=== PATIENT | male | born 1975 | race African-American/Black ===

== ENCOUNTER 2016-12-03 15:58 | Emergency (ER) | payer SELFPAY ==
[2016-12-03 16:04] VITALS: BP 127/76
--- NOTE | 2016-12-03 17:13 | ER Document Report ---
ED General - General Chief Complaint: Breathing Difficulty Stated Complaint: DIFFICULTY BREATHING Mode of Arrival: Ambulatory Information source: Patient Notes: 41 yr old male presents with complaints of anxiety and sob. pt notes he has anxiety very often. pt notes he has a hx of asthma, when he felt sob from the pollen he got anxious and felt even more sob. pt notes he is able ot breath through it and his symptoms all resolved. Patient denies any complaints at this time TRAVEL OUTSIDE OF THE [place] IN LAST 30 DAYS: No - HPI Onset: Just prior to arrival Onset/Duration: Sudden Quality of pain: No pain Severity: Mild Pain Level: Denies Associated symptoms: Shortness of breath, Other - Anxious Exacerbated by: Denies Relieved by: Denies Similar symptoms previously: Yes Recently seen / treated by doctor: Yes - Related Data Allergies/Adverse Reactions: shellfish derived Allergy (Verified 12/03/16 16:01) Past Medical History - Social History Smoking Status: Former Smoker Cigarette use (# per day): No Chew tobacco use (# tins/day): No Smoking Education Provided: No Family History: None Patient has suicidal ideation: No Patient has homicidal ideation: No Pulmonary Medical History: Reports: Hx Asthma - no inhalers Renal/ Medical History: Denies: Hx Peritoneal Dialysis - Immunizations Hx Diphtheria, Pertussis, Tetanus Vaccination: No Review of Systems - Review of Systems Notes: REVIEW OF SYSTEMS: CONSTITUTIONAL : Denies fever, chills, or sweats. Denies recent illness. EENT: Denies eye, ear, throat, or mouth pain or symptoms. Denies nasal or sinus congestion or discharge. Denies throat, tongue, or mouth swelling or difficulty swallowing. CARDIOVASCULAR: Denies chest pain. Denies palpitations or racing or irregular heart beat. Denies ankle edema. RESPIRATORY: Admits shortness breath GASTROINTESTINAL: Denies abdominal pain or distention. Denies nausea, vomiting , or diarrhea. Denies blood in vomitus, stools, or per rectum. Denies black, tarry stools. Denies constipation. GENITOURINARY: Denies difficulty urinating, painful urination, burning, frequency, blood in urine, or discharge. MUSCULOSKELETAL: Denies back or neck pain or stiffness. Denies joint pain or swelling. SKIN: Denies rash, lesions or sores. HEMATOLOGIC : Denies easy bruising or bleeding. LYMPHATIC: Denies swollen, enlarged glands. NEUROLOGICAL: Denies confusion or altered mental status. Denies passing out or loss of consciousness. Denies dizziness or lightheadedness. Denies headache. Denies weakness or paralysis or loss of use of either side. Denies problems with gait or speech. Denies sensory loss, numbness, or tingling. Denies seizures. PSYCHIATRIC: Admits to anxiety ALL OTHER SYSTEMS REVIEWED AND NEGATIVE. Dictation was performed using [employer] voice recognition software PHYSICAL EXAMINATION: GENERAL: Well-appearing, well-nourished and in no acute distress. HEAD: Atraumatic, normocephalic. EYES: Pupils equal round and reactive to light, extraocular movements intact, sclera anicteric, conjunctiva are normal. ENT: Nares patent, oropharynx clear without exudates. Moist mucous membranes. NECK: Normal range of motion, supple without lymphadenopathy LUNGS: Breath sounds clear to auscultation bilaterally and equal. No wheezes rales or rhonchi. HEART: Regular rate and rhythm without murmurs ABDOMEN: Soft, nontender, nondistended abdomen. No guarding, no rebound. No masses appreciated. Musculoskeletal: Normal range of motion, no pitting or edema. No cyanosis. NEUROLOGICAL: Cranial nerves grossly intact. Normal speech, normal gait. Normal sensory, motor exams PSYCH: Normal mood, normal affect. SKIN: Warm, Dry, normal turgor, no rashes or lesions noted. Physical Exam - Vital signs Vitals: Temp Pulse Resp BP Pulse Ox 98.0 F 97 20 127/76 H 97 12/03/16 16:02 12/03/16 16:02 12/03/16 16:02 12/03/16 16:02 12/03/16 16:02 Course - Re-evaluation Re-evalutation: 12/03/16 17:11 Patient at this time has no complaints notes his symptoms have all resolved. I agree with the patient that this was anxiety related and now that he is a symptomatically she wishes to be discharged home. Patient was given ED mental health team follow up. Patient's otherwise stable for discharge After performing a Medical Screening Examination, I estimate there is LOW risk for any life threatening rash. At this time the patient looks extremely well and there are no signs of systemic infection, however this may change at any time and the rash may change. The patient and I have discussed the diagnosis and risks, and we agree with discharging home with close follow-up with the understanding that symptoms and presentations can change. We also discussed returning to the Emergency Department immediately if new or worsening symptoms occur. We have discussed the symptoms which are most concerning (e.g., changing or worsening pain, fever, numbness, weakness, cool or painful digits) that necessitate immediate return. - Vital Signs Vital signs: Temp Pulse Resp BP Pulse Ox 98.0 F 97 20 127/76 H 97 12/03/16 16:02 12/03/16 16:02 12/03/16 16:02 12/03/16 16:02 12/03/16 16:02 Discharge - Discharge Clinical Impression: Anxiety, Shortness of breath Condition: Stable Disposition: HOME, SELF-CARE Additional Instructions: Anxiety The physician feels that some of your health problems are being caused by anxiety. Anxiety affects your health in many ways. Anxiety alone can cause palpitations, sweats, chest pains, abdominal pains, shortness of breath, and headaches. It contributes to ulcer disease, high blood pressure, irritable bowel syndrome, and has been shown to cause flare-ups of many other diseases. Anxiety is not a simple disorder to treat. If the anxiety is due to recent life stresses, you may simply need time to "work through" the changes. If the anxiety is due to an underlying unhappiness with yourself or due to psychiatric disturbance, professional help will be needed. Your physician can refer you for further help if needed. Anti-anxiety medication is occasionally given if the stress is acute or if you are having trouble sleeping. Chronic or frequent use of these medications is not a good idea because the body becomes reliant on it, preventing you from dealing with life's normal stresses. Follow up with your physician tomorrow for further care or return to the ED IMMEDIATELY if symptoms worsen or new concerns occur
== END 2016-12-03 17:18 | disposition home or self-care (01) ==
LOC: ER 15:58
DX: F41.9 Anxiety disorder, unspecified (principal); J45.909 Unspecified asthma, uncomplicated; R06.02 Shortness of breath; Z91.013 Allergy to seafood
CPT/HCPCS: 99283

== ENCOUNTER 2017-01-16 16:46 | Emergency (ER) | payer SELFPAY ==
[2017-01-16 17:17] VITALS: BP 113/64
[2017-01-16] MEDS ORDERED: ALBUTEROL SULFATE HFA (90 MCG/PUFF) 8 GM MDI (1 MDI/ER DISP) IH ONE (18:01)
[2017-01-16] MEDS ORDERED: PREDNISONE 20 MG TABLET PO ONE (18:02)
--- NOTE | 2017-01-16 18:02 | ER Document Report ---
ED Respiratory Problem - General Mode of Arrival: Ambulatory Information source: Patient TRAVEL OUTSIDE OF THE [place] IN LAST 30 DAYS: No - HPI Patient complains to provider of: Short of breath Similar symptoms previously: Yes Recently seen / treated by doctor: Yes - General Chief Complaint: Asthma Exacerbation Stated Complaint: DIFFICULTY BREATHING Time Seen by Provider: 01/16/17 17:46 Notes: Patient is a 41-year-old male that presents to the emergency department today with complaints of "almost having an asthma attack". Patient states he had his rescue inhaler on him. Patient reports using these medications and the shortness of breath subsided. Patient states he was recently diagnosed with asthma after moving here from [place] one year ago. Patient states he has newly found allergies since moving here as well. Patient states he takes Zyrtec daily. Patient has a prescription for Advair as well but he states he has not been taking it daily as he did not know that he was supposed to. (MARCOS VALDEZ) - Related Data Allergies/Adverse Reactions: shellfish derived Allergy (Verified 12/03/16 16:01) Past Medical History - General Information source: Patient - Social History Smoking Status: Former Smoker Cigarette use (# per day): No Chew tobacco use (# tins/day): No Frequency of alcohol use: None Drug Abuse: None Lives with: Family Family History: None, Reviewed & Not Pertinent Pulmonary Medical History: Reports: Hx Asthma - Immunizations Hx Diphtheria, Pertussis, Tetanus Vaccination: No Review of Systems - Review of Systems Constitutional: denies: Fever EENT: No symptoms reported Cardiovascular: No symptoms reported Respiratory: See HPI, Short of breath - "near asthma attack, better now". denies: Cough Gastrointestinal: No symptoms reported Genitourinary: No symptoms reported Male Genitourinary: No symptoms reported Musculoskeletal: No symptoms reported Skin: No symptoms reported Hematologic/Lymphatic: No symptoms reported Neurological/Psychological: No symptoms reported -: Yes All other systems reviewed and negative Physical Exam - Vital signs Vitals: Temp Pulse Resp BP Pulse Ox 97.5 F 79 20 113/64 99 01/16/17 17:11 01/16/17 17:11 01/16/17 17:11 01/16/17 17:11 01/16/17 17:11 - Notes Notes: Physical Exam: General: Alert, appears well. HEENT: Normocephalic. Atraumatic. PERRL. Extraocular movements intact. Oropharynx clear. Neck: Supple. Non-tender. Respiratory: No respiratory distress. Clear and equal breath sounds bilaterally. Cardiovascular: Regular rate and rhythm. Abdominal: Normal Inspection. Non-tender. No distension. Normal Bowel Sounds. Back: Non-tender. No deformity or step off. Extremities: Moves all four extremities. Upper extremities: Normal inspection. Normal ROM. Lower extremities: Normal inspection. No edema. Normal ROM. Neurological: Normal cognition. AAOx4. Normal speech. Psychological: Normal affect. Normal Mood. Skin: Warm. Dry. Normal color. (MARCOS VALDEZ) Course - Re-evaluation Re-evalutation: 01/16/17 Patient is a 41-year-old male who comes in complaining of difficulty breathing. Patient states that he used his inhaler and felt better. Patient also complained of irregular heartbeat. Patient has sinus rhythm on EKG. Patient is instructed to follow-up with his doctor this week as scheduled. Patient has been under a lot of stress and recently quit smoking. He is also having some difficulty with anxiety. Lungs are clear. Patient with sensitivity to pollen and has noticed his cetirizine. Will be given prednisone burst. He is to continue using his rescue inhaler as needed and take Advair daily. Patient understands and agrees with plan. Stable for discharge. Return if any worsening or concerning symptoms. (MORRIS AVILA) - Vital Signs Vital signs: Temp Pulse Resp BP Pulse Ox 97.5 F 79 20 113/64 99 01/16/17 17:11 01/16/17 17:11 01/16/17 17:11 01/16/17 17:11 01/16/17 17:11 Discharge - Discharge Clinical Impression: Asthma attack Condition: Stable Disposition: HOME, SELF-CARE Instructions: Asthma ([facility]), Hay Fever ([facility]) Additional Instructions: Please follow-up with her doctor as scheduled. Please return if you have any concerning or worsening symptoms. Prescriptions: Albuterol Sulfate [Proair HFA Inhalation Aerosol 8.5 gm MDI] 2 puff IH Q4H PRN # 1 mdi PRN Reason: Prednisone 40 mg PO DAILY #6 tablet Forms: Return to Work Referrals: TARIQ BILL FNP [Primary Care Provider] - Follow up as needed Scribe Attestation: 01/16/17 19:01 I personally performed the services described in the documentation, reviewed and edited the documentation which was dictated to the scribe in my presence, and it accurately records my words and actions. (MORRIS AVILA) Scribe Documentation - Scribe Written by Victoriano:: Victoriano Menjivar, 01/16/2017 1826 acting as scribe for :: Art
--- NOTE | 2017-01-16 20:31 | EKG REPORT ---
SEVERITY:- ABNORMAL ECG - SINUS RHYTHM MULTIPLE ATRIAL PREMATURE COMPLEXES : Confirmed by: Lars Call 16-Jan-2017 20:31:05
== END 2017-01-16 18:09 | disposition home or self-care (01) ==
LOC: ER 16:46
DX: J45.901 Unspecified asthma with (acute) exacerbation (principal); Z91.013 Allergy to seafood
CPT/HCPCS: 93005; 93010; 99284

== ENCOUNTER 2017-03-12 14:12 | Emergency (ER) | payer SELFPAY ==
[2017-03-12] MEDS ORDERED: PREDNISONE 20 MG TABLET PO ONE (14:28)
[2017-03-12] MEDS ORDERED: IPRATROPIUM/ALBUTEROL 0.5-2.5 MG/3 ML AMPUL NEB ONE ×2 (14:28)
--- NOTE | 2017-03-12 14:50 | ER Document Report ---
ED General - General Chief Complaint: Asthma Exacerbation Stated Complaint: DIFFICULTY BREATHING Time Seen by Provider: 03/12/17 14:28 Mode of Arrival: Ambulatory Information source: Patient Notes: 31-year-old male history of asthma who is on steroid inhalers at night and albuterol throughout the day presents with complaints of shortness of breath wheezing neck tightness. Patient notes symptoms have been intermittent since he moved here 1 year ago. Patient has been seen in the ED multiple times for similar complaints. Notes once he is placed on steroid symptoms improved. Patient denies any fevers or chills nausea vomiting or diarrhea TRAVEL OUTSIDE OF THE [place] IN LAST 30 DAYS: No - HPI Onset: Other Onset/Duration: Sudden, Intermittent Quality of pain: No pain Severity: Mild Pain Level: Denies Associated symptoms: Nonproductive cough, Shortness of breath Exacerbated by: Denies Relieved by: Denies Similar symptoms previously: Yes Recently seen / treated by doctor: Yes - Related Data Allergies/Adverse Reactions: shellfish derived Allergy (Verified 03/12/17 14:14) Past Medical History - Social History Smoking Status: Never Smoker Cigarette use (# per day): No Chew tobacco use (# tins/day): No Smoking Education Provided: No Family History: None, Reviewed & Not Pertinent Patient has suicidal ideation: No Patient has homicidal ideation: No Pulmonary Medical History: Reports: Hx Asthma Renal/ Medical History: Denies: Hx Peritoneal Dialysis - Immunizations Hx Diphtheria, Pertussis, Tetanus Vaccination: No Review of Systems - Review of Systems Notes: REVIEW OF SYSTEMS: CONSTITUTIONAL : Denies fever, chills, or sweats. Denies recent illness. EENT: Admits to throat tightness CARDIOVASCULAR: Denies chest pain. Denies palpitations or racing or irregular heart beat. Denies ankle edema. RESPIRATORY: Admits to cough wheezing GASTROINTESTINAL: Denies abdominal pain or distention. Denies nausea, vomiting , or diarrhea. Denies blood in vomitus, stools, or per rectum. Denies black, tarry stools. Denies constipation. GENITOURINARY: Denies difficulty urinating, painful urination, burning, frequency, blood in urine, or discharge. MUSCULOSKELETAL: Denies back or neck pain or stiffness. Denies joint pain or swelling. SKIN: Denies rash, lesions or sores. HEMATOLOGIC : Denies easy bruising or bleeding. LYMPHATIC: Denies swollen, enlarged glands. NEUROLOGICAL: Denies confusion or altered mental status. Denies passing out or loss of consciousness. Denies dizziness or lightheadedness. Denies headache. Denies weakness or paralysis or loss of use of either side. Denies problems with gait or speech. Denies sensory loss, numbness, or tingling. Denies seizures. PSYCHIATRIC: Denies anxiety or stress. Denies depression, suicidal ideation, or homicidal ideation. ALL OTHER SYSTEMS REVIEWED AND NEGATIVE. Dictation was performed using [employer] voice recognition software PHYSICAL EXAMINATION: GENERAL: Well-appearing, well-nourished and in no acute distress. HEAD: Atraumatic, normocephalic. EYES: Pupils equal round and reactive to light, extraocular movements intact, sclera anicteric, conjunctiva are normal. ENT: Nares patent, oropharynx clear without exudates. Moist mucous membranes. NECK: Normal range of motion, supple without lymphadenopathy LUNGS: End expiratory wheezing noted all throughout HEART: Regular rate and rhythm without murmurs ABDOMEN: Soft, nontender, nondistended abdomen. No guarding, no rebound. No masses appreciated. Musculoskeletal: Normal range of motion, no pitting or edema. No cyanosis. NEUROLOGICAL: Cranial nerves grossly intact. Normal speech, normal gait. Normal sensory, motor exams PSYCH: Normal mood, normal affect. SKIN: Warm, Dry, normal turgor, no rashes or lesions noted. Physical Exam - Vital signs Vitals: Temp Pulse Resp BP Pulse Ox 97.6 F 84 24 H 114/71 100 03/12/17 14:14 03/12/17 14:14 03/12/17 14:14 03/12/17 14:14 03/12/17 14:14 Course - Re-evaluation Re-evalutation: 03/12/17 14:53 And will be given duo nebs otherwise looks well is in no distress and will be started on steroids. After performing a Medical Screening Examination, I estimate there is LOW risk for ACUTE CORONARY SYNDROME, RESPIRATORY FAILURE, SEPSIS OR MENINGITIS, thus I consider the discharge disposition reasonable. I have reevaluated this patient multiple times and no significant life threatening changes are noted. The patient and I have discussed the diagnosis and risks, and we agree with discharging home with close follow-up. We also discussed returning to the Emergency Department immediately if new or worsening symptoms occur. We have discussed the symptoms which are most concerning (e.g., changing or worsening pain, trouble swallowing or breathing, neck stiffness, fever) that necessitate immediate return. - Vital Signs Vital signs: Temp Pulse Resp BP Pulse Ox 97.6 F 84 24 H 114/71 100 03/12/17 14:14 03/12/17 14:14 03/12/17 14:14 03/12/17 14:14 03/12/17 14:14 Discharge - Discharge Clinical Impression: Asthma exacerbation, SOB (shortness of breath) Condition: Stable Disposition: HOME, SELF-CARE Instructions: Asthma ([facility]) Additional Instructions: Follow up with your physician tomorrow for further care or return to the ED IMMEDIATELY if symptoms worsen or new concerns occur. If you cannot afford to follow up with your primary care physician a list of low cost clinics have been provided at the end of your discharge papers as well. Prescriptions: Prednisone [Deltasone 20 mg Tablet] 3 tab PO DAILY 5 Days
[2017-03-12] MEDS ORDERED: ALBUTEROL SULFATE HFA (90 MCG/PUFF) 8 GM MDI (1 MDI/ER DISP) IH PRN (16:00)
[2017-03-12 16:14] VITALS: BP 116/64
--- NOTE | 2017-03-12 17:59 | EKG REPORT ---
SEVERITY:- NORMAL ECG - SINUS RHYTHM : Confirmed by: Joseph Jacobson MD 12-Mar-2017 17:58:22
== END 2017-03-12 16:11 | disposition home or self-care (01) ==
LOC: ER 14:12
DX: J45.901 Unspecified asthma with (acute) exacerbation (principal); R06.02 Shortness of breath; R05 Cough; Z79.51 Long term (current) use of inhaled steroids; Z79.899 Other long term (current) drug therapy; Z91.013 Allergy to seafood
CPT/HCPCS: 93005; 94640 ×2; 99285; 93010; J7512; J3490; J7620

== ENCOUNTER 2017-03-25 18:36 | Inpatient (IN) | payer OTHER ==
--- NOTE | 2017-03-25 20:04 | ER Document Report ---
ED GI/ - General Chief Complaint: Abdominal Pain Stated Complaint: FEVER, ABDOMINAL PAIN Time Seen by Provider: 03/25/17 19:11 Mode of Arrival: Ambulatory Information source: Patient Notes: 41-year-old presents to ED for complaint of fever abdominal pain started yesterday. He is alert and oriented. States symptoms began around noon. The lower abdominal pain began first and then it felt more more pressure. States temp was up to 100.1. Denies any nausea vomiting or diarrhea. Denies any urinary symptoms. States he ate yesterday morning of both serial but really did not feel hungry. States she took ibuprofen just before coming to the hospital. TRAVEL OUTSIDE OF THE [place] IN LAST 30 DAYS: No - HPI Patient complains to provider of: Abdominal pain. No: Vomiting Onset: Other - 03/25/2017 around noon Timing/Duration: Gradual, Persistent Quality of pain: Pressure Severity at maximum: Moderate Severity in ED: Moderate Pain Level: 4 Location: Other - Lower abdominal pain first now total abdominal pain Associated symptoms: denies: Diarrhea, Nausea, Vomiting Exacerbated by: Movement, Walking Relieved by: Denies Similar symptoms previously: No Recently seen / treated by doctor: No - Related Data Allergies/Adverse Reactions: shellfish derived Allergy (Verified 03/12/17 14:14) Past Medical History - General Information source: Patient - Social History Smoking Status: Former Smoker Cigarette use (# per day): No Chew tobacco use (# tins/day): No Smoking Education Provided: No Frequency of alcohol use: Occasional Drug Abuse: None Lives with: Family Family History: Reviewed & Not Pertinent - Past Medical History Cardiac Medical History: Reports: None Pulmonary Medical History: Reports: Hx Asthma EENT Medical History: Reports: None Neurological Medical History: Reports: None Endocrine Medical History: Reports: None Renal/ Medical History: Reports: None Malignancy Medical History: Reports None GI Medical History: Reports: None Musculoskeltal Medical History: Reports None Skin Medical History: Reports None Psychiatric Medical History: Reports: None Traumatic Medical History: Reports: None Infectious Medical History: Reports: None Surgical Hx: Negative Past Surgical History: Reports: None - Immunizations Hx Diphtheria, Pertussis, Tetanus Vaccination: No Review of Systems - Review of Systems Constitutional: No symptoms reported EENT: No symptoms reported Cardiovascular: No symptoms reported Respiratory: No symptoms reported Gastrointestinal: Abdomen distended, Abdominal pain. denies: Diarrhea, Nausea, Vomiting Genitourinary: No symptoms reported Male Genitourinary: No symptoms reported Musculoskeletal: No symptoms reported Skin: No symptoms reported Hematologic/Lymphatic: No symptoms reported Neurological/Psychological: No symptoms reported -: Yes All other systems reviewed and negative Physical Exam - Vital signs Vitals: Temp Pulse Resp BP Pulse Ox 98.4 F 95 20 114/69 100 03/25/17 18:54 03/25/17 18:54 03/25/17 18:54 03/25/17 18:54 03/25/17 18:54 Interpretation: Normal - General General appearance: Appears well, Alert - HEENT Head: Normocephalic, Atraumatic Eyes: Normal Pupils: PERRL - Respiratory Respiratory status: No respiratory distress Chest status: Nontender Breath sounds: Normal Chest palpation: Normal - Cardiovascular Rhythm: Regular Heart sounds: Normal auscultation Murmur: No - Abdominal Inspection: Normal Distension: Distended Bowel sounds: Hyperactive Tenderness: Tender - Generalized Organomegaly: No organomegaly - Back Back: Normal, Nontender - Extremities General upper extremity: Normal inspection, Nontender, Normal color, Normal ROM , Normal temperature General lower extremity: Normal inspection, Nontender, Normal color, Normal ROM , Normal temperature, Normal weight bearing. No: Dinh's sign - Neurological Neuro grossly intact: Yes Cognition: Normal Orientation: AAOx4 Gilbert Coma Scale Eye Opening: Spontaneous Gilbert Coma Scale Verbal: Oriented [place] Coma Scale Motor: Obeys Commands [place] Coma Scale Total: 15 Speech: Normal Motor strength normal: LUE, RUE, LLE, RLE Sensory: Normal - Psychological Associated symptoms: Normal affect, Normal mood - Skin Skin Temperature: Warm Skin Moisture: Dry Skin Color: Normal Course - Re-evaluation Re-evalutation: 03/26/17 03:41 Kathi was in surgery when the CT scan of the abdomen and pelvis came back. He is now on the unit examining the patient. Will admit patient to surgery for diverticulitis with perforation. - Vital Signs Vital signs: Temp Pulse Resp BP Pulse Ox 100.0 F 92 20 98/68 L 97 03/26/17 06:36 03/26/17 06:36 03/26/17 06:36 03/26/17 06:36 03/26/17 06:36 - Laboratory Result Diagrams: 03/25/17 20:14 03/25/17 20:14 Laboratory results interpreted by me: 03/25/17 03/25/17 03/25/17 20:14 20:14 20:14 WBC 21.7 H RDW 14.3 H Seg Neuts % (Manual) 87 H Lymphocytes % (Manual) 3 L Abs Neuts (Manual) 19.5 H Total Protein 8.6 H Urine Glucose (UA) 50 H - Diagnostic Test Radiology reviewed: Image reviewed, Reports reviewed Discharge - Discharge Clinical Impression: Diverticulitis of colon with perforation Qualifiers: Diverticulitis bleeding: without bleeding Qualified Code(s): K57.20 - Diverticulitis of large intestine with perforation and abscess without bleeding Disposition: ADMITTED INPATIENT Admitting Provider: Surgicalist - [facility] Unit Admitted: Surgical Floor
[2017-03-25 20:39] LABS: HEMATOCRIT 45.5 % (37.9-51.0); HEMOGLOBIN 15.2 g/dL (13.5-17.0); HGB HCT DIFFERENCE 0.1; MEAN CORPUSCULAR HEMOGLOBIN 30.4 pg (27.0-33.4); MEAN CORPUSCULAR HGB CONC 33.4 g/dL (32.0-36.0); MEAN CORPUSCULAR VOLUME 91 fl (80-97); RED BLOOD COUNT 4.99 10^6/uL (4.35-5.55); RED CELL DISTRIBUTION WIDTH 14.3 % (11.5-14.0); WHITE BLOOD COUNT 21.7 10^3/uL (4.0-10.5)
[2017-03-25 20:48] LABS: ALANINE AMINOTRANSFERASE 50 U/L (21-72); ALBUMIN 4.4 g/dL (3.5-5.0); ALKALINE PHOSPHATASE 94 U/L (38-126); ANION GAP 16 (5-19); ASPARTATE AMINO TRANSFERASE 25 U/L (17-59); BILIRUBIN,DIRECT 0.3 mg/dL (0.0-0.4); BILIRUBIN,TOTAL 0.6 mg/dL (0.2-1.3); BLOOD UREA NITROGEN 14 mg/dL (7-20); CALCIUM 9.9 mg/dL (8.4-10.2); CARBON DIOXIDE 25 mmol/L (22-30); CHLORIDE 102 mmol/L (98-107); GLUCOSE 82 mg/dL (75-110); LIPASE 44.7 U/L (23-300); POTASSIUM 4.1 mmol/L (3.6-5.0); SODIUM 142.7 mmol/L (137-145); TOTAL PROTEIN 8.6 g/dL (6.3-8.2)
[2017-03-25 20:50] LABS: APPEARANCE,URINE SLIGHTLY-CLOUDY; BILIRUBIN,URINE NEGATIVE (NEGATIVE); GLUCOSE, URINE 50 mg/dL (NEGATIVE); KETONES,URINE NEGATIVE (NEGATIVE); LEUKOCYTE ESTERASE,URINE NEGATIVE (NEGATIVE); NITRITE,URINE NEGATIVE (NEGATIVE); PROTEIN,URINE NEGATIVE (NEGATIVE); URINE SPECIFIC GRAVITY 1.034; UROBILINOGEN,URINE NEGATIVE mg/dL (<2.0)
[2017-03-25 20:55] LABS: ANISOCYTOSIS SLIGHT; BAND NEUTROPHILS % (MANUAL) 3 % (3-5); BASOPHILS % (MANUAL) 0 % (0-2); EOSINOPHILS % (MANUAL) 1 % (0-6); LYMPHOCYTES % (MANUAL) 3 % (13-45); TOTAL CELLS COUNTED 100; TOXIC GRANULATION SLIGHT
--- NOTE | 2017-03-25 20:59 | RADIOLOGY REPORT (SQ) ---
EXAM DESCRIPTION: ACUTE ABDOMEN SERIES COMPLETED DATE/TIME: 03/25/2017 8:38 pm REASON FOR STUDY: distended abdomen, abd pain, cramping COMPARISON: None. NUMBER OF VIEWS: Three views. TECHNIQUE: Frontal chest, supine abdomen and upright/decubitus abdomen radiographic images acquired. LIMITATIONS: None. FINDINGS: CHEST: Lungs clear of infiltrates. FREE AIR: None. No abnormal gas collections. BOWEL GAS PATTERN: Nonobstructive pattern. No dilated loops or air fluid levels. CALCIFICATIONS: No suspicious calcifications. HARDWARE: None in the abdomen. SOFT TISSUES: No gross mass or suggestion of organomegaly. BONES: No acute fracture. No worrisome bone lesions. OTHER: No other significant finding. IMPRESSION: NO RADIOGRAPHIC EVIDENCE FOR ACUTE ABDOMINAL DISEASE. TECHNICAL DOCUMENTATION: JOB ID: [id number] [employer]- All Rights Reserved
[2017-03-25] MEDS ORDERED: MORPHINE SULFATE 10 MG/ML INJ IV PRN (21:39)
[2017-03-25] MEDS ORDERED: NORMAL SALINE 1000 ML 1,000 ML IV ONE (21:42)
[2017-03-25] MEDS ORDERED: ONDANSETRON HCL INJ/PF 4 MG/2 ML SDV IV ONE (21:42)
[2017-03-25] MEDS ORDERED: NORMAL SALINE 1000 ML 1,000 ML IV PRN (21:42)
--- NOTE | 2017-03-26 01:00 | RADIOLOGY REPORT (SQ) ---
EXAM DESCRIPTION: CT ABD/PELVIS WITH IV ORAL COMPLETED DATE/TIME: 03/26/2017 12:42 am REASON FOR STUDY: abdominal pain wbc 21 COMPARISON: None. TECHNIQUE: CT scan of the abdomen and pelvis performed using helical scanning technique with dynamic intravenous contrast injection. No oral contrast. Images reviewed with lung, soft tissue, and bone windows. Reconstructed coronal and sagittal MPR images reviewed. Delayed images for evaluation of the urinary system also acquired. All images stored on PACS. All CT scanners at this facility use dose modulation, iterative reconstruction, and/or weight based d osing when appropriate to reduce radiation dose to as low as reasonably achievable (ALARA). [facility]: Dose Right [facility]: CareDose [facility]: Dose Right [facility]: Teradose 4D [facility]: [employer] CONTRAST TYPE AND DOSE: contrast/concentration: Isovue 370.00 mg/ml; Total Contrast Delivered: 100.0 ml; Total Saline Delivered: 71.0 ml RENAL FUNCTION: GFR > 60. RADIATION DOSE: Up-to-date CT equipment and radiation dose reduction techniques were employed. CTDIv ol: 19.3 - 20.6 mGy. DLP: 2128 mGy-cm.. LIMITATIONS: None. FINDINGS: LOWER CHEST: No significant findings. No nodules or infiltrates. LIVER: Normal size. No masses. No dilated ducts. SPLEEN: Normal size. No focal lesions. PANCREAS: No masses. No significant calcifications. No adjacent inflammation or peripancreatic fluid collections. Pancreatic duct not dilated. GALLBLADDER: No identified stones by CT criteria. No inflammatory changes to suggest cholecystitis. ADRENAL GLANDS: No significant masses or asymmetry. RIGHT KIDNEY AND URETER: No solid masses. No significant calcifications. No hydronephrosis or hyd roureter. LEFT KIDNEY AND URETER: No solid masses. No significant calcifications. No hydronephrosis or hydr oureter. AORTA AND VESSELS: No aneurysm. No dissection. Renal arteries, SMA, celiac without stenosis. RETROPERITONEUM: No retroperitoneal adenopathy, hemorrhage or masses. BOWEL AND PERITONEAL CAVITY: Pericolonic inflammatory changes along the sigmoid colon with free air e xtending into the mesenteric. Most likely perforated diverticulum. APPENDIX: Not visualized. PELVIS: No mass. No free fluid. Normal bladder. ABDOMINAL WALL: No masses. No hernias. BONES: No significant or acute findings. OTHER: No other significant finding. IMPRESSION: Intraabdominal free air arising from the sigmoid colon most likely from a perforated div erticulum. Pericolonic fat stranding. COMMENT: Pertinent findings on the imaging study reported as a CRITICAL RESULT to JEAN ORTIZ NP at00:52 on 03/26/2017. Category of Critical Result: Free intraperitoneal air TECHNICAL DOCUMENTATION: JOB ID: [id number] Quality ID # [id number]: Final reports with documentation of one or more dose reduction techniques (e.g., Au tomated exposure control, adjustment of the mA and/or kV according to patient size, use of iterative reconstruction technique) 2010 [employer]- All Rights Reserved
[2017-03-26] MEDS ORDERED: LEVOFLOXACIN 750 MG/D5W RTU 150 ML IV ONE (01:33)
[2017-03-26] MEDS ORDERED: METRONIDAZOLE 500 MG/NS RTU 100 ML IV ONE (01:33)
[2017-03-26] MEDS ORDERED: RINGERS SOLUTION,LACTATED 1,000 ML IV PRN (04:14)
[2017-03-26] MEDS ORDERED: ONDANSETRON HCL INJ/PF 4 MG/2 ML SDV IV PRN (04:15)
[2017-03-26] MEDS ORDERED: MORPHINE SULFATE 10 MG/ML INJ IV PRN (04:15)
[2017-03-26] MEDS ORDERED: ALBUTEROL SULFATE 0.083% NEB 2.5 MG/3 ML AMPUL NEB PRN (04:15)
[2017-03-26] MEDS: METRONIDAZOLE 500 MG/NS RTU 100 ML IV SCH ×3 (06:49→20:33)
[2017-03-26] MEDS: CLINDAMYCIN 600 MG/D5W RTU 600 MG/50 ML RTUPB IV SCH ×3 (06:50→21:43)
[2017-03-26] MEDS: ACETAMINOPHEN 325 MG TABLET PO PRN ×4 (07:52→20:28)
--- NOTE | 2017-03-26 09:28 | HISTORY AND PHYSICAL E ---
History and Physical NAME: JANIYA JACKSON : 1975 AGE: 41Y ADMITTED: 03/26/2017 ROOM: 532 REFERRING PHYSICIAN: Emergency department CHIEF COMPLAINT: Acute abdominal pain. HISTORY OF PRESENTING ILLNESS: The patient is a 41-year-old male, with approximately 2 day history of abdominal pain, bloating, difficulty moving his bowels. He was actually constipated 2 days ago and took lieg-zi-parsoevf without relief. He denies nausea or vomiting. He felt feverish and his temperature had been over 100. The p.o. intake has been down. He denies history of trauma or previous episodes. He did take ibuprofen prior to arriving at the hospital. When the patient came to the emergency department, he was found to have diffuse abdominal tenderness and a leukocytosis. A CT scan of the abdomen and pelvis was performed with IV and oral contrast. The findings were consistent with acute sigmoid diverticulitis with retroperitoneal air pockets. Surgery was consulted and the patient was advised admission. PAST MEDICAL HISTORY: Significant for asthma; as per HPI. PAST SURGICAL HISTORY: None. MEDICATIONS: 1. Albuterol inhaler. 2. Prednisone recently. SOCIAL HISTORY: The patient drinks alcohol occasionally and formerly smoked. 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 PRIMARY CARE PHYSICIAN: Dr. Sarah Middleton. ALLERGIES: SHELLFISH. IMMUNIZATIONS: Up to date. REVIEW OF SYSTEMS: CONSTITUTIONAL: Patient denies. CARDIOVASCULAR: Patient denies. MUSCULOSKELETAL: Patient denies. GASTROINTESTINAL: As per HPI. PHYSICAL EXAMINATION: GENERAL: The patient examined in the emergency department. He is in no acute distress. He did receive narcotics earlier. PSYCHIATRIC: Alert and oriented x4. NEUROLOGIC: Grossly intact in upper and lower extremities. HEENT: Head normocephalic, atraumatic. NECK: No adenopathy. LUNGS: Diminished in the bases bilateral. HEART: Without murmur or gallop. ABDOMEN: Distended. There is an umbilical hernia nonincarcerated. The abdomen is diffusely tender particularly in the pelvic regions with limited guarding. The remainder of examination is grossly unremarkable. LABORATORY PROFILE: Shows normal electrolytes. White blood cell count 21,700, hemoglobin 15.2. Independent interpretation of the CT scan of his abdomen and pelvis with oral and IV contrast shows pericolonic sigmoid inflammatory changes. There are multiple small micro pockets of air in the retroperitoneum. There is no dilshad phlegmon or fluid in the pelvis. IMPRESSION: 1. Acute Sigmoid diverticulitis with retroperitoneal air consistent with contained, limited perforation. 2. History of asthma. RECOMMENDATIONS: The patient will be admitted to the surgicalist service, kept n.p.o. on IV fluids and intravenous antibiotics, and pain medication will be provided. The patient understands that the management of this scenario is typically nonoperative unless the patient clinically deteriorates, then exploratory laparotomy, colectomy and colostomy may be required. The patient expresses understands and agrees to proceed with the stated plan. DICTATING PHYSICIAN: LEONARDO MANCILLA M.D. [id number] PHY#: [id number] ID: [id number] JOB#: [id number] ACCT: [id number] cc:LEONARDO MANCILLA M.D. > MTDD
--- NOTE | 2017-03-26 16:35 | PDOC PROGRESS REPORT ---
Subjective Progress Note for:: 03/26/17 Subjective:: He feels better, voiding multiple times a day, and had a loose bowel movement. Physical Exam Vital Signs: Temp Pulse Resp BP Pulse Ox 98.4 F 85 16 108/63 97 03/26/17 11:37 03/26/17 14:00 03/26/17 14:00 03/26/17 11:37 03/26/17 14:00 Intake & Output 03/25/17 03/26/17 03/27/17 06:59 06:59 06:59 Weight 104.9 kg General appearance: PRESENT: no acute distress GI/Abdominal exam: PRESENT: other - Abdomen much softer no peritoneal signs no rigidity. Minimal guarding. Results Impressions: Acute Abdomen Series 03/25/17 20:03 IMPRESSION: NO RADIOGRAPHIC EVIDENCE FOR ACUTE ABDOMINAL DISEASE. Abdomen/Pelvis CT 03/26/17 00:00 IMPRESSION: Intraabdominal free air arising from the sigmoid colon most likely from a perforated diverticulum. Pericolonic fat stranding. Assessment & Plan - Diagnosis (1) Diverticulitis of colon with perforation Qualifiers: Diverticulitis bleeding: without bleeding Qualified Code(s): K57.20 - Diverticulitis of large intestine with perforation and abscess without bleeding Is this a current diagnosis for this admission?: YesPlan: This is hospital day 2 for the patient with contained retroperitoneal sigmoid colon perforation likely secondary to acute diverticulitis. Patient is clinically improved. Plan: 1. Start clear liquid diet slowly. 2. Anticipate listening to oral antibiotics in the next 24 hours, then home on oral regimen for 1 week 3. Explained to patient he will require colonoscopy on outpatient basis once the acute inflammation resolved
[2017-03-26] MEDS: ZOLPIDEM TARTRATE 5 MG TABLET PO PRN (22:41)
[2017-03-27] MEDS: ACETAMINOPHEN 325 MG TABLET PO PRN ×3 (00:47→19:46)
[2017-03-27] MEDS: METRONIDAZOLE 500 MG/NS RTU 100 ML IV SCH ×3 (05:03→21:41)
[2017-03-27] MEDS: CLINDAMYCIN 600 MG/D5W RTU 600 MG/50 ML RTUPB IV SCH ×3 (07:02→23:07)
--- NOTE | 2017-03-27 08:48 | Physician Advisory Note ---
Physician Advisor ProgressNote .: Pursuant to the plan for [facility], I have reviewed the medical record for this patient. Physician Advisor Statement: NICE documentation of "limited perforation & abscess" from acute sigmoid diverticulitis. Reasonable to consider change to Inpatient status today given 2 days of hemodynamic instability, if attending agrees the level of vital sign instability was enough to concern him/need continued close monitoring and hospital care. Discussion: Pt arrived 03/25 w/tachycardia & prominent leukocytosis of 21.7, w/recurrent tachypnea. Begun on IVF & IV abx, w/close monitoring, PRN pain control. Pt w/persistent tachycardia throughout the 1st 2 days in hospital, requiring ongoing IV abx & IVF. Only beginning po clears as of PM after adm. Developed highest recorded temp so far, 100.2, late on 03/26 PM just before MN. Thanks! CK
--- NOTE | 2017-03-27 09:30 | PDOC PROGRESS REPORT ---
Subjective Progress Note for:: 03/27/17 Subjective:: We will grade 2, patient had small bowel movement; walking in the halls. No nausea vomiting. Minimal pain. Physical Exam Vital Signs: Temp Pulse Resp BP Pulse Ox 98.6 F 86 16 109/64 96 03/27/17 03:24 03/27/17 03:24 03/27/17 03:24 03/27/17 03:24 03/27/17 03:24 Intake & Output 03/26/17 03/27/17 03/28/17 06:59 06:59 06:59 Intake Total 760 Balance 760 Weight 104.9 kg 103.2 kg General appearance: PRESENT: no acute distress GI/Abdominal exam: PRESENT: other - Patient a little bloated but not tender. Results Impressions: Acute Abdomen Series 03/25/17 20:03 IMPRESSION: NO RADIOGRAPHIC EVIDENCE FOR ACUTE ABDOMINAL DISEASE. Abdomen/Pelvis CT 03/26/17 00:00 IMPRESSION: Intraabdominal free air arising from the sigmoid colon most likely from a perforated diverticulum. Pericolonic fat stranding. Assessment & Plan - Diagnosis (1) Diverticulitis of colon with perforation Qualifiers: Diverticulitis bleeding: without bleeding Qualified Code(s): K57.20 - Diverticulitis of large intestine with perforation and abscess without bleeding Is this a current diagnosis for this admission?: YesPlan: Hospital day 3 for patient for acute diverticulitis with contained retroperitoneal perforation, doing well on intravenous antibiotics, tolerating clear liquids Plan: We will keep patient on clear liquids today Anticipate advancing diet in the next 24 hours.
[2017-03-27] MEDS ORDERED: ONDANSETRON HCL INJ/PF 4 MG/2 ML SDV IV PRN (14:26)
[2017-03-27] MEDS: ZOLPIDEM TARTRATE 5 MG TABLET PO PRN (23:06)
[2017-03-28] MEDS: METRONIDAZOLE 500 MG/NS RTU 100 ML IV SCH ×2 (05:26→13:02)
[2017-03-28] MEDS: CLINDAMYCIN 600 MG/D5W RTU 600 MG/50 ML RTUPB IV SCH ×2 (06:55→15:18)
[2017-03-28] MEDS: ACETAMINOPHEN 325 MG TABLET PO PRN (13:07)
[2017-03-28 15:17] LABS: ABSOLUTE BASOPHILS # (AUTO) 0.1 10^3/uL (0.0-0.2); ABSOLUTE EOSINOPHILS # (AUTO) 0.1 10^3/uL (0.0-0.6); ABSOLUTE LYMPHOCYTES (AUTO) 1.4 10^3/uL (0.5-4.7); ABSOLUTE MONOCYTES (AUTO) 1.2 10^3/uL (0.1-1.4); ABSOLUTE NEUT (AUTO) 11.5 10^3/uL (1.7-8.2); BASOPHILS % (AUTO) 0.5 % (0-2); EOSINOPHILS % (AUTO) 0.5 % (0-6); HGB HCT DIFFERENCE 0.6; LYMPHOCYTES % (AUTO) 9.8 % (13-45); MEAN CORPUSCULAR HEMOGLOBIN 30.5 pg (27.0-33.4); MEAN CORPUSCULAR HGB CONC 33.8 g/dL (32.0-36.0); MEAN CORPUSCULAR VOLUME 90 fl (80-97); MONOCYTES % (AUTO) 8.5 % (3-13); RED BLOOD COUNT 3.99 10^6/uL (4.35-5.55); RED CELL DISTRIBUTION WIDTH 13.9 % (11.5-14.0); SEGMENTED NEUTROPHILS % (AUTO) 80.7 % (42-78); WHITE BLOOD COUNT 14.3 10^3/uL (4.0-10.5)
[2017-03-28 15:20] LABS: HEMOGLOBIN 12.2 g/dL (13.5-17.0)
[2017-03-28] MEDS ORDERED: ALBUTEROL SULFATE HFA (90 MCG/PUFF) 200 PUFF/8.5 GM MDI IH PRN (18:02)
--- NOTE | 2017-03-28 18:06 | PDOC PROGRESS REPORT ---
Subjective Progress Note for:: 03/28/17 Subjective:: comfortable, tolerating po well Physical Exam Vital Signs: Temp Pulse Resp BP Pulse Ox 97.9 F 75 19 112/69 99 03/28/17 15:58 03/28/17 15:58 03/28/17 15:58 03/28/17 15:58 03/28/17 15:58 Intake & Output 03/27/17 03/28/17 03/29/17 06:59 06:59 06:59 Intake Total 667 1000 Balance 667 1000 Weight 103.7 kg GI/Abdominal exam: PRESENT: soft Results Laboratory Results: 03/28/17 14:58 03/28/17 03/28/17 13:48 14:58 WBC Cancelled 14.3 H RBC Cancelled 3.99 L Hgb Cancelled 12.2 L D Hct Cancelled 36.0 L MCV Cancelled 90 MCH Cancelled 30.5 MCHC Cancelled 33.8 RDW Cancelled 13.9 Plt Count Cancelled 200 Seg Neutrophils % Cancelled 80.7 H Lymphocytes % Cancelled 9.8 L Monocytes % Cancelled 8.5 Eosinophils % Cancelled 0.5 Basophils % Cancelled 0.5 Absolute Neutrophils Cancelled 11.5 H Absolute Lymphocytes Cancelled 1.4 Absolute Monocytes Cancelled 1.2 Absolute Eosinophils Cancelled 0.1 Absolute Basophils Cancelled 0.1 Impressions: Acute Abdomen Series 03/25/17 20:03 IMPRESSION: NO RADIOGRAPHIC EVIDENCE FOR ACUTE ABDOMINAL DISEASE. Abdomen/Pelvis CT 03/26/17 00:00 IMPRESSION: Intraabdominal free air arising from the sigmoid colon most likely from a perforated diverticulum. Pericolonic fat stranding. Assessment & Plan - Diagnosis (1) Diverticulitis of colon with perforation Qualifiers: Diverticulitis bleeding: without bleeding Qualified Code(s): K57.20 - Diverticulitis of large intestine with perforation and abscess without bleeding Is this a current diagnosis for this admission?: Yes - Plan Summary Plan Summary: a/ sigmoid diverticulitis patient doing well tolerating po well p/ Discharge tonight 03/28/17 f/u with clinic within 1 week Levaquin/Flagyl po x 1 week Low residue diet x 4 weeks seed free diet lifetime colonoscopy in 3 months
[2017-03-28 18:24] VITALS: BP 111/69
[2017-03-28] MEDS ORDERED: METRONIDAZOLE 500 MG TABLET PO SCH (22:00)
--- NOTE | 2017-03-29 10:36 | DISCHARGE SUMMARY E ---
Discharge Summary NAME: JANIYA JACKSON : 1975 AGE: 41Y ADMITTED: 03/27/2017 DISCHARGED: 03/28/2017 FINAL DIAGNOSIS: Perforated sigmoid diverticulitis. PROCEDURE: None. HOSPITAL COURSE: This is a 41-year-old -[place] male with a history of left-sided abdominal pain, admitted through the emergency room on 03/25/2017 with sigmoid diverticulitis and microperforation. The patient was treated conservatively with IV and then oral antibiotics with improvement of his symptoms. On the day of discharge the patient's vital signs were stable. He was able to tolerate a regular diet. His physical exam showed a soft abdomen and he had no other complaints. He had normal stools. DISCHARGE INSTRUCTIONS: He was eventually discharged to home on 03/28, to follow up with Dr. Armenta within a week. He was given Levaquin 500 mg p.o. daily for 7 days, Flagyl 500 mg p.o. three times a day for 7 days. He was given Tylenol p.r.n. for pain. He was given instructions to follow a low residue diet for 3 weeks and a seed free diet for lifetime. The patient was instructed to follow activities as tolerated. DICTATING PHYSICIAN: KAROL CRYSTAL M.D. [id number] [id number] ID: [id number] JOB#: [id number] ACCT: [id number] cc:Bessie MARSHALL PA > [facility]
== END 2017-03-28 18:49 | disposition home or self-care (01) | DRG 392 ==
LOC: ER 18:36 → EH 03-26 03:52 → UNDOADMOB 03-26 03:52 → INTOOBSV 03-26 03:52 → EH 03-26 04:13 → 5 03-26 06:31 → OBSVTOIN 03-27 17:01
PROVIDERS: ADMIT Surgery; ATTEND Surgery
DX: K57.20 Diverticulitis of large intestine with perforation and abscess without bleeding (principal); J45.909 Unspecified asthma, uncomplicated; Z87.891 Personal history of nicotine dependence
CPT/HCPCS: 36415; 74022; 74177; 80053; 81001; 83690; 85025; 87040; 96361; 96374; 99285; G0378; J2270; J2405; J3490; J7030; J7120

== ENCOUNTER 2017-03-29 00:48 | Emergency (ER) | payer OTHER ==
[2017-03-29] MEDS ORDERED: LORAZEPAM 1 MG TABLET PO ONE (01:23)
--- NOTE | 2017-03-29 01:27 | ER Document Report ---
ED General - General Chief Complaint: Breathing Difficulty Stated Complaint: SHORTNESS OF BREATH Time Seen by Provider: 03/29/17 01:23 Mode of Arrival: Ambulatory Information source: Patient Notes: 41-year-old male history of asthma and anxiety presents with complaints of shortness breath difficulty breathing. Patient on arrival satting 100% notes that he use his inhaler with improvement of his symptoms. Patient notes that he is quite anxious. TRAVEL OUTSIDE OF THE [place] IN LAST 30 DAYS: No - HPI Onset: Just prior to arrival Onset/Duration: Sudden Quality of pain: No pain Severity: Mild Pain Level: Denies Associated symptoms: Shortness of breath Exacerbated by: Denies Relieved by: Denies Similar symptoms previously: Yes Recently seen / treated by doctor: Yes - Related Data Allergies/Adverse Reactions: shellfish derived Allergy (Verified 03/12/17 14:14) Past Medical History - Social History Smoking Status: Never Smoker Cigarette use (# per day): No Chew tobacco use (# tins/day): No Smoking Education Provided: No Family History: Reviewed & Not Pertinent Pulmonary Medical History: Reports: Hx Asthma Renal/ Medical History: Denies: Hx Peritoneal Dialysis - Immunizations Hx Diphtheria, Pertussis, Tetanus Vaccination: No Review of Systems - Review of Systems Notes: REVIEW OF SYSTEMS: CONSTITUTIONAL : Denies fever, chills, or sweats. Denies recent illness. EENT: Denies eye, ear, throat, or mouth pain or symptoms. Denies nasal or sinus congestion or discharge. Denies throat, tongue, or mouth swelling or difficulty swallowing. CARDIOVASCULAR: Denies chest pain. Denies palpitations or racing or irregular heart beat. Denies ankle edema. RESPIRATORY: Admits to shortness of breath GASTROINTESTINAL: Denies abdominal pain or distention. Denies nausea, vomiting , or diarrhea. Denies blood in vomitus, stools, or per rectum. Denies black, tarry stools. Denies constipation. GENITOURINARY: Denies difficulty urinating, painful urination, burning, frequency, blood in urine, or discharge. MUSCULOSKELETAL: Denies back or neck pain or stiffness. Denies joint pain or swelling. SKIN: Denies rash, lesions or sores. HEMATOLOGIC : Denies easy bruising or bleeding. LYMPHATIC: Denies swollen, enlarged glands. NEUROLOGICAL: Denies confusion or altered mental status. Denies passing out or loss of consciousness. Denies dizziness or lightheadedness. Denies headache. Denies weakness or paralysis or loss of use of either side. Denies problems with gait or speech. Denies sensory loss, numbness, or tingling. Denies seizures. PSYCHIATRIC: Admits to anxiety ALL OTHER SYSTEMS REVIEWED AND NEGATIVE. Dictation was performed using [employer] voice recognition software PHYSICAL EXAMINATION: GENERAL: Well-appearing, well-nourished and in no acute distress. HEAD: Atraumatic, normocephalic. EYES: Pupils equal round and reactive to light, extraocular movements intact, sclera anicteric, conjunctiva are normal. ENT: Nares patent, oropharynx clear without exudates. Moist mucous membranes. NECK: Normal range of motion, supple without lymphadenopathy LUNGS: Breath sounds clear to auscultation bilaterally and equal. No wheezes rales or rhonchi. HEART: Regular rate and rhythm without murmurs ABDOMEN: Soft, nontender, nondistended abdomen. No guarding, no rebound. No masses appreciated. Musculoskeletal: Normal range of motion, no pitting or edema. No cyanosis. NEUROLOGICAL: Cranial nerves grossly intact. Normal speech, normal gait. Normal sensory, motor exams PSYCH: Very anxious male SKIN: Warm, Dry, normal turgor, no rashes or lesions noted. Physical Exam - Vital signs Vitals: Temp Pulse Resp BP Pulse Ox 97.5 F 74 18 107/67 100 03/29/17 00:59 03/29/17 00:59 03/29/17 00:59 03/29/17 00:59 03/29/17 00:59 Course - Re-evaluation Re-evalutation: 03/29/17 01:27 Patient breath sounds are completely clear he is having no respiratory distress he is satting 100% on room air very low suspicion for a DVT or PE 03/29/17 02:25 Patient notes symptoms have completely resolved after receiving Ativan, he will be discharged home with follow-up with mental health he requested a nebulizer machine and I will write for this as well After performing a Medical Screening Examination, I estimate there is LOW risk for ACUTE CORONARY SYNDROME, RESPIRATORY FAILURE, SEPSIS OR MENINGITIS, thus I consider the discharge disposition reasonable. I have reevaluated this patient multiple times and no significant life threatening changes are noted. The patient and I have discussed the diagnosis and risks, and we agree with discharging home with close follow-up. We also discussed returning to the Emergency Department immediately if new or worsening symptoms occur. We have discussed the symptoms which are most concerning (e.g., changing or worsening pain, trouble swallowing or breathing, neck stiffness, fever) that necessitate immediate return. - Vital Signs Vital signs: Temp Pulse Resp BP Pulse Ox 97.5 F 74 18 107/67 100 03/29/17 00:59 03/29/17 00:59 03/29/17 00:59 03/29/17 00:59 03/29/17 00:59 Discharge - Discharge Clinical Impression: Anxiety, Shortness of breath Condition: Stable Disposition: HOME, SELF-CARE Instructions: Anxiety (OM) Prescriptions: Albuterol Sulfate [Albuterol Sulfate 5mg/1 mL] 5 mg PO Q4 PRN 30 Days PRN Reason: Lorazepam [Ativan 0.5 mg Tablet] 0.5 mg PO Q4 PRN #14 tab PRN Reason: Nebulizer [Nebulizer Machine] 1 each MC ASDIR PRN #1 kit PRN Reason: Referrals: ALEA ARMANDO, CHANGE MANAGER-C [Primary Care Provider] - Follow up tomorrow
[2017-03-29 04:09] VITALS: BP 115/57
== END 2017-03-29 02:45 | disposition home or self-care (01) ==
LOC: ER 00:48
DX: F41.9 Anxiety disorder, unspecified (principal); J45.909 Unspecified asthma, uncomplicated; R06.02 Shortness of breath; Z91.013 Allergy to seafood
CPT/HCPCS: 99284

== ENCOUNTER 2017-04-15 19:25 | Emergency (ER) | payer OTHER ==
[2017-04-15 19:56] VITALS: BP 120/84
--- NOTE | 2017-04-15 20:24 | ER Document Report ---
ED Medical Screen (RME) - General Chief Complaint: Abdominal Pain Stated Complaint: ABDOMINAL PAIN Time Seen by Provider: 04/15/17 20:22 Mode of Arrival: Ambulatory Information source: Patient TRAVEL OUTSIDE OF THE [place] IN LAST 30 DAYS: No - HPI Patient complains to provider of: abdominal pain; constipation Onset: Yesterday - pt was diagnosed with diverticulitis recently but has had issues with constipation in the past several days. - Related Data Allergies/Adverse Reactions: shellfish derived Allergy (Verified 04/15/17 20:22) Past Medical History Pulmonary Medical History: Reports: Hx Asthma Renal/ Medical History: Denies: Hx Peritoneal Dialysis - Immunizations Hx Diphtheria, Pertussis, Tetanus Vaccination: No Physical Exam - Vital signs Vitals: Temp Pulse Resp BP Pulse Ox 98 F 94 18 120/84 98 04/15/17 19:54 04/15/17 19:54 04/15/17 19:54 04/15/17 19:54 04/15/17 19:54 Course - Vital Signs Vital signs: Temp Pulse Resp BP Pulse Ox 98 F 94 18 120/84 98 04/15/17 19:54 04/15/17 19:54 04/15/17 19:54 04/15/17 19:54 04/15/17 19:54
== END 2017-04-15 20:59 | disposition home or self-care (01) ==
LOC: ER 19:25
DX: R10.9 Unspecified abdominal pain (principal); K59.00 Constipation, unspecified; Z91.013 Allergy to seafood
CPT/HCPCS: 99281

== ENCOUNTER 2017-04-20 01:30 | Emergency (ER) | payer OTHER ==
[2017-04-20 01:38] VITALS: BP 107/68
[2017-04-20] MEDS ORDERED: IPRATROPIUM/ALBUTEROL 0.5-2.5 MG/3 ML AMPUL NEB ONE (02:06)
[2017-04-20] MEDS ORDERED: PREDNISONE 20 MG TABLET PO ONE (02:06)
[2017-04-20] MEDS ORDERED: ALBUTEROL SULFATE 0.083% NEB 2.5 MG/3 ML AMPUL NEB SCH (02:21)
--- NOTE | 2017-04-20 03:37 | ER Document Report ---
ED Respiratory Problem - General Chief Complaint: Shortness Of Breath Stated Complaint: TROUBLE BREATHING Time Seen by Provider: 04/20/17 03:36 TRAVEL OUTSIDE OF THE [place] IN LAST 30 DAYS: No - HPI Patient complains to provider of: Asthma Onset: Just prior to arrival Duration: Better - after treatment in triage Quality of pain: No pain Severity: Mild Short of Breath: Mild Sputum amount: None At home treatment: Bronchodilators Associated symptoms: None Similar symptoms previously: Yes Recently seen / treated by doctor: No - Related Data Allergies/Adverse Reactions: shellfish derived Allergy (Verified 04/15/17 20:22) Past Medical History - Social History Smoking Status: Former Smoker Frequency of alcohol use: None Drug Abuse: None Family History: Reviewed & Not Pertinent Patient has suicidal ideation: No Patient has homicidal ideation: No Pulmonary Medical History: Reports: Hx Asthma Renal/ Medical History: Denies: Hx Peritoneal Dialysis - Immunizations Hx Diphtheria, Pertussis, Tetanus Vaccination: No Review of Systems - Review of Systems Constitutional: No symptoms reported Cardiovascular: No symptoms reported Respiratory: See HPI -: Yes All other systems reviewed and negative Physical Exam - Vital signs Vitals: Temp Pulse Resp BP Pulse Ox 97.9 F 86 16 107/68 94 04/20/17 01:34 04/20/17 01:34 04/20/17 01:34 04/20/17 01:34 04/20/17 01:34 - Notes Notes: PHYSICAL EXAM GENERAL: Alert, interacts well. HEAD: Normocephalic, atraumatic. NECK: Full range of motion. Supple. Trachea midline. LUNGS: Clear to auscultation bilaterally, no wheezes, rales, or rhonchi. No respiratory distress. HEART: Regular rate and rhythm. No murmurs, gallops, or rubs. NEUROLOGICAL: Alert and oriented x4. Normal speech. PSYCH: Normal affect, normal mood. SKIN: Warm, dry, normal turgor. No rashes or lesions noted. Course - Re-evaluation Re-evalutation: 04/20/17 06:49 Patient is a 42-year-old male who presents with asthma exacerbation. Patient received DuoNeb in triage and he states his symptoms are completely resolved. Patient states that he would like to go home with prescription for nebulized treatment machine. Otherwise he denies any chest pain, shortness of breath, dyspnea on exertion, cough, fever, chills. Discharge home with prescription for prednisone as well given strict return precautions. Patient agrees with plan - Vital Signs Vital signs: Temp Pulse Resp BP Pulse Ox 97.9 F 86 16 107/68 94 04/20/17 01:34 04/20/17 01:34 04/20/17 01:34 04/20/17 01:34 04/20/17 01:34 Discharge - Discharge Clinical Impression: Asthma Condition: Good Disposition: HOME, SELF-CARE Instructions: Asthma ([facility], [facility]) Prescriptions: Albuterol Sulfate [Albuterol Sulfate 2.5mg/3 mL] 1 vial IH Q4 PRN #15 vial PRN Reason: Nebulizer [Nebulizer Machine] 1 each MC ASDIR PRN #1 kit PRN Reason: Prednisone 20 mg PO TID 5 Days tablet Referrals: CHET SHERIDAN MD [ACTIVE STAFF] - Follow up as needed
== END 2017-04-20 03:50 | disposition home or self-care (01) ==
LOC: ER 01:30
DX: J45.901 Unspecified asthma with (acute) exacerbation (principal); Z87.891 Personal history of nicotine dependence; Z91.013 Allergy to seafood
CPT/HCPCS: 94640 ×2; 99284; J7512; J7620

== ENCOUNTER 2017-04-25 14:53 | Emergency (ER) | payer OTHER ==
[2017-04-25] MEDS ORDERED: ALBUTEROL SULFATE HFA (90 MCG/PUFF) 200 PUFF/8.5 GM MDI IH ONE (15:04)
[2017-04-25] MEDS ORDERED: LORAZEPAM 1 MG TABLET PO ONE (15:04)
[2017-04-25 15:52] VITALS: BP 103/70
--- NOTE | 2017-04-25 15:58 | ER Document Report ---
ED General - General Chief Complaint: Breathing Difficulty Stated Complaint: POSSIBLE ALLERGIC REACTION Time Seen by Provider: 04/25/17 15:01 Information source: Patient Notes: Patient states he has an allergy to shellfish. He states shellfish would being boiled in the house he was in. He did not ingest it or touch it but he did inhale some of the vapors from the boiling of the shellfish. He then states that he felt tingly and short of breath and became anxious. He ran out of the house. He states he still feels somewhat short of breath. He has no trouble swallowing. He denies any pain. Symptoms were worse in the house and are better when he leaves the house. There is no known radiation of the symptoms. Symptoms are moderate and constant. TRAVEL OUTSIDE OF THE [place] IN LAST 30 DAYS: No - Related Data Allergies/Adverse Reactions: shellfish derived Allergy (Verified 04/25/17 14:56) Past Medical History - General Information source: Patient - Social History Smoking Status: Never Smoker Frequency of alcohol use: None Drug Abuse: None Family History: Reviewed & Not Pertinent Patient has suicidal ideation: No Patient has homicidal ideation: No Pulmonary Medical History: Reports: Hx Asthma Renal/ Medical History: Denies: Hx Peritoneal Dialysis - Immunizations Hx Diphtheria, Pertussis, Tetanus Vaccination: No Review of Systems - Review of Systems Constitutional: denies: Fever, Malaise Cardiovascular: Palpitations, Heart racing. denies: Chest pain Respiratory: Short of breath. denies: Cough -: Yes All other systems reviewed and negative Physical Exam - Vital signs Vitals: Temp Pulse Resp BP Pulse Ox 97.8 F 82 16 103/70 99 04/25/17 15:52 04/25/17 15:52 04/25/17 15:52 04/25/17 15:52 04/25/17 15:52 Interpretation: Normal - General General appearance: Appears well, Alert - HEENT Head: Normocephalic, Atraumatic Eyes: Normal Pupils: PERRL - Respiratory Respiratory status: No respiratory distress Chest status: Nontender Breath sounds: Normal Chest palpation: Normal - Cardiovascular Rhythm: Regular Heart sounds: Normal auscultation Murmur: No - Abdominal Inspection: Normal Distension: No distension Bowel sounds: Normal Tenderness: Nontender Organomegaly: No organomegaly - Back Back: Normal, Nontender - Extremities General upper extremity: Normal inspection, Nontender, Normal color, Normal ROM , Normal temperature General lower extremity: Normal inspection, Nontender, Normal color, Normal ROM , Normal temperature, Normal weight bearing. No: Dinh's sign - Neurological Neuro grossly intact: Yes Cognition: Normal Orientation: AAOx4 Gilbert Coma Scale Eye Opening: Spontaneous Gilbert Coma Scale Verbal: Oriented [employer] Coma Scale Motor: Obeys Commands [employer] Coma Scale Total: 15 Speech: Normal Motor strength normal: LUE, RUE, LLE, RLE Sensory: Normal - Psychological Associated symptoms: Normal affect, Normal mood - Skin Skin Temperature: Warm Skin Moisture: Dry Skin Color: Normal Course - Re-evaluation Re-evalutation: 04/25/17 15:56 pt feels better after ativan - Vital Signs Vital signs: Temp Pulse Resp BP Pulse Ox 97.8 F 82 16 103/70 99 04/25/17 15:52 04/25/17 15:52 04/25/17 15:52 04/25/17 15:52 04/25/17 15:52 Discharge - Discharge Clinical Impression: Anxiety Condition: Stable Disposition: HOME, SELF-CARE Instructions: Anxiety ([facility]) Additional Instructions: please call your primary doctor as soon as possible for follow up Prescriptions: Lorazepam [Ativan 1 mg Tablet] 1 mg PO Q8 #10 tab
== END 2017-04-25 16:04 | disposition home or self-care (01) ==
LOC: ER 14:53
DX: F41.9 Anxiety disorder, unspecified (principal); R20.2 Paresthesia of skin; R00.2 Palpitations; R06.02 Shortness of breath; J45.909 Unspecified asthma, uncomplicated; Z91.013 Allergy to seafood
CPT/HCPCS: 99284; J3490

== ENCOUNTER 2017-04-28 16:50 | Emergency (ER) | payer OTHER ==
[2017-04-28 16:58] VITALS: BP 104/63
--- NOTE | 2017-04-28 17:39 | ER Document Report ---
ED General - General Mode of Arrival: Ambulatory Information source: Patient TRAVEL OUTSIDE OF THE [place] IN LAST 30 DAYS: No - General Chief Complaint: Asthma Exacerbation Stated Complaint: DIFFICULTY BREATHING Time Seen by Provider: 04/28/17 17:21 Notes: Patient is a 42 year old male presenting to the emergency department for an asthma exacerbation. Patient was working outside today and had an increase in difficulty breathing. Patient has a history of asthma. Yovana is also nauseated and states his rectum hurts. Yovana states his dyspnea is doing better now. Patient did use his emergency inhaler. Patient was recently diagnosed with diverticulitis x1 month ago and states he has had constipation since and pain to his rectum. Patient has had some red blood on the toilet paper. Patient denies any abdominal pain but states he is nauseated. Yovana states he has been eating reatively healthy but is not taking any fiber supplements. (RL SCHUMACHER) - Related Data Allergies/Adverse Reactions: shellfish derived Allergy (Verified 04/28/17 16:56) Past Medical History - General Information source: Patient - Social History Smoking Status: Never Smoker Chew tobacco use (# tins/day): No Frequency of alcohol use: None Drug Abuse: None Family History: Reviewed & Not Pertinent Patient has suicidal ideation: No Patient has homicidal ideation: No Pulmonary Medical History: Reports: Hx Asthma Surgical Hx: Negative - Immunizations Hx Diphtheria, Pertussis, Tetanus Vaccination: No Review of Systems - Review of Systems Constitutional: No symptoms reported EENT: No symptoms reported Cardiovascular: No symptoms reported Respiratory: See HPI, Short of breath, Wheezing Gastrointestinal: See HPI, Nausea, Constipation, Other - rectal pain Genitourinary: No symptoms reported Male Genitourinary: No symptoms reported Musculoskeletal: No symptoms reported Skin: No symptoms reported Hematologic/Lymphatic: No symptoms reported Neurological/Psychological: No symptoms reported -: Yes All other systems reviewed and negative Physical Exam - Vital signs Interpretation: Normal - Vital signs Vitals: Temp Pulse Resp BP Pulse Ox 97.4 F 71 24 H 104/63 98 04/28/17 16:56 04/28/17 16:56 04/28/17 16:56 04/28/17 16:56 04/28/17 16:56 - Notes Notes: GENERAL: Alert, interacts well. No acute distress. HEAD: Normocephalic, atraumatic. EYES: Pupils equal, round, and reactive to light. Extraocular movements intact. ENT: Oral mucosa moist, tongue midline. NECK: Full range of motion. Supple. Trachea midline. LUNGS: Clear to auscultation bilaterally, no wheezes, rales, or rhonchi. No respiratory distress. HEART: Regular rate and rhythm. No murmurs, gallops, or rubs. ABDOMEN: Non-distended. Bowel sounds present in all 4 quadrants. RECTAL: External rectum appears normal with no blood or hemorrhoid. EXTREMITIES: Moves all 4 extremities spontaneously. No edema. NEUROLOGICAL: Alert and oriented x3. Normal speech. PSYCH: Normal affect, normal mood. SKIN: Warm, dry, normal turgor. No rashes or lesions noted. (RL SCHUMACHER) Course - Re-evaluation Re-evalutation: 04/28/17 17:42 Wheezing is resolved, patient feels much better, patient has no dizziness or lightheadedness that he reports to me that is suspicious for acute blood loss anemia. Patient only has small amount of blood on toilet paper on loose in the toilet. Patient is safe for discharge to home with symptomatic relief of Metamucil and Tucks wipes. 04/28/17 17:43 (ROCKY LOWERY) - Vital Signs Vital signs: Temp Pulse Resp BP Pulse Ox 97.4 F 71 24 H 104/63 98 04/28/17 16:56 04/28/17 16:56 04/28/17 16:56 04/28/17 16:56 04/28/17 16:56 Discharge - Discharge Clinical Impression: Rectal bleeding, Rectal pain, Asthma exacerbation Condition: Stable Disposition: HOME, SELF-CARE Additional Instructions: I do not know exactly what is causing your rectal bleeding today. I did not see any hemorrhoids. I suspect an anal fissure. This is a small tear around your rectum. It will get worse when you strain to poop or have hard stool. You should take Metamucil every day to soften your stool. This is a fiber supplement not a medicinal stool softener. You want to be having 1 soft bowel movement a day at minimum. Please follow-up with your housekeeper supervisor as an outpatient for colonoscopy. Prescriptions: Glycerin/Witch Theresa Justice [Tucks Medicated Pads] 1 each TP Q4HP PRN #[id number] med..pad PRN Reason: Referrals: ALEA ARMANDO, [facility] [Primary Care Provider] - Follow up as needed Scribe Attestation: 04/28/17 20:15 I personally performed the services described in the documentation, reviewed and edited the documentation which was dictated to the scribe in my presence, and it accurately records my words and actions. (ROCKY LOWERY) Scribe Documentation - Scribe Written by Scrsalomee:: Victoriano Riojas 04/28/17 19:30 acting as scribe for :: Phuc
== END 2017-04-28 17:55 | disposition home or self-care (01) ==
LOC: ER 16:50
DX: J45.901 Unspecified asthma with (acute) exacerbation (principal); K62.5 Hemorrhage of anus and rectum; K59.00 Constipation, unspecified; K62.89 Other specified diseases of anus and rectum; R11.0 Nausea; Z87.19 Personal history of other diseases of the digestive system; Z91.013 Allergy to seafood; R06.02 Shortness of breath
CPT/HCPCS: 99284

== ENCOUNTER 2017-04-30 14:11 | Emergency (ER) | payer OTHER ==
[2017-04-30 14:18] VITALS: BP 120/73
--- NOTE | 2017-04-30 14:50 | ER Document Report ---
HPI - HPI Onset: Other - 1 month Onset/Duration: Gradual Quality of pain: Cramping Pain Level: 3 Associated Symptoms: None Exacerbated by: Denies Relieved by: Denies Recently seen / treated by doctor: Yes Notes: This is patient's fifth emergency department visit this month. Patient presents complaining of 1 month history of constipation. He has been seen for same. Patient denies using any laxatives. Patient has a colonoscopy scheduled for the end of May. No nausea or vomiting. States his stools are hard and come out in small pieces. No previous history of bowel obstruction. Diagnosed with diverticulitis several months ago. - CARDIOVASCULAR Cardiovascular: DENIES: Chest pain - REPRODUCTIVE Reproductive: DENIES: : - DERM Skin Color: Normal Past Medical History - General Information source: Patient, [facility] Records - Social History Smoking Status: Never Smoker Chew tobacco use (# tins/day): No Frequency of alcohol use: None Drug Abuse: None Family History: Reviewed & Not Pertinent Patient has suicidal ideation: No Patient has homicidal ideation: No Pulmonary Medical History: Reports: Hx Asthma Renal/ Medical History: Denies: Hx Peritoneal Dialysis - Immunizations Hx Diphtheria, Pertussis, Tetanus Vaccination: No Vertical Provider Document - CONSTITUTIONAL Agree With Documented VS: Yes General Appearance: WD/WN, No Apparent Distress - INFECTION CONTROL TRAVEL OUTSIDE OF THE [place] IN LAST 30 DAYS: No - HEENT HEENT: Atraumatic, Normocephalic - NECK Neck: Normal Inspection - RESPIRATORY Respiratory: Breath Sounds Normal O2 Sat by Pulse Oximetry: 98 - CARDIOVASCULAR Cardiovascular: Regular Rate, Regular Rhythm - GI/ABDOMEN Gastrointestinal: Abdomen Soft, Abdomen Non-Tender, Normal Bowel Sounds - MUSCULOSKELETAL/EXTREMETIES Musculoskeletal/Extremeties: DEANNA PAEZ - NEURO Level of Consciousness: Awake, Alert, Appropriate - DERM Integumentary: Warm, Dry, No Rash Course - Re-evaluation Re-evalutation: 04/30/17 15:00 Patient with benign abdominal exam. X-ray does not demonstrate any evidence of bowel obstruction. Discussed use of [id number]-sqm-[id number] laxatives such as MiraLAX or citrate of magnesia. Also discussed use of enemas. - Vital Signs Vital signs: Temp Pulse Resp BP Pulse Ox 97.8 F 92 16 120/73 98 04/30/17 14:15 04/30/17 14:15 04/30/17 14:15 04/30/17 14:15 04/30/17 14:15 - Diagnostic Test Radiology reviewed: Image reviewed - no obstruction Discharge - Discharge Clinical Impression: Constipation Condition: Good Disposition: HOME, SELF-CARE Instructions: Constipation (OM) Additional Instructions: Increase fluids. You can use laxatives such as citrate of magnesia or MiraLAX. You can also use fleets enema. Follow-up for your scheduled colonoscopy. Return to the emergency department if worse or for any other problems.
--- NOTE | 2017-04-30 15:30 | RADIOLOGY REPORT (SQ) ---
EXAM DESCRIPTION: ABDOMEN 2 VIEWS COMPLETED DATE/TIME: 04/30/2017 2:56 pm REASON FOR STUDY: constipation COMPARISON: None. NUMBER OF VIEWS: Two views. TECHNIQUE: Supine and erect/decubitus radiographic images of the abdomen acquired. LIMITATIONS: None. FINDINGS: FREE AIR: None. No abnormal gas collections. LUNG BASES: Clear. BOWEL GAS PATTERN: Nonobstructive pattern. No dilated loops or air fluid levels. CALCIFICATIONS: No suspicious calcifications. SOFT TISSUES: No gross mass or suggestion of organomegaly. HARDWARE: None in the abdomen. BONES: No acute fracture. No worrisome bone lesions. OTHER: No other significant finding. IMPRESSION: NO RADIOGRAPHIC EVIDENCE FOR ACUTE ABDOMINAL DISEASE. TECHNICAL DOCUMENTATION: JOB ID: [id number] [employer]- All Rights Reserved
== END 2017-04-30 15:11 | disposition home or self-care (01) ==
LOC: ER 14:11
DX: K59.00 Constipation, unspecified (principal)
CPT/HCPCS: 74020; 99283

== ENCOUNTER 2017-05-01 07:51 | Emergency (ER) | payer OTHER ==
--- NOTE | 2017-05-01 08:20 | ER Document Report ---
ED GI/ - General Information source: Patient TRAVEL OUTSIDE OF THE [place] IN LAST 30 DAYS: No - HPI Patient complains to provider of: Abdominal pain Associated symptoms: Other - see above <MEHUL LOZADA - Last Filed: 05/01/17 08:21> <MARIOLA JUÁREZ - Last Filed: 05/01/17 13:45> - General Chief Complaint: Abdominal Pain Stated Complaint: ABDOMINAL PAIN Time Seen by Provider: 05/01/17 08:12 Notes: Patient is a 42 year old male who presents to the ED with complaints of abdominal pain with onset last night. Patient was here yesterday with constipation and was told to take a laxative, he did and then started having liquid stool. Patient states that he developed a fever last night, he took Tylenol and drank a lot of fluids. Patient is afraid he is dehydrated. Patient states he was unable to sleep last night due to having to continuously use the restroom and the pain. Patient states "I am here on a precautionary basis because Diverticulitis is serious". Patient has never had any surgeries. This is patients 6th visit to the emergency room this month. Patient has a colonoscopy scheduled for May 10. Yesterday patient had an acute abdominal series done that showed a lot of stool. PCP:Sarah Middleton (MEHUL LOZADA) - Related Data Allergies/Adverse Reactions: shellfish derived Allergy (Verified 05/01/17 07:57) Past Medical History - General Information source: Patient - Social History Smoking Status: Former Smoker Chew tobacco use (# tins/day): No Frequency of alcohol use: None Drug Abuse: None Family History: Reviewed & Not Pertinent Patient has suicidal ideation: No Patient has homicidal ideation: No Pulmonary Medical History: Reports: Hx Asthma GI Medical History: Reports: Hx Diverticulitis - Immunizations Hx Diphtheria, Pertussis, Tetanus Vaccination: No <MEHUL LOZADA - Last Filed: 05/01/17 08:21> Review of Systems - Review of Systems Constitutional: See HPI, Fever EENT: No symptoms reported Cardiovascular: No symptoms reported Respiratory: No symptoms reported Gastrointestinal: See HPI, Abdominal pain, Diarrhea Genitourinary: No symptoms reported Male Genitourinary: No symptoms reported Musculoskeletal: No symptoms reported Skin: No symptoms reported Hematologic/Lymphatic: No symptoms reported Neurological/Psychological: No symptoms reported <MEHUL LOZADA - Last Filed: 05/01/17 08:21> Physical Exam - General General appearance: Appears well, Alert In distress: None - HEENT Head: Normocephalic, Atraumatic Eyes: Normal Extraocular movements intact: Yes Pupils: PERRL - Respiratory Respiratory status: No respiratory distress Breath sounds: Normal - Cardiovascular Rhythm: Regular Heart sounds: Normal auscultation Murmur: No - Back Back: Normal - Extremities General upper extremity: Normal inspection, Normal ROM General lower extremity: Normal inspection, Normal ROM - Neurological Neuro grossly intact: Yes - Psychological Associated symptoms: Depressed, Other - a lot of sighs - Skin Skin Temperature: Warm Skin Moisture: Dry Skin Color: Normal <MEHUL LOZADA - Last Filed: 05/01/17 08:21> - Vital signs Vitals: Temp Pulse Resp BP Pulse Ox 97.9 F 96 18 113/76 99 05/01/17 07:56 05/01/17 07:56 05/01/17 07:56 05/01/17 07:56 05/01/17 07:56 Course <MEHUL LOZADA - Last Filed: 05/01/17 08:21> - Laboratory Result Diagrams: 05/01/17 08:35 05/01/17 08:35 <MARIOLA JUÁREZ - Last Filed: 05/01/17 13:45> - Re-evaluation Re-evalutation: 05/01/17 09:43 Patient's white blood cell count is 13,500 with 75% segmented neutrophils. The only other CBCs in the system are 1 from 08/21/2016 with an ANC of 4.5, then with an ANC of 19.5 when he presented for diverticulitis, and an ANC of 11.53 days later when he was discharged. Today the ANC is 10.11 month after being admitted for a perforated diverticulitis. A CT scan of the abdomen and pelvis with IV and oral contrast will be done to exclude persistent abscess or other etiology for his discomfort and symptoms of diarrhea and constipation. 05/01/17 13:[address] scan showed recurrent inflammation in the descending and sigmoid colon, could be due to recurrent diverticulitis or a diffuse colitis. (MARIOLA JUÁREZ) - Vital Signs Vital signs: Temp Pulse Resp BP Pulse Ox 97.9 F 96 18 113/76 99 05/01/17 07:56 05/01/17 07:56 05/01/17 07:56 05/01/17 07:56 05/01/17 07:56 - Laboratory Laboratory results interpreted by me: 05/01/17 05/01/17 05/01/17 08:35 08:35 08:55 WBC 13.5 H RBC 4.01 L Hgb 12.1 L Hct 35.4 L RDW 14.6 H Absolute Neutrophils 10.1 H Potassium 3.0 L* Carbon Dioxide 21 L BUN 6 L Glucose 118 H Urine Protein 30 H Urine Ketones TRACE H Discharge <MEHUL LOZADA - Last Filed: 05/01/17 08:21> <MARIOLA JUÁREZ - Last Filed: 05/01/17 13:45> - Discharge Clinical Impression: Diverticulitis Qualifiers: Diverticulitis site: large intestine Diverticulitis bleeding: without bleeding Diverticulitis complication: without perforation or abscess Qualified Code(s): K57.32 - Diverticulitis of large intestine without perforation or abscess without bleeding Condition: Stable Disposition: HOME, SELF-CARE Additional Instructions: Diverticulitis: You most likely have a recurrent diverticulitis. This is an inflammation of a small pouch attached to the colon, called a diverticulum. Many of these small pouches can form on the colon as you get older. Severe diverticulitis may require hospitalization. More mild cases are usually treated with antibiotics and clear liquid diet. As you improve, a diet low in residue (one which forms little stool) is prescribed. When you are better, you should eat a high-fiber diet. Stool softeners ( like Metamucil) are usually recommended. Call the doctor or go to the hospital if there is increasing pain, vomiting , high fever, large amounts of blood passed, or if bowel movements cease. TAKE THE MEDICATION PRESCRIBED. CALL THE DOCTOR THAT WAS TO DO THE COLONOSCOPY AND TELL HIM ABOUT THIS LATEST DEVELOPMENT. FOLLOW UP WITH [facility] FOR FURTHER EVALUATION. RETURN TO THE EMERGENCY ROOM IF ANY NEW OR WORSENING SYMPTOMS. Prescriptions: Ciprofloxacin HCl [Cipro 750 mg Tablet] 750 mg PO BID #14 tablet Metronidazole [Flagyl 500 mg Tablet] 500 mg PO QID #28 tablet Referrals: [facility] [Provider Group] - Follow up in 1 week Scribe Attestation: 05/01/17 09:45 I personally performed the services described in the documentation, reviewed and edited the documentation which was dictated to the scribe in my presence, and it accurately records my words and actions. (MARIOLA JUÁREZ) Scribe Documentation - Scribe Written by Karla:: karla Gregorio, 05/01/2017, 819 acting as scribe for :: Idalmis <MEHUL LOZADA - Last Filed: 05/01/17 08:21>
[2017-05-01 08:47] LABS: ABSOLUTE BASOPHILS # (AUTO) 0.1 10^3/uL (0.0-0.2); ABSOLUTE EOSINOPHILS # (AUTO) 0.2 10^3/uL (0.0-0.6); ABSOLUTE LYMPHOCYTES (AUTO) 1.7 10^3/uL (0.5-4.7); ABSOLUTE MONOCYTES (AUTO) 1.4 10^3/uL (0.1-1.4); ABSOLUTE NEUT (AUTO) 10.1 10^3/uL (1.7-8.2); BASOPHILS % (AUTO) 0.9 % (0-2); EOSINOPHILS % (AUTO) 1.1 % (0-6); HEMATOCRIT 35.4 % (37.9-51.0); HEMOGLOBIN 12.1 g/dL (13.5-17.0); HGB HCT DIFFERENCE 0.9; MEAN CORPUSCULAR HEMOGLOBIN 30.2 pg (27.0-33.4); MEAN CORPUSCULAR HGB CONC 34.2 g/dL (32.0-36.0); MEAN CORPUSCULAR VOLUME 88 fl (80-97); MONOCYTES % (AUTO) 10.2 % (3-13); RED BLOOD COUNT 4.01 10^6/uL (4.35-5.55); RED CELL DISTRIBUTION WIDTH 14.6 % (11.5-14.0); SEGMENTED NEUTROPHILS % (AUTO) 74.8 % (42-78); WHITE BLOOD COUNT 13.5 10^3/uL (4.0-10.5)
[2017-05-01 09:07] LABS: ALANINE AMINOTRANSFERASE 39 U/L (21-72); ALBUMIN 3.6 g/dL (3.5-5.0); ALKALINE PHOSPHATASE 70 U/L (38-126); ANION GAP 14 (5-19); ASPARTATE AMINO TRANSFERASE 17 U/L (17-59); BILIRUBIN,DIRECT 0.3 mg/dL (0.0-0.4); BILIRUBIN,TOTAL 0.8 mg/dL (0.2-1.3); BLOOD UREA NITROGEN 6 mg/dL (7-20); CALCIUM 8.7 mg/dL (8.4-10.2); CARBON DIOXIDE 21 mmol/L (22-30); CHLORIDE 105 mmol/L (98-107); CREATININE RESULT 0.85 mg/dL (0.52-1.25); GLUCOSE 118 mg/dL (75-110); SODIUM 139.7 mmol/L (137-145); TOTAL PROTEIN 6.7 g/dL (6.3-8.2)
[2017-05-01 09:18] LABS: APPEARANCE,URINE SLIGHTLY-CLOUDY; BILIRUBIN,URINE NEGATIVE (NEGATIVE); GLUCOSE, URINE NEGATIVE (NEGATIVE); KETONES,URINE TRACE mg/dL (NEGATIVE); LEUKOCYTE ESTERASE,URINE NEGATIVE (NEGATIVE); NITRITE,URINE NEGATIVE (NEGATIVE); PROTEIN,URINE 30 mg/dL (NEGATIVE); URINE SPECIFIC GRAVITY 1.033; UROBILINOGEN,URINE NEGATIVE mg/dL (<2.0)
[2017-05-01] MEDS ORDERED: DEXTROSE 5%-LACTATED RINGERS 1,000 ML IV ONE (09:40)
[2017-05-01] MEDS ORDERED: RINGERS SOLUTION,LACTATED 1,000 ML IV ONE (09:41)
[2017-05-01] MEDS ORDERED: POTASSIUM CHLORIDE 20 MEQ/15 ML UDCUP PO ONE (09:41)
--- NOTE | 2017-05-01 10:03 | RADIOLOGY REPORT (SQ) ---
EXAM DESCRIPTION: KUB/ABDOMEN (SINGLE VIEW) COMPLETED DATE/TIME: 05/01/2017 8:57 am REASON FOR STUDY: abd pain, constipation COMPARISON: 04/30/2017 NUMBER OF VIEWS: One view. TECHNIQUE: Supine radiographic image of the abdomen acquired. LIMITATIONS: None. FINDINGS: BOWEL GAS PATTERN: Normal bowel gas pattern. No dilated loops. CALCIFICATIONS: No suspicious calcifications. SOFT TISSUES: No gross mass or suggestion of organomegaly. HARDWARE: None. BONES: No bone lesions or fracture. OTHER: No other significant finding. IMPRESSION: NO RADIOGRAPHIC EVIDENCE FOR ACUTE ABDOMINAL DISEASE.
--- NOTE | 2017-05-01 13:02 | RADIOLOGY REPORT (SQ) ---
EXAM DESCRIPTION: CT ABD/PELVIS WITH IV ORAL COMPLETED DATE/TIME: 05/01/2017 12:47 pm REASON FOR STUDY: ABD PAIN, ELEVATED WBC, DIVERTICULITIS 1 MONTH AGO COMPARISON: 03/26/2017 TECHNIQUE: CT scan of the abdomen and pelvis performed with intravenous and oral contrast using mariel jenny scanning technique with dynamic intravenous contrast injection. Images reviewed with lung, soft t issue, and bone windows. Reconstructed coronal and sagittal MPR images reviewed. Delayed images for e valuation of the urinary system also acquired. All images stored on PACS. All CT scanners at this facility use dose modulation, iterative reconstruction, and/or weight based d osing when appropriate to reduce radiation dose to as low as reasonably achievable (ALARA). [facility]: Dose Right [facility]: CareDose [facility]: Dose Right [facility]: Teradose 4D [facility]: Qomuty CONTRAST TYPE AND DOSE: contrast/concentration: Isovue 370.00 mg/ml; Total Contrast Delivered: 100.0 ml; Total Saline Delivered: 70.0 ml RENAL FUNCTION: BUN 6 creatinine 0.9 RADIATION DOSE: Up-to-date CT equipment and radiation dose reduction techniques were employed. CTDIv ol: 11.8 - 16.4 mGy. DLP: 1636 mGy-cm.. LIMITATIONS: None. FINDINGS: LOWER CHEST: No significant findings. No nodules or infiltrates. LIVER: Normal size. Steatosis. No masses. No dilated ducts. SPLEEN: Normal size. No focal lesions. PANCREAS: No masses. No significant calcifications. No adjacent inflammation or peripancreatic fluid collections. Pancreatic duct not dilated. GALLBLADDER: No identified stones by CT criteria. No inflammatory changes to suggest cholecystitis. ADRENAL GLANDS: No significant masses or asymmetry. RIGHT KIDNEY AND URETER: No solid masses. No significant calcification. No hydronephrosis or hydroure ter. LEFT KIDNEY AND URETER: No solid masses. No significant calcification. No hydronephrosis or hydrouret er. AORTA AND VESSELS: No aneurysm. No dissection. Renal arteries, SMA, celiac without stenosis. RETROPERITONEUM: No retroperitoneal adenopathy, hemorrhage or masses. BOWEL AND PERITONEAL CAVITY: Wall thickening descending and sigmoid colon. Hyperemia in the sigmoid colon mesentery. No obstruction. No free air or ascites. APPENDIX: Normal. PELVIS: No significant masses. Normal bladder. No free fluid. ABDOMINAL WALL: Umbilical hernia containing fat. BONES: No acute findings. OTHER: No other significant finding. IMPRESSION: Residual versus recurrent inflammation in the descending and sigmoid colon could be due to recurrent diverticulitis or more diffuse colitis. No free air or obstruction. TECHNICAL DOCUMENTATION: JOB ID: [id number] Quality ID # [id number]: Final reports with documentation of one or more dose reduction techniques (e.g., Au tomated exposure control, adjustment of the mA and/or kV according to patient size, use of iterative reconstruction technique) 2010 [employer] All Rights Reserved
[2017-05-01] MEDS ORDERED: METRONIDAZOLE 500 MG TABLET PO ONE (13:43)
[2017-05-01] MEDS ORDERED: CIPROFLOXACIN HCL 750 MG TABLET PO ONE (13:43)
[2017-05-01 14:21] VITALS: BP 115/80
== END 2017-05-01 14:16 | disposition home or self-care (01) ==
LOC: ER 07:51
DX: K57.32 Diverticulitis of large intestine without perforation or abscess without bleeding (principal); R50.9 Fever, unspecified; R19.7 Diarrhea, unspecified; R10.9 Unspecified abdominal pain; F32.9 Major depressive disorder, single episode, unspecified; J45.909 Unspecified asthma, uncomplicated; Z87.891 Personal history of nicotine dependence; Z91.013 Allergy to seafood
CPT/HCPCS: 99284; 96365; 36415; 85025; 80053; 81001; 74000; 74177; J3490; J7120

== ENCOUNTER 2017-05-04 21:24 | Emergency (ER) | payer OTHER ==
--- NOTE | 2017-05-04 22:04 | ER Document Report ---
ED GI/ - General Mode of Arrival: Ambulatory Information source: Patient TRAVEL OUTSIDE OF THE [place] IN LAST 30 DAYS: No - HPI Patient complains to provider of: Abdominal pain, Vomiting Onset: Other - Refer to HPI notes Similar symptoms previously: Yes Recently seen / treated by doctor: Yes <WINSOMEJANERL - Last Filed: 05/04/17 22:21> <MARIOLA JUÁREZ - Last Filed: 05/05/17 00:12> - General Chief Complaint: Vomiting Stated Complaint: VOMITING Time Seen by Provider: 05/04/17 22:02 Notes: This 42-year-old male patient comes emergency room complaining of vomiting, low temperature, diarrhea, chills. He also reports that he has been extremely hungry. He does suffer from anxiety disorder. He was seen here and admitted on 03/27/2017 for perforated diverticulitis, discharged following day. He came to the emergency room complaining of shortness of breath the day after his discharge, which was ultimately cured with Ativan. He has been here multiple times since then. He has been here 7 times in the last 19 days. His complaints have been mostly shortness of breath or abdominal pain. There was no lab work ordered on the 7 visits following his hospitalization discharge. Lab work was done on his visit here on 05/01/2017. He did have a leukocytosis that day, it was better than what was present when he was admitted with perforated diverticulitis. A repeat CT scan done on that day did show sigmoid diverticulitis with distal colon wall thickening which was suspicious for diverticulitis or colitis. He was discharged on Cipro and Flagyl. 2 days later he saw his primary care provider and states she wrote him new prescriptions of the same antibiotic at a lesser dose because of abdominal discomfort claims. He reports she also gave him a steroid injection which caused improvement in his abdomen discomfort within 30 minutes. He reports his stomach is been feeling weak. Today his white blood cell count is much improved, his urine is concentrated with specific gravity 1.033 and trace ketones, his inflammatory markers are elevated with a CRP of 70 and an ESR of 86, but there are no comparisons for this. (MARIOLA JUÁREZ) - HPI Notes: Patient is a 42 year-old male presented to the emergency department for nausea, vomiting, diarrhea, chills and being hungry. Patient has a history of recurrent diverticulitis. Patient states he came to the emergency department because he has never vomited before. Patient has been evaluated in this emergency department 7 times in the last 19 days. Patient states that he was seen on Monday when in fact it was 3 days ago on Monday, May 01, 2017. Patient had blood work and a CT completed at this time. Patient was started on Cipro and states that he saw his primary care physician 3 days ago who also prescribed Cipro. This means the patient was only taking the medication for 2 days when he got the second prescription. throughout the patient's last 7 visits he is complained of possible anemia due to blood loss from seeing blood on his toilet paper after a bowel movement, respiratory distress, and constipation. Patient also received Ativan for his anxiety at one of his previous visits. Patient states that while he was at his primary care physician 's office he got a shot of prednisone or some type of steroid. Patient states that 30 minutes after getting this shot he was relieved from his abdominal pain. Patient states that he feels like he is malnourished and he is wanting to eat. PCP Alea Armando (RL SCHUMACHER) - Related Data Allergies/Adverse Reactions: shellfish derived Allergy (Verified 05/04/17 21:26) Past Medical History - General Information source: Patient - Social History Smoking Status: Current Every Day Smoker Cigarette use (# per day): Yes - 1 ppd Chew tobacco use (# tins/day): No Smoking Education Provided: No Frequency of alcohol use: None Drug Abuse: None Family History: None Patient has suicidal ideation: No Patient has homicidal ideation: No Pulmonary Medical History: Reports: Hx Asthma GI Medical History: Reports: Hx Diverticulitis Surgical Hx: Negative - Immunizations Hx Diphtheria, Pertussis, Tetanus Vaccination: No <RL SCHUMACHER - Last Filed: 05/04/17 22:21> Review of Systems - Review of Systems Constitutional: No symptoms reported EENT: No symptoms reported Cardiovascular: No symptoms reported Respiratory: No symptoms reported Gastrointestinal: See HPI, Abdominal pain, Diarrhea, Nausea, Vomiting Genitourinary: No symptoms reported Male Genitourinary: No symptoms reported Musculoskeletal: No symptoms reported Skin: No symptoms reported Hematologic/Lymphatic: No symptoms reported Neurological/Psychological: See HPI, Anxiety -: Yes All other systems reviewed and negative <RL SCHUMACHER - Last Filed: 05/04/17 22:21> Physical Exam - Vital signs Interpretation: Normal <RL SCHUMACHER - Last Filed: 05/04/17 22:21> <MARIOLA JUÁREZ - Last Filed: 05/05/17 00:12> - Vital signs Vitals: Temp Pulse Resp BP Pulse Ox 97.5 F 101 H 22 H 119/71 100 05/04/17 21:27 05/04/17 21:27 05/04/17 21:27 05/04/17 21:27 05/04/17 21:27 - Notes Notes: GENERAL: Alert, interacts well, patient appears anxious and is hyperventilating. No acute distress. HEAD: Normocephalic, atraumatic. EYES: Appear normal. Pupils equal, round, and reactive to light. ENT: Moist mucus membranes, tongue midline. NECK: Full range of motion. Supple. Trachea midline. LUNGS: Hyperventilating. Clear to auscultation bilaterally, no wheezes, rales, or rhonchi. No respiratory distress. HEART: Regular rate and rhythm. No murmurs, gallops, or rubs. ABDOMEN: Soft, non-tender. Non-distended. Normal bowel sounds. EXTREMITIES: Moves all 4 extremities spontaneously. Normal strength. No edema. NEUROLOGICAL: Alert and oriented x3. Normal speech. No focal neurological deficits. GSC 15. PSYCH: Anxious. SKIN: Warm, dry, normal turgor. No rashes or lesions noted. (RL SCHUMACHER) Course - Laboratory Result Diagrams: 05/04/17 22:35 05/04/17 22:35 <MARIOLA JUÁREZ - Last Filed: 05/05/17 00:12> - Vital Signs Vital signs: Temp Pulse Resp BP Pulse Ox 97.5 F 101 H 22 H 119/71 100 05/04/17 21:27 05/04/17 21:27 05/04/17 21:27 05/04/17 21:27 05/04/17 21:27 - Laboratory Laboratory results interpreted by me: 05/04/17 05/04/17 22:35 22:35 Hgb 13.0 L RDW 14.2 H Monocytes % 16.8 H Absolute Monocytes 1.5 H ESR 86 H Potassium 2.9 L* C-Reactive Protein 69.9 H Discharge <RL SCHUMACHER - Last Filed: 05/04/17 22:21> <MARIOLA JUÁREZ - Last Filed: 05/05/17 00:12> - Discharge Clinical Impression: Hypokalemia, Anxiety Diverticulitis Qualifiers: Diverticulitis site: large intestine Diverticulitis bleeding: without bleeding Diverticulitis complication: without perforation or abscess Qualified Code(s): K57.32 - Diverticulitis of large intestine without perforation or abscess without bleeding Condition: Stable Disposition: HOME, SELF-CARE Additional Instructions: Continue the antibiotics. Take the Zofran for nausea if needed. Drink plenty of cool clear liquids to hydrate yourself. Eat bananas to increase your potassium. Follow-up with [facility] in the next few days for reevaluation. RETURN TO THE EMERGENCY ROOM IF ANY NEW OR WORSENING SYMPTOMS. Prescriptions: Ondansetron HCl [Zofran 4 mg Tablet] 1 - 2 tab PO Q4H PRN #10 tablet PRN Reason: Referrals: ALEA ARMANDO FNP-C [Primary Care Provider] - Follow up as needed [facility] [Provider Group] - Follow up in 3-5 days Scribe Attestation: 05/05/17 00:11 I personally performed the services described in the documentation, reviewed and edited the documentation which was dictated to the scribe in my presence, and it accurately records my words and actions. (MARIOLA JUÁREZ) Scribe Documentation - Scribe Written by Victoriano:: Victoriano Riojas, 05/04/2017 22:30 acting as scribe for :: Idalmis <RL SCHUMACHER - Last Filed: 05/04/17 22:21>
[2017-05-04] MEDS ORDERED: KETOROLAC TROMETHAMINE 60 MG/2 ML SDV IM ONE (22:12)
[2017-05-04] MEDS ORDERED: ONDANSETRON 4 MG TAB.RAPDIS PO ONE (22:12)
[2017-05-04 22:48] LABS: ABSOLUTE EOSINOPHILS # (AUTO) 0.1 10^3/uL (0.0-0.6); ABSOLUTE LYMPHOCYTES (AUTO) 1.2 10^3/uL (0.5-4.7); ABSOLUTE MONOCYTES (AUTO) 1.5 10^3/uL (0.1-1.4); ABSOLUTE NEUT (AUTO) 5.9 10^3/uL (1.7-8.2); BASOPHILS % (AUTO) 0.5 % (0-2); EOSINOPHILS % (AUTO) 0.7 % (0-6); MEAN CORPUSCULAR HEMOGLOBIN 29.6 pg (27.0-33.4); MEAN CORPUSCULAR HGB CONC 33.4 g/dL (32.0-36.0); MEAN CORPUSCULAR VOLUME 89 fl (80-97); MONOCYTES % (AUTO) 16.8 % (3-13); RED BLOOD COUNT 4.41 10^6/uL (4.35-5.55); RED CELL DISTRIBUTION WIDTH 14.2 % (11.5-14.0); WHITE BLOOD COUNT 8.7 10^3/uL (4.0-10.5)
[2017-05-04 23:08] LABS: ALANINE AMINOTRANSFERASE 46 U/L (21-72); ALBUMIN 3.8 g/dL (3.5-5.0); ALKALINE PHOSPHATASE 68 U/L (38-126); ANION GAP 13 (5-19); ASPARTATE AMINO TRANSFERASE 35 U/L (17-59); BILIRUBIN,DIRECT 0.4 mg/dL (0.0-0.4); BILIRUBIN,TOTAL 0.7 mg/dL (0.2-1.3); BLOOD UREA NITROGEN 12 mg/dL (7-20); C-REACTIVE PROTEIN 69.9 mg/L (<10.0); CALCIUM 9.2 mg/dL (8.4-10.2); CARBON DIOXIDE 25 mmol/L (22-30); CHLORIDE 102 mmol/L (98-107); CREATININE RESULT 0.97 mg/dL (0.52-1.25); GLUCOSE 107 mg/dL (75-110); SODIUM 140.3 mmol/L (137-145); TOTAL PROTEIN 7.1 g/dL (6.3-8.2)
[2017-05-04 23:10] LABS: POTASSIUM 2.9 mmol/L (3.6-5.0)
[2017-05-04] MEDS ORDERED: POTASSIUM CHLORIDE 20 MEQ/15 ML UDCUP PO ONE (23:12)
[2017-05-04 23:29] LABS: ERYTHROCYTE SEDIMENTATION RATE 86 mm/hr (0-15)
[2017-05-05 00:07] LABS: APPEARANCE,URINE SLIGHTLY-CLOUDY; BILIRUBIN,URINE SMALL (NEGATIVE); GLUCOSE, URINE NEGATIVE (NEGATIVE); KETONES,URINE 80 mg/dL (NEGATIVE); LEUKOCYTE ESTERASE,URINE TRACE (NEGATIVE); NITRITE,URINE NEGATIVE (NEGATIVE); PROTEIN,URINE 100 mg/dL (NEGATIVE); URINE SPECIFIC GRAVITY 1.034; UROBILINOGEN,URINE NEGATIVE mg/dL (<2.0)
[2017-05-05] MEDS ORDERED: ONDANSETRON ODT 4 MG TAB (6 TAB/DSPK) PO PRN (00:12)
[2017-05-05 00:35] VITALS: BP 108/64
== END 2017-05-05 00:36 | disposition home or self-care (01) ==
LOC: ER 21:24
DX: K57.32 Diverticulitis of large intestine without perforation or abscess without bleeding (principal); E87.6 Hypokalemia; F41.9 Anxiety disorder, unspecified; R11.10 Vomiting, unspecified; R06.02 Shortness of breath; R10.9 Unspecified abdominal pain; F17.210 Nicotine dependence, cigarettes, uncomplicated
CPT/HCPCS: 99283; 96372; 36415; 85025; 85652; 86140; 80053; 81001; J1885; S0119

== ENCOUNTER 2017-05-07 03:33 | Emergency (ER) | payer OTHER ==
[2017-05-07 03:40] VITALS: BP 125/78
[2017-05-07] MEDS ORDERED: NORMAL SALINE 1000 ML 1,000 ML IV ONE (04:01)
--- NOTE | 2017-05-07 04:04 | ER Document Report ---
ED GI/ - General TRAVEL OUTSIDE OF THE [place] IN LAST 30 DAYS: No - HPI Patient complains to provider of: Vomiting Onset: Yesterday Similar symptoms previously: Yes Recently seen / treated by doctor: Yes <MARCOS VALDEZ - Last Filed: 05/07/17 05:06> <JULIO CESAR ALCANTARA - Last Filed: 05/07/17 05:37> - General Chief Complaint: Vomiting Stated Complaint: VOMITING Time Seen by Provider: 05/07/17 03:47 Notes: Patient is a 42 year old male that presents today for the 9th time in 21 days for complaints of vomiting and fear of being dehydrated. Patient states he vomited once yesterday and four times today. Patient states today he vomited "nasty yellow stuff". Patient states he has been eating bland diets consisting of mashed potatoes and rice as directed. Patient states that he is here today to see about getting care at home to "make him meals" because he is too weak to do it himself and his fiancee is out of town. (MARCOS VALDEZ) - Related Data Allergies/Adverse Reactions: shellfish derived Allergy (Verified 05/04/17 21:26) Past Medical History - General Information source: Patient - Social History Smoking Status: Former Smoker Frequency of alcohol use: Occasional Drug Abuse: None Lives with: Spouse/Significant other Family History: None Patient has suicidal ideation: No Patient has homicidal ideation: No Pulmonary Medical History: Reports: Hx Asthma GI Medical History: Reports: Hx Diverticulitis Surgical Hx: Negative - Immunizations Hx Diphtheria, Pertussis, Tetanus Vaccination: No <MARCOS VALDEZ - Last Filed: 05/07/17 05:06> Review of Systems - Review of Systems Constitutional: No symptoms reported EENT: No symptoms reported Cardiovascular: No symptoms reported Respiratory: No symptoms reported Gastrointestinal: See HPI, Vomiting Genitourinary: No symptoms reported Male Genitourinary: No symptoms reported Musculoskeletal: No symptoms reported Skin: No symptoms reported Hematologic/Lymphatic: No symptoms reported Neurological/Psychological: No symptoms reported -: Yes All other systems reviewed and negative <MARCOS VALDEZ - Last Filed: 05/07/17 05:06> Physical Exam <MARCOS VALDEZ - Last Filed: 05/07/17 05:06> <JULIO CESAR ALCANTARA - Last Filed: 05/07/17 05:37> - Vital signs Vitals: Temp Pulse Resp BP Pulse Ox 97.8 F 96 20 125/78 100 05/07/17 03:33 05/07/17 03:33 05/07/17 03:33 05/07/17 03:33 05/07/17 03:33 - Notes Notes: Physical Exam: General: Alert, appears well. HEENT: Normocephalic. Atraumatic. PERRL. Extraocular movements intact. Oropharynx clear. Neck: Supple. Non-tender. Respiratory: No respiratory distress. Clear and equal breath sounds bilaterally. Cardiovascular: Regular rate and rhythm. Abdominal: Normal Inspection. Non-tender. No distension. Normal Bowel Sounds. Back: Non-tender. No deformity or step off. Extremities: Moves all four extremities. Upper extremities: Normal inspection. Normal ROM. Lower extremities: Normal inspection. No edema. Normal ROM. Neurological: Normal cognition. AAOx4. Normal speech. Psychological: Bizarre affect. Normal Mood. Skin: Warm. Dry. Normal color. (MARCOS VALDEZ) Course - Laboratory Result Diagrams: 05/07/17 04:20 05/07/17 04:20 <MARCOS VALDEZ - Last Filed: 05/07/17 05:06> - Laboratory Result Diagrams: 05/07/17 04:20 05/07/17 04:20 <JULIO CESAR ALCANTARA - Last Filed: 05/07/17 05:37> - Re-evaluation Re-evalutation: 05/07/17 05:02 Patient presents the emergency department for the 12th visit since March 12. I saw and evaluated him yesterday as well. He had a history a while back of diverticulitis with perforation. Since then he has been on different diets. Numerous visits emergency department were inconclusive but the one common underlying theme was anxiety for which she is not being treated for. On examination he has a very bizarre affect and admits to wanting someone to care for him at home. When I specifically asked him when he means by that he states that he needs someone to cook and clean for him because he can get up and go to the store. I expressed to him that I did not understand due to the fact that he is young and otherwise healthy and he stated never mine addition of said that. Says he has a fiance that she has been gone since Monday. While in the emergency department he has no episodes of nausea vomiting is asking to drink something. On examination he is well-appearing his nontoxic is in no acute distress abdomen is soft on serial abdominal examinations no guarding rebound rigidity or peritoneal signs. Certainly no indication for an emergent CT of the abdomen and pelvis. Again tried to elucidate the reason for his recurrent visits to the emergency department and he expresses a almost and anger but cannot explain what exactly he asked we can do differently for him. He has also seen his primary care physician at this please with the information they have given him. He is medically stable no acute surgical abdomen labs are nonacute of the potassium which we gave him a medication for yesterday. I am going to give his information to the mental health case manager so she can follow-up and see if she can facilitate anything on an outpatient basis to limit the amount of ED visits. And discussed reasons for ED return sooner (JULIO CESAR ALCANTARA) - Vital Signs Vital signs: Temp Pulse Resp BP Pulse Ox 97.8 F 96 20 125/78 100 05/07/17 03:33 05/07/17 03:33 05/07/17 03:33 05/07/17 03:33 05/07/17 03:33 - Laboratory Laboratory results interpreted by me: 05/07/17 05/07/17 04:20 04:20 WBC 10.9 H RBC 4.33 L Hgb 13.0 L Hct 37.4 L RDW 14.1 H Lymphocytes % 8.7 L Monocytes % 15.8 H Absolute Monocytes 1.7 H Potassium 2.8 L* Glucose 135 H Discharge <MARCOS VALDEZ - Last Filed: 05/07/17 05:06> <JULIO CESAR ALCANTARA - Last Filed: 05/07/17 05:37> - Discharge Clinical Impression: report of vomiting Condition: Stable Disposition: HOME, SELF-CARE Additional Instructions: Vomiting by history Vomiting can be part of many illnesses. Most cases of vomiting are due to gastroenteritis, usually a viral infection in the intestinal tract. There is no specific treatment. The disease will end by itself. For now, the main danger to your child is dehydration. During the first few hours of the illness, give clear liquids, such as Pedialyte. Try to give small quantities frequently, such as a teaspoon of liquid every minute or about an ounce of fluids every five to ten minutes. Medications may be prescribed by the physician for special cases. After an hour or two of fluids without vomiting, add rice cereal, toast, applesauce, or bananas and other more solid foods to the clear liquids. Call the physician or go to the hospital if vomiting increases or blood appears in the bowel movement or vomitus; if your child fails to improve, or if signs of dehydration occur (no wet diapers for eight to twelve hours, tongue and mouth become dry, not acting as alert as usual). Follow-up with your family doctor in 2-3 days return for increasing worsening or new symptoms. I have given you information to the mental health case manager as well to help facilitate care outside of the emergency department. You have any questions or concerns do not hesitate to contact us. Victoriano Attestation: 05/07/17 05:02 I personally performed the services described in the documentation reviewed the documentation recorded by my scribe in my presence and it accurately and completely records my words and actions (JULIO CESAR ALCANTARA) Victoriano Documentation - Scribe Written by Victoriano:: Victoriano Menjivar, 05/07/2017 0426 acting as scribe for :: Twin <MARCOS VALDEZ - Last Filed: 05/07/17 05:06>
[2017-05-07 04:35] LABS: ABSOLUTE LYMPHOCYTES (AUTO) 0.9 10^3/uL (0.5-4.7); ABSOLUTE MONOCYTES (AUTO) 1.7 10^3/uL (0.1-1.4); ABSOLUTE NEUT (AUTO) 8.1 10^3/uL (1.7-8.2); BASOPHILS % (AUTO) 0.4 % (0-2); EOSINOPHILS % (AUTO) 0.3 % (0-6); HEMATOCRIT 37.4 % (37.9-51.0); HGB HCT DIFFERENCE 1.6; LYMPHOCYTES % (AUTO) 8.7 % (13-45); MEAN CORPUSCULAR HGB CONC 34.7 g/dL (32.0-36.0); MEAN CORPUSCULAR VOLUME 86 fl (80-97); MONOCYTES % (AUTO) 15.8 % (3-13); RED BLOOD COUNT 4.33 10^6/uL (4.35-5.55); RED CELL DISTRIBUTION WIDTH 14.1 % (11.5-14.0); SEGMENTED NEUTROPHILS % (AUTO) 74.8 % (42-78); WHITE BLOOD COUNT 10.9 10^3/uL (4.0-10.5)
[2017-05-07 04:51] LABS: ANION GAP 14 (5-19); BLOOD UREA NITROGEN 13 mg/dL (7-20); CALCIUM 8.7 mg/dL (8.4-10.2); CARBON DIOXIDE 26 mmol/L (22-30); CHLORIDE 101 mmol/L (98-107); CREATININE RESULT 0.94 mg/dL (0.52-1.25); GLUCOSE 135 mg/dL (75-110); SODIUM 141.4 mmol/L (137-145)
[2017-05-07 05:26] LABS: POTASSIUM 2.8 mmol/L (3.6-5.0)
== END 2017-05-07 05:15 | disposition home or self-care (01) ==
LOC: ER 03:33
DX: R11.10 Vomiting, unspecified (principal); E86.0 Dehydration; R53.1 Weakness; Z87.891 Personal history of nicotine dependence
CPT/HCPCS: 36415; 80048; 85025; 99284

== ENCOUNTER 2017-05-12 08:18 | Inpatient (IN) | payer OTHER ==
--- NOTE | 2017-05-12 09:18 | ER Document Report ---
ED GI/ - General Mode of Arrival: Ambulatory Information source: Patient TRAVEL OUTSIDE OF THE [place] IN LAST 30 DAYS: No - HPI Patient complains to provider of: Abdominal pain, Vomiting Timing/Duration: Intermittent, Persistent Location: LLQ Associated symptoms: Other - see above Exacerbated by: Sitting, Movement <MEHUL LOZADA - Last Filed: 05/12/17 12:00> <GREG NIELSON - Last Filed: 05/12/17 13:40> - General Chief Complaint: Abdominal Pain Stated Complaint: ABDOMINAL PAIN Time Seen by Provider: 05/12/17 08:53 Notes: Patient is a 42 year old male who presents to the ED with complaints of abdominal pain that has been intermittent since the end of March. Patient was seen in the ED 03/27/17 and diagnosed with diverticulitis. Patient states that he has been dealing with the abdominal pain intermittently since then. Patient states that he has seen several different physicians. He has a colonoscopy scheduled for next Monday (05/17/17). Patient states that he has also been on several rounds of antibiotics during this time. Today patient has associated nausea and vomiting and has had a fever the past 2 nights. Patient states when he has the fever, he does not have the pain. Patient has had a couple different diet changes, he has been able to keep down chicken noodle soup well, without the chicken added. Patient is not currently on any antibiotics. Patient does have some mild back pain. He does not have any headache or joint pain. (MEHUL LOZADA) - Related Data Allergies/Adverse Reactions: shellfish derived Allergy (Verified 05/12/17 08:24) Past Medical History - General Information source: Patient - Social History Smoking Status: Unknown if Ever Smoked Family History: None Pulmonary Medical History: Reports: Hx Asthma Renal/ Medical History: Denies: Hx Peritoneal Dialysis GI Medical History: Reports: Hx Diverticulitis Surgical Hx: Negative - Immunizations Hx Diphtheria, Pertussis, Tetanus Vaccination: No <MEHUL LOZADA - Last Filed: 05/12/17 12:00> Review of Systems - Review of Systems Constitutional: See HPI, Fever EENT: No symptoms reported Cardiovascular: No symptoms reported Respiratory: No symptoms reported Gastrointestinal: See HPI, Abdominal pain, Nausea, Vomiting Genitourinary: No symptoms reported Male Genitourinary: No symptoms reported Musculoskeletal: See HPI, Back pain Skin: No symptoms reported Hematologic/Lymphatic: No symptoms reported Neurological/Psychological: See HPI. denies: Headaches <NEVILLEMEHUL - Last Filed: 05/12/17 12:00> Physical Exam - General General appearance: Alert - HEENT Head: Normocephalic, Atraumatic Eyes: Normal Extraocular movements intact: Yes Pupils: PERRL - Respiratory Respiratory status: No respiratory distress Breath sounds: Normal - Cardiovascular Rhythm: Regular Heart sounds: Normal auscultation Murmur: No - Abdominal Inspection: Normal Distension: Distended - mild Bowel sounds: Normal Tenderness: Tender - focal tenderness in llq - Back Back: Normal - Extremities General upper extremity: Normal inspection, Normal ROM General lower extremity: Normal inspection, Normal ROM. No: Edema - Neurological Neuro grossly intact: Yes - Psychological Associated symptoms: Normal affect, Normal mood - Skin Skin Temperature: Warm Skin Moisture: Dry Skin Color: Normal <MEHUL LOZADA - Last Filed: 05/12/17 12:00> - Vital signs Vitals: Temp Pulse Resp BP Pulse Ox 98.9 F 105 H 18 116/65 98 05/12/17 08:26 05/12/17 08:26 05/12/17 08:26 05/12/17 08:26 05/12/17 08:26 Course - Laboratory Result Diagrams: 05/12/17 09:05 05/12/17 09:05 - Consults Dr. Armenta Time consulted: 09:53 Consulted provider: will come to ER <MEHUL LOZADA - Last Filed: 05/12/17 12:00> - Laboratory Result Diagrams: 05/12/17 09:05 05/12/17 09:05 <GREG NIELSON - Last Filed: 05/12/17 13:40> - Re-evaluation Re-evalutation: 05/12/17 10:58 42-year-old male with recent diverticulitis with perforation. That was 5 weeks ago. He was discharged in the hospital and has ongoing discomfort that waxes and wanes. He has had frequent visits to the emergency department, approximately every 2-3 days. He had a repeat CT scan performed a few weeks ago which showed improvement without development of an abscess. Patient returns today with a report of subjective fevers the past 2 days and general abdominal discomfort. Patient's laboratory results today all look fairly reasonable. He does have a slightly low potassium level of 2.9. This is not new for the patient. The patient has a colonoscopy that is pending. It was supposed to occur this week, but due to his ongoing discomfort in his been delayed until next week. I have spoken with Dr. Armenta, who had seen the patient during his hospitalization and in the office recently. Dr. Armenta has seen the patient the emergency department and requests a plain film of the abdomen due to mild distention. 05/12/17 13:30 The patient was unable to tolerate insertion of an enema tube. He reports he has a cut near his anus that makes it very uncomfortable. The patient has an ongoing problem with his abdominal pain, despite frequent emergency department visits. His colonoscopy had been delayed. Dr. Armenta has seen the patient emergency department and we will admit the patient for further evaluation, including colonoscopy and pain management. (GREG NIELSON) - Vital Signs Vital signs: Temp Pulse Resp BP Pulse Ox 98.9 F 76 16 117/63 96 05/12/17 08:26 05/12/17 12:04 05/12/17 12:04 05/12/17 12:04 05/12/17 12:04 - Laboratory Laboratory results interpreted by me: 05/12/17 05/12/17 05/12/17 09:05 09:05 10:05 RBC 4.05 L Hgb 12.0 L Hct 35.5 L RDW 14.2 H Seg Neutrophils % 78.9 H Lymphocytes % 7.8 L Potassium 2.9 L* Chloride 95 L Carbon Dioxide 31 H Glucose 135 H Calcium 8.2 L ALT 79 H Total Protein 6.2 L Albumin 2.8 L Urine Blood SMALL H - Consults Dr. Armenta Reason for consultation: 05/12/17 09:53 Discussed patient. He saw the patient in the office 3 days ago, he will look at the previous CT scan and come see the patient in the ED 05/12/17 10:53 Dr. Armenta is present in the ED to assess the patient. 05/12/17 12:00 After reviewing patients abdominal film, he is recommending that we give the patient an enema to help relieve some of the gas he is feeling and reassessing. (MEHUL LOZADA) Discharge <MEHUL LOZADA - Last Filed: 05/12/17 12:00> - Discharge Admitting Provider: Surgicalist Unit Admitted: Surgical Floor <GREG NIELSON - Last Filed: 05/12/17 13:40> - Discharge Clinical Impression: Hypokalemia, Diverticulitis Abdominal pain Qualifiers: Abdominal location: left lower quadrant Qualified Code(s): R10.32 - Left lower quadrant pain Disposition: ADMITTED OBSERVATION Referrals: ALEA ARMANDO FNP-C [Primary Care Provider] - Follow up as needed Scribe Attestation: 05/12/17 13:40 I personally performed the services described in the documentation, reviewed and edited the documentation which was dictated to the scribe in my presence, and it accurately records my words and actions. (GREG NIELSON) Scribe Documentation - Scribe Written by Gretele:: karla Gregorio, 05/12/2017, 0914 acting as scribe for :: Gal <MEHUL LOZADA - Last Filed: 05/12/17 12:00>
[2017-05-12 09:20] LABS: ABSOLUTE EOSINOPHILS # (AUTO) 0.1 10^3/uL (0.0-0.6); ABSOLUTE LYMPHOCYTES (AUTO) 0.8 10^3/uL (0.5-4.7); ABSOLUTE MONOCYTES (AUTO) 1.2 10^3/uL (0.1-1.4); ABSOLUTE NEUT (AUTO) 7.8 10^3/uL (1.7-8.2); BASOPHILS % (AUTO) 0.2 % (0-2); EOSINOPHILS % (AUTO) 1.4 % (0-6); HEMATOCRIT 35.5 % (37.9-51.0); HGB HCT DIFFERENCE 0.5; LYMPHOCYTES % (AUTO) 7.8 % (13-45); MEAN CORPUSCULAR HEMOGLOBIN 29.7 pg (27.0-33.4); MEAN CORPUSCULAR HGB CONC 33.9 g/dL (32.0-36.0); MEAN CORPUSCULAR VOLUME 88 fl (80-97); MONOCYTES % (AUTO) 11.7 % (3-13); RED BLOOD COUNT 4.05 10^6/uL (4.35-5.55); RED CELL DISTRIBUTION WIDTH 14.2 % (11.5-14.0); SEGMENTED NEUTROPHILS % (AUTO) 78.9 % (42-78); WHITE BLOOD COUNT 9.9 10^3/uL (4.0-10.5)
[2017-05-12] MEDS ORDERED: NORMAL SALINE 1000 ML 1,000 ML IV ONE (09:22)
[2017-05-12] MEDS ORDERED: HYDROMORPHONE HCL INJ/PF 2 MG/ML AMPULE IV ONE (09:22)
[2017-05-12] MEDS ORDERED: ONDANSETRON HCL INJ/PF 4 MG/2 ML SDV IV ONE (09:22)
[2017-05-12 09:38] LABS: ALANINE AMINOTRANSFERASE 79 U/L (21-72); ALBUMIN 2.8 g/dL (3.5-5.0); ALKALINE PHOSPHATASE 72 U/L (38-126); ANION GAP 12 (5-19); ASPARTATE AMINO TRANSFERASE 37 U/L (17-59); BILIRUBIN,DIRECT 0.3 mg/dL (0.0-0.4); BILIRUBIN,TOTAL 0.6 mg/dL (0.2-1.3); BLOOD UREA NITROGEN 7 mg/dL (7-20); CALCIUM 8.2 mg/dL (8.4-10.2); CARBON DIOXIDE 31 mmol/L (22-30); CHLORIDE 95 mmol/L (98-107); CREATININE RESULT 0.91 mg/dL (0.52-1.25); GLUCOSE 135 mg/dL (75-110); SODIUM 137.6 mmol/L (137-145); TOTAL PROTEIN 6.2 g/dL (6.3-8.2)
[2017-05-12 09:43] LABS: POTASSIUM 2.9 mmol/L (3.6-5.0)
[2017-05-12 10:19] LABS: APPEARANCE,URINE CLEAR; BILIRUBIN,URINE NEGATIVE (NEGATIVE); GLUCOSE, URINE NEGATIVE (NEGATIVE); KETONES,URINE NEGATIVE (NEGATIVE); LEUKOCYTE ESTERASE,URINE NEGATIVE (NEGATIVE); NITRITE,URINE NEGATIVE (NEGATIVE); PROTEIN,URINE NEGATIVE (NEGATIVE); URINE SPECIFIC GRAVITY 1.008; UROBILINOGEN,URINE NEGATIVE mg/dL (<2.0)
--- NOTE | 2017-05-12 11:42 | RADIOLOGY REPORT (SQ) ---
EXAM DESCRIPTION: ABDOMEN 2 VIEWS COMPLETED DATE/TIME: 05/12/2017 11:17 am REASON FOR STUDY: abdominal pain, distension, recent divertic. COMPARISON: None. NUMBER OF VIEWS: Two views. TECHNIQUE: Supine and erect radiographic images of the abdomen acquired. LIMITATIONS: None. FINDINGS: FREE AIR: None. No abnormal gas collections. LUNG BASES: Clear. BOWEL GAS PATTERN: Nonobstructive bowel gas pattern. There is considerable gas in the transverse col on. There is a small amount of small bowel gas present. CALCIFICATIONS: No suspicious calcifications. SOFT TISSUES: No gross mass or suggestion of organomegaly. HARDWARE: None in the abdomen. BONES: No acute fracture. No worrisome bone lesions. OTHER: No other significant finding. IMPRESSION: Nonspecific abdomen TECHNICAL DOCUMENTATION: JOB ID: [id number] [employer]- All Rights Reserved
--- NOTE | 2017-05-12 12:17 | CONSULTATION REPORT E ---
History and physical document NAME: JANIYA JACKSON : 1975 AGE: 42Y DATE: 05/12/2017 TO: LEONARDO MANCILLA M.D. FROM: Liza NOVA Requesting Physician REASON FOR CONSULTATION: Abdominal pain. Patient is seen at the request of Dr. Santo REPORT OF CONSULTATION: Patient is a 42-year-old male with a known history of sigmoid diverticulitis with complication, specifically contained localized retroperitoneal perforation back in March. Patient was hospitalized for 3 days with intravenous antibiotics and bowel rest. Since then he has recovered in general from that episode, but has had persistent intermittent abdominal pain, irregular stools, bloating. He has been in the emergency department approximately 10 times since that hospitalization. He has been on several courses of oral antibiotics. Most recently the patient was seen at [facility] 4 days ago where he was found to have persisting abdominal pain. He has admitted to fever but in the emergency department his temperature has been normal. He has had several loose bowel movements recently. He is taking a probiotic or an item with rachel to facilitate bowel movements. Patient has an appointment to undergo colonoscopy on Monday by Dr. Coleman. He is back in the emergency department this morning complaining of persisting pain. ALLERGIES: Include SHELLFISH. SOCIAL HISTORY: Unremarkable. PAST MEDICAL HISTORY: Asthma. Immunizations up to date. MEDICATIONS: As per HPI. REVIEW OF SYSTEMS: CONSTITUTIONAL: The patient has had decreased p.o. intake. GASTROINTESTINAL: As per HPI; never had a colonoscopy. Never had a gastrointestinal procedure performed. METABOLIC: Patient denies taking a diuretic. Of note, he has been hypokalemic during the last several emergency room visits. PHYSICAL EXAMINATION: GENERAL: The patient is seen in the emergency department. He is in no acute distress. He did receive some pain medication earlier today. EYES: Without icterus. NECK: No adenopathy. LUNGS: Diminished at the bases bilaterally. HEART: Without murmur or gallop. ABDOMEN: The abdomen is examined. It is distended. There is a small umbilical hernia, flat. There is some pelvic tenderness but no rigidity. The remainder of the examination is unremarkable. DIAGNOSTICS: Laboratory profile shows a potassium of 2.9, albumin of 2.8, calcium of 8.2. Toxicology screen on 05/05/2017 negative. Hemoglobin 12.0, white blood cell count 9900. Acute abdominal series pending. IMPRESSION: 1. Persisting abdominal pain, likely due to chronic sigmoid diverticulitis with colonic narrowing; previously no evidence of obstruction. 2. Recurrent hypokalemia of uncertain etiology. 3. Malnutrition. RECOMMENDATIONS: 1. IV fluid hydration while in the emergency department. 2. Acute abdominal series to assess gas pattern. 3. Will reassess patient, discussed with the emergency department and determine disposition. Ideally we would like for the patient to undergo a colonoscopy to evaluate the rest of his colon before offering him sigmoid colectomy; however, if patient cannot complete that diagnostic procedure then he may need to undergo interval colectomy sooner. Addendum: Time 1:44 PM. The patient underwent acute abdominal series which showed a distended transverse colon. We attempted to give the patient an enema but he is due to discomfort. Patient is failing outpatient management, and his lost weight and is malnourished. Believe the principal etiology is the diseased rectosigmoid colon. Therefore we will admit the patient, keep him on clear liquids, bowel prep him, attempt colonoscopy, and if not proceed subsequently to sigmoid colectomy, likely open, with primary anastomosis, possible colostomy. DICTATING PHYSICIAN: LEONARDO MANCILLA M.D. [id number] PHY#: [id number] ID: [id number] JOB#: [id number] ACCT: [id number] cc:LEONARDO MANCILLA M.D. > MTDD
[2017-05-12] MEDS ORDERED: ONDANSETRON HCL INJ/PF 4 MG/2 ML SDV IV PRN (13:47)
[2017-05-12] MEDS ORDERED: NORMAL SALINE 1000 ML 1,000 ML IV PRN (13:48)
[2017-05-12] MEDS ORDERED: PEG 3350/NA SULF,BICARB,CL/KCL 4000 ML PO ONE (15:00)
[2017-05-12] MEDS: KETOROLAC TROMETHAMINE INJ/PF 30 MG/1 ML SDV IV PRN ×2 (15:57→21:42)
[2017-05-12] MEDS: POTASSI CL 20 MEQ/50 ML RIDER 20 MEQ/50 ML RTUPB IV SCH ×3 (16:05→21:41)
[2017-05-12] MEDS: ACETAMINOPHEN INJ/PF 1000 MG/100 ML SDV IV SCH (18:10)
[2017-05-13] MEDS: ACETAMINOPHEN INJ/PF 1000 MG/100 ML SDV IV SCH ×2 (00:43→05:25)
[2017-05-13] MEDS: KETOROLAC TROMETHAMINE INJ/PF 30 MG/1 ML SDV IV PRN (03:08)
[2017-05-13] MEDS: POTASSIUM CHLORIDE 20 MEQ/50 ML RTU IV SCH ×2 (06:22→07:40)
[2017-05-13] MEDS ORDERED: NALOXONE HCL INJ/PF 0.4 MG/1 ML SDV ONE (08:55)
[2017-05-13] MEDS ORDERED: GLYCOPYRROLATE INJ 0.4 MG/2 ML VIAL ONE (08:55)
[2017-05-13] MEDS ORDERED: ONDANSETRON HCL INJ/PF 4 MG/2 ML SDV ONE (08:55)
[2017-05-13] MEDS ORDERED: EPINEPHRINE INJ 1 MG/10 ML DISP.SYRIN ONE (08:56)
[2017-05-13] MEDS ORDERED: FLUMAZENIL INJ 0.5 MG/5 ML VIAL ONE (08:56)
[2017-05-13] MEDS ORDERED: GLUCAGON,HUMAN RECOMB 1 MG INJ ONE (08:56)
[2017-05-13] MEDS: MIDAZOLAM 2 MG/2 ML INJ ONE ×3 (09:27→09:33)
[2017-05-13] MEDS: FENTANYL CITRATE INJ/PF 100 MCG/2 ML AMPUL ONE ×2 (09:29→09:35)
[2017-05-13] MEDS ORDERED: POTASSI CL 20 MEQ/D5-1/2NS 1L 1,000 ML IV PRN (10:06)
[2017-05-13] MEDS ORDERED: POTASSIUM CHLORIDE 20 MEQ/50 ML RTU IV ONE (11:15)
--- NOTE | 2017-05-13 11:39 | Operative Report ---
Operative Report DATE OF SURGERY: 05/13/17 PREOPERATIVE DIAGNOSIS: Sigmoid diverticulitis, status post pain retroperitoneal perforation. Chronic abdominal pain POSTOPERATIVE DIAGNOSIS: Extensive, ulcerative colitis and proctitis OPERATION: 1. Limited colonoscopy to 55 cm from the anal verge. 2. multiple sigmoid and rectal biopsies SURGEON: LEONARDO MANCILLA ANESTHESIA: Moderate Sedation TISSUE REMOVED OR ALTERED: Mucosal biopsies of sigmoid colon and upper rectum COMPLICATIONS: None ESTIMATED BLOOD LOSS: Minimal INTRAOPERATIVE FINDINGS: See below PROCEDURE: The patient was taken from the fourth floor after undergoing bowel prep to the endoscopy suite on the fifth floor of [facility] placed in a semirecumbent position, left lateral, knees to chest. Conscious sedation was induced. Surgical plan and surgical timeout were conducted Of note the patient required 6 mg of Versed and 200 mcg of fentanyl for mild sedation. Rectal exam was performed. Patient was very sensitive to the rectal exam. There was some bloody mucus upon extraction of the index finger. The flexible pediatric colonoscope was now very carefully insinuated in the anal rectal canal. We immediately encountered diffuse, severe proctitis. As we advance the scope beyond the rectum up into the sigmoid colon, the inflammation intensified. It was essentially ulcerated with concomitant elevated areas of mucosa. Advance the scope to 55 cm from the anal verge but the patient would not tolerate any further advancement so as to minimize risk of perforation and further discomfort to the patient, we aborted at 55 cm The scope was brought back through the portion of the sigmoid colon rectum and anal canal. Multiple biopsies were taken from the sigmoid colon and the rectum and sent to pathology separately as sigmoid colon and mid upper rectal mucosal biopsies. There was no retained stool so this was an excellent study up to 55 cm. At no point did any of the tissue resemble malignancy. There was no true obstruction. The inflammation diminished as we approached the anal canal but it did extend all the way to the dentate line and even close to the anal verge. The scope was withdrawn to the patient's anus. He did tolerate the procedure well The impression at this time is severe colitis and moderate proctitis, etiology undetermined. The patient does not appear to be suffering from locations of diverticulitis at this time. Differential at this point includes inflammatory bowel disease, Clostridium difficile colitis or other colitis. There is no gastroenterology available for consultation as we can. I have asked the hospitalist service to assist in his management. We will obtain appropriate stool cultures, C. difficile titers and manage accordingly.
[2017-05-13] MEDS: TRAMADOL HCL 50 MG TABLET PO PRN ×3 (12:08→22:26)
[2017-05-13] MEDS: ACETAMINOPHEN 100 ML IV SCH ×2 (12:09→18:08)
--- NOTE | 2017-05-13 13:12 | CONSULTATION REPORT E ---
Consultation Report NAME: JANIYA JACKSON : 1975 AGE: 42Y DATE: 05/13/2017 431 A TO: PERRY CHADWICK NP FROM: CARLOS CAMARGO M.D. Requesting Physician CODE STATUS: FULL CODE. PRIMARY CARE PROVIDER: Sarah Middleton ATTENDING PHYSICIAN: Dr. Armenta. REASON FOR CONSULTATION: To aid in the medical management of patient with colitis. HISTORY OF PRESENT ILLNESS: The patient is a 42-year-old male with no significant past medical history. The patient presented to the emergency department with a chief complaint of left lower quadrant abdominal pain which was noted to be quite persistent as well as vomiting. The patient states the symptoms have been persistent since March and has also included diarrhea with some blood in his stools. The patient was seen in the ED on 03/27/2017 and was diagnosed with diverticulitis at that time. The patient has been dealing with abdominal pain intermittently since then. The patient states that he has been seen by different physicians. The patient was actually supposed to followup with the surgicalist, however, he was lost to followup and had been seen by Gastroenterology. The patient had a colonoscopy for 05/17/2017. The patient states that he has also been on several rounds of antibiotics during that time. The patient has also noted some fevers for the past 2 nights. According to the patient, whenever he has fever he does not feel the pain. The patient has had a couple of different diet changes and has only been able to keep down chicken noodle soup without the chicken. The patient was not on antibiotics at the time of presentation. He did have some mild back pain and denied any headache or joint pains. The patient denied any family history of Crohn's disease or ulcerative colitis. The patient was seen by the surgicalist and was admitted to the service. The patient was found to have a normal white count, however, hemoglobin was a little low at 12. The patient was found to be hypokalemic at 2.9 and evidence of significant malnutrition with albumin of 2.8. The patient underwent colonoscopy today with Dr. Armenta and initial findings were consistent with a diffuse colitis and the patient was returned to his room. The patient has been hydrated, potassium will be repleted, and the hospitalists have been asked to aid in the management of this patient. PAST MEDICAL HISTORY: Negative. PAST SURGICAL HISTORY: Negative. ALLERGIES: Includes SHELLFISH. HOME MEDICATIONS: None. SOCIAL HISTORY: The patient currently resides at home with his girlfriend. 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 The patient denies any tobacco use. No history of alcohol or illicit drug use. FAMILY MEDICAL HISTORY: Negative for any GI disorders or cancers but is positive for asthma. REVIEW OF SYSTEMS: CONSTITUTIONAL: The patient admits to some fevers and chills but denies any dizziness, or loss of appetite, or weakness. INTEGUMENTARY: The patient denies any diaphoresis, rash, or bruising. No itching. HEENT: The patient denies any vision change, hearing loss, nasal drainage, sore throat. CARDIOVASCULAR: The patient denies any chest pain, edema, or heart palpitations. RESPIRATORY: The patient denies any cough, sputum production, or hemoptysis. GASTROINTESTINAL: The patient admits to nausea, vomiting, diarrhea, abdominal pain, and bloating. Denies any hematemesis. No melena but does admit to hematochezia. GENITOURINARY: Denies any hematuria, pyuria, or dysuria. MUSCULOSKELETAL: Denies any acute or chronic joint pain. NEUROLOGIC: Denies any seizures, tremors, or loss of consciousness. HEMATOLOGICAL: The patient has had some dilshad bleeding but no easy bruising. ENDOCRINE: Denies any recent weight changes. PSYCHIATRIC: Denies suicidal or homicidal ideation. The rest of the review of the other organ systems is negative. PHYSICAL EXAMINATION: GENERAL: On examination, the patient is a well-developed, reasonably nourished, 42-year-old male who is awake and alert. He is oriented to person, place, time, and situation. He is verbal, conversational, ambulatory. He does not appear to be in any acute distress. VITAL SIGNS: Temperature 97.5, pulse 77, respirations 16, blood pressure 107/58, oxygen saturation is 97% on room air. SKIN: Warm and dry. No rash. He is not diaphoretic. HEENT: Pupils equal, round, reactive to light and accommodation. Conjunctivae are pink. Sclerae nonicterus. There are no mouth lesions. Tongue is midline. NECK: Supple. No JVD. No palpable lymphadenopathy or thyromegaly. CARDIOVASCULAR: Heart is regular with no murmur or rub. CHEST: Clear, symmetrical, unlabored. ABDOMEN: Soft, nontender, nondistended. Bowel sounds are present. No palpable organomegaly. BACK: No CVA tenderness or sacral edema. EXTREMITIES: No clubbing, cyanosis, edema, or peripheral signs of embolization. Posterior pedal pulses noted bilaterally. PSYCHIATRIC: Appropriate affect. Pleasant mood. DIAGNOSTICS: Lab values are as follow: Hematology obtained on 05/12/2017: WBCs are 9.9, hemoglobin is 12.0, hematocrit is 35.5, platelet count is 348,000. Chemistry obtained on 05/12/2017: Sodium is 137, potassium 2.9, chloride is 95, carbon dioxide 31, BUN 7, creatinine is 0.91, glucose 135, calcium is 8.2, bilirubin is 0.6, AST 37, ALT is 79, alk phos 72, total protein 6.2, albumin 2.8. Urinalysis obtained on 05/12/2017: Color yellow, appearance clear, pH 6.0, specific gravity 1.008, protein negative, glucose negative, ketones negative, occult blood small, nitrate negative, bilirubin negative, urobilinogen negative, leukocyte esterase negative, WBC 13, RBC 1, epithelial squamous cells less than 1, mucous rare, ascorbic acid negative. Abdomen x-ray obtained on 05/12/2017 reveals a nonspecific abdomen. Operative report obtained on 05/13/2017 reveals findings of a ulcerative colitis and proctitis. IMPRESSION AND PLAN: 1. Colitis. This is nonspecific. Currently awaiting pathology. In the meantime, will continue to hydrate the patient and will obtain stool studies. Will defer 5-ASA for now and steroids pending findings of pathology. 2. Hypokalemia. This is significant. Will replete this and repeat chemistry this afternoon. 3. Malnutrition. The patient's albumin is quite low at 2.8, most likely due to malabsorption from the patient's colitis. The patient will benefit from GI input. 4. Anemia. Unable to further classify. Most likely it is related to malabsorption. Will obtain iron studies and follow. DISPOSITION: The patient is a FULL CODE. Pending patient's symptomatology and diagnostic findings, will reevaluate in the a.m. Time spent on this followup including assessment, plan, physical examination, patient education, and specialty collaboration is 35 minutes. DICTATING PHYSICIAN: PERRY CHADWICK NP [id number] PHY#: [id number] ID: [id number] JOB#: [id number] ACCT: [id number] cc:PERRY CHADWICK ELECTROLYSIS NEEDLE OPERATOR >
[2017-05-13] MEDS ORDERED: IRON SUCROSE COMPLEX 100 MG in NORMAL SALINE 100 ML IV ONE (13:43)
[2017-05-13] MEDS ORDERED: MORPHINE SULFATE 10 MG/ML INJ IV ONE (15:00)
[2017-05-13] MEDS ORDERED: IRON SUCROSE COMPLEX INJ/PF 100 MG/5 ML SDV IV ONE (15:30)
[2017-05-13 17:32] LABS: ANION GAP 11 (5-19); BLOOD UREA NITROGEN 5 mg/dL (7-20); CALCIUM 7.5 mg/dL (8.4-10.2); CARBON DIOXIDE 25 mmol/L (22-30); CHLORIDE 100 mmol/L (98-107); CREATININE RESULT 0.71 mg/dL (0.52-1.25); GLUCOSE 145 mg/dL (75-110); SODIUM 135.7 mmol/L (137-145)
[2017-05-13] MEDS: LACTOBACILLUS ACIDOPHILUS 250 MG TAB PO SCH (18:08)
[2017-05-13] MEDS: METRONIDAZOLE 500 MG TABLET PO SCH (18:08)
[2017-05-14] MEDS: ACETAMINOPHEN 100 ML IV SCH ×2 (00:04→05:10)
[2017-05-14] MEDS: METRONIDAZOLE 500 MG TABLET PO SCH ×4 (00:04→17:43)
[2017-05-14] MEDS: TRAMADOL HCL 50 MG TABLET PO PRN ×4 (03:30→17:43)
[2017-05-14] MEDS: LACTOBACILLUS ACIDOPHILUS 250 MG TAB PO SCH ×2 (09:54→17:43)
[2017-05-14] MEDS ORDERED: POTASSI CL 40 MEQ/D5-1/2NS 1L 40 MEQ/1,000 ML RTUINJ IV PRN (11:13)
--- NOTE | 2017-05-14 11:18 | PDOC PROGRESS REPORT ---
Subjective Progress Note for:: 05/14/17 Subjective:: Patient is complaining of bloating, and some abdominal pain but in general feels better compared to yesterday. Physical Exam Vital Signs: Temp Pulse Resp BP Pulse Ox 97.4 F 79 18 105/52 L 98 05/14/17 07:20 05/14/17 07:20 05/14/17 07:20 05/14/17 07:20 05/14/17 07:20 Intake & Output 05/13/17 05/14/17 05/15/17 06:59 06:59 06:59 Intake Total 1593 5441 Balance 1593 5441 Weight 92.1 kg 95 kg General appearance: PRESENT: no acute distress GI/Abdominal exam: PRESENT: other - Mildly distended no peritoneal signs no rigidity. Results Laboratory Results: 05/13/17 16:37 05/13/17 05/13/17 05/13/17 04:19 15:27 15:27 Sodium Potassium Chloride Carbon Dioxide Anion Gap BUN Creatinine Est GFR ( Amer) Est GFR (Non-Af Amer) Glucose Calcium Iron < 10.1 L TIBC 136 L % Saturation UNABLE TO CALCULATE Ferritin 454.00 Vitamin B12 > 1000.0 H Folate 11.70 Stool Occult Blood POSITIVE Stool for White Cells MANY H 05/13/17 16:37 Sodium 135.7 L Potassium 3.0 L* Chloride 100 Carbon Dioxide 25 Anion Gap 11 BUN 5 L Creatinine 0.71 Est GFR ( Amer) > 60 Est GFR (Non-Af Amer) > 60 Glucose 145 H Calcium 7.5 L Iron TIBC % Saturation Ferritin Vitamin B12 Folate Stool Occult Blood Stool for White Cells Impressions: Abdomen X-Ray 05/12/17 10:57 IMPRESSION: Nonspecific abdomen Assessment & Plan - Diagnosis (1) Clostridium difficile colitis Is this a current diagnosis for this admission?: Yes Plan: The patient's diagnosis from admission to now has shifted from complicated diverticulitis, which he had in the past, to severe, acute clostridium difficile colitis and proctitis. He is being managed with Tylenol, p.o. Flagyl hydration, and potassium replacement. Plan: 1. I again explained to the patient that he does not require surgical intervention at this time; our clinical understanding of his colon problem has shifted from complicated diverticulitis to Clostridium difficile colitis with proctitis. He may have both processes going on simultaneously, but I believe the acute problem now is the clostridium infection. I explained to him again the management as described above. 2. We will transfer care to the hospitalist service. 3. Patient has an appointment to see Dr. Coleman this coming Monday. Recently this was for a colonoscopy which will be deferred. 4. Surgical support will be available should a complication arise.
[2017-05-14] MEDS ORDERED: SIMETHICONE 80 MG TAB.CHEW PO ONE (13:00)
[2017-05-14] MEDS ORDERED: POTASSIUM CHLORIDE 10 MEQ TABLET.SA PO ONE (13:00)
--- NOTE | 2017-05-14 15:48 | PROGRESS NOTE E ---
Progress Note NAME: JANIYA JACKSON : 1975 AGE: 42Y DATE: 05/14/2017 ROOM: 313 SUBJECTIVE: The patient is lying in bed. He states he feels a little better today than he did yesterday. The patient denies any nausea or vomiting, no shortness of breath, dizziness or chest pain. Diarrhea is improving. He has had no rectal bleeding today. The patient has been afebrile and his blood pressures have been in a good range, and the patient does not voice any other concerns at this time. REVIEW OF SYSTEMS: Rest of the review of systems is negative. MEDICATIONS: Medications have been reviewed. OBJECTIVE: GENERAL: The patient is a 42-year-old male who is awake and alert. He is oriented to person, place, time, and situation. He is verbal, conversational. He does not appear to be in any acute distress. VITAL SIGNS: Temperature 98.3, pulse 79, respirations 16, blood pressure 117/61, oxygen saturation is 97% on room air. SKIN: Warm and dry. No rash. He is not diaphoretic. HEENT: Pupils equal, round, reactive to light and accommodation. Conjunctivae are pink. No JVP. CARDIOVASCULAR: Heart is regular with no murmur or rub. CHEST: Clear, symmetrical, unlabored. ABDOMEN: Distended. Bowel sounds are present. No area of focal tenderness. BACK: No CVA tenderness or sacral edema. EXTREMITIES: No clubbing, cyanosis or edema. PSYCHIATRIC: Appropriate affect. Pleasant mood. DIAGNOSTICS: Lab values are as follows. Chemistry obtained on 05/13/2017: Sodium is 135, potassium 3.0, chloride is 100, carbon dioxide 25, BUN 5, creatinine is 0.71, glucose 145, calcium is 7.9. IMPRESSION AND PLAN: 1. C. DIFFICILE COLITIS. The patient has had improvement with Flagyl. Will continue this as well as probiotic therapy and encourage yogurt on each tray and follow. 2. HYPOKALEMIA. Due to GI losses. Will continue to replete this and repeat chemistry in the a.m. and follow. 3. IRON DEFICIENCY ANEMIA. The patient was given a dose of Venofer, most likely malabsorption. Currently awaiting pathologies from the patient's colonoscopy as well. Will follow. 4. MALNUTRITION. The patient's albumin is quite low. The patient has had this illness for quite a while; however, he is now able to tolerate some foods. Will follow. DISPOSITION: The patient is a FULL CODE. Pending patient's symptomatology and diagnostic findings, will reevaluate in the a.m. for discharge. The patient has been accepted for transfer to the hospitalist service from the surgicalist service given the patient's issues are medical in etiology. Time spent on this followup including assessment, plan, physical examination, patient education, and specialty collaboration is 25 minutes. DICTATING PHYSICIAN: PERRY CHADWICK NP [id number] PHY#: [id number] ID: [id number] JOB#: [id number] ACCT: [id number] cc: >
[2017-05-14] MEDS: SIMETHICONE 80 MG TAB.CHEW PO PRN (20:57)
[2017-05-15] MEDS: METRONIDAZOLE 500 MG TABLET PO SCH ×4 (00:01→18:14)
[2017-05-15] MEDS ORDERED: DIPHENHYDRAMINE HCL 25 MG/10 ML UDC PO PRN (02:21)
[2017-05-15 02:53] LABS: ANION GAP 9 (5-19); BLOOD UREA NITROGEN 3 mg/dL (7-20); CALCIUM 7.9 mg/dL (8.4-10.2); CARBON DIOXIDE 29 mmol/L (22-30); CHLORIDE 99 mmol/L (98-107); CREATININE RESULT 0.65 mg/dL (0.52-1.25); GLUCOSE 114 mg/dL (75-110); MAGNESIUM 1.9 mg/dL (1.6-2.3); POTASSIUM 3.1 mmol/L (3.6-5.0); SODIUM 137.1 mmol/L (137-145)
[2017-05-15] MEDS: POTASSI CL 20 MEQ/50 ML RIDER 20 MEQ/50 ML RTUPB IV SCH ×3 (04:53→09:25)
[2017-05-15] MEDS: TRAMADOL HCL 50 MG TABLET PO PRN ×5 (05:21→23:00)
[2017-05-15 07:13] LABS: HEMATOCRIT 29.6 % (37.9-51.0); HGB HCT DIFFERENCE 0.4; MEAN CORPUSCULAR HEMOGLOBIN 29.4 pg (27.0-33.4); MEAN CORPUSCULAR HGB CONC 33.7 g/dL (32.0-36.0); MEAN CORPUSCULAR VOLUME 87 fl (80-97); RED CELL DISTRIBUTION WIDTH 14.4 % (11.5-14.0); WHITE BLOOD COUNT 11.1 10^3/uL (4.0-10.5)
[2017-05-15 07:18] LABS: ANION GAP 9 (5-19); BLOOD UREA NITROGEN 2 mg/dL (7-20); CALCIUM 7.6 mg/dL (8.4-10.2); CARBON DIOXIDE 29 mmol/L (22-30); CHLORIDE 99 mmol/L (98-107); CREATININE RESULT 0.66 mg/dL (0.52-1.25); GLUCOSE 109 mg/dL (75-110); SODIUM 137.2 mmol/L (137-145)
[2017-05-15] MEDS: LACTOBACILLUS ACIDOPHILUS 250 MG TAB PO SCH ×2 (09:25→18:13)
[2017-05-15] MEDS ORDERED: POTASSIUM CHLORIDE 20 MEQ/15 ML UDCUP PO ONE (10:30)
[2017-05-15] MEDS: MAGNESIUM SULFATE/D5W 1 GM/100 ML RTUPB IV SCH ×2 (10:39→12:21)
--- NOTE | 2017-05-15 10:51 | PDOC PROGRESS REPORT ---
Subjective Progress Note for:: 05/15/17 Subjective:: Patient feeling a little better, still bloated. Having some flatus. Physical Exam Vital Signs: Temp Pulse Resp BP Pulse Ox 98.4 F 98 16 110/60 96 05/15/17 08:42 05/15/17 08:42 05/15/17 08:42 05/15/17 08:42 05/15/17 08:42 Intake & Output 05/14/17 05/15/17 05/16/17 06:59 06:59 06:59 Intake Total 5441 2926 Balance 5441 2926 Weight 95 kg General appearance: PRESENT: mild distress, other - Patient sitting in a chair. GI/Abdominal exam: PRESENT: other - Moderately bloated diffusely tender Results Laboratory Results: 05/15/17 06:47 05/15/17 06:47 05/15/17 05/15/17 05/15/17 02:35 06:47 06:47 WBC 11.1 H RBC 3.40 L Hgb 10.0 L Hct 29.6 L MCV 87 MCH 29.4 MCHC 33.7 RDW 14.4 H Plt Count 329 Sodium 137.1 137.2 Potassium 3.1 L 3.0 L* Chloride 99 99 Carbon Dioxide 29 29 Anion Gap 9 9 BUN 3 L 2 L Creatinine 0.65 0.66 Est GFR ( Amer) > 60 > 60 Est GFR (Non-Af Amer) > 60 > 60 Glucose 114 H 109 Calcium 7.9 L 7.6 L Magnesium 1.9 Impressions: Abdomen X-Ray 05/12/17 10:57 IMPRESSION: Nonspecific abdomen Assessment & Plan - Diagnosis (1) Clostridium difficile colitis Is this a current diagnosis for this admission?: Yes Plan: Patient remains moderately symptomatic, receiving pain medication, and having some bowel function. Recommendations: 1. Continue medical management of Clostridium difficile colitis. 2. Patient had an appointment to see Dr. Coleman this week; suggest follow-up with gastroenterology 3. General surgery will sign off for now; reconsult if clinically indicated.
[2017-05-15] MEDS: SIMETHICONE 80 MG TAB.CHEW PO PRN (14:06)
--- NOTE | 2017-05-15 15:47 | PDOC PROGRESS REPORT ---
Subjective Progress Note for:: 05/15/17 Subjective:: Patient states that his belly is distended and that he is having severe abdominal pain. Patient reports that he has not had any bowel movements today. She states that he is having severe belly pain with ambulating. Spoke to Dr. Armenta about patient's condition this morning. Physical Exam Vital Signs: Temp Pulse Resp BP Pulse Ox 98.4 F 96 16 108/68 95 05/15/17 11:08 05/15/17 11:08 05/15/17 11:08 05/15/17 11:08 05/15/17 11:08 Intake & Output 05/14/17 05/15/17 05/16/17 06:59 06:59 06:59 Intake Total 5441 2926 Balance 5441 2926 Weight 95 kg General appearance: PRESENT: mild distress, well-developed, well-nourished Head exam: PRESENT: atraumatic, normocephalic Eye exam: PRESENT: conjunctiva pink, EOMI. ABSENT: scleral icterus Ear exam: PRESENT: normal external ear exam Mouth exam: PRESENT: moist, tongue midline Neck exam: ABSENT: carotid bruit, JVD, lymphadenopathy, thyromegaly Respiratory exam: PRESENT: clear to auscultation sammie. ABSENT: rales, rhonchi, wheezes Cardiovascular exam: PRESENT: RRR. ABSENT: diastolic murmur, rubs, systolic murmur Pulses: PRESENT: normal dorsalis pedis pul Vascular exam: PRESENT: normal capillary refill GI/Abdominal exam: PRESENT: other - Positive for distention, positive for diffuse tenderness to palpation, positive for hypoactive bowel sounds Rectal exam: PRESENT: deferred Extremities exam: PRESENT: full ROM. ABSENT: calf tenderness, clubbing, pedal edema Neurological exam: PRESENT: alert, awake, oriented to person, oriented to place , oriented to time, oriented to situation, CN II-XII grossly intact. ABSENT: motor sensory deficit Psychiatric exam: PRESENT: appropriate affect, normal mood. ABSENT: homicidal ideation, suicidal ideation Skin exam: PRESENT: dry, intact, warm. ABSENT: cyanosis, rash Results Laboratory Results: 05/15/17 06:47 05/15/17 06:47 05/15/17 05/15/17 05/15/17 02:35 06:47 06:47 WBC 11.1 H RBC 3.40 L Hgb 10.0 L Hct 29.6 L MCV 87 MCH 29.4 MCHC 33.7 RDW 14.4 H Plt Count 329 Sodium 137.1 137.2 Potassium 3.1 L 3.0 L* Chloride 99 99 Carbon Dioxide 29 29 Anion Gap 9 9 BUN 3 L 2 L Creatinine 0.65 0.66 Est GFR ( Amer) > 60 > 60 Est GFR (Non-Af Amer) > 60 > 60 Glucose 114 H 109 Calcium 7.9 L 7.6 L Magnesium 1.9 Impressions: Abdomen X-Ray 05/12/17 10:57 IMPRESSION: Nonspecific abdomen Assessment & Plan - Diagnosis (1) Clostridium difficile colitis Is this a current diagnosis for this admission?: Yes Plan: We will place patient on vancomycin oral. Patient was placed on Flagyl prior to my involvement in care. We will continue both of these antibiotics. Will obtain CT of abdomen to evaluate for toxic megacolon. Patient did have x-ray of abdomen that did not demonstrate findings concerning for toxic megacolon however will do CT of abdomen and pelvis for more definitive diagnosis. Patient did have sigmoidoscopy done that only demonstrated significant colitis. Will add hydrocodone for pain management. (2) Diverticulitis Is this a current diagnosis for this admission?: Yes Plan: Treatment completed. Pt was noted to have microperforation back in March 2017 documentation. (3) Hypokalemia Is this a current diagnosis for this admission?: Yes Plan: We will give 60 mEq of potassium chloride orally and then give 40 mg IV. Will check BMP today. (4) Hypomagnesemia Is this a current diagnosis for this admission?: Yes Plan: We will give 2 g of magnesium sulfate today. Will check mag in a.m. (5) Iron deficiency anemia due to chronic blood loss Is this a current diagnosis for this admission?: Yes Plan: Appears the patient has iron deficiency anemia. Patient was given Venofer 1. Will give additional iron replacement today. (6) Abdominal pain Qualifiers: Abdominal location: left lower quadrant Qualified Code(s): R10.32 - Left lower quadrant pain Plan: Obtain CT of abdomen and pelvis today with oral and IV contrast. (7) Diverticulitis of colon with perforation Qualifiers: Diverticulitis bleeding: without bleeding Qualified Code(s): K57.20 - Diverticulitis of large intestine with perforation and abscess without bleeding Is this a current diagnosis for this admission?: Yes Plan: Patient diagnosed with microperforation secondary to diverticulitis March 2017. (8) DVT prophylaxis Is this a current diagnosis for this admission?: Yes Plan: SCDs - Time Time Spent with patient: 25-34 minutes Anticipated discharge: Home
[2017-05-15] MEDS ORDERED: POTASSI CL 20 MEQ/50 ML RIDER 20 MEQ/50 ML RTUPB IV SCH (17:30)
[2017-05-15] MEDS ORDERED: IRON SUCROSE COMPLEX 200 MG in NORMAL SALINE 100 ML IV ONE (18:00)
[2017-05-15] MEDS: HYDROCODONE/ACETAMINOPHEN 7.5-325 MG TABLET PO PRN (18:13)
[2017-05-15] MEDS: VANCOMYCIN HCL INJ 500 MG VIAL PO SCH (18:55)
--- NOTE | 2017-05-15 18:59 | RADIOLOGY REPORT (SQ) ---
EXAM DESCRIPTION: CT ABD/PELVIS WITH IV ORAL COMPLETED DATE/TIME: 05/15/2017 6:38 pm REASON FOR STUDY: ABD Pain. Concern for Toxic Megacolon COMPARISON: 05/01/2017 TECHNIQUE: CT scan of the abdomen and pelvis performed using helical scanning technique with dynamic intravenous contrast injection. A small amount of oral contrast was ingested. Images reviewed with lung, soft tissue, and bone windows. Reconstructed coronal and sagittal MPR images reviewed. Delayed images for evaluation of the urinary system also acquired. All images stored on PACS. All CT scanners at this facility use dose modulation, iterative reconstruction, and/or weight based d osing when appropriate to reduce radiation dose to as low as reasonably achievable (ALARA). [facility]: Dose Right [facility]: CareDose [facility]: Dose Right [facility]: Teradose 4D [facility]: Trapster CONTRAST TYPE AND DOSE: contrast/concentration: Isovue 370.00 mg/ml; Total Contrast Delivered: 100.0 ml; Total Saline Delivered: 34.0 ml RENAL FUNCTION: Creatinine 0.7 BUN 2 RADIATION DOSE: Up-to-date CT equipment and radiation dose reduction techniques were employed. CTDIv ol: 12.2 - 16.9 mGy. DLP: 1718 mGy-cm.. LIMITATIONS: None. FINDINGS: LOWER CHEST: No significant findings. No nodules or infiltrates. LIVER: The liver is low in density. SPLEEN: Normal size. No focal lesions. PANCREAS: No masses. No significant calcifications. No adjacent inflammation or peripancreatic fluid collections. Pancreatic duct not dilated. GALLBLADDER: No identified stones by CT criteria. No inflammatory changes to suggest cholecystitis. ADRENAL GLANDS: No significant masses or asymmetry. RIGHT KIDNEY AND URETER: No solid masses. No significant calcifications. No hydronephrosis or hyd roureter. LEFT KIDNEY AND URETER: No solid masses. No significant calcifications. No hydronephrosis or hydr oureter. AORTA AND VESSELS: No aneurysm. No dissection. Renal arteries, SMA, celiac without stenosis. RETROPERITONEUM: No retroperitoneal adenopathy, hemorrhage or masses. BOWEL AND PERITONEAL CAVITY: There is thickening of the wall of the colon most prominently in the cec um and ascending colon and in the descending and sigmoid colon. The transverse colon is dilated to a bout 6 cm maximum. No pseudo polyps are seen. No thumbprinting is seen. APPENDIX: Not identified. PELVIS: No mass. No free fluid. Normal bladder. ABDOMINAL WALL: A ventral hernia is seen on image 62 containing only fat. BONES: No significant or acute findings. OTHER: No other significant finding. IMPRESSION: 1. Fatty infiltration of the liver. 2. Thickening of the wall of the colon and distention of the transverse colon. Inflammatory bowel d isease. Toxic megacolon remains in the differential. 3. Ventral hernia. TECHNICAL DOCUMENTATION: JOB ID: [id number] Quality ID # [id number]: Final reports with documentation of one or more dose reduction techniques (e.g., Au tomated exposure control, adjustment of the mA and/or kV according to patient size, use of iterative reconstruction technique) 2010 [employer]- All Rights Reserved
[2017-05-16] MEDS: METRONIDAZOLE 500 MG TABLET PO SCH ×2 (00:35→06:21)
[2017-05-16] MEDS: HYDROCODONE/ACETAMINOPHEN 7.5-325 MG TABLET PO PRN ×4 (00:35→21:49)
[2017-05-16] MEDS: VANCOMYCIN HCL INJ 500 MG VIAL PO SCH ×4 (00:35→21:49)
[2017-05-16] MEDS ORDERED: POTASSI CL 20 MEQ/50 ML RIDER 20 MEQ/50 ML RTUPB IV ONE (04:38)
[2017-05-16 04:57] LABS: HEMATOCRIT 29.7 % (37.9-51.0); HEMOGLOBIN 9.9 g/dL (13.5-17.0); MEAN CORPUSCULAR HEMOGLOBIN 29.3 pg (27.0-33.4); MEAN CORPUSCULAR HGB CONC 33.5 g/dL (32.0-36.0); MEAN CORPUSCULAR VOLUME 88 fl (80-97); RED BLOOD COUNT 3.39 10^6/uL (4.35-5.55); RED CELL DISTRIBUTION WIDTH 14.6 % (11.5-14.0); WHITE BLOOD COUNT 9.8 10^3/uL (4.0-10.5)
[2017-05-16 05:11] LABS: ANION GAP 10 (5-19); BLOOD UREA NITROGEN 3 mg/dL (7-20); CALCIUM 7.8 mg/dL (8.4-10.2); CARBON DIOXIDE 29 mmol/L (22-30); CHLORIDE 100 mmol/L (98-107); CREATININE RESULT 0.59 mg/dL (0.52-1.25); GLUCOSE 94 mg/dL (75-110); MAGNESIUM 2.2 mg/dL (1.6-2.3); POTASSIUM 3.2 mmol/L (3.6-5.0); SODIUM 138.9 mmol/L (137-145)
[2017-05-16 09:02] LABS: HEMATOCRIT 32.3 % (37.9-51.0); HEMOGLOBIN 10.9 g/dL (13.5-17.0); HGB HCT DIFFERENCE 0.4; MEAN CORPUSCULAR HEMOGLOBIN 29.8 pg (27.0-33.4); MEAN CORPUSCULAR HGB CONC 33.9 g/dL (32.0-36.0); MEAN CORPUSCULAR VOLUME 88 fl (80-97); RED BLOOD COUNT 3.67 10^6/uL (4.35-5.55); RED CELL DISTRIBUTION WIDTH 14.8 % (11.5-14.0); WHITE BLOOD COUNT 9.7 10^3/uL (4.0-10.5)
[2017-05-16] MEDS: LACTOBACILLUS ACIDOPHILUS 250 MG TAB PO SCH ×2 (09:09→17:39)
[2017-05-16] MEDS: TRAMADOL HCL 50 MG TABLET PO PRN ×2 (09:09→17:39)
--- NOTE | 2017-05-16 10:28 | PDOC PROGRESS REPORT ---
Subjective Progress Note for:: 05/16/17 Subjective:: The patient continues to have significant abdominal pain and abdominal distention. He has had several episodes of watery diarrhea this morning. He continues to have crampy abdominal pain and overall just feels horrible. He denies fever chills. He has had no chest pain, shortness of breath or heart palpitations. He has had no nausea or vomiting. He is trying to eat a diet but does not have much appetite. He continues to have abdominal distention and bloating. Multiple episodes of small-volume he denies dysuria, frequency or hematuria. Watery diarrhea and difficulty passing gas. Physical Exam Vital Signs: Temp Pulse Resp BP Pulse Ox 98.2 F 111 H 18 105/69 96 05/16/17 08:20 05/16/17 08:20 05/16/17 08:20 05/16/17 08:20 05/16/17 08:20 Intake & Output 05/15/17 05/16/17 05/17/17 06:59 06:59 06:59 Intake Total 2926 900 Output Total 300 Balance 2926 600 General appearance: PRESENT: no acute distress - The patient's Mckay 21 1959 [id number], other - He looks as if he does not feel well. He is somewhat pale Head exam: PRESENT: atraumatic, normocephalic Mouth exam: PRESENT: moist - bradycardia Respiratory exam: PRESENT: clear to auscultation sammie. ABSENT: accessory muscle use, chest wall tenderness, rales, rhonchi, wheezes Cardiovascular exam: PRESENT: +S1, +S2, tachycardia GI/Abdominal exam: PRESENT: diminished bowel sounds, distended, guarding, rebound, tenderness. ABSENT: rigid Rectal exam: PRESENT: deferred Extremities exam: ABSENT: calf tenderness, clubbing, tenderness Musculoskeletal exam: PRESENT: ambulatory Neurological exam: PRESENT: alert, altered, awake, oriented to person, oriented to place, oriented to time, oriented to situation, CN II-XII grossly intact Psychiatric exam: PRESENT: appropriate affect Skin exam: PRESENT: dry, pallor, warm Results Laboratory Results: 05/16/17 08:50 05/16/17 04:16 05/13/17 05/15/17 05/16/17 04:19 13:43 04:16 WBC 9.8 RBC 3.39 L Hgb 9.9 L Hct 29.7 L MCV 88 MCH 29.3 MCHC 33.5 RDW 14.6 H Plt Count 359 Sodium Potassium 2.9 L* Chloride Carbon Dioxide Anion Gap BUN Creatinine Est GFR ( Amer) Est GFR (Non-Af Amer) Glucose Calcium Magnesium Transferrin 79 L 05/16/17 05/16/17 04:16 08:50 WBC 9.7 RBC 3.67 L Hgb 10.9 L Hct 32.3 L MCV 88 MCH 29.8 MCHC 33.9 RDW 14.8 H Plt Count 365 Sodium 138.9 Potassium 3.2 L Chloride 100 Carbon Dioxide 29 Anion Gap 10 BUN 3 L Creatinine 0.59 Est GFR ( Amer) > 60 Est GFR (Non-Af Amer) > 60 Glucose 94 Calcium 7.8 L Magnesium 2.2 Transferrin 05/13/17 15:27 Stool - Stool - Final Impressions: Abdomen X-Ray 05/12/17 10:57 IMPRESSION: Nonspecific abdomen Abdomen/Pelvis CT 05/15/17 00:00 IMPRESSION: 1. Fatty infiltration of the liver. 2. Thickening of the wall of the colon and distention of the transverse colon. Inflammatory bowel disease. Toxic megacolon remains in the differential. 3. Ventral hernia. Assessment & Plan - Diagnosis (1) Clostridium difficile colitis Is this a current diagnosis for this admission?: Yes Plan: The patient is quite slow to improve and has persistent abdominal distention. I am going to increase his p.o. vancomycin to 250 mg every 6 hours. I am going to switch his Flagyl to IV. He will continue probiotic. I am also going to get daily abdominal films for the next 2-3 days. We will follow-up with those results. (2) Diverticulitis of colon with perforation Qualifiers: Diverticulitis bleeding: without bleeding Qualified Code(s): K57.20 - Diverticulitis of large intestine with perforation and abscess without bleeding Is this a current diagnosis for this admission?: Yes Plan: The patient was diagnosed with diverticulitis with microperforation in March 2017. This will need to be watched quite closely. He did have a CT scan of the abdomen and pelvis which did not reveal any underlying abscess. (3) Abdominal pain Qualifiers: Abdominal location: left lower quadrant Qualified Code(s): R10.32 - Left lower quadrant pain Plan: Secondary to Clostridium difficile colitis. He has tramadol and Percocet available for pain. He also will have some IV morphine available for severe pain. (4) Iron deficiency anemia due to chronic blood loss Is this a current diagnosis for this admission?: Yes Plan: His hemoglobin is stable. He is going to follow-up with gastroenterology as an outpatient. He did have a colonoscopy performed yesterday which confirmed his colitis. (5) Hypokalemia Is this a current diagnosis for this admission?: Yes Plan: This will be repleted today. He will have a level rechecked in the morning. (6) Hypomagnesemia Is this a current diagnosis for this admission?: Yes Plan: Repleted and resolved (7) DVT prophylaxis Is this a current diagnosis for this admission?: Yes Plan: SCDs (8) Insomnia Plan: The patient is having difficulty sleeping. He has taken Ambien in the past with good results and he is asking for this here. I will write him an order for to try tonight. - Time Time Spent with patient: 25-34 minutes Anticipated discharge: Home Disposition: inpatient hospitalization remains necessary for parenteral fluids and antibiotics. The patient has Clostridium difficile colitis with continued abdominal distention and pain. He needs close monitoring here in the hospital. - Inpatient Certification Medical Necessity: Need For IV Fluids, Need for IV Antibiotics, Risk of Complication if Not Cared For in Hospital
[2017-05-16] MEDS ORDERED: VANCOMYCIN HCL INJ 500 MG VIAL PO ONE (10:30)
[2017-05-16] MEDS ORDERED: POTASSI CL 40 MEQ/D5-1/2NS 1L 1000 ML IV PRN (11:03)
[2017-05-16] MEDS ORDERED: MORPHINE SULFATE 10 MG/ML INJ IV PRN (11:30)
--- NOTE | 2017-05-16 11:50 | RADIOLOGY REPORT (SQ) ---
EXAM DESCRIPTION: KUB/ABDOMEN (SINGLE VIEW) COMPLETED DATE/TIME: 05/16/2017 11:24 am REASON FOR STUDY: cdiff, abd distention COMPARISON: 05/12/2017 CT abdomen pelvis 05/15/2017 NUMBER OF VIEWS: One view. TECHNIQUE: Supine radiographic image of the abdomen acquired. LIMITATIONS: None. FINDINGS: BOWEL GAS PATTERN: Nonobstructive. The transverse colon appears to be somewhat dilated. There is somewhat of a nodular appearance to the transverse colon. CALCIFICATIONS: No suspicious calcifications. SOFT TISSUES: No gross mass or suggestion of organomegaly. HARDWARE: None in the abdomen. BONES: No acute fracture. No worrisome bone lesions. OTHER: No other significant finding. IMPRESSION: Increasing likelihood of toxic megacolon. TECHNICAL DOCUMENTATION: JOB ID: [id number] [employer]- All Rights Reserved
[2017-05-16] MEDS: METRONIDAZOLE 500 MG/NS RTU 100 ML IV SCH ×3 (12:34→23:37)
[2017-05-16] MEDS: ONDANSETRON 4 MG TAB.RAPDIS PO PRN (16:41)
[2017-05-16] MEDS: ACETAMINOPHEN 325 MG TABLET PO PRN (16:41)
[2017-05-16] MEDS: ZOLPIDEM TARTRATE 5 MG TABLET PO SCH (23:37)
[2017-05-17] MEDS: VANCOMYCIN HCL INJ 500 MG VIAL PO SCH ×4 (03:31→21:40)
[2017-05-17] MEDS: HYDROCODONE/ACETAMINOPHEN 7.5-325 MG TABLET PO PRN (04:11)
[2017-05-17] MEDS: METRONIDAZOLE 500 MG/NS RTU 100 ML IV SCH ×3 (05:47→17:47)
[2017-05-17 07:26] LABS: ANION GAP 9 (5-19); BLOOD UREA NITROGEN 3 mg/dL (7-20); CALCIUM 7.4 mg/dL (8.4-10.2); CARBON DIOXIDE 28 mmol/L (22-30); CHLORIDE 99 mmol/L (98-107); CREATININE RESULT 0.61 mg/dL (0.52-1.25); GLUCOSE 101 mg/dL (75-110); MAGNESIUM 1.8 mg/dL (1.6-2.3); PHOSPHORUS 4.2 mg/dL (2.5-4.5); SODIUM 135.8 mmol/L (137-145)
[2017-05-17] MEDS: POTASSI CL 20 MEQ/50 ML RIDER 20 MEQ/50 ML RTUPB IV SCH ×2 (08:15→10:55)
[2017-05-17] MEDS: TRAMADOL HCL 50 MG TABLET PO PRN (08:36)
--- NOTE | 2017-05-17 09:02 | PDOC PROGRESS REPORT ---
Subjective Subjective:: The patient is a 42-year-old male with no significant past medical history. He presented to the emergency department with left lower quadrant abdominal pain and vomiting. He also had been having some diarrhea. The patient was seen in the emergency room on March 27, 2017 and was diagnosed with diverticulitis at that time. He had been on multiple rounds of antibiotic therapy since that time. Since that visit he had had intermittent abdominal pain and had been seen by different physicians. He eventually was seen by gastroenterology and underwent a colonoscopy on 05/17/2017. The patient was initially admitted under the surgery service and he was ultimately underwent a colonoscopy performed by Dr. Armenta which revealed diffuse colitis. His stool tested positive for Clostridium difficile. The patient has been on p.o. vancomycin and IV Flagyl since that time. He eventually was transferred to the hospitalist service for continued medical management and surgery signed off. Overall he has not improved. He continues to have increasing abdominal pain and distention. He continues to have multiple episodes of diarrhea a day that are quite small in volume. Yesterday an abdominal film was concerning for the development of toxic megacolon. Fortunately his vital signs have been stable and he has had no leukocytosis or worsening of his renal function. Today when I saw the patient he states that he is having fairly severe abdominal pain. He has had 3 episodes of small-volume diarrhea this morning. I have asked general surgery to come back and see him this morning. The patient denies fever or chills. He has had no chest pain, shortness of breath or heart palpitations. He has had some mild nausea and does not have much in the way of appetite. He continues to have significant abdominal pain which is not well controlled. He has had 3 episodes of small-volume diarrhea this morning. He denies dysuria, dysuria or hematuria. He has some urinary frequency. Physical Exam Vital Signs: Temp Pulse Resp BP Pulse Ox 98.4 F 96 16 104/66 99 05/17/17 08:00 05/17/17 08:00 05/17/17 08:00 05/17/17 08:00 05/17/17 08:00 Intake & Output 05/16/17 05/17/17 05/18/17 06:59 06:59 06:59 Intake Total 900 2289 Output Total 300 1407 Balance 600 882 General appearance: PRESENT: cooperative, other - He is pale and looks as if he feels quite poorly. He is in no acute distress at this time. Head exam: PRESENT: atraumatic, normocephalic Mouth exam: PRESENT: dry mucosa, tongue midline Respiratory exam: PRESENT: clear to auscultation sammie. ABSENT: rales, rhonchi, wheezes Cardiovascular exam: PRESENT: +S1, +S2, tachycardia. ABSENT: diastolic murmur, gallop, rubs, systolic murmur GI/Abdominal exam: PRESENT: distended, hypoactive bowel sounds, rebound Rectal exam: PRESENT: deferred Extremities exam: ABSENT: calf tenderness, clubbing, pedal edema Musculoskeletal exam: PRESENT: ambulatory Neurological exam: PRESENT: alert, altered, awake, oriented to person, oriented to place, oriented to time, oriented to situation, CN II-XII grossly intact Psychiatric exam: PRESENT: anxious Skin exam: PRESENT: dry, warm Results Laboratory Results: 05/16/17 08:50 05/17/17 06:55 05/16/17 05/17/17 08:50 06:55 WBC 9.7 RBC 3.67 L Hgb 10.9 L Hct 32.3 L MCV 88 MCH 29.8 MCHC 33.9 RDW 14.8 H Plt Count 365 Sodium 135.8 L Potassium 3.0 L* Chloride 99 Carbon Dioxide 28 Anion Gap 9 BUN 3 L Creatinine 0.61 Est GFR ( Amer) > 60 Est GFR (Non-Af Amer) > 60 Glucose 101 Calcium 7.4 L Phosphorus 4.2 Magnesium 1.8 05/13/17 15:27 Stool - Stool - Final 05/13/17 15:27 Stool - Stool Stool Culture - Final NO SALMONELLA, SHIGELLA, CAMPYLOBACTER, OR E.COLI 0157 RECOVERED. NEGATIVE FOR SHIGA TOXINS 1&2. Impressions: Abdomen X-Ray 05/12/17 10:57 IMPRESSION: Nonspecific abdomen Abdomen/Pelvis CT 05/15/17 00:00 IMPRESSION: 1. Fatty infiltration of the liver. 2. Thickening of the wall of the colon and distention of the transverse colon. Inflammatory bowel disease. Toxic megacolon remains in the differential. 3. Ventral hernia. KUB X-Ray 05/16/17 09:45 IMPRESSION: Increasing likelihood of toxic megacolon. Assessment & Plan - Diagnosis (1) Clostridium difficile colitis Is this a current diagnosis for this admission?: Yes Plan: Abdominal film obtained yesterday afternoon was concerning for a developing toxic megacolon. I have increased his p.o. vancomycin and he will continue IV Flagyl. I have asked general surgery to come back and see the patient today. We will keep a close eye on his vital signs as we go along and I am going to make sure that he is on IV fluids today. Apparently he was on a regular diet and I am going to place him on clear liquids. I will defer to general surgery if they want to make him n.p.o. Going to get an acute abdominal series this morning we will follow-up with those results. I also will repeat a labs this afternoon. (2) Diverticulitis of colon with perforation Qualifiers: Diverticulitis bleeding: without bleeding Qualified Code(s): K57.20 - Diverticulitis of large intestine with perforation and abscess without bleeding Is this a current diagnosis for this admission?: Yes Plan: He had been on multiple rounds of antibiotic therapy prior to developing Clostridium difficile colitis. (3) Abdominal pain Qualifiers: Abdominal location: left lower quadrant Qualified Code(s): R10.32 - Left lower quadrant pain Plan: Worsening. I am going to stop his tramadol and IV morphine today. He will have oxycodone and IV Dilaudid available as needed. His pain is uncontrolled at this point. (4) Iron deficiency anemia due to chronic blood loss Is this a current diagnosis for this admission?: Yes Plan: At this point his anemia is multifactorial secondary to iron deficiency as well as hemodilution. Will check a CBC in the morning. (5) Hypokalemia Is this a current diagnosis for this admission?: Yes Plan: This will be repleted today with IV potassium chloride. (6) Hypomagnesemia Is this a current diagnosis for this admission?: Yes Plan: Repleted and resolved (7) DVT prophylaxis Is this a current diagnosis for this admission?: Yes Plan: SCDs (8) Insomnia Plan: Continue Ambien at night. - Time Time Spent with patient: 35 or more minutes - Inpatient Certification Medical Necessity: Need Close Monitoring Due to Risk of Patient Decompensation, Need For IV Fluids, Need for Pain Control - Inpatient hospitalization remains necessary. The patient is at high risk for decompensation and may be developing a toxic megacolon. He needs further treatment with parenteral fluids and antibiotics as well as parenteral narcotics. He needs continued follow-up with general surgery as well. Timing of disposition will be determined by his clinical course., Need for IV Antibiotics
--- NOTE | 2017-05-17 09:24 | RADIOLOGY REPORT (SQ) ---
EXAM DESCRIPTION: ACUTE ABDOMEN SERIES COMPLETED DATE/TIME: 05/17/2017 9:08 am REASON FOR STUDY: cdiff colitis, ? toxic megacolon COMPARISON: 05/12/2017 NUMBER OF VIEWS: Three views. TECHNIQUE: Frontal chest, supine abdomen and upright/decubitus abdomen radiographic images acquired. LIMITATIONS: None. FINDINGS: CHEST: Lungs clear of infiltrates. FREE AIR: None. No abnormal gas collections. BOWEL GAS PATTERN: Dilated loops of colon are again seen with fluid levels, similar to prior study. Small amount of small bowel gas present. Paucity of air in the left colon/ rectum. Loss of haustral markings transverse colon. CALCIFICATIONS: No suspicious calcifications. HARDWARE: None in the abdomen. SOFT TISSUES: No gross mass or suggestion of organomegaly. BONES: No acute fracture. No worrisome bone lesions. OTHER: No other significant finding. IMPRESSION: Dilated colon with fluid levels. TECHNICAL DOCUMENTATION: JOB ID: [id number] [employer]- All Rights Reserved
[2017-05-17] MEDS: LACTOBACILLUS ACIDOPHILUS 250 MG TAB PO SCH ×2 (09:28→17:47)
--- NOTE | 2017-05-17 10:17 | PDOC PROGRESS REPORT ---
Subjective Progress Note for:: 05/17/17 Physical Exam Vital Signs: Temp Pulse Resp BP Pulse Ox 98.4 F 96 16 104/66 99 05/17/17 08:00 05/17/17 08:00 05/17/17 08:00 05/17/17 08:00 05/17/17 08:00 Intake & Output 05/16/17 05/17/17 05/18/17 06:59 06:59 06:59 Intake Total 900 2289 Output Total 300 1407 Balance 600 882 Results Laboratory Results: 05/16/17 08:50 05/17/17 06:55 05/17/17 06:55 Sodium 135.8 L Potassium 3.0 L* Chloride 99 Carbon Dioxide 28 Anion Gap 9 BUN 3 L Creatinine 0.61 Est GFR ( Amer) > 60 Est GFR (Non-Af Amer) > 60 Glucose 101 Calcium 7.4 L Phosphorus 4.2 Magnesium 1.8 05/13/17 15:27 Stool - Stool - Final 05/13/17 15:27 Stool - Stool Stool Culture - Final NO SALMONELLA, SHIGELLA, CAMPYLOBACTER, OR E.COLI 0157 RECOVERED. NEGATIVE FOR SHIGA TOXINS 1&2. Impressions: Abdomen X-Ray 05/12/17 10:57 IMPRESSION: Nonspecific abdomen Abdomen/Pelvis CT 05/15/17 00:00 IMPRESSION: 1. Fatty infiltration of the liver. 2. Thickening of the wall of the colon and distention of the transverse colon. Inflammatory bowel disease. Toxic megacolon remains in the differential. 3. Ventral hernia. KUB X-Ray 05/16/17 09:45 IMPRESSION: Increasing likelihood of toxic megacolon. Acute Abdomen Series 05/17/17 00:00 IMPRESSION: Dilated colon with fluid levels. Assessment & Plan - Diagnosis (1) Abdominal pain Qualifiers: Abdominal location: generalized Qualified Code(s): R10.84 - Generalized abdominal pain Is this a current diagnosis for this admission?: Yes (2) Clostridium difficile colitis Is this a current diagnosis for this admission?: Yes (3) Full code status Is this a current diagnosis for this admission?: Yes (4) Hypokalemia Is this a current diagnosis for this admission?: Yes
--- NOTE | 2017-05-17 10:30 | PDOC PROGRESS REPORT ---
Subjective Progress Note for:: 05/17/17 Physical Exam Vital Signs: Temp Pulse Resp BP Pulse Ox 98.4 F 96 16 104/66 99 05/17/17 08:00 05/17/17 08:00 05/17/17 08:00 05/17/17 08:00 05/17/17 08:00 Intake & Output 05/16/17 05/17/17 05/18/17 06:59 06:59 06:59 Intake Total 900 2289 Output Total 300 1407 Balance 600 882 General appearance: PRESENT: no acute distress, well-developed, well-nourished Head exam: PRESENT: atraumatic, normocephalic Eye exam: PRESENT: conjunctiva pink, EOMI, PERRLA. ABSENT: scleral icterus Ear exam: PRESENT: normal external ear exam Mouth exam: PRESENT: moist, tongue midline Neck exam: ABSENT: carotid bruit, JVD, lymphadenopathy, thyromegaly Respiratory exam: PRESENT: clear to auscultation sammie. ABSENT: rales, rhonchi, wheezes Cardiovascular exam: PRESENT: RRR. ABSENT: diastolic murmur, rubs, systolic murmur Pulses: PRESENT: normal dorsalis pedis pul Vascular exam: PRESENT: normal capillary refill GI/Abdominal exam: PRESENT: normal bowel sounds, soft. ABSENT: distended, guarding, mass, organolmegaly, rebound, tenderness Rectal exam: PRESENT: deferred Extremities exam: PRESENT: full ROM. ABSENT: calf tenderness, clubbing, pedal edema Neurological exam: PRESENT: alert, awake, oriented to person, oriented to place , oriented to time, oriented to situation, CN II-XII grossly intact. ABSENT: motor sensory deficit Psychiatric exam: PRESENT: appropriate affect, normal mood. ABSENT: homicidal ideation, suicidal ideation Skin exam: PRESENT: dry, intact, warm. ABSENT: cyanosis, rash Results Laboratory Results: 05/16/17 08:50 05/17/17 06:55 05/17/17 06:55 Sodium 135.8 L Potassium 3.0 L* Chloride 99 Carbon Dioxide 28 Anion Gap 9 BUN 3 L Creatinine 0.61 Est GFR ( Amer) > 60 Est GFR (Non-Af Amer) > 60 Glucose 101 Calcium 7.4 L Phosphorus 4.2 Magnesium 1.8 05/13/17 15:27 Stool - Stool - Final 05/13/17 15:27 Stool - Stool Stool Culture - Final NO SALMONELLA, SHIGELLA, CAMPYLOBACTER, OR E.COLI 0157 RECOVERED. NEGATIVE FOR SHIGA TOXINS 1&2. Impressions: Abdomen X-Ray 05/12/17 10:57 IMPRESSION: Nonspecific abdomen Abdomen/Pelvis CT 05/15/17 00:00 IMPRESSION: 1. Fatty infiltration of the liver. 2. Thickening of the wall of the colon and distention of the transverse colon. Inflammatory bowel disease. Toxic megacolon remains in the differential. 3. Ventral hernia. KUB X-Ray 05/16/17 09:45 IMPRESSION: Increasing likelihood of toxic megacolon. Acute Abdomen Series 05/17/17 00:00 IMPRESSION: Dilated colon with fluid levels. Assessment & Plan - Diagnosis (1) Abdominal pain Qualifiers: Abdominal location: generalized Qualified Code(s): R10.84 - Generalized abdominal pain Is this a current diagnosis for this admission?: Yes (2) Clostridium difficile colitis Is this a current diagnosis for this admission?: Yes (3) Full code status Is this a current diagnosis for this admission?: Yes (4) Hypokalemia Is this a current diagnosis for this admission?: Yes
--- NOTE | 2017-05-17 10:50 | PDOC PROGRESS REPORT ---
Subjective Progress Note for:: 05/17/17 Subjective:: Patient still complaining of abdominal pains but less than the first few days. He is still having diarrhea Physical Exam Vital Signs: Temp Pulse Resp BP Pulse Ox 98.4 F 96 16 104/66 99 05/17/17 08:00 05/17/17 08:00 05/17/17 08:00 05/17/17 08:00 05/17/17 08:00 Intake & Output 05/16/17 05/17/17 05/18/17 06:59 06:59 06:59 Intake Total 900 2289 Output Total 300 1407 Balance 600 882 Exam: Patient is afebrile and vital signs are stable. His abdomen is soft with diffuse tenderness on gentle palpation. Positive hypoactive bowel sounds. Results Laboratory Results: 05/16/17 08:50 05/17/17 06:55 05/17/17 06:55 Sodium 135.8 L Potassium 3.0 L* Chloride 99 Carbon Dioxide 28 Anion Gap 9 BUN 3 L Creatinine 0.61 Est GFR ( Amer) > 60 Est GFR (Non-Af Amer) > 60 Glucose 101 Calcium 7.4 L Phosphorus 4.2 Magnesium 1.8 05/13/17 15:27 Stool - Stool - Final 05/13/17 15:27 Stool - Stool Stool Culture - Final NO SALMONELLA, SHIGELLA, CAMPYLOBACTER, OR E.COLI 0157 RECOVERED. NEGATIVE FOR SHIGA TOXINS 1&2. Impressions: Abdomen X-Ray 05/12/17 10:57 IMPRESSION: Nonspecific abdomen Abdomen/Pelvis CT 05/15/17 00:00 IMPRESSION: 1. Fatty infiltration of the liver. 2. Thickening of the wall of the colon and distention of the transverse colon. Inflammatory bowel disease. Toxic megacolon remains in the differential. 3. Ventral hernia. KUB done this morning essentially the same as yesterday KUB X-Ray 05/16/17 09:45 IMPRESSION: Increasing likelihood of toxic megacolon. Acute Abdomen Series 05/17/17 00:00 IMPRESSION: Dilated colon with fluid levels. Assessment & Plan - Diagnosis (1) Abdominal pain Qualifiers: Abdominal location: generalized Qualified Code(s): R10.84 - Generalized abdominal pain Is this a current diagnosis for this admission?: Yes Plan: Continue with parenteral pain medications (2) Clostridium difficile colitis Is this a current diagnosis for this admission?: Yes Plan: Continue IV antibiotic and p.o. antibiotic therapy continue hydration (3) Full code status Is this a current diagnosis for this admission?: Yes (4) Hypokalemia Is this a current diagnosis for this admission?: Yes Plan: Continue K riders (5) Colitis due to Salmonella species Is this a current diagnosis for this admission?: Yes Plan: Continue with serial evaluations. Continue p.o. vancomycin and IV antibiotic therapy Continue hydration. May eventually need TPN. - Time Time Spent with patient: 15-24 minutes
--- NOTE | 2017-05-17 15:05 | RADIOLOGY REPORT (SQ) ---
EXAM DESCRIPTION: PICC INSERTION; U/S GUIDE FOR VASCULAR ACCESS; FLUORO/CV PLACEMENT COMPLETED DATE/TIME: 05/17/2017 2:54 pm REASON FOR STUDY: worsening cdiff colitis; IV ABX COMPARISON: CT abdomen pelvis 05/15/2017 Abdominal films 05/16/2017, 05/17/2017 FLUOROSCOPY TIME: 0.9 seconds 1 digital fluoroscopic chest and 1 ultrasound images saved to PACS. TECHNIQUE: Fluoroscopic and ultrasound guided PICC placement. LIMITATIONS: None. PROCEDURE: After written consent and assessment were obtained, the patient was brought into the fluo roscopy room and place supine on the table. Ultrasound was used on the patient's left arm for PICC a ccess. The left arm was prepped and draped in a sterile fashion along with the ultrasound probe. The entry site was anesthetized with 1% lidocaine. A 21 gauge 7 cm needle was advanced through the skin a nd into the basilic vein under live ultrasound guidance. An ultrasound image was saved to PACS confi rming access site. A .018 guide wire was then inserted through the needle and into the venous system . The needle was the removed and an 11 blade scalpel was used to make a 1cm skin incision. A 5 fr pe el-away sheath was advanced over the wire and into the venous system. A measurement was then made usi ng the existing wire and live fluoroscopic guidance. The wire was then removed and the trimmed. The P ICC was advanced through the peel-away sheath and into the venous system. The peel-away sheath was re moved and the catheter was adhered to the patients arm with a stat lock. The catheter was then aspira noel and flushed and a sterile bandage was placed over the access site. A fluoroscopic spot image was saved to PACS confirming the catheter tip within the superior vena cava. IMPRESSION: SUCCESSFUL PLACEMENT OF A 5 FR DUAL LUMEN 36 CM PICC IN THE LEFT BASILIC VEIN. COMMENT: Patient medication list reviewed: Yes- Quality ID# [id number]:Eligible professional attests to doc umenting in the medical record they obtained, updated, or reviewed the patient's current medications. . Quality ID 145: Final reports for procedures using fluoroscopy that document radiation exposure merlin jony, or exposure time and number of fluorographic images (if radiation exposure indices are not avail able) Quality ID #[id number]: The patient was prepped and draped using maximum sterile barrier technique including cap, mask, sterile gown, sterile gloves, a large sterile sheet, hand hygiene, and 2% Chlorhexidine fo r cutaneous antisepsis. When ultrasound is used, sterile ultrasound techniques are followed requiring sterile gel and sterile probes. TECHNICAL DOCUMENTATION: JOB ID: [id number] [employer]- All Rights Reserved
[2017-05-17] MEDS: HYDROMORPHONE HCL INJ/PF 2 MG/ML AMPULE IV PRN ×2 (15:19→21:29)
[2017-05-17] MEDS: POTASSI CL 20 MEQ/NS 1L 1,000 ML IV PRN (15:55)
[2017-05-17] MEDS: ONDANSETRON 4 MG TAB.RAPDIS PO PRN (21:34)
[2017-05-18] MEDS: METRONIDAZOLE 500 MG/NS RTU 100 ML IV SCH ×2 (00:18→05:31)
[2017-05-18] MEDS: NORMAL SALINE 10 ML SDV (SCHEDULED) IV SCH ×2 (00:19→10:09)
[2017-05-18] MEDS: HYDROMORPHONE HCL INJ/PF 2 MG/ML AMPULE IV PRN ×4 (00:41→14:43)
[2017-05-18] MEDS: ZOLPIDEM TARTRATE 5 MG TABLET PO SCH (00:56)
[2017-05-18] MEDS: SIMETHICONE 80 MG TAB.CHEW PO PRN ×2 (03:14→14:43)
[2017-05-18] MEDS: POTASSI CL 20 MEQ/NS 1L 1,000 ML IV PRN ×3 (03:14→18:55)
[2017-05-18] MEDS: OXYCODONE HCL IR 5 MG TABLET PO PRN ×3 (03:14→18:55)
[2017-05-18] MEDS: VANCOMYCIN HCL INJ 500 MG VIAL PO SCH ×3 (03:14→14:31)
[2017-05-18] MEDS: NORMAL SALINE 10 ML SDV (AFTER EACH USE) IV PRN (04:18)
[2017-05-18] MEDS: POTASSI CL 20 MEQ/50 ML RIDER 20 MEQ/50 ML RTUPB IV SCH ×3 (08:08→12:25)
[2017-05-18] MEDS ORDERED: ALBUTEROL SULFATE HFA (90 MCG/PUFF) 200 PUFF/8.5 GM MDI IH PRN (08:09)
[2017-05-18] MEDS ORDERED: DEXTROSE 50%-WATER 25 GM/50 ML DISP.SYRIN IV PRN ×2 (10:06)
[2017-05-18] MEDS ORDERED: GLUCAGON,HUMAN RECOMB 1 MG INJ SUBCUT PRN (10:06)
[2017-05-18] MEDS ORDERED: DEXTROSE 40% GEL 15 GM TUBE PO PRN ×2 (10:06)
--- NOTE | 2017-05-18 10:06 | PDOC PROGRESS REPORT ---
Subjective Progress Note for:: 05/18/17 Subjective:: Still having profuse diarrhea and diffuse abdominal pain. Abdominal pain is stable it is not progressively worsening. Physical Exam Vital Signs: Temp Pulse Resp BP Pulse Ox 97.9 F 90 16 106/68 98 05/18/17 08:00 05/18/17 08:00 05/18/17 08:00 05/18/17 08:00 05/18/17 08:00 Intake & Output 05/17/17 05/18/17 05/19/17 06:59 06:59 06:59 Intake Total 2289 4650 Output Total 1407 Balance 882 4650 Weight 99.2 kg General appearance: PRESENT: no acute distress, cooperative Respiratory exam: PRESENT: clear to auscultation sammie Cardiovascular exam: PRESENT: RRR GI/Abdominal exam: PRESENT: other - Moderately distended, but soft. Diffuse abdominal tenderness to palpation that is moderate but no peritoneal signs. Extremities exam: PRESENT: other - No swelling no tenderness Results Laboratory Results: 05/16/17 08:50 05/17/17 06:55 Impressions: Abdomen X-Ray 05/12/17 10:57 IMPRESSION: Nonspecific abdomen Abdomen/Pelvis CT 05/15/17 00:00 IMPRESSION: 1. Fatty infiltration of the liver. 2. Thickening of the wall of the colon and distention of the transverse colon. Inflammatory bowel disease. Toxic megacolon remains in the differential. 3. Ventral hernia. KUB X-Ray 05/16/17 09:45 IMPRESSION: Increasing likelihood of toxic megacolon. Acute Abdomen Series 05/17/17 00:00 IMPRESSION: Dilated colon with fluid levels. Guidance Fluoroscopy 05/17/17 00:00 IMPRESSION: SUCCESSFUL PLACEMENT OF A 5 FR DUAL LUMEN 36 CM PICC IN THE LEFT BASILIC VEIN. Interventional Vascular Procedure 05/17/17 00:00 IMPRESSION: SUCCESSFUL PLACEMENT OF A 5 FR DUAL LUMEN 36 CM PICC IN THE LEFT BASILIC VEIN. PICC Line Insertion 05/17/17 00:00 IMPRESSION: SUCCESSFUL PLACEMENT OF A 5 FR DUAL LUMEN 36 CM PICC IN THE LEFT BASILIC VEIN. Assessment & Plan - Diagnosis (1) Clostridium difficile colitis Is this a current diagnosis for this admission?: Yes Plan: Patient still with significant C. difficile colitis. He is still distended. Radiographic studies demonstrated thickened colon with colonic distention. He is still having profuse diarrhea. Will make the patient n.p.o. except ice chips. Continue p.o. vancomycin. Add p.o. Flagyl. Will ask hospitalist to place the patient on TPN.
[2017-05-18] MEDS: GUAIFENESIN 600 MG TABLET.SA PO SCH (10:07)
[2017-05-18] MEDS: LACTOBACILLUS ACIDOPHILUS 250 MG TAB PO SCH ×2 (10:08→18:19)
[2017-05-18] MEDS: METRONIDAZOLE 500 MG TABLET PO SCH ×2 (12:25→18:19)
--- NOTE | 2017-05-18 16:15 | PDOC PROGRESS REPORT ---
Subjective Progress Note for:: 05/18/17 Subjective:: Complains of abdominal distention. Physical Exam Vital Signs: Temp Pulse Resp BP Pulse Ox 98.2 F 95 18 114/70 93 05/18/17 11:49 05/18/17 11:49 05/18/17 11:49 05/18/17 11:49 05/18/17 11:49 Intake & Output 05/17/17 05/18/17 05/19/17 06:59 06:59 06:59 Intake Total 2289 4650 Output Total 1407 Balance 882 4650 Weight 99.2 kg General appearance: PRESENT: no acute distress Eye exam: PRESENT: conjunctiva pink. ABSENT: scleral icterus Mouth exam: PRESENT: moist, tongue midline Neck exam: ABSENT: JVD Respiratory exam: PRESENT: clear to auscultation sammie. ABSENT: rales, rhonchi, wheezes Cardiovascular exam: PRESENT: RRR. ABSENT: diastolic murmur, rubs, systolic murmur GI/Abdominal exam: PRESENT: distended, normal bowel sounds, soft, tenderness - Mild right upper quadrant tenderness but no guarding or rebound.. ABSENT: guarding, mass, organolmegaly, rebound Extremities exam: ABSENT: calf tenderness, clubbing, pedal edema Neurological exam: PRESENT: alert, awake, oriented to person, oriented to place , oriented to time, oriented to situation, CN II-XII grossly intact. ABSENT: motor sensory deficit Psychiatric exam: PRESENT: appropriate affect Skin exam: PRESENT: dry, intact, warm. ABSENT: cyanosis, rash Results Laboratory Results: 05/16/17 08:50 05/17/17 06:55 Impressions: Abdomen X-Ray 05/12/17 10:57 IMPRESSION: Nonspecific abdomen Abdomen/Pelvis CT 05/15/17 00:00 IMPRESSION: 1. Fatty infiltration of the liver. 2. Thickening of the wall of the colon and distention of the transverse colon. Inflammatory bowel disease. Toxic megacolon remains in the differential. 3. Ventral hernia. KUB X-Ray 05/16/17 09:45 IMPRESSION: Increasing likelihood of toxic megacolon. Acute Abdomen Series 05/17/17 00:00 IMPRESSION: Dilated colon with fluid levels. Guidance Fluoroscopy 05/17/17 00:00 IMPRESSION: SUCCESSFUL PLACEMENT OF A 5 FR DUAL LUMEN 36 CM PICC IN THE LEFT BASILIC VEIN. Interventional Vascular Procedure 05/17/17 00:00 IMPRESSION: SUCCESSFUL PLACEMENT OF A 5 FR DUAL LUMEN 36 CM PICC IN THE LEFT BASILIC VEIN. PICC Line Insertion 05/17/17 00:00 IMPRESSION: SUCCESSFUL PLACEMENT OF A 5 FR DUAL LUMEN 36 CM PICC IN THE LEFT BASILIC VEIN. Assessment & Plan - Diagnosis (1) Clostridium difficile colitis Is this a current diagnosis for this admission?: Yes Plan: The patient is on vancomycin and Flagyl. Surgery is following. He does have distention worrisome for possibly developing toxic megacolon. (2) Diverticulitis of colon with perforation Qualifiers: Diverticulitis bleeding: without bleeding Qualified Code(s): K57.20 - Diverticulitis of large intestine with perforation and abscess without bleeding Is this a current diagnosis for this admission?: Yes Plan: Patient has had multiple rounds of antibiotics previously which eventually led to the C. difficile infection. (3) Abdominal pain Qualifiers: Abdominal location: generalized Qualified Code(s): R10.84 - Generalized abdominal pain Is this a current diagnosis for this admission?: Yes Plan: Because of the worsening problems we will start the patient on TPN he has been made n.p.o. (4) DVT prophylaxis Is this a current diagnosis for this admission?: Yes Plan: Continue with SCDs. (5) Hypomagnesemia Is this a current diagnosis for this admission?: Yes Plan: We will monitor and replace as needed. (6) Iron deficiency anemia due to chronic blood loss Is this a current diagnosis for this admission?: Yes (7) Insomnia Is this a current diagnosis for this admission?: Yes Plan: Continue with Ambien as needed. - Time Time Spent with patient: 25-34 minutes - Inpatient Certification Medical Necessity: Need For IV Fluids, Need for IV Antibiotics
[2017-05-19] MEDS: VANCOMYCIN HCL INJ 500 MG VIAL PO SCH ×5 (00:20→20:26)
[2017-05-19] MEDS: NORMAL SALINE 10 ML SDV (SCHEDULED) IV SCH ×3 (00:21→21:23)
[2017-05-19] MEDS: GUAIFENESIN 600 MG TABLET.SA PO SCH ×3 (00:21→21:22)
[2017-05-19] MEDS: METRONIDAZOLE 500 MG TABLET PO SCH ×4 (00:21→18:35)
[2017-05-19] MEDS: HYDROMORPHONE HCL INJ/PF 2 MG/ML AMPULE IV PRN ×6 (00:22→22:45)
[2017-05-19] MEDS: POTASSI CL 20 MEQ/NS 1L 1,000 ML IV PRN ×2 (01:11→08:45)
[2017-05-19] MEDS: ZOLPIDEM TARTRATE 5 MG TABLET PO SCH ×2 (01:12→21:22)
[2017-05-19] MEDS: OXYCODONE HCL IR 5 MG TABLET PO PRN ×2 (01:25→10:37)
[2017-05-19] MEDS ORDERED: HYDROMORPHONE HCL INJ/PF 2 MG/ML AMPULE IV PRN (08:28)
[2017-05-19] MEDS: NORMAL SALINE 10 ML SDV (AFTER EACH USE) IV PRN (08:54)
[2017-05-19] MEDS ORDERED: DEXTROSE 10%-WATER 1,000 ML IV PRN (09:08)
[2017-05-19 09:36] LABS: ALANINE AMINOTRANSFERASE 38 U/L (21-72); ALBUMIN 1.8 g/dL (3.5-5.0); ALKALINE PHOSPHATASE 52 U/L (38-126); ANION GAP 7 (5-19); ASPARTATE AMINO TRANSFERASE 14 U/L (17-59); BILIRUBIN,DIRECT 0.4 mg/dL (0.0-0.4); BILIRUBIN,TOTAL 0.4 mg/dL (0.2-1.3); BLOOD UREA NITROGEN 4 mg/dL (7-20); CARBON DIOXIDE 27 mmol/L (22-30); CHLORIDE 104 mmol/L (98-107); CREATININE RESULT 0.59 mg/dL (0.52-1.25); GLUCOSE 79 mg/dL (75-110); POTASSIUM 3.8 mmol/L (3.6-5.0); SODIUM 138.4 mmol/L (137-145); TOTAL PROTEIN 4.6 g/dL (6.3-8.2)
[2017-05-19 10:16] LABS: CALCIUM 6.9 mg/dL (8.4-10.2)
[2017-05-19] MEDS: LACTOBACILLUS ACIDOPHILUS 250 MG TAB PO SCH ×2 (10:37→18:35)
[2017-05-19 10:45] LABS: PHOSPHORUS 3.4 mg/dL (2.5-4.5); PREALBUMIN 4.3 mg/dL (17.6-36.0)
[2017-05-19 10:59] LABS: ABSOLUTE EOSINOPHILS # (AUTO) 0.2 10^3/uL (0.0-0.6); ABSOLUTE LYMPHOCYTES (AUTO) 0.9 10^3/uL (0.5-4.7); ABSOLUTE MONOCYTES (AUTO) 0.9 10^3/uL (0.1-1.4); ABSOLUTE NEUT (AUTO) 6.7 10^3/uL (1.7-8.2); BASOPHILS % (AUTO) 0.2 % (0-2); HEMATOCRIT 27.7 % (37.9-51.0); HEMOGLOBIN 9.2 g/dL (13.5-17.0); HGB HCT DIFFERENCE -0.1; LYMPHOCYTES % (AUTO) 10.7 % (13-45); MEAN CORPUSCULAR HEMOGLOBIN 29.2 pg (27.0-33.4); MEAN CORPUSCULAR HGB CONC 33.3 g/dL (32.0-36.0); MEAN CORPUSCULAR VOLUME 88 fl (80-97); MONOCYTES % (AUTO) 10.3 % (3-13); RED BLOOD COUNT 3.15 10^6/uL (4.35-5.55); RED CELL DISTRIBUTION WIDTH 15.2 % (11.5-14.0); SEGMENTED NEUTROPHILS % (AUTO) 76.8 % (42-78); WHITE BLOOD COUNT 8.7 10^3/uL (4.0-10.5)
[2017-05-19 11:02] LABS: PROTHROMBIN TIME 19.9 SEC (11.4-15.4)
--- NOTE | 2017-05-19 11:49 | RADIOLOGY REPORT (SQ) ---
EXAM DESCRIPTION: VENOUS UNILATERAL UPPER COMPLETED DATE/TIME: 05/19/2017 11:35 am REASON FOR STUDY: left arm swelling. r/o dvt COMPARISON: None. TECHNIQUE: Dynamic and static falk scale and color images acquired of the left arm venous system. Se lected spectral images acquired with additional compression and augmentation maneuvers. The contralat eral subclavian vein and internal jugular vein were also imaged. Images stored on PACS. LIMITATIONS: None. FINDINGS: INTERNAL JUGULAR VEIN: Normal phasicity, compression, augmentation. No visualized echogeni c material on falk scale. No defects on color images. Comparison opposite side normal. SUBCLAVIAN VEIN: Normal compression, augmentation. No visualized echogenic material on falk scale. No defects on color images. AXILLARY VEIN: Normal compression, augmentation. No visualized echogenic material on falk scale. No d efects on color images. BRACHIAL VEIN: Normal compression, augmentation. No visualized echogenic material on falk scale. No d efects on color images. BASILIC VEIN: Normal compression, augmentation. No visualized echogenic material on falk scale. No de fects on color images. CEPHALIC VEIN: Occlusive thrombus lower biceps to antecubital fossa. OTHER: No other significant finding. CONTRALATERAL SUBCLAVIAN VEIN AND INTERNAL JUGULAR VEIN: Normal phasicity, compression and augmentation. No visualized echogenic material on falk scale. No de fects on color images. IMPRESSION: Positive SVT cephalic vein. TECHNICAL DOCUMENTATION: JOB ID: [id number] [employer]- All Rights Reserved
--- NOTE | 2017-05-19 14:47 | PDOC PROGRESS REPORT ---
Subjective Progress Note for:: 05/19/17 Subjective:: Patient complains of swelling in his left arm. Also continues to complain of abdominal pain in spite of being on Dilaudid. Physical Exam Vital Signs: Temp Pulse Resp BP Pulse Ox 98.2 F 96 16 107/61 100 05/19/17 07:41 05/19/17 11:55 05/19/17 11:55 05/19/17 11:55 05/19/17 11:55 Intake & Output 05/18/17 05/19/17 05/20/17 06:59 06:59 06:59 Intake Total 4650 2790 Output Total 700 Balance 4650 2090 Weight 99.2 kg General appearance: PRESENT: no acute distress Eye exam: PRESENT: conjunctiva pink. ABSENT: scleral icterus Mouth exam: PRESENT: moist, tongue midline Neck exam: ABSENT: JVD Respiratory exam: PRESENT: clear to auscultation sammie. ABSENT: rales, rhonchi, wheezes Cardiovascular exam: PRESENT: RRR. ABSENT: diastolic murmur, rubs, systolic murmur GI/Abdominal exam: PRESENT: distended, hypoactive bowel sounds, soft, tenderness. ABSENT: guarding, mass, organolmegaly, rebound Extremities exam: PRESENT: other - Left arm has swelling from the elbow distally.. ABSENT: calf tenderness, clubbing, pedal edema Neurological exam: PRESENT: alert, awake, oriented to person, oriented to place , oriented to time, oriented to situation, CN II-XII grossly intact. ABSENT: motor sensory deficit Psychiatric exam: PRESENT: appropriate affect Skin exam: PRESENT: dry, intact, warm. ABSENT: cyanosis, rash Results Laboratory Results: 05/19/17 10:30 05/19/17 08:49 05/19/17 05/19/17 05/19/17 08:49 08:49 08:49 WBC Cancelled RBC Cancelled Hgb Cancelled Hct Cancelled MCV Cancelled MCH Cancelled MCHC Cancelled RDW Cancelled Plt Count Cancelled Seg Neutrophils % Cancelled Lymphocytes % Cancelled Monocytes % Cancelled Eosinophils % Cancelled Basophils % Cancelled Absolute Neutrophils Cancelled Absolute Lymphocytes Cancelled Absolute Monocytes Cancelled Absolute Eosinophils Cancelled Absolute Basophils Cancelled Sodium 138.4 Potassium 3.8 Chloride 104 Carbon Dioxide 27 Anion Gap 7 BUN 4 L Creatinine 0.59 Est GFR ( Amer) > 60 Est GFR (Non-Af Amer) > 60 Glucose 79 Calcium 6.9 L* Phosphorus 3.4 Magnesium 2.0 Total Bilirubin 0.4 AST 14 L ALT 38 Alkaline Phosphatase 52 Total Protein 4.6 L Albumin 1.8 L Prealbumin 4.3 L Triglycerides 54 05/19/17 10:30 WBC 8.7 RBC 3.15 L Hgb 9.2 L Hct 27.7 L MCV 88 MCH 29.2 MCHC 33.3 RDW 15.2 H Plt Count 325 Seg Neutrophils % 76.8 Lymphocytes % 10.7 L Monocytes % 10.3 Eosinophils % 2.0 Basophils % 0.2 Absolute Neutrophils 6.7 Absolute Lymphocytes 0.9 Absolute Monocytes 0.9 Absolute Eosinophils 0.2 Absolute Basophils 0.0 Sodium Potassium Chloride Carbon Dioxide Anion Gap BUN Creatinine Est GFR ( Amer) Est GFR (Non-Af Amer) Glucose Calcium Phosphorus Magnesium Total Bilirubin AST ALT Alkaline Phosphatase Total Protein Albumin Prealbumin Triglycerides Impressions: Abdomen X-Ray 05/12/17 10:57 IMPRESSION: Nonspecific abdomen Abdomen/Pelvis CT 05/15/17 00:00 IMPRESSION: 1. Fatty infiltration of the liver. 2. Thickening of the wall of the colon and distention of the transverse colon. Inflammatory bowel disease. Toxic megacolon remains in the differential. 3. Ventral hernia. KUB X-Ray 05/16/17 09:45 IMPRESSION: Increasing likelihood of toxic megacolon. Acute Abdomen Series 05/17/17 00:00 IMPRESSION: Dilated colon with fluid levels. Guidance Fluoroscopy 05/17/17 00:00 IMPRESSION: SUCCESSFUL PLACEMENT OF A 5 FR DUAL LUMEN 36 CM PICC IN THE LEFT BASILIC VEIN. Interventional Vascular Procedure 05/17/17 00:00 IMPRESSION: SUCCESSFUL PLACEMENT OF A 5 FR DUAL LUMEN 36 CM PICC IN THE LEFT BASILIC VEIN. PICC Line Insertion 05/17/17 00:00 IMPRESSION: SUCCESSFUL PLACEMENT OF A 5 FR DUAL LUMEN 36 CM PICC IN THE LEFT BASILIC VEIN. Venous Doppler Study 05/19/17 00:00 IMPRESSION: Positive SVT cephalic vein. Assessment & Plan - Diagnosis (1) Clostridium difficile colitis Is this a current diagnosis for this admission?: Yes Plan: The patient is on vancomycin and Flagyl. Surgery is following. He does have distention worrisome for possibly developing toxic megacolon. Patient is started on TPN. (2) Diverticulitis of colon with perforation Qualifiers: Diverticulitis bleeding: without bleeding Qualified Code(s): K57.20 - Diverticulitis of large intestine with perforation and abscess without bleeding Is this a current diagnosis for this admission?: Yes Plan: Patient has had multiple rounds of antibiotics previously which eventually led to the C. difficile infection. (3) Abdominal pain Qualifiers: Abdominal location: generalized Qualified Code(s): R10.84 - Generalized abdominal pain Is this a current diagnosis for this admission?: Yes Plan: Because of the worsening problems we will start the patient on TPN he has been made n.p.o. (4) DVT prophylaxis Is this a current diagnosis for this admission?: Yes Plan: Continue with SCDs. (5) Hypomagnesemia Is this a current diagnosis for this admission?: Yes Plan: We will monitor and replace as needed. (6) Iron deficiency anemia due to chronic blood loss Is this a current diagnosis for this admission?: Yes (7) Insomnia Is this a current diagnosis for this admission?: Yes Plan: Continue with Ambien as needed. (8) Venous thrombosis Is this a current diagnosis for this admission?: Yes Plan: The patient has swelling in the left arm and has a superficial venous thrombosis in the cephalic vein. Will keep the arm elevated. - Time Time Spent with patient: 25-34 minutes - Inpatient Certification Medical Necessity: Need For IV Fluids, Need for IV Antibiotics
[2017-05-19] MEDS: AMINO ACIDS 5%/D25W 1,000 ML IV PRN (15:39)
[2017-05-19 15:58] LABS: HEMATOCRIT 27.3 % (37.9-51.0); HEMOGLOBIN 9.3 g/dL (13.5-17.0); HGB HCT DIFFERENCE 0.6; MEAN CORPUSCULAR HEMOGLOBIN 29.7 pg (27.0-33.4); MEAN CORPUSCULAR VOLUME 88 fl (80-97); RED BLOOD COUNT 3.12 10^6/uL (4.35-5.55); RED CELL DISTRIBUTION WIDTH 15.1 % (11.5-14.0)
[2017-05-19 16:05] LABS: PROTHROMBIN TIME 19.1 SEC (11.4-15.4)
[2017-05-19 16:06] LABS: PARTIAL THROMBOPLASTIN TIME 44.7 SEC (23.5-35.8)
[2017-05-19 16:18] LABS: CREATININE RESULT 0.57 mg/dL (0.52-1.25)
--- NOTE | 2017-05-19 20:48 | PROGRESS NOTE E ---
Progress Note NAME: JANIYA JACKSON : 1975 AGE: 42Y DATE: 05/19/2017 ROOM: 532 SUBJECTIVE: He continues to complain of abdominal pains despite parenteral pain medications, though he claims the pain may be a little better today. OBJECTIVE: He remains afebrile to 98.2, heart rate of 96, blood pressure 107/61, respirations 16 per minute and pulse oximetry is 100% on room air. On examination, his abdomen is soft with diffuse tenderness, more on the right lower quadrant. PLAN: He needs to be continued on IV antibiotics and keep n.p.o. He will be started on TPN today per Medicine. DICTATING PHYSICIAN: MAT ALEXANDRE M.D. [id number] PHY#: [id number] ID: [id number] JOB#: [id number] ACCT: [id number] cc: >
[2017-05-19] MEDS: HEPARIN SOD (PORCINE) 5,000 UNIT/ML 1 ML SYRINGE SUBCUT SCH (21:23)
[2017-05-20] MEDS: OXYCODONE HCL IR 5 MG TABLET PO PRN ×4 (00:26→22:26)
[2017-05-20] MEDS: METRONIDAZOLE 500 MG TABLET PO SCH ×4 (00:26→18:21)
[2017-05-20] MEDS: HYDROMORPHONE HCL INJ/PF 2 MG/ML AMPULE IV PRN ×8 (01:39→20:29)
[2017-05-20] MEDS: VANCOMYCIN HCL INJ 500 MG VIAL PO SCH ×4 (02:19→20:23)
[2017-05-20] MEDS: HEPARIN SOD (PORCINE) 5,000 UNIT/ML 1 ML SYRINGE SUBCUT SCH ×3 (05:17→22:22)
[2017-05-20 05:54] LABS: ALANINE AMINOTRANSFERASE 27 U/L (21-72); ALBUMIN 1.8 g/dL (3.5-5.0); ALKALINE PHOSPHATASE 48 U/L (38-126); ANION GAP 5 (5-19); ASPARTATE AMINO TRANSFERASE 10 U/L (17-59); BILIRUBIN,DIRECT 0.3 mg/dL (0.0-0.4); BILIRUBIN,TOTAL 0.3 mg/dL (0.2-1.3); BLOOD UREA NITROGEN 4 mg/dL (7-20); CALCIUM 7.3 mg/dL (8.4-10.2); CARBON DIOXIDE 30 mmol/L (22-30); CHLORIDE 104 mmol/L (98-107); CREATININE RESULT 0.57 mg/dL (0.52-1.25); GLUCOSE 155 mg/dL (75-110); PHOSPHORUS 2.9 mg/dL (2.5-4.5); POTASSIUM 3.4 mmol/L (3.6-5.0); SODIUM 138.9 mmol/L (137-145); TOTAL PROTEIN 4.9 g/dL (6.3-8.2)
[2017-05-20 06:01] LABS: PREALBUMIN 5.2 mg/dL (17.6-36.0)
[2017-05-20] MEDS: INSULIN REG, HUMAN 100 UNIT/ML 3 ML VIAL (PYX) SUBCUT PRN (08:08)
--- NOTE | 2017-05-20 10:11 | PDOC PROGRESS REPORT ---
Subjective Progress Note for:: 05/20/17 Subjective:: Patient complains of swelling in his left leg. Also continues to complain of abdominal pain. Physical Exam Vital Signs: Temp Pulse Resp BP Pulse Ox 98.7 F 99 16 110/64 97 05/20/17 07:47 05/20/17 07:47 05/20/17 07:47 05/20/17 07:47 05/20/17 07:47 Intake & Output 05/19/17 05/20/17 05/21/17 06:59 06:59 06:59 Intake Total 2790 450 Output Total 700 700 Balance 2090 -250 Weight 99.2 kg General appearance: PRESENT: no acute distress Eye exam: PRESENT: conjunctiva pink. ABSENT: scleral icterus Ear exam: PRESENT: normal external ear exam Mouth exam: PRESENT: moist, tongue midline Neck exam: ABSENT: JVD Respiratory exam: PRESENT: clear to auscultation sammie. ABSENT: rales, rhonchi, wheezes Cardiovascular exam: PRESENT: RRR. ABSENT: diastolic murmur, rubs, systolic murmur GI/Abdominal exam: PRESENT: distended, hypoactive bowel sounds, soft, tenderness - Diffuse tenderness.. ABSENT: guarding, mass, organolmegaly, rebound Extremities exam: ABSENT: calf tenderness, clubbing, pedal edema Neurological exam: PRESENT: alert, awake, oriented to person, oriented to place , oriented to time, oriented to situation, CN II-XII grossly intact. ABSENT: motor sensory deficit Psychiatric exam: PRESENT: appropriate affect Skin exam: PRESENT: dry, intact, warm. ABSENT: cyanosis, rash Results Laboratory Results: 05/19/17 15:50 05/20/17 05:32 05/19/17 05/19/17 05/19/17 08:49 08:49 10:30 WBC 8.7 RBC 3.15 L Hgb 9.2 L Hct 27.7 L MCV 88 MCH 29.2 MCHC 33.3 RDW 15.2 H Plt Count 325 Seg Neutrophils % 76.8 Lymphocytes % 10.7 L Monocytes % 10.3 Eosinophils % 2.0 Basophils % 0.2 Absolute Neutrophils 6.7 Absolute Lymphocytes 0.9 Absolute Monocytes 0.9 Absolute Eosinophils 0.2 Absolute Basophils 0.0 Sodium 138.4 Potassium 3.8 Chloride 104 Carbon Dioxide 27 Anion Gap 7 BUN 4 L Creatinine 0.59 Est GFR ( Amer) > 60 Est GFR (Non-Af Amer) > 60 Glucose 79 Calcium 6.9 L* Phosphorus 3.4 Magnesium 2.0 Total Bilirubin 0.4 AST 14 L ALT 38 Alkaline Phosphatase 52 Total Protein 4.6 L Albumin 1.8 L Prealbumin 4.3 L Triglycerides 54 05/19/17 05/19/17 05/20/17 15:50 15:50 05:32 WBC 8.0 RBC 3.12 L Hgb 9.3 L Hct 27.3 L MCV 88 MCH 29.7 MCHC 34.0 RDW 15.1 H Plt Count 362 Seg Neutrophils % Lymphocytes % Monocytes % Eosinophils % Basophils % Absolute Neutrophils Absolute Lymphocytes Absolute Monocytes Absolute Eosinophils Absolute Basophils Sodium 138.9 Potassium 3.4 L Chloride 104 Carbon Dioxide 30 Anion Gap 5 BUN 4 L Creatinine 0.57 0.57 Est GFR ( Amer) > 60 > 60 Est GFR (Non-Af Amer) > 60 > 60 Glucose 155 H Calcium 7.3 L Phosphorus 2.9 Magnesium Total Bilirubin 0.3 AST 10 L ALT 27 Alkaline Phosphatase 48 Total Protein 4.9 L Albumin 1.8 L Prealbumin 5.2 L Triglycerides Impressions: Abdomen X-Ray 05/12/17 10:57 IMPRESSION: Nonspecific abdomen Abdomen/Pelvis CT 05/15/17 00:00 IMPRESSION: 1. Fatty infiltration of the liver. 2. Thickening of the wall of the colon and distention of the transverse colon. Inflammatory bowel disease. Toxic megacolon remains in the differential. 3. Ventral hernia. KUB X-Ray 05/16/17 09:45 IMPRESSION: Increasing likelihood of toxic megacolon. Acute Abdomen Series 05/17/17 00:00 IMPRESSION: Dilated colon with fluid levels. Guidance Fluoroscopy 05/17/17 00:00 IMPRESSION: SUCCESSFUL PLACEMENT OF A 5 FR DUAL LUMEN 36 CM PICC IN THE LEFT BASILIC VEIN. Interventional Vascular Procedure 05/17/17 00:00 IMPRESSION: SUCCESSFUL PLACEMENT OF A 5 FR DUAL LUMEN 36 CM PICC IN THE LEFT BASILIC VEIN. PICC Line Insertion 05/17/17 00:00 IMPRESSION: SUCCESSFUL PLACEMENT OF A 5 FR DUAL LUMEN 36 CM PICC IN THE LEFT BASILIC VEIN. Venous Doppler Study 05/19/17 00:00 IMPRESSION: Positive SVT cephalic vein. Assessment & Plan - Diagnosis (1) Clostridium difficile colitis Is this a current diagnosis for this admission?: Yes Plan: The patient is on vancomycin and Flagyl. Surgery is following. He does have distention worrisome for possibly developing toxic megacolon. Patient is on TPN. (2) Diverticulitis of colon with perforation Qualifiers: Diverticulitis bleeding: without bleeding Qualified Code(s): K57.20 - Diverticulitis of large intestine with perforation and abscess without bleeding Is this a current diagnosis for this admission?: Yes Plan: Patient has had multiple rounds of antibiotics previously which eventually led to the C. difficile infection. (3) Abdominal pain Qualifiers: Abdominal location: generalized Qualified Code(s): R10.84 - Generalized abdominal pain Is this a current diagnosis for this admission?: Yes Plan: Because of the worsening problems we will start the patient on TPN. He is on n.p.o. (4) DVT prophylaxis Is this a current diagnosis for this admission?: Yes Plan: Continue with SCDs and heparin (5) Hypomagnesemia Is this a current diagnosis for this admission?: Yes Plan: We will monitor and replace as needed. (6) Iron deficiency anemia due to chronic blood loss Is this a current diagnosis for this admission?: Yes (7) Insomnia Is this a current diagnosis for this admission?: Yes Plan: Continue with Ambien as needed. (8) Venous thrombosis Is this a current diagnosis for this admission?: Yes Plan: The patient has swelling in the left arm and has a superficial venous thrombosis in the cephalic vein. Will keep the arm elevated. Today has swelling in his left leg and we will check a Doppler ultrasound to rule out a DVT in the left leg. - Time Time Spent with patient: 25-34 minutes - Inpatient Certification Medical Necessity: Need For IV Fluids, Need for IV Antibiotics
[2017-05-20] MEDS: LACTOBACILLUS ACIDOPHILUS 250 MG TAB PO SCH ×2 (10:31→18:21)
[2017-05-20] MEDS: GUAIFENESIN 600 MG TABLET.SA PO SCH ×2 (10:31→22:22)
[2017-05-20] MEDS: NORMAL SALINE 10 ML SDV (SCHEDULED) IV SCH ×2 (10:33→22:22)
--- NOTE | 2017-05-20 11:23 | PROGRESS NOTE E ---
Progress Note NAME: JANIYA JACKSON : 1975 AGE: 42Y DATE: 05/20/2017 ROOM: 532 SUBJECTIVE: The patient is a 42-year-old male who has past medical history of diverticulitis. The patient came in with left side abdominal pain and diarrhea. He had a colonoscopy that showed colitis. He also had C. diff colitis and he is on Flagyl and vancomycin. He continued to have abdominal pain and diarrhea. He is on TPN. His symptoms started since March. He denies any fever or chills. OBJECTIVE: GENERAL: Patient is sitting in chair comfortable, not in distress. VITAL SIGNS: Temperature is 98.7, heart rate 99, blood pressure 110/64, respiratory 16, saturation 96% on room air. HEENT: Head normocephalic, atraumatic. Pupils round, reactive to light and accommodation bilaterally. Extraocular movements intact. Ears: Tympanic membranes intact bilateral. No discharge from the ear. No discharge from nose. NECK: Supple. No increased JVD. No thyromegaly. No lymphadenopathy. CARDIOVASCULAR: Normal S1, S2. Regular rate and rhythm. No murmur. ABDOMEN: Soft, distended. MUSCULOSKELETAL: Swelling. NEUROLOGICAL: Awake, alert. SKIN: No rash. LABORATORY: White blood count is 8, hemoglobin is 9.3, hematocrit is 27. Sodium 139, potassium is 3.4, creatinine is 0.5. ASSESSMENT: 1. COLITIS. 2. C. DIFF COLITIS. 3. NAUSEA, VOMITING, ABDOMINAL PAIN. 4. HYPOMAGNESEMIA. 5. HYPOKALEMIA, REPLACED. PLAN: Continue Flagyl and vancomycin. Lab tomorrow morning. Continue TPN. Clear liquid diet if it is okay with Surgery. DICTATING PHYSICIAN: SHAW WARD M.D. [id number] PHY#: [id number] ID: [id number] JOB#: [id number] ACCT: [id number] cc: >
--- NOTE | 2017-05-20 14:18 | PROGRESS NOTE E ---
Progress Note NAME: JANIYA JACKSON : 1975 AGE: 42Y DATE: 05/20/2017 ROOM: 532 SUBJECTIVE: Patient remains afebrile. However, he is still complaining of pains in the abdomen that is about 4/5 in severity. He is still having diarrhea. He has a little edema along the left lower quadrant area and the left leg is swollen. No calf tenderness noted. An order for ultrasound was noted. He was started on TPN yesterday. IMPRESSION: C. DIFF COLITIS. His potassium is better at 3.4 yesterday. We will repeat his CBC in the morning and await ultrasound findings. In the meantime, continue with p.o. antibiotics with vancomycin and Flagyl. DICTATING PHYSICIAN: MAT ALEXANDRE M.D. [id number] PHY#: [id number] ID: [id number] JOB#: [id number] ACCT: [id number] cc: >
--- NOTE | 2017-05-20 16:38 | RADIOLOGY REPORT (SQ) ---
EXAM DESCRIPTION: VENOUS UNILATERAL LOWER COMPLETED DATE/TIME: 05/20/2017 4:27 pm REASON FOR STUDY: left leg swelling, r/o dvt COMPARISON: None. TECHNIQUE: Dynamic and static falk scale and color images acquired of the left leg venous system. Se lected spectral images acquired with additional compression and augmentation maneuvers. The contralat eral common femoral vein and saphenofemoral junction were also imaged. Images stored on PACS. LIMITATIONS: None. FINDINGS: COMMON FEMORAL: Normal phasicity, compression and augmentation. No visualized echogenic ma terial on falk scale. No defects on color images. FEMORAL: Normal compression and augmentation. No visualized echogenic material on falk scale. No defe cts on color images. POPLITEAL: Normal compression, augmentation. No visualized echogenic material on falk scale. No defec ts on color images. CALF VESSELS: Normal compression, augmentation. No visualized echogenic material on falk scale. No de fects on color images. GSV and SSV: Normal compression, augmentation. No visualized echogenic material on falk scale. No def ects on color images. ANY DEEP VENOUS INSUFFICIENCY: Not evaluated. ANY EVIDENCE OF POPLITEAL CYST: No. OTHER: No other significant finding. CONTRALATERAL COMMON FEMORAL VEIN AND SAPHENOFEMORAL JUNCTION: Normal phasicity, compression and augmentation. No visualized echogenic material on falk scale. No de fects on color images. IMPRESSION: NO EVIDENCE OF DVT OR SVT IN THE LEFT LEG. TECHNICAL DOCUMENTATION: JOB ID: [id number] [employer]- All Rights Reserved
[2017-05-20] MEDS: AMINO ACIDS 5%/D25W 1,000 ML IV PRN (19:03)
[2017-05-20] MEDS: ZOLPIDEM TARTRATE 5 MG TABLET PO SCH (22:22)
[2017-05-21] MEDS: HYDROMORPHONE HCL INJ/PF 2 MG/ML AMPULE IV PRN ×9 (00:37→22:40)
[2017-05-21] MEDS: METRONIDAZOLE 500 MG TABLET PO SCH ×4 (00:38→18:38)
[2017-05-21] MEDS: VANCOMYCIN HCL INJ 500 MG VIAL PO SCH ×4 (02:33→20:26)
[2017-05-21] MEDS: HEPARIN SOD (PORCINE) 5,000 UNIT/ML 1 ML SYRINGE SUBCUT SCH ×3 (05:35→21:58)
[2017-05-21 06:55] LABS: HEMATOCRIT 28.1 % (37.9-51.0); HEMOGLOBIN 9.4 g/dL (13.5-17.0); HGB HCT DIFFERENCE 0.1; MEAN CORPUSCULAR HEMOGLOBIN 29.3 pg (27.0-33.4); MEAN CORPUSCULAR HGB CONC 33.4 g/dL (32.0-36.0); MEAN CORPUSCULAR VOLUME 88 fl (80-97); RED CELL DISTRIBUTION WIDTH 15.2 % (11.5-14.0); WHITE BLOOD COUNT 13.7 10^3/uL (4.0-10.5)
[2017-05-21 07:20] LABS: BASOPHILS % (MANUAL) 1 % (0-2); EOSINOPHILS % (MANUAL) 2 % (0-6); LYMPHOCYTES % (MANUAL) 20 % (13-45); TOTAL CELLS COUNTED 100
[2017-05-21 07:21] LABS: ANISOCYTOSIS SLIGHT; HYPOCHROMASIA 1+; POLYCHROMASIA SLIGHT; TOXIC GRANULATION 1+
[2017-05-21 07:24] LABS: BAND NEUTROPHILS % (MANUAL) 23 % (3-5); PLATELET CLUMPS PRESENT
[2017-05-21 07:25] LABS: BLOOD UREA NITROGEN 5 mg/dL (7-20); CALCIUM 7.4 mg/dL (8.4-10.2); CREATININE RESULT 0.66 mg/dL (0.52-1.25); GLUCOSE 101 mg/dL (75-110); POTASSIUM 3.5 mmol/L (3.6-5.0)
[2017-05-21 07:26] LABS: ALANINE AMINOTRANSFERASE 28 U/L (21-72); ALBUMIN 2.1 g/dL (3.5-5.0); ALKALINE PHOSPHATASE 52 U/L (38-126); ANION GAP 7 (5-19); ASPARTATE AMINO TRANSFERASE 15 U/L (17-59); BILIRUBIN,DIRECT 0.4 mg/dL (0.0-0.4); BILIRUBIN,TOTAL 0.4 mg/dL (0.2-1.3); CARBON DIOXIDE 30 mmol/L (22-30); CHLORIDE 100 mmol/L (98-107); SODIUM 136.5 mmol/L (137-145)
[2017-05-21 07:27] LABS: MAGNESIUM 2.1 mg/dL (1.6-2.3); PREALBUMIN 6.9 mg/dL (17.6-36.0); TOTAL PROTEIN 5.6 g/dL (6.3-8.2)
--- NOTE | 2017-05-21 08:49 | PDOC PROGRESS REPORT ---
Subjective Progress Note for:: 05/21/17 Subjective:: Reports his abdominal pain has improved. Physical Exam Vital Signs: Temp Pulse Resp BP Pulse Ox 98.9 F 95 16 113/76 97 05/21/17 07:34 05/21/17 07:34 05/21/17 07:34 05/21/17 07:34 05/21/17 07:34 Intake & Output 05/20/17 05/21/17 05/22/17 06:59 06:59 06:59 Intake Total 450 1390 Output Total 700 0 Balance -250 1390 Weight 99.2 kg 101.8 kg General appearance: PRESENT: no acute distress Eye exam: PRESENT: conjunctiva pink. ABSENT: scleral icterus Mouth exam: PRESENT: moist, tongue midline Neck exam: ABSENT: JVD Respiratory exam: PRESENT: clear to auscultation sammie. ABSENT: rales, rhonchi, wheezes Cardiovascular exam: PRESENT: RRR. ABSENT: diastolic murmur, rubs, systolic murmur GI/Abdominal exam: PRESENT: distended, hypoactive bowel sounds, soft, tenderness - Right upper quadrant. ABSENT: guarding, mass, organolmegaly, rebound Extremities exam: PRESENT: pedal edema - Mild swelling of the left leg., other - Swelling of the left arm.. ABSENT: calf tenderness, clubbing Neurological exam: PRESENT: alert, awake, oriented to person, oriented to place , oriented to time, oriented to situation, CN II-XII grossly intact. ABSENT: motor sensory deficit Psychiatric exam: PRESENT: appropriate affect Skin exam: PRESENT: dry, intact, warm. ABSENT: cyanosis, rash Results Laboratory Results: 05/21/17 06:10 05/21/17 06:10 05/21/17 05/21/17 06:10 06:10 WBC 13.7 H RBC 3.20 L Hgb 9.4 L Hct 28.1 L MCV 88 MCH 29.3 MCHC 33.4 RDW 15.2 H Plt Count 411 Seg Neutrophils % Not Reportable Lymphocytes % Not Reportable Monocytes % Not Reportable Eosinophils % Not Reportable Basophils % Not Reportable Absolute Neutrophils Not Reportable Absolute Lymphocytes Not Reportable Absolute Monocytes Not Reportable Absolute Eosinophils Not Reportable Absolute Basophils Not Reportable Sodium 136.5 L Potassium 3.5 L Chloride 100 Carbon Dioxide 30 Anion Gap 7 BUN 5 L Creatinine 0.66 Est GFR ( Amer) > 60 Est GFR (Non-Af Amer) > 60 Glucose 101 Calcium 7.4 L Phosphorus Cancelled Magnesium 2.1 Total Bilirubin 0.4 AST 15 L ALT 28 Alkaline Phosphatase 52 Total Protein 5.6 L Albumin 2.1 L Prealbumin 6.9 L Impressions: Abdomen X-Ray 05/12/17 10:57 IMPRESSION: Nonspecific abdomen Abdomen/Pelvis CT 05/15/17 00:00 IMPRESSION: 1. Fatty infiltration of the liver. 2. Thickening of the wall of the colon and distention of the transverse colon. Inflammatory bowel disease. Toxic megacolon remains in the differential. 3. Ventral hernia. KUB X-Ray 05/16/17 09:45 IMPRESSION: Increasing likelihood of toxic megacolon. Acute Abdomen Series 05/17/17 00:00 IMPRESSION: Dilated colon with fluid levels. Guidance Fluoroscopy 05/17/17 00:00 IMPRESSION: SUCCESSFUL PLACEMENT OF A 5 FR DUAL LUMEN 36 CM PICC IN THE LEFT BASILIC VEIN. Interventional Vascular Procedure 05/17/17 00:00 IMPRESSION: SUCCESSFUL PLACEMENT OF A 5 FR DUAL LUMEN 36 CM PICC IN THE LEFT BASILIC VEIN. PICC Line Insertion 05/17/17 00:00 IMPRESSION: SUCCESSFUL PLACEMENT OF A 5 FR DUAL LUMEN 36 CM PICC IN THE LEFT BASILIC VEIN. Venous Doppler Study 05/20/17 00:00 IMPRESSION: NO EVIDENCE OF DVT OR SVT IN THE LEFT LEG. Assessment & Plan - Diagnosis (1) Clostridium difficile colitis Is this a current diagnosis for this admission?: Yes Plan: The patient is on vancomycin and Flagyl. Surgery is following. Clinically the patient seems slightly improved. He does have distention worrisome for possibly developing toxic megacolon. Patient is on TPN. (2) Diverticulitis of colon with perforation Qualifiers: Diverticulitis bleeding: without bleeding Qualified Code(s): K57.20 - Diverticulitis of large intestine with perforation and abscess without bleeding Is this a current diagnosis for this admission?: Yes Plan: Patient has had multiple rounds of antibiotics previously which eventually led to the C. difficile infection. (3) Abdominal pain Qualifiers: Abdominal location: generalized Qualified Code(s): R10.84 - Generalized abdominal pain Is this a current diagnosis for this admission?: Yes Plan: We will continue the patient on TPN. He is on n.p.o. (4) DVT prophylaxis Is this a current diagnosis for this admission?: Yes Plan: Continue with SCDs and heparin (5) Hypomagnesemia Is this a current diagnosis for this admission?: Yes Plan: We will monitor and replace as needed. (6) Iron deficiency anemia due to chronic blood loss Is this a current diagnosis for this admission?: Yes (7) Insomnia Is this a current diagnosis for this admission?: Yes Plan: Continue with Ambien as needed. (8) Venous thrombosis Is this a current diagnosis for this admission?: Yes Plan: The patient has swelling in the left arm and has a superficial venous thrombosis in the cephalic vein. Will keep the arm elevated. Left leg shows no evidence for DVT. - Time Time Spent with patient: 25-34 minutes - Inpatient Certification Medical Necessity: Need Close Monitoring Due to Risk of Patient Decompensation, Need For IV Fluids
[2017-05-21] MEDS: LACTOBACILLUS ACIDOPHILUS 250 MG TAB PO SCH ×2 (10:09→18:39)
[2017-05-21] MEDS: GUAIFENESIN 600 MG TABLET.SA PO SCH ×2 (10:10→21:58)
[2017-05-21] MEDS: NORMAL SALINE 10 ML SDV (SCHEDULED) IV SCH ×2 (10:10→21:58)
[2017-05-21] MEDS: AMINO ACIDS 5%/D25W 1,000 ML IV PRN (14:24)
--- NOTE | 2017-05-21 19:28 | PROGRESS NOTE E ---
Progress Note NAME: JANIYA JACKSON : 1975 AGE: 42Y DATE: 05/21/2017 ROOM: 532 SUBJECTIVE: He is still complaining of pain in the abdomen, primarily along the left lower quadrant. OBJECTIVE: The edema appears to have somewhat decreased around the left lower quadrant area, but the abdomen is a little bit softer. DIAGNOSTIC DATA: His white count went up from 18,000 to 13.7 yesterday. No evidence of DVT on the left leg by ultrasound. It still is slightly swollen compared to the right leg. His potassium remains stable at 3.5. His C difficile colitis appears to be fairly stable at this time. PLAN: I would continue with IV antibiotics and hyperalimentation. Also continue with the p.o. vancomycin and Flagyl. DICTATING PHYSICIAN: MAT ALEXANDRE M.D. [id number] PHY#: [id number] ID: [id number] JOB#: [id number] ACCT: [id number] cc:MAT ALEXANDRE M.D. >
[2017-05-21] MEDS: ZOLPIDEM TARTRATE 5 MG TABLET PO SCH (21:58)
[2017-05-22] MEDS: VANCOMYCIN HCL INJ 500 MG VIAL PO SCH ×4 (04:14→21:26)
[2017-05-22] MEDS: HYDROMORPHONE HCL INJ/PF 2 MG/ML AMPULE IV PRN ×7 (04:14→21:32)
[2017-05-22] MEDS: METRONIDAZOLE 500 MG TABLET PO SCH ×5 (05:47→23:57)
[2017-05-22] MEDS: HEPARIN SOD (PORCINE) 5,000 UNIT/ML 1 ML SYRINGE SUBCUT SCH ×3 (05:47→21:32)
[2017-05-22 06:24] LABS: HEMATOCRIT 24.3 % (37.9-51.0); HEMOGLOBIN 8.2 g/dL (13.5-17.0); HGB HCT DIFFERENCE 0.3; MEAN CORPUSCULAR HEMOGLOBIN 29.7 pg (27.0-33.4); MEAN CORPUSCULAR VOLUME 87 fl (80-97); RED BLOOD COUNT 2.78 10^6/uL (4.35-5.55); RED CELL DISTRIBUTION WIDTH 15.6 % (11.5-14.0)
[2017-05-22 06:35] LABS: ALANINE AMINOTRANSFERASE 17 U/L (21-72); ALBUMIN 1.8 g/dL (3.5-5.0); ALKALINE PHOSPHATASE 42 U/L (38-126); ANION GAP 5 (5-19); ASPARTATE AMINO TRANSFERASE 12 U/L (17-59); BILIRUBIN,DIRECT 0.2 mg/dL (0.0-0.4); BILIRUBIN,TOTAL 0.2 mg/dL (0.2-1.3); BLOOD UREA NITROGEN 4 mg/dL (7-20); CALCIUM 7.2 mg/dL (8.4-10.2); CARBON DIOXIDE 30 mmol/L (22-30); CHLORIDE 99 mmol/L (98-107); CREATININE RESULT 0.58 mg/dL (0.52-1.25); GLUCOSE 141 mg/dL (75-110); MAGNESIUM 2.1 mg/dL (1.6-2.3); POTASSIUM 3.3 mmol/L (3.6-5.0); SODIUM 134.4 mmol/L (137-145); TOTAL PROTEIN 4.9 g/dL (6.3-8.2)
[2017-05-22 06:35] LABS: PROTHROMBIN TIME 18.2 SEC (11.4-15.4)
[2017-05-22 06:42] LABS: PREALBUMIN 5.9 mg/dL (17.6-36.0)
[2017-05-22] MEDS ORDERED: POTASSI CL 20 MEQ/50 ML RIDER 20 MEQ/50 ML RTUPB IV SCH (07:30)
[2017-05-22] MEDS ORDERED: ONDANSETRON 4 MG TAB.RAPDIS PO PRN (08:00)
[2017-05-22] MEDS: NORMAL SALINE 10 ML SDV (SCHEDULED) IV SCH ×2 (09:10→21:32)
[2017-05-22] MEDS: LACTOBACILLUS ACIDOPHILUS 250 MG TAB PO SCH ×2 (09:11→18:03)
[2017-05-22] MEDS: GUAIFENESIN 600 MG TABLET.SA PO SCH ×2 (09:11→21:32)
[2017-05-22] MEDS: POTASSI CL 20 MEQ/50 ML RIDER 20 MEQ/50 ML RTUPB IV SCH ×2 (09:33→12:04)
[2017-05-22] MEDS: FAT EMULSIONS 250 ML IV SCH (09:35)
--- NOTE | 2017-05-22 10:54 | PDOC PROGRESS REPORT ---
Subjective Progress Note for:: 05/22/17 Subjective:: The patient reports that he is having fewer bowel movements and he has some form to his stool. Physical Exam Vital Signs: Temp Pulse Resp BP Pulse Ox 98 F 81 18 108/59 L 100 05/22/17 08:00 05/22/17 08:00 05/22/17 08:00 05/22/17 08:00 05/22/17 08:00 Intake & Output 05/21/17 05/22/17 05/23/17 06:59 06:59 06:59 Intake Total 1390 2375 Output Total 0 2 Balance 1390 2373 Weight 101.8 kg 102.2 kg General appearance: PRESENT: no acute distress Eye exam: PRESENT: conjunctiva pink. ABSENT: scleral icterus Mouth exam: PRESENT: moist, tongue midline Neck exam: ABSENT: JVD Respiratory exam: PRESENT: clear to auscultation sammie. ABSENT: rales, rhonchi, wheezes Cardiovascular exam: PRESENT: RRR. ABSENT: diastolic murmur, rubs, systolic murmur GI/Abdominal exam: PRESENT: distended, hypoactive bowel sounds, soft, tenderness - Patient has mild diffuse tenderness. He is actually less tender than yesterday.. ABSENT: guarding, mass, organolmegaly, rebound Extremities exam: ABSENT: calf tenderness, clubbing, pedal edema Neurological exam: PRESENT: alert, awake, oriented to person, oriented to place , oriented to time, oriented to situation, CN II-XII grossly intact. ABSENT: motor sensory deficit Psychiatric exam: PRESENT: appropriate affect Skin exam: PRESENT: dry, intact, warm. ABSENT: cyanosis, rash Results Laboratory Results: 05/22/17 06:10 05/22/17 06:10 05/22/17 05/22/17 06:10 06:10 WBC 10.0 RBC 2.78 L Hgb 8.2 L Hct 24.3 L MCV 87 MCH 29.7 MCHC 34.0 RDW 15.6 H Plt Count 340 Sodium 134.4 L Potassium 3.3 L Chloride 99 Carbon Dioxide 30 Anion Gap 5 BUN 4 L Creatinine 0.58 Est GFR ( Amer) > 60 Est GFR (Non-Af Amer) > 60 Glucose 141 H Calcium 7.2 L Phosphorus 4.0 Magnesium 2.1 Total Bilirubin 0.2 AST 12 L ALT 17 L Alkaline Phosphatase 42 Total Protein 4.9 L Albumin 1.8 L Prealbumin 5.9 L Impressions: Abdomen X-Ray 05/12/17 10:57 IMPRESSION: Nonspecific abdomen Abdomen/Pelvis CT 05/15/17 00:00 IMPRESSION: 1. Fatty infiltration of the liver. 2. Thickening of the wall of the colon and distention of the transverse colon. Inflammatory bowel disease. Toxic megacolon remains in the differential. 3. Ventral hernia. KUB X-Ray 05/16/17 09:45 IMPRESSION: Increasing likelihood of toxic megacolon. Acute Abdomen Series 05/17/17 00:00 IMPRESSION: Dilated colon with fluid levels. Guidance Fluoroscopy 05/17/17 00:00 IMPRESSION: SUCCESSFUL PLACEMENT OF A 5 FR DUAL LUMEN 36 CM PICC IN THE LEFT BASILIC VEIN. Interventional Vascular Procedure 05/17/17 00:00 IMPRESSION: SUCCESSFUL PLACEMENT OF A 5 FR DUAL LUMEN 36 CM PICC IN THE LEFT BASILIC VEIN. PICC Line Insertion 05/17/17 00:00 IMPRESSION: SUCCESSFUL PLACEMENT OF A 5 FR DUAL LUMEN 36 CM PICC IN THE LEFT BASILIC VEIN. Venous Doppler Study 05/20/17 00:00 IMPRESSION: NO EVIDENCE OF DVT OR SVT IN THE LEFT LEG. Assessment & Plan - Diagnosis (1) Clostridium difficile colitis Is this a current diagnosis for this admission?: Yes Plan: The patient is on vancomycin and Flagyl. Surgery is following. Clinically the patient is improving. Patient's abdomen is less distended today. Patient is on TPN. Will advance to clear liquids today. (2) Diverticulitis of colon with perforation Qualifiers: Diverticulitis bleeding: without bleeding Qualified Code(s): K57.20 - Diverticulitis of large intestine with perforation and abscess without bleeding Is this a current diagnosis for this admission?: Yes Plan: Patient has had multiple rounds of antibiotics previously which eventually led to the C. difficile infection. (3) Abdominal pain Qualifiers: Abdominal location: generalized Qualified Code(s): R10.84 - Generalized abdominal pain Is this a current diagnosis for this admission?: Yes Plan: We will continue the patient on TPN. He is started on a clear liquid diet today. (4) DVT prophylaxis Is this a current diagnosis for this admission?: Yes Plan: Continue with SCDs and heparin (5) Hypomagnesemia Is this a current diagnosis for this admission?: Yes Plan: We will monitor and replace as needed. (6) Insomnia Is this a current diagnosis for this admission?: Yes Plan: Continue with Ambien as needed. (7) Venous thrombosis Is this a current diagnosis for this admission?: Yes Plan: The patient has swelling in the left arm and has a superficial venous thrombosis in the cephalic vein. Will keep the arm elevated. Left leg shows no evidence for DVT. (8) Iron deficiency anemia due to chronic blood loss Is this a current diagnosis for this admission?: Yes - Time Time Spent with patient: 25-34 minutes - Inpatient Certification Medical Necessity: Need For IV Fluids
[2017-05-22] MEDS: AMINO ACIDS 5%/D25W 1,000 ML IV PRN (12:01)
--- NOTE | 2017-05-22 12:15 | PDOC PROGRESS REPORT ---
Subjective Progress Note for:: 05/22/17 Subjective:: No events overnight Pain and distension improved per patient Hungry Passing flattus and liquid stools Physical Exam Vital Signs: Temp Pulse Resp BP Pulse Ox 98 F 81 18 108/59 L 100 05/22/17 08:00 05/22/17 08:00 05/22/17 08:00 05/22/17 08:00 05/22/17 08:00 Intake & Output 05/21/17 05/22/17 05/23/17 06:59 06:59 06:59 Intake Total 1390 2375 Output Total 0 2 Balance 1390 2373 Weight 101.8 kg 102.2 kg General appearance: PRESENT: no acute distress, well-developed, well-nourished Head exam: PRESENT: atraumatic, normocephalic Eye exam: PRESENT: conjunctiva pink Mouth exam: PRESENT: moist Pulses: PRESENT: normal dorsalis pedis pul Vascular exam: PRESENT: normal capillary refill GI/Abdominal exam: PRESENT: distended, tenderness - mild tenderness periumbilical and LLQ Extremities exam: PRESENT: full ROM, +2 edema Neurological exam: PRESENT: alert, awake, oriented to person, oriented to place , oriented to time, oriented to situation, CN II-XII grossly intact. ABSENT: motor sensory deficit Results Laboratory Results: 05/22/17 06:10 05/22/17 06:10 05/22/17 05/22/17 05/22/17 06:10 06:10 10:10 WBC 10.0 RBC 2.78 L Hgb 8.2 L Hct 24.3 L MCV 87 MCH 29.7 MCHC 34.0 RDW 15.6 H Plt Count 340 Sodium 134.4 L Potassium 3.3 L Chloride 99 Carbon Dioxide 30 Anion Gap 5 BUN 4 L Creatinine 0.58 Est GFR ( Amer) > 60 Est GFR (Non-Af Amer) > 60 Glucose 141 H Calcium 7.2 L Phosphorus 4.0 Magnesium 2.1 Total Bilirubin 0.2 AST 12 L ALT 17 L Alkaline Phosphatase 42 Total Protein 4.9 L Albumin 1.8 L Prealbumin 5.9 L Triglycerides 63 Impressions: Abdomen X-Ray 05/12/17 10:57 IMPRESSION: Nonspecific abdomen Abdomen/Pelvis CT 05/15/17 00:00 IMPRESSION: 1. Fatty infiltration of the liver. 2. Thickening of the wall of the colon and distention of the transverse colon. Inflammatory bowel disease. Toxic megacolon remains in the differential. 3. Ventral hernia. KUB X-Ray 05/16/17 09:45 IMPRESSION: Increasing likelihood of toxic megacolon. Acute Abdomen Series 05/17/17 00:00 IMPRESSION: Dilated colon with fluid levels. Guidance Fluoroscopy 05/17/17 00:00 IMPRESSION: SUCCESSFUL PLACEMENT OF A 5 FR DUAL LUMEN 36 CM PICC IN THE LEFT BASILIC VEIN. Interventional Vascular Procedure 05/17/17 00:00 IMPRESSION: SUCCESSFUL PLACEMENT OF A 5 FR DUAL LUMEN 36 CM PICC IN THE LEFT BASILIC VEIN. PICC Line Insertion 05/17/17 00:00 IMPRESSION: SUCCESSFUL PLACEMENT OF A 5 FR DUAL LUMEN 36 CM PICC IN THE LEFT BASILIC VEIN. Venous Doppler Study 05/20/17 00:00 IMPRESSION: NO EVIDENCE OF DVT OR SVT IN THE LEFT LEG. Status: Imported from PACS Assessment & Plan - Diagnosis (1) Clostridium difficile colitis Is this a current diagnosis for this admission?: Yes Plan: Continue IV and oral antibiotics of flagyl and vanco respectively Consider [place] vancomycin without clinical improvement Pain control AAS with any worsened symptoms - Time Time Spent with patient: 15-24 minutes
[2017-05-22 14:45] LABS: PATH REVIEW PATHOLOGIST REVIEWED
[2017-05-22] MEDS: ZOLPIDEM TARTRATE 5 MG TABLET PO SCH (23:54)
[2017-05-23] MEDS: HYDROMORPHONE HCL INJ/PF 2 MG/ML AMPULE IV PRN ×6 (00:12→17:14)
[2017-05-23] MEDS: NORMAL SALINE 10 ML SDV (AFTER EACH USE) IV PRN (00:13)
[2017-05-23] MEDS: VANCOMYCIN HCL INJ 500 MG VIAL PO SCH ×4 (04:33→21:44)
[2017-05-23] MEDS: AMINO ACIDS 5%/D25W 1,000 ML IV PRN (04:34)
[2017-05-23] MEDS: HEPARIN SOD (PORCINE) 5,000 UNIT/ML 1 ML SYRINGE SUBCUT SCH ×3 (06:41→21:47)
[2017-05-23] MEDS: METRONIDAZOLE 500 MG TABLET PO SCH ×3 (06:42→17:56)
--- NOTE | 2017-05-23 07:49 | PDOC PROGRESS REPORT ---
Subjective Progress Note for:: 05/23/17 Subjective:: Doing better today, improved pain and distension, passing liquid stool, hungry Physical Exam Vital Signs: Temp Pulse Resp BP Pulse Ox 98.1 F 93 18 114/66 100 05/22/17 19:24 05/22/17 23:55 05/22/17 23:55 05/22/17 23:55 05/22/17 23:55 Intake & Output 05/22/17 05/23/17 05/24/17 06:59 06:59 06:59 Intake Total 2375 3327 Output Total 2 Balance 2373 3327 Weight 102.2 kg 102.2 kg General appearance: PRESENT: no acute distress, well-developed, well-nourished Head exam: PRESENT: atraumatic, normocephalic Eye exam: PRESENT: conjunctiva pink Mouth exam: PRESENT: moist, neck supple Respiratory exam: PRESENT: symmetrical, unlabored. ABSENT: accessory muscle use , prolonged expiratory phas Pulses: PRESENT: normal dorsalis pedis pul Vascular exam: PRESENT: normal capillary refill GI/Abdominal exam: PRESENT: distended, guarding - focal guarding LLQ, hernia - Umbilical, soft Extremities exam: PRESENT: +2 edema Neurological exam: PRESENT: alert, awake, oriented to person, oriented to place , oriented to time, oriented to situation, CN II-XII grossly intact. ABSENT: motor sensory deficit Results Laboratory Results: 05/22/17 06:10 05/22/17 06:10 05/22/17 10:10 Triglycerides 63 Impressions: Abdomen X-Ray 05/12/17 10:57 IMPRESSION: Nonspecific abdomen Abdomen/Pelvis CT 05/15/17 00:00 IMPRESSION: 1. Fatty infiltration of the liver. 2. Thickening of the wall of the colon and distention of the transverse colon. Inflammatory bowel disease. Toxic megacolon remains in the differential. 3. Ventral hernia. KUB X-Ray 05/16/17 09:45 IMPRESSION: Increasing likelihood of toxic megacolon. Acute Abdomen Series 05/17/17 00:00 IMPRESSION: Dilated colon with fluid levels. Guidance Fluoroscopy 05/17/17 00:00 IMPRESSION: SUCCESSFUL PLACEMENT OF A 5 FR DUAL LUMEN 36 CM PICC IN THE LEFT BASILIC VEIN. Interventional Vascular Procedure 05/17/17 00:00 IMPRESSION: SUCCESSFUL PLACEMENT OF A 5 FR DUAL LUMEN 36 CM PICC IN THE LEFT BASILIC VEIN. PICC Line Insertion 05/17/17 00:00 IMPRESSION: SUCCESSFUL PLACEMENT OF A 5 FR DUAL LUMEN 36 CM PICC IN THE LEFT BASILIC VEIN. Venous Doppler Study 05/20/17 00:00 IMPRESSION: NO EVIDENCE OF DVT OR SVT IN THE LEFT LEG. Status: Imported from PACS Assessment & Plan - Diagnosis (1) Clostridium difficile colitis Is this a current diagnosis for this admission?: Yes Plan: Continued liquid stools Patient hungry requesting advancement of diet, going to softs Continue IV and oral antibiotics With change clinically consider adding vanco enemas Recurrence outpatient consider stool transplant Call with any questions - Time Time Spent with patient: Less than 15 minutes
[2017-05-23] MEDS: OXYCODONE HCL IR 5 MG TABLET PO PRN (09:08)
--- NOTE | 2017-05-23 09:29 | PDOC PROGRESS REPORT ---
Subjective Progress Note for:: 05/23/17 Subjective:: Abdominal distention is less. No nausea or vomiting. Able to tolerate clear liquid. Denies any chills or fever. Still having some bouts of diarrhea but it is more soft than watery now. Abdominal pain is likewise less. No shortness of breath nor chest pain. Patient requesting diet. Patient wants to eat. Physical Exam Vital Signs: Temp Pulse Resp BP Pulse Ox 98.2 F 95 18 101/68 100 05/23/17 08:06 05/23/17 08:06 05/23/17 08:06 05/23/17 08:06 05/23/17 08:06 Intake & Output 05/22/17 05/23/17 05/24/17 06:59 06:59 06:59 Intake Total 2375 3121 Output Total 2 Balance 2373 3121 Weight 102.2 kg 102.2 kg General appearance: PRESENT: no acute distress, cooperative Head exam: PRESENT: normocephalic Eye exam: PRESENT: EOMI Mouth exam: PRESENT: moist, neck supple Neck exam: ABSENT: JVD Respiratory exam: PRESENT: clear to auscultation sammie. ABSENT: rhonchi, wheezes Cardiovascular exam: PRESENT: RRR. ABSENT: gallop GI/Abdominal exam: PRESENT: distended, hypoactive bowel sounds, soft, tenderness - Minimal diffusely Extremities exam: PRESENT: other - Positive edema bilateral Neurological exam: PRESENT: alert, awake, oriented to situation Skin exam: PRESENT: dry, warm. ABSENT: cyanosis Results Laboratory Results: 05/22/17 06:10 05/22/17 06:10 05/22/17 10:10 Triglycerides 63 Impressions: Abdomen X-Ray 05/12/17 10:57 IMPRESSION: Nonspecific abdomen Abdomen/Pelvis CT 05/15/17 00:00 IMPRESSION: 1. Fatty infiltration of the liver. 2. Thickening of the wall of the colon and distention of the transverse colon. Inflammatory bowel disease. Toxic megacolon remains in the differential. 3. Ventral hernia. KUB X-Ray 05/16/17 09:45 IMPRESSION: Increasing likelihood of toxic megacolon. Acute Abdomen Series 05/17/17 00:00 IMPRESSION: Dilated colon with fluid levels. Guidance Fluoroscopy 05/17/17 00:00 IMPRESSION: SUCCESSFUL PLACEMENT OF A 5 FR DUAL LUMEN 36 CM PICC IN THE LEFT BASILIC VEIN. Interventional Vascular Procedure 05/17/17 00:00 IMPRESSION: SUCCESSFUL PLACEMENT OF A 5 FR DUAL LUMEN 36 CM PICC IN THE LEFT BASILIC VEIN. PICC Line Insertion 05/17/17 00:00 IMPRESSION: SUCCESSFUL PLACEMENT OF A 5 FR DUAL LUMEN 36 CM PICC IN THE LEFT BASILIC VEIN. Venous Doppler Study 05/20/17 00:00 IMPRESSION: NO EVIDENCE OF DVT OR SVT IN THE LEFT LEG. Assessment & Plan - Diagnosis (1) Toxic megacolon Is this a current diagnosis for this admission?: Yes (2) Clostridium difficile colitis Is this a current diagnosis for this admission?: Yes (3) Iron deficiency anemia due to chronic blood loss Is this a current diagnosis for this admission?: Yes (4) Coagulopathy Is this a current diagnosis for this admission?: Yes (5) Superficial venous thrombosis of arm Qualifiers: Laterality: unspecified laterality Qualified Code(s): I82.619 - Acute embolism and thrombosis of superficial veins of unspecified upper extremity Is this a current diagnosis for this admission?: Yes - Time Time Spent with patient: 25-34 minutes - Plan Summary Plan Summary: Continue lactobacillus as well as Flagyl and vancomycin orally. We will recheck hemoglobin hematocrit as well as electrolytes. Continue TPN for now. Advance diet to full liquid.
[2017-05-23] MEDS: LACTOBACILLUS ACIDOPHILUS 250 MG TAB PO SCH ×2 (11:14→17:56)
[2017-05-23] MEDS: GUAIFENESIN 600 MG TABLET.SA PO SCH ×2 (11:15→21:44)
[2017-05-23] MEDS: NORMAL SALINE 10 ML SDV (SCHEDULED) IV SCH ×2 (11:16→21:44)
[2017-05-23] MEDS: SIMETHICONE 80 MG TAB.CHEW PO PRN (13:38)
[2017-05-23] MEDS ORDERED: GLUCAGON,HUMAN RECOMB 1 MG INJ SUBCUT PRN (17:56)
[2017-05-23] MEDS ORDERED: DEXTROSE 50%-WATER 25 GM/50 ML DISP.SYRIN IV PRN ×2 (17:56)
[2017-05-23] MEDS ORDERED: DEXTROSE 40% GEL 15 GM TUBE PO PRN ×2 (17:56)
[2017-05-23 18:50] LABS: ANION GAP 5 (5-19); BLOOD UREA NITROGEN 4 mg/dL (7-20); CALCIUM 7.3 mg/dL (8.4-10.2); CARBON DIOXIDE 30 mmol/L (22-30); CHLORIDE 100 mmol/L (98-107); CREATININE RESULT 0.57 mg/dL (0.52-1.25); GLUCOSE 119 mg/dL (75-110); POTASSIUM 3.9 mmol/L (3.6-5.0); SODIUM 135.3 mmol/L (137-145)
[2017-05-23 19:02] LABS: ABSOLUTE EOSINOPHILS # (AUTO) 0.4 10^3/uL (0.0-0.6); BASOPHILS % (AUTO) 0.2 % (0-2); EOSINOPHILS % (AUTO) 5.1 % (0-6); HEMATOCRIT 24.8 % (37.9-51.0); HEMOGLOBIN 8.5 g/dL (13.5-17.0); HGB HCT DIFFERENCE 0.7; MEAN CORPUSCULAR HEMOGLOBIN 30.3 pg (27.0-33.4); MEAN CORPUSCULAR HGB CONC 34.4 g/dL (32.0-36.0); MEAN CORPUSCULAR VOLUME 88 fl (80-97); MONOCYTES % (AUTO) 13.4 % (3-13); RED BLOOD COUNT 2.81 10^6/uL (4.35-5.55); SEGMENTED NEUTROPHILS % (AUTO) 68.3 % (42-78); WHITE BLOOD COUNT 7.4 10^3/uL (4.0-10.5)
--- NOTE | 2017-05-23 20:02 | RADIOLOGY REPORT (SQ) ---
EXAM DESCRIPTION: KUB/ABDOMEN (SINGLE VIEW) COMPLETED DATE/TIME: 05/23/2017 7:15 pm REASON FOR STUDY: toxic megacolon COMPARISON: Acute abdomen series dated 05/17/2017 NUMBER OF VIEWS: One view. TECHNIQUE: Supine radiographic image of the abdomen acquired. LIMITATIONS: None. FINDINGS: BOWEL GAS PATTERN: The previously described gaseous distension of the colon appears slight ly less pronounced on the current study. Again there is some loss of the haustra markings in the tra nsverse colon CALCIFICATIONS: No suspicious calcifications. SOFT TISSUES: No gross mass or suggestion of organomegaly. HARDWARE: None in the abdomen. BONES: No acute fracture. No worrisome bone lesions. OTHER: No other significant finding. IMPRESSION: The previously described gaseous distension of the colon appears slightly less pronounce d on the current study. No other significant interval change. Other findings as noted above. TECHNICAL DOCUMENTATION: JOB ID: [id number] [employer]- All Rights Reserved
[2017-05-23] MEDS: ACETAMINOPHEN 325 MG TABLET PO PRN (21:44)
[2017-05-23] MEDS: ZOLPIDEM TARTRATE 5 MG TABLET PO SCH (21:44)
[2017-05-24] MEDS: VANCOMYCIN HCL INJ 500 MG VIAL PR SCH ×4 (02:08→17:37)
[2017-05-24] MEDS: AMINO ACIDS 5%/D25W 1,000 ML IV PRN ×2 (02:43→20:08)
[2017-05-24] MEDS: VANCOMYCIN HCL INJ 500 MG VIAL PO SCH ×4 (02:43→21:25)
[2017-05-24] MEDS: METRONIDAZOLE 500 MG TABLET PO SCH ×4 (02:48→17:36)
[2017-05-24] MEDS: SIMETHICONE 80 MG TAB.CHEW PO PRN (02:49)
[2017-05-24] MEDS: BISMUTH SUBSALICYLATE 262 MG TAB.CHEW PO PRN ×2 (02:49→21:26)
[2017-05-24] MEDS: ACETAMINOPHEN 325 MG TABLET PO PRN ×2 (02:49→07:46)
[2017-05-24] MEDS: HEPARIN SOD (PORCINE) 5,000 UNIT/ML 1 ML SYRINGE SUBCUT SCH ×3 (07:46→21:26)
[2017-05-24] MEDS: NORMAL SALINE 10 ML SDV (AFTER EACH USE) IV PRN (08:28)
--- NOTE | 2017-05-24 08:44 | PDOC PROGRESS REPORT ---
Subjective Progress Note for:: 05/24/17 Subjective:: Patient still with diarrhea as reported. Abdominal cramping is still present. He was tried on enema with vancomycin but the patient started to refuse. Reported chills or fever. KUB shows improvement in aeration of the colon. Colonoscopy shows ulcerative colitis. Physical Exam Vital Signs: Temp Pulse Resp BP Pulse Ox 98.1 F 91 18 102/59 L 99 05/24/17 07:56 05/24/17 07:56 05/24/17 07:56 05/24/17 07:56 05/24/17 07:56 Intake & Output 05/23/17 05/24/17 05/25/17 06:59 06:59 06:59 Intake Total 3121 770 Balance 3121 770 Weight 102.2 kg 101.3 kg General appearance: PRESENT: no acute distress, cooperative Head exam: PRESENT: normocephalic Eye exam: PRESENT: EOMI Mouth exam: PRESENT: moist, neck supple Neck exam: ABSENT: JVD Respiratory exam: PRESENT: clear to auscultation sammie. ABSENT: rhonchi, wheezes Cardiovascular exam: PRESENT: RRR. ABSENT: gallop GI/Abdominal exam: PRESENT: distended - Mildly, soft, tenderness - Diffusely, other - Slightly tympanitic Extremities exam: PRESENT: +1 edema Neurological exam: PRESENT: alert, awake, oriented to situation Skin exam: PRESENT: dry, warm. ABSENT: cyanosis Results Laboratory Results: 05/23/17 17:56 05/23/17 17:56 05/23/17 05/23/17 05/23/17 11:45 11:45 16:35 WBC Cancelled Cancelled RBC Cancelled Cancelled Hgb Cancelled Cancelled Hct Cancelled Cancelled MCV Cancelled Cancelled MCH Cancelled Cancelled MCHC Cancelled Cancelled RDW Cancelled Cancelled Plt Count Cancelled Cancelled Seg Neutrophils % Cancelled Lymphocytes % Cancelled Monocytes % Cancelled Eosinophils % Cancelled Basophils % Cancelled Absolute Neutrophils Cancelled Absolute Lymphocytes Cancelled Absolute Monocytes Cancelled Absolute Eosinophils Cancelled Absolute Basophils Cancelled Sodium Cancelled Potassium Cancelled Chloride Cancelled Carbon Dioxide Cancelled Anion Gap Cancelled BUN Cancelled Creatinine Cancelled Est GFR ( Amer) Cancelled Est GFR (Non-Af Amer) Cancelled Glucose Cancelled Calcium Cancelled 05/23/17 05/23/17 05/23/17 16:35 17:56 17:56 WBC 7.4 RBC 2.81 L Hgb 8.5 L Hct 24.8 L MCV 88 MCH 30.3 MCHC 34.4 RDW 16.0 H Plt Count 398 Seg Neutrophils % 68.3 Lymphocytes % 13.0 Monocytes % 13.4 H Eosinophils % 5.1 Basophils % 0.2 Absolute Neutrophils 5.0 Absolute Lymphocytes 1.0 Absolute Monocytes 1.0 Absolute Eosinophils 0.4 Absolute Basophils 0.0 Sodium Cancelled 135.3 L Potassium Cancelled 3.9 Chloride Cancelled 100 Carbon Dioxide Cancelled 30 Anion Gap Cancelled 5 BUN Cancelled 4 L Creatinine Cancelled 0.57 Est GFR ( Amer) Cancelled > 60 Est GFR (Non-Af Amer) Cancelled > 60 Glucose Cancelled 119 H Calcium Cancelled 7.3 L Impressions: Abdomen X-Ray 05/12/17 10:57 IMPRESSION: Nonspecific abdomen Abdomen/Pelvis CT 05/15/17 00:00 IMPRESSION: 1. Fatty infiltration of the liver. 2. Thickening of the wall of the colon and distention of the transverse colon. Inflammatory bowel disease. Toxic megacolon remains in the differential. 3. Ventral hernia. Acute Abdomen Series 05/17/17 00:00 IMPRESSION: Dilated colon with fluid levels. Guidance Fluoroscopy 05/17/17 00:00 IMPRESSION: SUCCESSFUL PLACEMENT OF A 5 FR DUAL LUMEN 36 CM PICC IN THE LEFT BASILIC VEIN. Interventional Vascular Procedure 05/17/17 00:00 IMPRESSION: SUCCESSFUL PLACEMENT OF A 5 FR DUAL LUMEN 36 CM PICC IN THE LEFT BASILIC VEIN. PICC Line Insertion 05/17/17 00:00 IMPRESSION: SUCCESSFUL PLACEMENT OF A 5 FR DUAL LUMEN 36 CM PICC IN THE LEFT BASILIC VEIN. Venous Doppler Study 05/20/17 00:00 IMPRESSION: NO EVIDENCE OF DVT OR SVT IN THE LEFT LEG. KUB X-Ray 05/23/17 00:00 IMPRESSION: The previously described gaseous distension of the colon appears slightly less pronounced on the current study. No other significant interval change. Other findings as noted above. Assessment & Plan - Diagnosis (1) Toxic megacolon Is this a current diagnosis for this admission?: Yes (2) Clostridium difficile colitis Is this a current diagnosis for this admission?: Yes (3) Iron deficiency anemia due to chronic blood loss Is this a current diagnosis for this admission?: Yes (4) Coagulopathy Is this a current diagnosis for this admission?: Yes (5) Superficial venous thrombosis of arm Qualifiers: Laterality: unspecified laterality Qualified Code(s): I82.619 - Acute embolism and thrombosis of superficial veins of unspecified upper extremity Is this a current diagnosis for this admission?: Yes - Time Time Spent with patient: 25-34 minutes - Plan Summary Plan Summary: I will keep the patient n.p.o. at this time. We will consult gastroenterology for further evaluation. I will try the patient on steroids for the ulcerative colitis and anti-inflammation. We will check stool for Clostridium difficile toxin again. Continue TPN and titrate per pharmacy protocol.
[2017-05-24] MEDS: LACTOBACILLUS ACIDOPHILUS 250 MG TAB PO SCH ×2 (09:03→17:36)
[2017-05-24] MEDS: GUAIFENESIN 600 MG TABLET.SA PO SCH ×2 (09:05→21:26)
[2017-05-24 09:16] LABS: HEMATOCRIT 23.3 % (37.9-51.0); HGB HCT DIFFERENCE 0.4; MEAN CORPUSCULAR HEMOGLOBIN 29.6 pg (27.0-33.4); MEAN CORPUSCULAR HGB CONC 33.8 g/dL (32.0-36.0); MEAN CORPUSCULAR VOLUME 88 fl (80-97); RED BLOOD COUNT 2.65 10^6/uL (4.35-5.55); RED CELL DISTRIBUTION WIDTH 15.7 % (11.5-14.0); WHITE BLOOD COUNT 8.4 10^3/uL (4.0-10.5)
[2017-05-24 09:21] LABS: ANION GAP 6 (5-19); BLOOD UREA NITROGEN 4 mg/dL (7-20); CALCIUM 7.2 mg/dL (8.4-10.2); CARBON DIOXIDE 27 mmol/L (22-30); CHLORIDE 106 mmol/L (98-107); CREATININE RESULT 0.62 mg/dL (0.52-1.25); GLUCOSE 96 mg/dL (75-110); POTASSIUM 3.8 mmol/L (3.6-5.0); SODIUM 138.7 mmol/L (137-145)
[2017-05-24 09:22] LABS: HEMOGLOBIN 7.9 g/dL (13.5-17.0)
[2017-05-24] MEDS: NORMAL SALINE 10 ML SDV (SCHEDULED) IV SCH ×2 (09:23→21:26)
[2017-05-24] MEDS: MESALAMINE 400 MG CAPSULE.DR PO SCH ×3 (10:41→17:36)
--- NOTE | 2017-05-24 11:33 | PDOC CONSULTATION ---
Consultation Consult Date: 05/24/17 Attending physician:: DIANA GÓMEZ Consult reason:: colitis, abdominal pain,toxic megacolon ? diverticulitis. C.Diff colitis. ulcerative colitis? History of Present Illness Admission Date/PCP: 05/12/17 13:45 TOBI ARRIAGAC History of Present Illness: JANIYA JACKSON is a 42 year old male I am asked to see this patient by Dr cooper patient has had multiple visits here at [facility] patient had initial presentation back in February. patient was admitted with a limited diverticular perforation with abscess that was treated medically with antibiotics since then he has had multiple visits to both the ED and the surgical office patient c/o has been abdominal pain that is out of proportion to objective findings this presentation required admission again he was scoped by Dr Orosco and was noted to have severe inflammation starting from the anal verge incomplete colonoscopy due to risk of perforation, has been treated for C.Diff there is ? of possible toxic megacolon as well noted on radiology findings still having pain and discomfort has been on narcotics until now ? possible etiology of his problems certainly still could have issues with diverticulitis and perforation recently has C.Diff as well, recently negative ? possible any ulcerative colitis differential to include possible ischemic colitis as well Past Medical History Pulmonary Medical History: Reports: Asthma Neurological Medical History: Denies: Seizures GI Medical History: Reports: Diverticulitis Social History Smoking Status: Never Smoker Frequency of Alcohol Use: None Hx Recreational Drug Use: No Drugs: None Hx Prescription Drug Abuse: No - Advance Directive Resuscitation Status: Full Code Family History Family History: None Parental Family History Reviewed: Yes Children Family History Reviewed: Unknown Sibling(s) Family History Reviewed.: Unknown Medication/Allergy Home Medications: Diphenhydramine HCl [Benadryl 50 mg Capsule] 50 mg PO HSP PRN 05/15/17 Albuterol Sulfate [Proair Hfa Inhalation Aerosol 8.5 gm Mdi] 2 puff IH Q4 PRN Allergies/Adverse Reactions: shellfish derived Allergy (Verified 05/12/17 08:24) Review of Systems Constitutional: ABSENT: headache(s), night sweats Eyes: ABSENT: visual disturbances Ears: ABSENT: hearing changes Nose, Mouth, and Throat: ABSENT: mouth pain Cardiovascular: ABSENT: orthropnea, palpitations Respiratory: ABSENT: dyspnea, hemoptysis Gastrointestinal: PRESENT: abdominal pain, diarrhea. ABSENT: melena Genitourinary: ABSENT: dysuria, hematuria Musculoskeletal: ABSENT: deformity, joint swelling Neurological: ABSENT: syncope, tingling, tremor(s), vertigo Endocrine: ABSENT: polydipsia, polyphagia, polyuria Hematologic/Lymphatic: ABSENT: easy bruising Physical Exam Vital Signs: Temp Pulse Resp BP Pulse Ox 98.1 F 91 18 102/59 L 99 05/24/17 07:56 05/24/17 07:56 05/24/17 07:56 05/24/17 07:56 05/24/17 07:56 Intake & Output 05/23/17 05/24/17 05/25/17 06:59 06:59 06:59 Intake Total 3121 1485 Balance 3121 1485 Weight 102.2 kg 101.3 kg General appearance: PRESENT: mild distress, well-developed Head exam: PRESENT: atraumatic, normocephalic Eye exam: PRESENT: EOMI, PERRLA. ABSENT: nystagmus, scleral icterus Mouth exam: PRESENT: moist, neck supple Throat exam: ABSENT: tonsillar exudate Neck exam: ABSENT: meningismus, tenderness, thyromegaly Respiratory exam: PRESENT: symmetrical, unlabored. ABSENT: wheezes Cardiovascular exam: PRESENT: RRR, +S1, +S2 GI/Abdominal exam: PRESENT: diminished bowel sounds, distended, firm, tenderness. ABSENT: Clements's sign Extremities exam: ABSENT: joint swelling Neurological exam: PRESENT: oriented to time, oriented to situation, CN II-XII grossly intact Skin exam: PRESENT: normal color. ABSENT: mottled, pallor, petechiae, urticaria , vesicles Results Laboratory Results: 05/24/17 08:28 05/24/17 08:28 05/23/17 05/23/17 05/23/17 11:45 11:45 16:35 WBC Cancelled Cancelled RBC Cancelled Cancelled Hgb Cancelled Cancelled Hct Cancelled Cancelled MCV Cancelled Cancelled MCH Cancelled Cancelled MCHC Cancelled Cancelled RDW Cancelled Cancelled Plt Count Cancelled Cancelled Seg Neutrophils % Cancelled Lymphocytes % Cancelled Monocytes % Cancelled Eosinophils % Cancelled Basophils % Cancelled Absolute Neutrophils Cancelled Absolute Lymphocytes Cancelled Absolute Monocytes Cancelled Absolute Eosinophils Cancelled Absolute Basophils Cancelled Sodium Cancelled Potassium Cancelled Chloride Cancelled Carbon Dioxide Cancelled Anion Gap Cancelled BUN Cancelled Creatinine Cancelled Est GFR ( Amer) Cancelled Est GFR (Non-Af Amer) Cancelled Glucose Cancelled Calcium Cancelled 05/23/17 05/23/17 05/23/17 16:35 17:56 17:56 WBC 7.4 RBC 2.81 L Hgb 8.5 L Hct 24.8 L MCV 88 MCH 30.3 MCHC 34.4 RDW 16.0 H Plt Count 398 Seg Neutrophils % 68.3 Lymphocytes % 13.0 Monocytes % 13.4 H Eosinophils % 5.1 Basophils % 0.2 Absolute Neutrophils 5.0 Absolute Lymphocytes 1.0 Absolute Monocytes 1.0 Absolute Eosinophils 0.4 Absolute Basophils 0.0 Sodium Cancelled 135.3 L Potassium Cancelled 3.9 Chloride Cancelled 100 Carbon Dioxide Cancelled 30 Anion Gap Cancelled 5 BUN Cancelled 4 L Creatinine Cancelled 0.57 Est GFR ( Amer) Cancelled > 60 Est GFR (Non-Af Amer) Cancelled > 60 Glucose Cancelled 119 H Calcium Cancelled 7.3 L 05/24/17 05/24/17 08:28 08:28 WBC 8.4 RBC 2.65 L Hgb 7.9 L Hct 23.3 L MCV 88 MCH 29.6 MCHC 33.8 RDW 15.7 H Plt Count 416 Seg Neutrophils % Lymphocytes % Monocytes % Eosinophils % Basophils % Absolute Neutrophils Absolute Lymphocytes Absolute Monocytes Absolute Eosinophils Absolute Basophils Sodium 138.7 Potassium 3.8 Chloride 106 Carbon Dioxide 27 Anion Gap 6 BUN 4 L Creatinine 0.62 Est GFR ( Amer) > 60 Est GFR (Non-Af Amer) > 60 Glucose 96 Calcium 7.2 L Impressions: Abdomen X-Ray 05/12/17 10:57 IMPRESSION: Nonspecific abdomen Abdomen/Pelvis CT 05/15/17 00:00 IMPRESSION: 1. Fatty infiltration of the liver. 2. Thickening of the wall of the colon and distention of the transverse colon. Inflammatory bowel disease. Toxic megacolon remains in the differential. 3. Ventral hernia. Acute Abdomen Series 05/17/17 00:00 IMPRESSION: Dilated colon with fluid levels. Guidance Fluoroscopy 05/17/17 00:00 IMPRESSION: SUCCESSFUL PLACEMENT OF A 5 FR DUAL LUMEN 36 CM PICC IN THE LEFT BASILIC VEIN. Interventional Vascular Procedure 05/17/17 00:00 IMPRESSION: SUCCESSFUL PLACEMENT OF A 5 FR DUAL LUMEN 36 CM PICC IN THE LEFT BASILIC VEIN. PICC Line Insertion 05/17/17 00:00 IMPRESSION: SUCCESSFUL PLACEMENT OF A 5 FR DUAL LUMEN 36 CM PICC IN THE LEFT BASILIC VEIN. Venous Doppler Study 05/20/17 00:00 IMPRESSION: NO EVIDENCE OF DVT OR SVT IN THE LEFT LEG. KUB X-Ray 05/23/17 00:00 IMPRESSION: The previously described gaseous distension of the colon appears slightly less pronounced on the current study. No other significant interval change. Other findings as noted above. Assessment & Plan - Diagnosis (1) Abdominal pain Qualifiers: Abdominal location: generalized Qualified Code(s): R10.84 - Generalized abdominal pain Is this a current diagnosis for this admission?: Yes Plan: has had diverticulitis with previous perforation in the past with medical management Dr Orosco has seen patient in the past and deferred on surgery I have spoken to him to update him on the case at some point may need to be addressed (2) Clostridium difficile colitis Is this a current diagnosis for this admission?: Yes Plan: has been treated with antibiotics and now has C. diff negative the question is whether or not his antibiotics can be stopped since his initial diverticulitis needs to be managed it will predispose him to ongoing infection also recent colonoscopy is concerning for possible ulcerative colitis I have spoke with Dr Cooper, will try to add mesalamine to see if this would help avoid narcotics since will slow motility (3) Diverticulitis Is this a current diagnosis for this admission?: Yes Plan: may need surgical intervention (4) Toxic megacolon Is this a current diagnosis for this admission?: Yes Plan: could be due to C.Diff ongoing issues with limited perforation is complicating the issue now with findings on colonoscopy the etiology is more elusive would find out if any sort of surgery is planned would not keep him on prolonged antibiotics since C.Diff can cause toxic megacolon I have added mesalamine to see if that would help - Time Time Spent: Greater than 70 Minutes
--- NOTE | 2017-05-24 15:16 | PDOC PROGRESS REPORT ---
Subjective Progress Note for:: 05/24/17 Subjective:: GI consulted adjustments noted Discussion with patient to again consider Vanco AR Pain persistent Liquid stools, bloody Physical Exam Vital Signs: Temp Pulse Resp BP Pulse Ox 98.0 F 84 16 106/63 99 05/24/17 12:00 05/24/17 12:00 05/24/17 12:00 05/24/17 12:00 05/24/17 12:00 Intake & Output 05/23/17 05/24/17 05/25/17 06:59 06:59 06:59 Intake Total 3121 1485 0 Balance 3121 1485 0 Weight 102.2 kg 101.3 kg General appearance: PRESENT: no acute distress Head exam: PRESENT: atraumatic, normocephalic Eye exam: PRESENT: conjunctiva pink Mouth exam: PRESENT: moist, neck supple Neck exam: ABSENT: lymphadenopathy, tenderness, thyromegaly, tracheal deviation Pulses: PRESENT: normal dorsalis pedis pul GI/Abdominal exam: PRESENT: guarding - Focal, soft, tenderness - Primarily LLQ, referred pain to this site Extremities exam: PRESENT: +2 edema, other - painful edema of bilateral lower extremities Neurological exam: PRESENT: alert, awake, oriented to person, oriented to place , oriented to time, oriented to situation, CN II-XII grossly intact. ABSENT: motor sensory deficit Results Laboratory Results: 05/24/17 08:28 05/24/17 08:28 05/23/17 05/23/17 05/23/17 16:35 16:35 17:56 WBC Cancelled 7.4 RBC Cancelled 2.81 L Hgb Cancelled 8.5 L Hct Cancelled 24.8 L MCV Cancelled 88 MCH Cancelled 30.3 MCHC Cancelled 34.4 RDW Cancelled 16.0 H Plt Count Cancelled 398 Seg Neutrophils % Cancelled 68.3 Lymphocytes % Cancelled 13.0 Monocytes % Cancelled 13.4 H Eosinophils % Cancelled 5.1 Basophils % Cancelled 0.2 Absolute Neutrophils Cancelled 5.0 Absolute Lymphocytes Cancelled 1.0 Absolute Monocytes Cancelled 1.0 Absolute Eosinophils Cancelled 0.4 Absolute Basophils Cancelled 0.0 Sodium Cancelled Potassium Cancelled Chloride Cancelled Carbon Dioxide Cancelled Anion Gap Cancelled BUN Cancelled Creatinine Cancelled Est GFR ( Amer) Cancelled Est GFR (Non-Af Amer) Cancelled Glucose Cancelled Calcium Cancelled Blood Type Antibody Screen 05/23/17 05/24/17 05/24/17 17:56 08:28 08:28 WBC 8.4 RBC 2.65 L Hgb 7.9 L Hct 23.3 L MCV 88 MCH 29.6 MCHC 33.8 RDW 15.7 H Plt Count 416 Seg Neutrophils % Lymphocytes % Monocytes % Eosinophils % Basophils % Absolute Neutrophils Absolute Lymphocytes Absolute Monocytes Absolute Eosinophils Absolute Basophils Sodium 135.3 L 138.7 Potassium 3.9 3.8 Chloride 100 106 Carbon Dioxide 30 27 Anion Gap 5 6 BUN 4 L 4 L Creatinine 0.57 0.62 Est GFR ( Amer) > 60 > 60 Est GFR (Non-Af Amer) > 60 > 60 Glucose 119 H 96 Calcium 7.3 L 7.2 L Blood Type Antibody Screen 05/24/17 11:52 WBC RBC Hgb Hct MCV MCH MCHC RDW Plt Count Seg Neutrophils % Lymphocytes % Monocytes % Eosinophils % Basophils % Absolute Neutrophils Absolute Lymphocytes Absolute Monocytes Absolute Eosinophils Absolute Basophils Sodium Potassium Chloride Carbon Dioxide Anion Gap BUN Creatinine Est GFR ( Amer) Est GFR (Non-Af Amer) Glucose Calcium Blood Type A POSITIVE Antibody Screen NEGATIVE Impressions: Abdomen X-Ray 05/12/17 10:57 IMPRESSION: Nonspecific abdomen Abdomen/Pelvis CT 05/15/17 00:00 IMPRESSION: 1. Fatty infiltration of the liver. 2. Thickening of the wall of the colon and distention of the transverse colon. Inflammatory bowel disease. Toxic megacolon remains in the differential. 3. Ventral hernia. Acute Abdomen Series 05/17/17 00:00 IMPRESSION: Dilated colon with fluid levels. Guidance Fluoroscopy 05/17/17 00:00 IMPRESSION: SUCCESSFUL PLACEMENT OF A 5 FR DUAL LUMEN 36 CM PICC IN THE LEFT BASILIC VEIN. Interventional Vascular Procedure 05/17/17 00:00 IMPRESSION: SUCCESSFUL PLACEMENT OF A 5 FR DUAL LUMEN 36 CM PICC IN THE LEFT BASILIC VEIN. PICC Line Insertion 05/17/17 00:00 IMPRESSION: SUCCESSFUL PLACEMENT OF A 5 FR DUAL LUMEN 36 CM PICC IN THE LEFT BASILIC VEIN. Venous Doppler Study 05/20/17 00:00 IMPRESSION: NO EVIDENCE OF DVT OR SVT IN THE LEFT LEG. KUB X-Ray 05/23/17 00:00 IMPRESSION: The previously described gaseous distension of the colon appears slightly less pronounced on the current study. No other significant interval change. Other findings as noted above. Assessment & Plan - Diagnosis (1) Clostridium difficile colitis Is this a current diagnosis for this admission?: Yes Plan: Appreciate GI recs Pain control Pulmonary toilet Recommend AR vancomycin or to consider stool transplant Monitor Hgb Call with any questions - Time Time Spent with patient: Less than 15 minutes
--- NOTE | 2017-05-24 18:19 | PDOC PROGRESS REPORT ---
Subjective Progress Note for:: 05/24/17 Subjective:: note from surgery is noted Patient had previous admission that show localized perforation of diverticulum, this has not been addressed yet he was placed on antibiotics that I suspect started the C. Diff if that is a concern, there is role for Dificid but would need to show failure to 2 weeks worth of Vancomycin PO plus IV flagyl at maximal doses also recent flex sig done by Dr Orosco shows the possibility of ulcerative colitis patient is at risk of fecal transplant since that simply represents a superimposed infection , due to prolonged antibiotics, for a process that started off with a localized perforation therefore fecal transplant with colonoscopy assistance is a direct contraindication for the patient. Physical Exam Vital Signs: Temp Pulse Resp BP Pulse Ox 98.5 F 84 16 108/60 96 05/24/17 14:08 05/24/17 14:08 05/24/17 14:08 05/24/17 14:08 05/24/17 14:08 Intake & Output 05/23/17 05/24/17 05/25/17 06:59 06:59 06:59 Intake Total 3121 1485 300 Balance 3121 1485 300 Weight 102.2 kg 101.3 kg Results Laboratory Results: 05/24/17 08:28 05/24/17 08:28 05/23/17 05/23/17 05/24/17 17:56 17:56 08:28 WBC 7.4 8.4 RBC 2.81 L 2.65 L Hgb 8.5 L 7.9 L Hct 24.8 L 23.3 L MCV 88 88 MCH 30.3 29.6 MCHC 34.4 33.8 RDW 16.0 H 15.7 H Plt Count 398 416 Seg Neutrophils % 68.3 Lymphocytes % 13.0 Monocytes % 13.4 H Eosinophils % 5.1 Basophils % 0.2 Absolute Neutrophils 5.0 Absolute Lymphocytes 1.0 Absolute Monocytes 1.0 Absolute Eosinophils 0.4 Absolute Basophils 0.0 Sodium 135.3 L Potassium 3.9 Chloride 100 Carbon Dioxide 30 Anion Gap 5 BUN 4 L Creatinine 0.57 Est GFR ( Amer) > 60 Est GFR (Non-Af Amer) > 60 Glucose 119 H Calcium 7.3 L Blood Type Antibody Screen 05/24/17 05/24/17 08:28 11:52 WBC RBC Hgb Hct MCV MCH MCHC RDW Plt Count Seg Neutrophils % Lymphocytes % Monocytes % Eosinophils % Basophils % Absolute Neutrophils Absolute Lymphocytes Absolute Monocytes Absolute Eosinophils Absolute Basophils Sodium 138.7 Potassium 3.8 Chloride 106 Carbon Dioxide 27 Anion Gap 6 BUN 4 L Creatinine 0.62 Est GFR ( Amer) > 60 Est GFR (Non-Af Amer) > 60 Glucose 96 Calcium 7.2 L Blood Type A POSITIVE Antibody Screen NEGATIVE Impressions: Abdomen X-Ray 05/12/17 10:57 IMPRESSION: Nonspecific abdomen Abdomen/Pelvis CT 05/15/17 00:00 IMPRESSION: 1. Fatty infiltration of the liver. 2. Thickening of the wall of the colon and distention of the transverse colon. Inflammatory bowel disease. Toxic megacolon remains in the differential. 3. Ventral hernia. Acute Abdomen Series 05/17/17 00:00 IMPRESSION: Dilated colon with fluid levels. Guidance Fluoroscopy 05/17/17 00:00 IMPRESSION: SUCCESSFUL PLACEMENT OF A 5 FR DUAL LUMEN 36 CM PICC IN THE LEFT BASILIC VEIN. Interventional Vascular Procedure 05/17/17 00:00 IMPRESSION: SUCCESSFUL PLACEMENT OF A 5 FR DUAL LUMEN 36 CM PICC IN THE LEFT BASILIC VEIN. PICC Line Insertion 05/17/17 00:00 IMPRESSION: SUCCESSFUL PLACEMENT OF A 5 FR DUAL LUMEN 36 CM PICC IN THE LEFT BASILIC VEIN. Venous Doppler Study 05/20/17 00:00 IMPRESSION: NO EVIDENCE OF DVT OR SVT IN THE LEFT LEG. KUB X-Ray 05/23/17 00:00 IMPRESSION: The previously described gaseous distension of the colon appears slightly less pronounced on the current study. No other significant interval change. Other findings as noted above. Assessment & Plan - Diagnosis (1) Abdominal pain Qualifiers: Abdominal location: generalized Qualified Code(s): R10.84 - Generalized abdominal pain Is this a current diagnosis for this admission?: Yes (2) Clostridium difficile colitis Is this a current diagnosis for this admission?: Yes (3) Diverticulitis Is this a current diagnosis for this admission?: Yes (4) Toxic megacolon Is this a current diagnosis for this admission?: Yes
[2017-05-24] MEDS: ZOLPIDEM TARTRATE 5 MG TABLET PO SCH (21:26)
[2017-05-24] MEDS: MORPHINE SULFATE 10 MG/ML INJ IV PRN (21:41)
[2017-05-25] MEDS: METRONIDAZOLE 500 MG TABLET PO SCH ×4 (00:46→16:49)
[2017-05-25] MEDS: INSULIN REG, HUMAN 100 UNIT/ML 3 ML VIAL (PYX) SUBCUT PRN (00:46)
[2017-05-25] MEDS: VANCOMYCIN HCL INJ 500 MG VIAL PR SCH ×4 (00:49→16:50)
[2017-05-25] MEDS: VANCOMYCIN HCL INJ 500 MG VIAL PO SCH ×4 (03:21→21:51)
[2017-05-25] MEDS: MORPHINE SULFATE 10 MG/ML INJ IV PRN ×5 (04:00→22:04)
[2017-05-25] MEDS: HEPARIN SOD (PORCINE) 5,000 UNIT/ML 1 ML SYRINGE SUBCUT SCH ×3 (06:13→21:51)
[2017-05-25 06:17] LABS: BLOOD UREA NITROGEN 4 mg/dL (7-20); CALCIUM 7.2 mg/dL (8.4-10.2); CARBON DIOXIDE 24 mmol/L (22-30); CHLORIDE 111 mmol/L (98-107); CREATININE RESULT 0.56 mg/dL (0.52-1.25); GLUCOSE 154 mg/dL (75-110); PHOSPHORUS 3.7 mg/dL (2.5-4.5)
[2017-05-25 06:19] LABS: PREALBUMIN 7.1 mg/dL (17.6-36.0)
[2017-05-25 06:32] LABS: SODIUM 138.7 mmol/L (137-145)
[2017-05-25 06:35] LABS: ANION GAP 4 (5-19)
--- NOTE | 2017-05-25 08:28 | PDOC PROGRESS REPORT ---
Subjective Progress Note for:: 05/25/17 Subjective:: Overall feels much better. Mild abdominal discomfort. Diarrhea still present but quality of diarrhea has markedly improved with no bloody diarrhea and no pus. Physical Exam Vital Signs: Temp Pulse Resp BP Pulse Ox 98.0 F 73 18 106/70 100 05/25/17 08:02 05/25/17 08:02 05/25/17 08:02 05/25/17 08:02 05/25/17 08:02 Intake & Output 05/24/17 05/25/17 05/26/17 06:59 06:59 06:59 Intake Total 1485 2066 Balance 1485 2066 Weight 101.3 kg 100.3 kg General appearance: PRESENT: no acute distress, cooperative GI/Abdominal exam: PRESENT: other - Soft, mildly distended, mild lower abdominal tenderness without peritoneal signs. Results Laboratory Results: 05/24/17 08:28 05/25/17 05:30 05/24/17 05/24/17 05/24/17 08:28 08:28 11:52 WBC 8.4 RBC 2.65 L Hgb 7.9 L Hct 23.3 L MCV 88 MCH 29.6 MCHC 33.8 RDW 15.7 H Plt Count 416 Sodium 138.7 Potassium 3.8 Chloride 106 Carbon Dioxide 27 Anion Gap 6 BUN 4 L Creatinine 0.62 Est GFR ( Amer) > 60 Est GFR (Non-Af Amer) > 60 Glucose 96 Calcium 7.2 L Phosphorus Prealbumin Blood Type A POSITIVE Antibody Screen NEGATIVE 05/25/17 05:30 WBC RBC Hgb Hct MCV MCH MCHC RDW Plt Count Sodium 138.7 Potassium 4.0 Chloride 111 H Carbon Dioxide 24 Anion Gap 4 L BUN 4 L Creatinine 0.56 Est GFR ( Amer) > 60 Est GFR (Non-Af Amer) > 60 Glucose 154 H Calcium 7.2 L Phosphorus 3.7 Prealbumin 7.1 L Blood Type Antibody Screen Impressions: Abdomen X-Ray 05/12/17 10:57 IMPRESSION: Nonspecific abdomen Abdomen/Pelvis CT 05/15/17 00:00 IMPRESSION: 1. Fatty infiltration of the liver. 2. Thickening of the wall of the colon and distention of the transverse colon. Inflammatory bowel disease. Toxic megacolon remains in the differential. 3. Ventral hernia. Acute Abdomen Series 05/17/17 00:00 IMPRESSION: Dilated colon with fluid levels. Guidance Fluoroscopy 05/17/17 00:00 IMPRESSION: SUCCESSFUL PLACEMENT OF A 5 FR DUAL LUMEN 36 CM PICC IN THE LEFT BASILIC VEIN. Interventional Vascular Procedure 05/17/17 00:00 IMPRESSION: SUCCESSFUL PLACEMENT OF A 5 FR DUAL LUMEN 36 CM PICC IN THE LEFT BASILIC VEIN. PICC Line Insertion 05/17/17 00:00 IMPRESSION: SUCCESSFUL PLACEMENT OF A 5 FR DUAL LUMEN 36 CM PICC IN THE LEFT BASILIC VEIN. Venous Doppler Study 05/20/17 00:00 IMPRESSION: NO EVIDENCE OF DVT OR SVT IN THE LEFT LEG. KUB X-Ray 05/23/17 00:00 IMPRESSION: The previously described gaseous distension of the colon appears slightly less pronounced on the current study. No other significant interval change. Other findings as noted above. Assessment & Plan - Diagnosis (1) Clostridium difficile colitis Is this a current diagnosis for this admission?: Yes Plan: Patient with improvement. C. difficile study is negative yesterday. Would still continue the patient on vancomycin and Flagyl. However we will start a clear liquid diet and will advance if tolerated. Patient had no evidence of diverticulitis on the last CT scan. I do not think his diverticulitis that he had several months ago is playing a role in his current pathology. He does need a complete colonoscopy at some point.
[2017-05-25] MEDS: LACTOBACILLUS ACIDOPHILUS 250 MG TAB PO SCH ×2 (10:01→16:48)
[2017-05-25] MEDS: GUAIFENESIN 600 MG TABLET.SA PO SCH ×2 (10:01→21:51)
[2017-05-25] MEDS: MESALAMINE 400 MG CAPSULE.DR PO SCH ×3 (10:02→16:49)
[2017-05-25] MEDS: NORMAL SALINE 10 ML SDV (SCHEDULED) IV SCH ×2 (10:02→21:51)
[2017-05-25] MEDS: FAT EMULSIONS 250 ML IV SCH (10:03)
[2017-05-25] MEDS: AMINO ACIDS 5%/D25W 1,000 ML IV PRN (12:46)
--- NOTE | 2017-05-25 14:53 | PDOC PROGRESS REPORT ---
Subjective Progress Note for:: 05/25/17 Subjective:: Patient's edema on the upper extremities are better. Lower extremity edema is less. Diarrhea is improving. No reported rectal bleeding. Received 2 units of packed RBC. Denies PND orthopnea, nausea or vomiting at this time. Abdominal pain is less. Physical Exam Vital Signs: Temp Pulse Resp BP Pulse Ox 98.4 F 62 18 106/61 100 05/25/17 12:00 05/25/17 12:00 05/25/17 12:00 05/25/17 12:00 05/25/17 12:00 Intake & Output 05/24/17 05/25/17 05/26/17 06:59 06:59 06:59 Intake Total 1485 2066 Balance 1485 2066 Weight 101.3 kg 100.3 kg Results Laboratory Results: 05/24/17 08:28 05/25/17 05:30 05/24/17 05/25/17 11:52 05:30 Sodium 138.7 Potassium 4.0 Chloride 111 H Carbon Dioxide 24 Anion Gap 4 L BUN 4 L Creatinine 0.56 Est GFR ( Amer) > 60 Est GFR (Non-Af Amer) > 60 Glucose 154 H Calcium 7.2 L Phosphorus 3.7 Prealbumin 7.1 L Blood Type A POSITIVE Antibody Screen NEGATIVE Impressions: Abdomen X-Ray 05/12/17 10:57 IMPRESSION: Nonspecific abdomen Abdomen/Pelvis CT 05/15/17 00:00 IMPRESSION: 1. Fatty infiltration of the liver. 2. Thickening of the wall of the colon and distention of the transverse colon. Inflammatory bowel disease. Toxic megacolon remains in the differential. 3. Ventral hernia. Acute Abdomen Series 05/17/17 00:00 IMPRESSION: Dilated colon with fluid levels. Guidance Fluoroscopy 05/17/17 00:00 IMPRESSION: SUCCESSFUL PLACEMENT OF A 5 FR DUAL LUMEN 36 CM PICC IN THE LEFT BASILIC VEIN. Interventional Vascular Procedure 05/17/17 00:00 IMPRESSION: SUCCESSFUL PLACEMENT OF A 5 FR DUAL LUMEN 36 CM PICC IN THE LEFT BASILIC VEIN. PICC Line Insertion 05/17/17 00:00 IMPRESSION: SUCCESSFUL PLACEMENT OF A 5 FR DUAL LUMEN 36 CM PICC IN THE LEFT BASILIC VEIN. Venous Doppler Study 05/20/17 00:00 IMPRESSION: NO EVIDENCE OF DVT OR SVT IN THE LEFT LEG. KUB X-Ray 05/23/17 00:00 IMPRESSION: The previously described gaseous distension of the colon appears slightly less pronounced on the current study. No other significant interval change. Other findings as noted above. Assessment & Plan - Diagnosis (1) Toxic megacolon Is this a current diagnosis for this admission?: Yes (2) Clostridium difficile colitis Is this a current diagnosis for this admission?: Yes (3) Iron deficiency anemia due to chronic blood loss Is this a current diagnosis for this admission?: Yes (4) Coagulopathy Is this a current diagnosis for this admission?: Yes (5) Superficial venous thrombosis of arm Qualifiers: Laterality: unspecified laterality Qualified Code(s): I82.619 - Acute embolism and thrombosis of superficial veins of unspecified upper extremity Is this a current diagnosis for this admission?: Yes - Time Time Spent with patient: 15-24 minutes - Plan Summary Plan Summary: Continue mesalamine, finished a course of treatment for Clostridium difficile colitis, we will start clear liquid diet today. Continue supportive care.
[2017-05-25 21:00] LABS: HGB HCT DIFFERENCE 0.3; MEAN CORPUSCULAR HEMOGLOBIN 29.4 pg (27.0-33.4); MEAN CORPUSCULAR HGB CONC 33.7 g/dL (32.0-36.0); MEAN CORPUSCULAR VOLUME 87 fl (80-97); RED BLOOD COUNT 3.43 10^6/uL (4.35-5.55); WHITE BLOOD COUNT 8.8 10^3/uL (4.0-10.5)
[2017-05-25 21:03] LABS: HEMOGLOBIN 10.1 g/dL (13.5-17.0)
[2017-05-25] MEDS: ZOLPIDEM TARTRATE 5 MG TABLET PO SCH (21:51)
[2017-05-26] MEDS: METRONIDAZOLE 500 MG TABLET PO SCH ×5 (00:05→23:30)
[2017-05-26] MEDS: VANCOMYCIN HCL INJ 500 MG VIAL PR SCH ×5 (00:09→23:32)
[2017-05-26] MEDS: VANCOMYCIN HCL INJ 500 MG VIAL PO SCH ×4 (02:20→21:29)
[2017-05-26] MEDS: MORPHINE SULFATE 10 MG/ML INJ IV PRN ×6 (02:20→22:27)
[2017-05-26] MEDS: HEPARIN SOD (PORCINE) 5,000 UNIT/ML 1 ML SYRINGE SUBCUT SCH ×3 (05:29→21:30)
[2017-05-26] MEDS: AMINO ACIDS 5%/D25W 1,000 ML IV PRN ×2 (05:29→21:31)
--- NOTE | 2017-05-26 09:21 | PDOC PROGRESS REPORT ---
Subjective Progress Note for:: 05/26/17 Subjective:: Patient continues to improve slowly. Abdominal pain is less. No nausea or vomiting. Diarrhea likewise getting less. Still bothers him at night. Upper extremity edema resolved. Lower extremity edema getting less. Physical Exam Vital Signs: Temp Pulse Resp BP Pulse Ox 98.3 F 82 18 100/58 L 100 05/26/17 08:30 05/26/17 08:30 05/26/17 08:30 05/26/17 08:30 05/26/17 08:30 Intake & Output 05/25/17 05/26/17 05/27/17 06:59 06:59 06:59 Intake Total 2066 2029 Balance 2066 2029 Weight 100.3 kg 100.2 kg General appearance: PRESENT: no acute distress, cooperative Head exam: PRESENT: normocephalic Eye exam: PRESENT: EOMI Mouth exam: PRESENT: moist, neck supple Neck exam: ABSENT: JVD Respiratory exam: PRESENT: clear to auscultation sammie. ABSENT: rhonchi, wheezes Cardiovascular exam: PRESENT: RRR. ABSENT: gallop GI/Abdominal exam: PRESENT: soft. ABSENT: distended, tenderness Extremities exam: PRESENT: pedal edema Neurological exam: PRESENT: alert, awake, oriented to situation Skin exam: PRESENT: dry, warm. ABSENT: cyanosis Results Laboratory Results: 05/25/17 20:24 05/25/17 05:30 05/25/17 05/25/17 16:39 20:24 WBC Cancelled 8.8 RBC Cancelled 3.43 L Hgb Cancelled 10.1 L D Hct Cancelled 30.0 L MCV Cancelled 87 MCH Cancelled 29.4 MCHC Cancelled 33.7 RDW Cancelled 16.0 H Plt Count Cancelled 460 H Impressions: Abdomen X-Ray 05/12/17 10:57 IMPRESSION: Nonspecific abdomen Abdomen/Pelvis CT 05/15/17 00:00 IMPRESSION: 1. Fatty infiltration of the liver. 2. Thickening of the wall of the colon and distention of the transverse colon. Inflammatory bowel disease. Toxic megacolon remains in the differential. 3. Ventral hernia. Acute Abdomen Series 05/17/17 00:00 IMPRESSION: Dilated colon with fluid levels. Guidance Fluoroscopy 05/17/17 00:00 IMPRESSION: SUCCESSFUL PLACEMENT OF A 5 FR DUAL LUMEN 36 CM PICC IN THE LEFT BASILIC VEIN. Interventional Vascular Procedure 05/17/17 00:00 IMPRESSION: SUCCESSFUL PLACEMENT OF A 5 FR DUAL LUMEN 36 CM PICC IN THE LEFT BASILIC VEIN. PICC Line Insertion 05/17/17 00:00 IMPRESSION: SUCCESSFUL PLACEMENT OF A 5 FR DUAL LUMEN 36 CM PICC IN THE LEFT BASILIC VEIN. Venous Doppler Study 05/20/17 00:00 IMPRESSION: NO EVIDENCE OF DVT OR SVT IN THE LEFT LEG. KUB X-Ray 05/23/17 00:00 IMPRESSION: The previously described gaseous distension of the colon appears slightly less pronounced on the current study. No other significant interval change. Other findings as noted above. Assessment & Plan - Diagnosis (1) Toxic megacolon Is this a current diagnosis for this admission?: Yes (2) Clostridium difficile colitis Is this a current diagnosis for this admission?: Yes (3) Iron deficiency anemia due to chronic blood loss Is this a current diagnosis for this admission?: Yes (4) Coagulopathy Is this a current diagnosis for this admission?: Yes (5) Superficial venous thrombosis of arm Qualifiers: Laterality: unspecified laterality Qualified Code(s): I82.619 - Acute embolism and thrombosis of superficial veins of unspecified upper extremity Is this a current diagnosis for this admission?: Yes - Time Time Spent with patient: Less than 15 minutes - Plan Summary Plan Summary: Patient continues to improve clinically. Continue vancomycin and Flagyl already. Continue mesalamine. Advance diet to full liquid. Recheck CBC in the morning.
[2017-05-26] MEDS: GUAIFENESIN 600 MG TABLET.SA PO SCH ×2 (09:40→21:30)
[2017-05-26] MEDS: LACTOBACILLUS ACIDOPHILUS 250 MG TAB PO SCH ×2 (09:40→18:34)
[2017-05-26] MEDS: NORMAL SALINE 10 ML SDV (SCHEDULED) IV SCH ×2 (09:41→21:30)
[2017-05-26] MEDS: MESALAMINE 400 MG CAPSULE.DR PO SCH ×3 (09:41→18:33)
[2017-05-26] MEDS: ZOLPIDEM TARTRATE 5 MG TABLET PO SCH (21:30)
--- NOTE | 2017-05-26 22:58 | PROGRESS NOTE E ---
Progress Note NAME: PEREZ JACKSON : 1975 AGE: 42Y DATE: 05/26/2017 ROOM: 532 SUBJECTIVE: Perez Jackson remains afebrile. His abdominal pain continues to decrease in severity. His white count yesterday remained normal at 8.8, and hemoglobin at 10.1. He was started on clear liquids yesterday and tolerating it well. OBJECTIVE: The abdomen is soft with minimal tenderness in the left lower quadrant. PLAN: In the meantime, continue with TPN until he can tolerate enough p.o. calories. In the meantime, continue him also on antibiotics with vancomycin and Flagyl p.o. DICTATING PHYSICIAN: MAT ALEXANDRE M.D. [id number] PHY#: [id number] ID: [id number] JOB#: [id number] ACCT: [id number] cc: >
[2017-05-27] MEDS: MORPHINE SULFATE 10 MG/ML INJ IV PRN ×6 (02:31→23:40)
[2017-05-27] MEDS: VANCOMYCIN HCL INJ 500 MG VIAL PO SCH ×4 (06:28→20:26)
[2017-05-27] MEDS: HEPARIN SOD (PORCINE) 5,000 UNIT/ML 1 ML SYRINGE SUBCUT SCH ×3 (06:29→21:50)
[2017-05-27] MEDS: METRONIDAZOLE 500 MG TABLET PO SCH ×4 (06:29→23:40)
[2017-05-27] MEDS: VANCOMYCIN HCL INJ 500 MG VIAL PR SCH (06:32)
[2017-05-27 06:51] LABS: HEMATOCRIT 30.7 % (37.9-51.0); HEMOGLOBIN 10.6 g/dL (13.5-17.0); HGB HCT DIFFERENCE 1.1; MEAN CORPUSCULAR HEMOGLOBIN 30.2 pg (27.0-33.4); MEAN CORPUSCULAR HGB CONC 34.5 g/dL (32.0-36.0); MEAN CORPUSCULAR VOLUME 88 fl (80-97); RED BLOOD COUNT 3.51 10^6/uL (4.35-5.55); RED CELL DISTRIBUTION WIDTH 15.3 % (11.5-14.0); WHITE BLOOD COUNT 9.2 10^3/uL (4.0-10.5)
--- NOTE | 2017-05-27 10:28 | PDOC PROGRESS REPORT ---
Subjective Progress Note for:: 05/27/17 Subjective:: Lower extremity edema is getting better. Upper extremity edema resolved. Diarrhea continues to improve slowly. Abdominal pain is more of abdominal wall discomfort due to sprain. Tolerating full liquid diet. Physical Exam Vital Signs: Temp Pulse Resp BP Pulse Ox 98.1 F 81 18 99/60 L 99 05/27/17 07:56 05/27/17 07:56 05/27/17 07:56 05/27/17 07:56 05/27/17 07:56 Intake & Output 05/26/17 05/27/17 05/28/17 06:59 06:59 06:59 Intake Total 2412 3442 Balance 2412 3442 Weight 100.2 kg 100.2 kg General appearance: PRESENT: no acute distress, cooperative Head exam: PRESENT: normocephalic Eye exam: PRESENT: EOMI Mouth exam: PRESENT: moist, neck supple Neck exam: ABSENT: JVD Respiratory exam: PRESENT: clear to auscultation sammie Cardiovascular exam: PRESENT: RRR. ABSENT: gallop GI/Abdominal exam: PRESENT: hyperactive bowel sounds, soft Extremities exam: PRESENT: pedal edema Neurological exam: PRESENT: alert, awake, oriented to situation Skin exam: PRESENT: dry, warm. ABSENT: cyanosis Results Laboratory Results: 05/27/17 06:30 05/25/17 05:30 05/27/17 06:30 WBC 9.2 RBC 3.51 L Hgb 10.6 L Hct 30.7 L MCV 88 MCH 30.2 MCHC 34.5 RDW 15.3 H Plt Count 488 H Impressions: Abdomen X-Ray 05/12/17 10:57 IMPRESSION: Nonspecific abdomen Abdomen/Pelvis CT 05/15/17 00:00 IMPRESSION: 1. Fatty infiltration of the liver. 2. Thickening of the wall of the colon and distention of the transverse colon. Inflammatory bowel disease. Toxic megacolon remains in the differential. 3. Ventral hernia. Acute Abdomen Series 05/17/17 00:00 IMPRESSION: Dilated colon with fluid levels. Guidance Fluoroscopy 05/17/17 00:00 IMPRESSION: SUCCESSFUL PLACEMENT OF A 5 FR DUAL LUMEN 36 CM PICC IN THE LEFT BASILIC VEIN. Interventional Vascular Procedure 05/17/17 00:00 IMPRESSION: SUCCESSFUL PLACEMENT OF A 5 FR DUAL LUMEN 36 CM PICC IN THE LEFT BASILIC VEIN. PICC Line Insertion 05/17/17 00:00 IMPRESSION: SUCCESSFUL PLACEMENT OF A 5 FR DUAL LUMEN 36 CM PICC IN THE LEFT BASILIC VEIN. Venous Doppler Study 05/20/17 00:00 IMPRESSION: NO EVIDENCE OF DVT OR SVT IN THE LEFT LEG. KUB X-Ray 05/23/17 00:00 IMPRESSION: The previously described gaseous distension of the colon appears slightly less pronounced on the current study. No other significant interval change. Other findings as noted above. Assessment & Plan - Diagnosis (1) Toxic megacolon Is this a current diagnosis for this admission?: Yes (2) Clostridium difficile colitis Is this a current diagnosis for this admission?: Yes (3) Iron deficiency anemia due to chronic blood loss Is this a current diagnosis for this admission?: Yes (4) Coagulopathy Is this a current diagnosis for this admission?: Yes (5) Superficial venous thrombosis of arm Qualifiers: Laterality: unspecified laterality Qualified Code(s): I82.619 - Acute embolism and thrombosis of superficial veins of unspecified upper extremity Is this a current diagnosis for this admission?: Yes - Time Time Spent with patient: 25-34 minutes - Plan Summary Plan Summary: Continue current medication and supportive care. Wean TPN to off. Advance diet to soft mechanical with chopped meats.
[2017-05-27] MEDS: MESALAMINE 400 MG CAPSULE.DR PO SCH ×3 (11:05→17:03)
[2017-05-27] MEDS: LACTOBACILLUS ACIDOPHILUS 250 MG TAB PO SCH ×2 (11:06→17:04)
[2017-05-27] MEDS: GUAIFENESIN 600 MG TABLET.SA PO SCH ×2 (11:06→21:50)
[2017-05-27] MEDS: NORMAL SALINE 10 ML SDV (SCHEDULED) IV SCH ×2 (11:07→21:50)
[2017-05-27] MEDS: AMINO ACIDS 5%/D25W 1,000 ML IV PRN (13:45)
[2017-05-27] MEDS: ACETAMINOPHEN 325 MG TABLET PO PRN (17:03)
--- NOTE | 2017-05-27 19:43 | PROGRESS NOTE E ---
Progress Note NAME: JANIYA JACKSON : 1975 AGE: 42Y DATE: 05/27/2017 ROOM: 532 SUBJECTIVE: The patient is still complaining of pains on the lower abdomen, but less than yesterday. He still continues to have diarrhea, but more formed. He is tolerating a full liquid diet and supposed to start a soft diet today. OBJECTIVE: Vital Signs: Temperature 98.1. Pulse of 81/min. Respiration 18/min. BP of 99/60. Pulse ox of 99% on room air. General Appearance: The patient is in no acute distress. Neck: Supple. Lungs: Clear. Heart: Regular sinus rhythm. Abdomen: Soft with mild tenderness in both lower quadrants with hyperactive bowel sounds. Extremities: Pedal edema but slightly improved. No evidence of DVT on ultrasound. Neurologic Exam: Alert, awake, and oriented x3. Skin: Dry and warm. Laboratory: White count today was 9.2 and hemoglobin of 10.6; platelet count of 488,000. ASSESSMENT: 1. CLOSTRIDIUM DIFFICILE COLITIS WHICH APPEARS TO BE IMPROVING. 2. TOXIC MEGACOLON, ALSO IMPROVING. PLAN: Agree to gradually increase his diet. He can be out bed and ambulate. DICTATING PHYSICIAN: MAT ALEXANDRE M.D. [id number] PHY#: [id number] ID: [id number] JOB#: [id number] ACCT: [id number] cc: >
[2017-05-27] MEDS: ZOLPIDEM TARTRATE 5 MG TABLET PO SCH (21:50)
[2017-05-28] MEDS: MORPHINE SULFATE 10 MG/ML INJ IV PRN ×5 (03:40→20:00)
[2017-05-28] MEDS: VANCOMYCIN HCL INJ 500 MG VIAL PO SCH ×4 (05:48→21:13)
[2017-05-28] MEDS: METRONIDAZOLE 500 MG TABLET PO SCH ×3 (05:49→18:24)
[2017-05-28] MEDS: HEPARIN SOD (PORCINE) 5,000 UNIT/ML 1 ML SYRINGE SUBCUT SCH ×3 (05:49→21:13)
--- NOTE | 2017-05-28 09:48 | PDOC PROGRESS REPORT ---
Subjective Progress Note for:: 05/28/17 Subjective:: Patient continues to feel better. Lower extremity edema unchanged however. Denies chills and fever. Abdominal wall muscle pain not getting worse. Diarrhea continues to improve slowly. No rectal bleeding reported. Physical Exam Vital Signs: Temp Pulse Resp BP Pulse Ox 98.4 F 83 18 94/59 L 99 05/28/17 07:47 05/28/17 07:47 05/28/17 07:47 05/28/17 07:47 05/28/17 07:47 Intake & Output 05/27/17 05/28/17 05/29/17 06:59 06:59 06:59 Intake Total 3442 2865 Output Total 200 Balance 3442 2665 Weight 100.2 kg 86.6 kg General appearance: PRESENT: no acute distress, cooperative Head exam: PRESENT: normocephalic GI/Abdominal exam: PRESENT: soft, tenderness - Abdominal wall muscle diffusely. ABSENT: distended Extremities exam: PRESENT: pedal edema - Bilateral Neurological exam: PRESENT: alert, awake, oriented to situation Skin exam: PRESENT: dry, warm. ABSENT: cyanosis Results Laboratory Results: 05/27/17 06:30 05/25/17 05:30 Impressions: Abdomen X-Ray 05/12/17 10:57 IMPRESSION: Nonspecific abdomen Abdomen/Pelvis CT 05/15/17 00:00 IMPRESSION: 1. Fatty infiltration of the liver. 2. Thickening of the wall of the colon and distention of the transverse colon. Inflammatory bowel disease. Toxic megacolon remains in the differential. 3. Ventral hernia. Acute Abdomen Series 05/17/17 00:00 IMPRESSION: Dilated colon with fluid levels. Guidance Fluoroscopy 05/17/17 00:00 IMPRESSION: SUCCESSFUL PLACEMENT OF A 5 FR DUAL LUMEN 36 CM PICC IN THE LEFT BASILIC VEIN. Interventional Vascular Procedure 05/17/17 00:00 IMPRESSION: SUCCESSFUL PLACEMENT OF A 5 FR DUAL LUMEN 36 CM PICC IN THE LEFT BASILIC VEIN. PICC Line Insertion 05/17/17 00:00 IMPRESSION: SUCCESSFUL PLACEMENT OF A 5 FR DUAL LUMEN 36 CM PICC IN THE LEFT BASILIC VEIN. Venous Doppler Study 05/20/17 00:00 IMPRESSION: NO EVIDENCE OF DVT OR SVT IN THE LEFT LEG. KUB X-Ray 05/23/17 00:00 IMPRESSION: The previously described gaseous distension of the colon appears slightly less pronounced on the current study. No other significant interval change. Other findings as noted above. Assessment & Plan - Diagnosis (1) Toxic megacolon Is this a current diagnosis for this admission?: Yes (2) Clostridium difficile colitis Is this a current diagnosis for this admission?: Yes (3) Iron deficiency anemia due to chronic blood loss Is this a current diagnosis for this admission?: Yes (4) Coagulopathy Is this a current diagnosis for this admission?: Yes (5) Superficial venous thrombosis of arm Qualifiers: Laterality: unspecified laterality Qualified Code(s): I82.619 - Acute embolism and thrombosis of superficial veins of unspecified upper extremity Is this a current diagnosis for this admission?: Yes - Time Time Spent with patient: Less than 15 minutes - Plan Summary Plan Summary: Continue lactobacillus Flagyl and vancomycin orally. Wean TPN to off. Continue current diet consistency. Patient continues to improve possibly can be discharged in the morning.
[2017-05-28] MEDS: NORMAL SALINE 10 ML SDV (SCHEDULED) IV SCH ×2 (09:50→21:13)
[2017-05-28] MEDS: GUAIFENESIN 600 MG TABLET.SA PO SCH ×2 (09:51→21:13)
[2017-05-28] MEDS: MESALAMINE 400 MG CAPSULE.DR PO SCH ×3 (09:51→18:24)
[2017-05-28] MEDS: LACTOBACILLUS ACIDOPHILUS 250 MG TAB PO SCH ×2 (09:52→18:23)
[2017-05-28] MEDS: NORMAL SALINE 10 ML SDV (AFTER EACH USE) IV PRN (11:48)
[2017-05-28] MEDS: SIMETHICONE 80 MG TAB.CHEW PO PRN (15:52)
[2017-05-28] MEDS: ACETAMINOPHEN 325 MG TABLET PO PRN ×2 (16:44→21:17)
--- NOTE | 2017-05-28 20:58 | PROGRESS NOTE E ---
Progress Note NAME: JANIYA JACKSON : 1975 AGE: 42Y DATE: 05/28/2017 ROOM: 532 SUBJECTIVE: The patient's abdominal pain appears to be decreasing significantly. Still continues to have some diarrhea, but really more well formed at this time. Negative for C. diff. He is tolerating soft diet at this time. His white count 2 days ago was normal at 9.2. He remains afebrile today. The plan is possibly to continue him on another 24 to 48 hours of antibiotics. DICTATING PHYSICIAN: MAT ALEXANDRE M.D. [id number] PHY#: [id number] ID: [id number] JOB#: [id number] ACCT: [id number] cc: >
[2017-05-28] MEDS: ZOLPIDEM TARTRATE 5 MG TABLET PO SCH (21:13)
[2017-05-29] MEDS: METRONIDAZOLE 500 MG TABLET PO SCH ×5 (00:40→23:47)
[2017-05-29] MEDS: MORPHINE SULFATE 10 MG/ML INJ IV PRN ×2 (01:55→06:02)
[2017-05-29] MEDS: VANCOMYCIN HCL INJ 500 MG VIAL PO SCH ×4 (03:15→21:27)
[2017-05-29] MEDS: HEPARIN SOD (PORCINE) 5,000 UNIT/ML 1 ML SYRINGE SUBCUT SCH ×3 (05:34→21:27)
[2017-05-29 08:56] LABS: ABSOLUTE BASOPHILS # (AUTO) 0.1 10^3/uL (0.0-0.2); ABSOLUTE EOSINOPHILS # (AUTO) 0.4 10^3/uL (0.0-0.6); ABSOLUTE LYMPHOCYTES (AUTO) 1.2 10^3/uL (0.5-4.7); ABSOLUTE MONOCYTES (AUTO) 0.9 10^3/uL (0.1-1.4); ABSOLUTE NEUT (AUTO) 5.4 10^3/uL (1.7-8.2); BASOPHILS % (AUTO) 0.7 % (0-2); EOSINOPHILS % (AUTO) 4.5 % (0-6); HEMATOCRIT 32.2 % (37.9-51.0); HEMOGLOBIN 10.9 g/dL (13.5-17.0); HGB HCT DIFFERENCE 0.5; LYMPHOCYTES % (AUTO) 15.2 % (13-45); MEAN CORPUSCULAR HEMOGLOBIN 29.6 pg (27.0-33.4); MEAN CORPUSCULAR HGB CONC 33.9 g/dL (32.0-36.0); MEAN CORPUSCULAR VOLUME 87 fl (80-97); MONOCYTES % (AUTO) 11.1 % (3-13); RED BLOOD COUNT 3.69 10^6/uL (4.35-5.55); RED CELL DISTRIBUTION WIDTH 15.9 % (11.5-14.0); SEGMENTED NEUTROPHILS % (AUTO) 68.5 % (42-78); WHITE BLOOD COUNT 7.9 10^3/uL (4.0-10.5)
[2017-05-29 09:18] LABS: ANION GAP 9 (5-19); BLOOD UREA NITROGEN 8 mg/dL (7-20); CALCIUM 8.2 mg/dL (8.4-10.2); CARBON DIOXIDE 27 mmol/L (22-30); CHLORIDE 101 mmol/L (98-107); CREATININE RESULT 0.86 mg/dL (0.52-1.25); GLUCOSE 131 mg/dL (75-110); PHOSPHORUS 5.3 mg/dL (2.5-4.5); POTASSIUM 4.3 mmol/L (3.6-5.0); SODIUM 136.8 mmol/L (137-145)
[2017-05-29 09:24] LABS: PREALBUMIN 20.4 mg/dL (17.6-36.0)
[2017-05-29] MEDS: GUAIFENESIN 600 MG TABLET.SA PO SCH ×2 (10:49→21:27)
[2017-05-29] MEDS: MESALAMINE 400 MG CAPSULE.DR PO SCH ×3 (10:49→17:58)
[2017-05-29] MEDS: NORMAL SALINE 10 ML SDV (SCHEDULED) IV SCH ×2 (10:50→21:27)
[2017-05-29] MEDS: LACTOBACILLUS ACIDOPHILUS 250 MG TAB PO SCH ×2 (10:50→17:58)
--- NOTE | 2017-05-29 11:46 | PDOC PROGRESS REPORT ---
Subjective Progress Note for:: 05/29/17 Subjective:: Diarrhea is less. Still slightly bloody. Lower extremity edema continues to improve. Overall feels generally weak. Does not want to go home yet today. Wanting to try to get regular consistency diet again. No chills or fever. No shortness of breath. Physical Exam Vital Signs: Temp Pulse Resp BP Pulse Ox 98.3 F 92 16 95/57 L 99 05/29/17 07:59 05/29/17 09:09 05/29/17 07:59 05/29/17 07:59 05/29/17 07:59 Intake & Output 05/28/17 05/29/17 05/30/17 06:59 06:59 06:59 Intake Total 2865 1942 Output Total 200 Balance 2665 1942 Weight 86.6 kg General appearance: PRESENT: no acute distress Head exam: PRESENT: normocephalic Eye exam: PRESENT: EOMI Mouth exam: PRESENT: moist, neck supple Neck exam: ABSENT: JVD Respiratory exam: PRESENT: clear to auscultation sammie. ABSENT: rhonchi, wheezes Cardiovascular exam: PRESENT: RRR. ABSENT: gallop GI/Abdominal exam: PRESENT: soft, tenderness - Abdominal wall unchanged. ABSENT : distended Extremities exam: PRESENT: other - Minimal ankle edema Neurological exam: PRESENT: alert, awake, oriented to situation Skin exam: PRESENT: dry, warm. ABSENT: cyanosis Results Laboratory Results: 05/29/17 08:45 05/29/17 08:45 05/29/17 05/29/17 08:45 08:45 WBC 7.9 RBC 3.69 L Hgb 10.9 L Hct 32.2 L MCV 87 MCH 29.6 MCHC 33.9 RDW 15.9 H Plt Count 509 H Seg Neutrophils % 68.5 Lymphocytes % 15.2 Monocytes % 11.1 Eosinophils % 4.5 Basophils % 0.7 Absolute Neutrophils 5.4 Absolute Lymphocytes 1.2 Absolute Monocytes 0.9 Absolute Eosinophils 0.4 Absolute Basophils 0.1 Sodium 136.8 L Potassium 4.3 Chloride 101 Carbon Dioxide 27 Anion Gap 9 BUN 8 Creatinine 0.86 Est GFR ( Amer) > 60 Est GFR (Non-Af Amer) > 60 Glucose 131 H Calcium 8.2 L Phosphorus 5.3 H Magnesium 2.0 Prealbumin 20.4 Impressions: Abdomen X-Ray 05/12/17 10:57 IMPRESSION: Nonspecific abdomen Abdomen/Pelvis CT 05/15/17 00:00 IMPRESSION: 1. Fatty infiltration of the liver. 2. Thickening of the wall of the colon and distention of the transverse colon. Inflammatory bowel disease. Toxic megacolon remains in the differential. 3. Ventral hernia. Acute Abdomen Series 05/17/17 00:00 IMPRESSION: Dilated colon with fluid levels. Guidance Fluoroscopy 05/17/17 00:00 IMPRESSION: SUCCESSFUL PLACEMENT OF A 5 FR DUAL LUMEN 36 CM PICC IN THE LEFT BASILIC VEIN. Interventional Vascular Procedure 05/17/17 00:00 IMPRESSION: SUCCESSFUL PLACEMENT OF A 5 FR DUAL LUMEN 36 CM PICC IN THE LEFT BASILIC VEIN. PICC Line Insertion 05/17/17 00:00 IMPRESSION: SUCCESSFUL PLACEMENT OF A 5 FR DUAL LUMEN 36 CM PICC IN THE LEFT BASILIC VEIN. Venous Doppler Study 05/20/17 00:00 IMPRESSION: NO EVIDENCE OF DVT OR SVT IN THE LEFT LEG. KUB X-Ray 05/23/17 00:00 IMPRESSION: The previously described gaseous distension of the colon appears slightly less pronounced on the current study. No other significant interval change. Other findings as noted above. Assessment & Plan - Diagnosis (1) Toxic megacolon Is this a current diagnosis for this admission?: Yes (2) Clostridium difficile colitis Is this a current diagnosis for this admission?: Yes (3) Iron deficiency anemia due to chronic blood loss Is this a current diagnosis for this admission?: Yes (4) Coagulopathy Is this a current diagnosis for this admission?: Yes (5) Superficial venous thrombosis of arm Qualifiers: Laterality: unspecified laterality Qualified Code(s): I82.619 - Acute embolism and thrombosis of superficial veins of unspecified upper extremity Is this a current diagnosis for this admission?: Yes - Time Time Spent with patient: Less than 15 minutes - Plan Summary Plan Summary: Continue current medications. Continue supportive care. Vancomycin to complete today. Continue flagyl for 3 weeks. Day 18 today.
[2017-05-29] MEDS: FAT EMULSIONS 250 ML IV SCH (15:10)
[2017-05-29] MEDS: OXYCODONE-ACETAMINOPHEN 5-325 MG TABLET PO PRN ×3 (15:28→23:47)
--- NOTE | 2017-05-29 16:25 | PDOC DISCHARGE SUMMARY ---
General - Admit/Disc Date/PCP Admission Date/Primary Care Provider: 05/12/17 13:45 SARAI ARRIAGA Discharge Date: 05/29/17 - Discharge Diagnosis (1) Toxic megacolon Is this a current diagnosis for this admission?: Yes (2) Clostridium difficile colitis Is this a current diagnosis for this admission?: Yes (3) Iron deficiency anemia due to chronic blood loss Is this a current diagnosis for this admission?: Yes (4) Coagulopathy Is this a current diagnosis for this admission?: Yes (5) Superficial venous thrombosis of arm Is this a current diagnosis for this admission?: Yes - Additional Information Resuscitation Status: Full Code Discharge Diet: Other (Comments) - Soft mechanical Discharge Activity: Activity As Tolerated, Balance Activity w/Rest, Slowly Increase Activity Home Medications: Diphenhydramine HCl [Benadryl 50 mg Capsule] 50 mg PO HSP PRN 05/15/17 Albuterol Sulfate [Proair HFA Inhalation Aerosol 8.5 gm MDI] 2 puff IH Q4 PRN Acidoph/L.bulg/Bif.b/S.thermop [Bacid Caplet] 1 each PO BID #20 tablet 05/29/17 Mesalamine [Asacol Sr 400 mg Capsule] 1,200 mg PO TID 30 Days #270 capsule. Metronidazole [Flagyl 500 mg Tablet] 500 mg PO Q6 #12 tablet 05/29/17 History of Present Illness Patient complains of: Abdominal pain diarrhea History of Present Illness: JANIYA JACKSON is a 42 year old male, without any significant past medical history admitted to surgical service for persistent nausea vomiting and abdominal pain. She was treated for several months with several doses and course of antibiotics for diverticulitis and had some microperforation as reported. Despite treatment the patient continues to have diarrhea with subsequent increasing abdominal pain and rectal bleeding. Reportedly the patient had a colonoscopy performed by the locomotive mechanic apprentice outpatient but no results were provided. The patient presented to the hospital and was admitted by surgery and perform a flexible sigmoidoscopy showing ulcerative colitis findings. Patient was subsequently admitted and referred to medicine for management. For details is referred to admission notes performed by admitting physician. Hospital Course Hospital Course: The patient was admitted to telemetry. The patient was started on narcotics for pain control. Clostridium difficile toxin was obtained. Patient began on antibiotics that was later discontinued when Clostridium difficile toxin was positive. She was begun on Flagyl. The bacillus was likewise added. The diarrhea persisted. Patient unable to eat orally due to vomiting and therefore was placed on parenteral nutrition. Oral vancomycin was likewise begun. He was tried on vancomycin rectally via enema but the patient refused. Eventually the estrogen difficile toxin was obtained after several days of treatment and it turned out negative. Gastroenterology was consulted and the patient was begun on mesalamine. The patient's diarrhea subsequently improved. Still bleeding likewise improved. Course was noted for anemia acquiring 2 units of packed RBC transfusion. Course was also noted for edema which eventually improved with mesalamine as well as increasing ambulation. Patient slowly improved and tried on oral intake of which she tolerated clear liquids subsequently advanced to full liquid and soft mechanical diet. His TPN was discontinued. Electrolytes were monitored and were replaced. Patient's abdominal pain persisted however it is felt to be secondary to his abdominal wall due to sprain. Subsequently tolerated advancing the diet. The rest of the hospital stays unremarkable. Patient completed a course of vancomycin while in the hospital. He was eventually discharged improved with above instructions. Physical Exam Vital Signs: Temp Pulse Resp BP Pulse Ox 98.6 F 88 16 101/53 L 100 05/29/17 16:00 05/29/17 16:00 05/29/17 16:00 05/29/17 16:00 05/29/17 16:00 Intake & Output 05/28/17 05/29/17 05/30/17 06:59 06:59 06:59 Intake Total 2865 1942 Output Total 200 Balance 2665 1942 Weight 86.6 kg General appearance: PRESENT: no acute distress, cooperative Head exam: PRESENT: normocephalic Eye exam: PRESENT: EOMI Mouth exam: PRESENT: moist, neck supple Neck exam: ABSENT: JVD Respiratory exam: PRESENT: clear to auscultation sammie. ABSENT: rhonchi, wheezes Cardiovascular exam: PRESENT: RRR. ABSENT: gallop GI/Abdominal exam: PRESENT: hyperactive bowel sounds, soft, tenderness - Abdominal wall Extremities exam: ABSENT: pedal edema Neurological exam: PRESENT: alert, awake, oriented to person, oriented to place , oriented to time, oriented to situation Skin exam: PRESENT: dry, warm. ABSENT: cyanosis Results Laboratory Results: 05/29/17 08:45 05/29/17 08:45 05/29/17 05/29/17 08:45 08:45 WBC 7.9 RBC 3.69 L Hgb 10.9 L Hct 32.2 L MCV 87 MCH 29.6 MCHC 33.9 RDW 15.9 H Plt Count 509 H Seg Neutrophils % 68.5 Lymphocytes % 15.2 Monocytes % 11.1 Eosinophils % 4.5 Basophils % 0.7 Absolute Neutrophils 5.4 Absolute Lymphocytes 1.2 Absolute Monocytes 0.9 Absolute Eosinophils 0.4 Absolute Basophils 0.1 Sodium 136.8 L Potassium 4.3 Chloride 101 Carbon Dioxide 27 Anion Gap 9 BUN 8 Creatinine 0.86 Est GFR ( Amer) > 60 Est GFR (Non-Af Amer) > 60 Glucose 131 H Calcium 8.2 L Phosphorus 5.3 H Magnesium 2.0 Prealbumin 20.4 Impressions: Abdomen X-Ray 05/12/17 10:57 IMPRESSION: Nonspecific abdomen Abdomen/Pelvis CT 05/15/17 00:00 IMPRESSION: 1. Fatty infiltration of the liver. 2. Thickening of the wall of the colon and distention of the transverse colon. Inflammatory bowel disease. Toxic megacolon remains in the differential. 3. Ventral hernia. Acute Abdomen Series 05/17/17 00:00 IMPRESSION: Dilated colon with fluid levels. Guidance Fluoroscopy 05/17/17 00:00 IMPRESSION: SUCCESSFUL PLACEMENT OF A 5 FR DUAL LUMEN 36 CM PICC IN THE LEFT BASILIC VEIN. Interventional Vascular Procedure 05/17/17 00:00 IMPRESSION: SUCCESSFUL PLACEMENT OF A 5 FR DUAL LUMEN 36 CM PICC IN THE LEFT BASILIC VEIN. PICC Line Insertion 05/17/17 00:00 IMPRESSION: SUCCESSFUL PLACEMENT OF A 5 FR DUAL LUMEN 36 CM PICC IN THE LEFT BASILIC VEIN. Venous Doppler Study 05/20/17 00:00 IMPRESSION: NO EVIDENCE OF DVT OR SVT IN THE LEFT LEG. KUB X-Ray 05/23/17 00:00 IMPRESSION: The previously described gaseous distension of the colon appears slightly less pronounced on the current study. No other significant interval change. Other findings as noted above. Qualifiers PATEINT BEING DISCHARGED WITH ANY OF THE FOLLOWING DIAGNOSIS?: No Plan Discharge Plan: Follow-up with primary care physician in 1 week. Follow-up with gastroenterology Dr. Merlos in 2 weeks. Time Spent: Less than 30 Minutes
[2017-05-29] MEDS: ZOLPIDEM TARTRATE 5 MG TABLET PO SCH (21:27)
[2017-05-30] MEDS: VANCOMYCIN HCL INJ 500 MG VIAL PO SCH ×4 (03:42→22:13)
[2017-05-30] MEDS: OXYCODONE-ACETAMINOPHEN 5-325 MG TABLET PO PRN ×5 (03:42→23:46)
[2017-05-30] MEDS: METRONIDAZOLE 500 MG TABLET PO SCH ×4 (06:18→23:46)
[2017-05-30] MEDS: HEPARIN SOD (PORCINE) 5,000 UNIT/ML 1 ML SYRINGE SUBCUT SCH ×3 (06:18→22:13)
[2017-05-30] MEDS: LACTOBACILLUS ACIDOPHILUS 250 MG TAB PO SCH ×2 (10:23→17:58)
[2017-05-30] MEDS: NORMAL SALINE 10 ML SDV (SCHEDULED) IV SCH ×2 (10:25→22:14)
[2017-05-30] MEDS: MESALAMINE 400 MG CAPSULE.DR PO SCH ×3 (10:25→17:58)
[2017-05-30] MEDS: GUAIFENESIN 600 MG TABLET.SA PO SCH ×2 (10:25→22:14)
--- NOTE | 2017-05-30 15:35 | PDOC PROGRESS REPORT ---
Subjective Progress Note for:: 05/30/17 Subjective:: The patient reports that he is having fewer bowel movements and he has some form to his stool. Physical Exam Vital Signs: Temp Pulse Resp BP Pulse Ox 98.4 F 82 14 107/69 99 05/30/17 11:48 05/30/17 11:48 05/30/17 11:48 05/30/17 11:48 05/30/17 11:48 Intake & Output 05/29/17 05/30/17 05/31/17 06:59 06:59 06:59 Intake Total 1941 2326 360 Output Total 100 Balance 1941 2326 260 Weight 82.8 kg General appearance: PRESENT: no acute distress Eye exam: PRESENT: conjunctiva pink. ABSENT: scleral icterus Ear exam: PRESENT: normal external ear exam Mouth exam: PRESENT: moist, tongue midline Neck exam: ABSENT: JVD Respiratory exam: PRESENT: clear to auscultation sammie. ABSENT: rales, rhonchi, wheezes Cardiovascular exam: PRESENT: RRR. ABSENT: diastolic murmur, rubs, systolic murmur Pulses: PRESENT: normal dorsalis pedis pul GI/Abdominal exam: PRESENT: normal bowel sounds, soft, tenderness - mild. ABSENT: distended, guarding, mass, organolmegaly, rebound Extremities exam: ABSENT: calf tenderness, clubbing, pedal edema Neurological exam: PRESENT: alert, awake, oriented to person, oriented to place , oriented to time, oriented to situation, CN II-XII grossly intact. ABSENT: motor sensory deficit Psychiatric exam: PRESENT: appropriate affect Skin exam: PRESENT: dry, intact, warm. ABSENT: cyanosis, rash Results Laboratory Results: 05/29/17 08:45 05/29/17 08:45 Impressions: Abdomen X-Ray 05/12/17 10:57 IMPRESSION: Nonspecific abdomen Abdomen/Pelvis CT 05/15/17 00:00 IMPRESSION: 1. Fatty infiltration of the liver. 2. Thickening of the wall of the colon and distention of the transverse colon. Inflammatory bowel disease. Toxic megacolon remains in the differential. 3. Ventral hernia. Acute Abdomen Series 05/17/17 00:00 IMPRESSION: Dilated colon with fluid levels. Guidance Fluoroscopy 05/17/17 00:00 IMPRESSION: SUCCESSFUL PLACEMENT OF A 5 FR DUAL LUMEN 36 CM PICC IN THE LEFT BASILIC VEIN. Interventional Vascular Procedure 05/17/17 00:00 IMPRESSION: SUCCESSFUL PLACEMENT OF A 5 FR DUAL LUMEN 36 CM PICC IN THE LEFT BASILIC VEIN. PICC Line Insertion 05/17/17 00:00 IMPRESSION: SUCCESSFUL PLACEMENT OF A 5 FR DUAL LUMEN 36 CM PICC IN THE LEFT BASILIC VEIN. Venous Doppler Study 05/20/17 00:00 IMPRESSION: NO EVIDENCE OF DVT OR SVT IN THE LEFT LEG. KUB X-Ray 05/23/17 00:00 IMPRESSION: The previously described gaseous distension of the colon appears slightly less pronounced on the current study. No other significant interval change. Other findings as noted above. Assessment & Plan - Diagnosis (1) Clostridium difficile colitis Is this a current diagnosis for this admission?: Yes Plan: The patient is on Flagyl. He is concerned because he did pass some blood in his stool earlier today.. Will watch overnight and if he does well we will discharge home tomorrow. (2) Diverticulitis of colon with perforation Qualifiers: Diverticulitis bleeding: without bleeding Qualified Code(s): K57.20 - Diverticulitis of large intestine with perforation and abscess without bleeding Is this a current diagnosis for this admission?: Yes Plan: Patient has had multiple rounds of antibiotics previously which eventually led to the C. difficile infection. (3) Abdominal pain Qualifiers: Abdominal location: generalized Qualified Code(s): R10.84 - Generalized abdominal pain Is this a current diagnosis for this admission?: Yes (4) DVT prophylaxis Is this a current diagnosis for this admission?: Yes (5) Hypomagnesemia Is this a current diagnosis for this admission?: Yes (6) Insomnia Is this a current diagnosis for this admission?: Yes (7) Venous thrombosis Is this a current diagnosis for this admission?: Yes Plan: Has superficial vein thrombosis (8) Iron deficiency anemia due to chronic blood loss Is this a current diagnosis for this admission?: Yes - Time Time Spent with patient: 15-24 minutes - Inpatient Certification Medical Necessity: Need Close Monitoring Due to Risk of Patient Decompensation - Plan Summary Plan Summary: If he is stable overnight we will discharge home tomorrow morning.
[2017-05-30] MEDS: ZOLPIDEM TARTRATE 5 MG TABLET PO SCH (22:13)
[2017-05-31] MEDS: OXYCODONE-ACETAMINOPHEN 5-325 MG TABLET PO PRN ×2 (03:46→07:59)
[2017-05-31] MEDS: VANCOMYCIN HCL INJ 500 MG VIAL PO SCH (03:46)
[2017-05-31] MEDS: METRONIDAZOLE 500 MG TABLET PO SCH ×2 (05:40→11:29)
[2017-05-31] MEDS: HEPARIN SOD (PORCINE) 5,000 UNIT/ML 1 ML SYRINGE SUBCUT SCH (05:40)
[2017-05-31 08:17] VITALS: BP 107/59
[2017-05-31] MEDS: NORMAL SALINE 10 ML SDV (SCHEDULED) IV SCH (09:41)
[2017-05-31] MEDS: MESALAMINE 400 MG CAPSULE.DR PO SCH (10:19)
[2017-05-31] MEDS: GUAIFENESIN 600 MG TABLET.SA PO SCH (10:19)
[2017-05-31] MEDS: LACTOBACILLUS ACIDOPHILUS 250 MG TAB PO SCH (10:19)
--- NOTE | 2017-05-31 11:19 | Progress Note ---
Provider Note Provider Note: Patient denies any blood in his stool. Tolerating diet well. Physical exam: General exam: Resting comfortably in no apparent distress. HEENT exam: Sclera nonicteric. Oral mucous membranes are moist. Neck exam: No JVD. Chest exam: Clear to auscultation. Cardiovascular exam: Regular rate and rhythm. Abdominal exam: Positive bowel sounds. Soft, nontender, no organomegaly. Extremity exam: No edema. Neurological exam: Alert and oriented 3. Assessment and plan: 1. Toxic megacolon. Patient is doing well we will discharge home with Flagyl 6 days. The patient will follow up with GI in 1 week and decide whether or not he needs any further antibiotics. This is an addendum to the discharge summary dictated already on May 29. Medication list is unchanged except for the addition of Percocet 1 p.o. every 4 hours as needed dispense #14. Time spent on this discharge summary is 35 minutes.
--- NOTE | 2017-06-02 09:08 | CONSULT/HISTORY AND PHYSICAL E ---
Consultation/History and Physical PATIENT NAME: JANIYA JACKSON : 1975 AGE: 42Y DATE: 05/12/2017 ROOM: 532 TO: LEONARDO MANCILLA M.D. FROM: Liza NOVA Requesting Physician REASON FOR CONSULTATION: Abdominal pain. Patient is seen at the request of Emergency Department Staff REPORT OF CONSULTATION: Patient is a 42-year-old male with a known history of sigmoid diverticulitis with complication, specifically contained localized retroperitoneal perforation back in March. Patient was hospitalized for 3 days with intravenous antibiotics and bowel rest. Since then he has recovered in general from that episode, but has had persistent intermittent abdominal pain, irregular stools, bloating. He has been in the emergency department approximately 10 times since that hospitalization. He has been on several courses of oral antibiotics. Most recently the patient was seen at [facility] 4 days ago where he was found to have persisting abdominal pain. He has admitted to fever but in the emergency department his temperature has been normal. He has had several loose bowel movements recently. He is taking a probiotic or an item with rachel to facilitate bowel movements. Patient has an appointment to undergo colonoscopy on Monday by Dr. Coleman. He is back in the emergency department this morning complaining of persisting pain. ALLERGIES: Include SHELLFISH. SOCIAL HISTORY: Unremarkable. PAST MEDICAL HISTORY: Asthma. Immunizations up to date. MEDICATIONS: As per HPI. REVIEW OF SYSTEMS: CONSTITUTIONAL: The patient has had decreased p.o. intake. GASTROINTESTINAL: As per HPI; never had a colonoscopy. Never had a gastrointestinal procedure performed. METABOLIC: Patient denies taking a diuretic. Of note, he has been hypokalemic during the last several emergency room visits. PHYSICAL EXAMINATION: GENERAL: The patient is seen in the emergency department. He is in no acute distress. He did receive some pain medication earlier today. EYES: Without icterus. NECK: No adenopathy. LUNGS: Diminished at the bases bilaterally. HEART: Without murmur or gallop. ABDOMEN: The abdomen is examined. It is distended. There is a small umbilical hernia, flat. There is some pelvic tenderness but no rigidity. The remainder of the examination is unremarkable. DIAGNOSTICS: Laboratory profile shows a potassium of 2.9, albumin of 2.8, calcium of 8.2. Toxicology screen on 05/05/2017 negative. Hemoglobin 12.0, white blood cell count 9900. Acute abdominal series pending. IMPRESSION: 1. Persisting abdominal pain, likely due to chronic sigmoid diverticulitis with colonic narrowing; previously no evidence of obstruction. 2. Recurrent hypokalemia of uncertain etiology. 3. Malnutrition. RECOMMENDATIONS: 1. IV fluid hydration while in the emergency department. 2. Acute abdominal series to assess gas pattern. 3. Will reassess patient, discussed with the emergency department and determine disposition. Ideally we would like for the patient to undergo a colonoscopy to evaluate the rest of his colon before offering him sigmoid colectomy; however, if patient cannot complete that diagnostic procedure then he may need to undergo interval colectomy sooner. DICTATING PHYSICIAN: LEONARDO MANCILLA M.D. [id number] PHY#: [id number] ID: [id number] JOB#: [id number] ACCT: [id number] cc:LEONARDO MANCILLA M.D. > MTDD
== END 2017-05-31 12:45 | disposition home or self-care (01) | DRG 372 ==
LOC: ER 08:18 → 3W 13:45 → EH 13:58 → INTOOBSV 13:58 → UNDOADMIN 13:58 → OBSVTOIN 13:58 → 4S 15:07 → EH 15:07 → 3W 05-14 01:45 → 4S 05-14 01:45 → 5 05-16 17:21
PROC: 0DBP8ZX Excision of Rectum, Via Natural or Artificial Opening Endoscopic, Diagnostic (ICD-10-PCS; 2017-05-13)
PROC: 0DBN8ZX Excision of Sigmoid Colon, Via Natural or Artificial Opening Endoscopic, Diagnostic (ICD-10-PCS; principal; 2017-05-13 09:00)
PROC: 02HV33Z Insertion of Infusion Device into Superior Vena Cava, Percutaneous Approach (ICD-10-PCS; 2017-05-17)
PROC: B548ZZA Ultrasonography of Superior Vena Cava, Guidance (ICD-10-PCS; 2017-05-17)
PROC: B5181ZA Fluoroscopy of Superior Vena Cava using Low Osmolar Contrast, Guidance (ICD-10-PCS; 2017-05-17)
PROC: 3E0436Z Introduction of Nutritional Substance into Central Vein, Percutaneous Approach (ICD-10-PCS; 2017-05-19)
PROC: 30233N1 Transfusion of Nonautologous Red Blood Cells into Peripheral Vein, Percutaneous Approach (ICD-10-PCS; 2017-05-24)
DX: A04.7 Enterocolitis due to Clostridium difficile (principal); K57.20 Diverticulitis of large intestine with perforation and abscess without bleeding; K51.80 Other ulcerative colitis without complications; E46 Unspecified protein-calorie malnutrition; I82.612 Acute embolism and thrombosis of superficial veins of left upper extremity; D68.9 Coagulation defect, unspecified; D50.0 Iron deficiency anemia secondary to blood loss (chronic); K62.89 Other specified diseases of anus and rectum; E87.6 Hypokalemia; Z68.24 Body mass index [BMI] 24.0-24.9, adult; E83.42 Hypomagnesemia; G47.00 Insomnia, unspecified; J45.909 Unspecified asthma, uncomplicated; Z91.013 Allergy to seafood
CPT/HCPCS: 36415; 36430; 36569; 45331; 74000; 74020; 74022; 74177; 76937; 77001; 80048; 80053; 81001; 82272; 82565; 82607; 82728; 82746; 82962; 83540; 83550; 83735; 84100; 84132; 84134; 84466; 84478; 85025; 85027; 85045; 85610; 85730; 86850; 86900; 86901; 86920; 87045; 87205; 87493; 88305; 89055; 93971; 96361; 96374; 96375; 99285; J0131; J0171; J1170; J1610; J1642; J1644; J1756; J1815; J1885; J2250; J2270; J2310; J2405; J3010; J3370; J3475; J3480; J3490; J7030; P9016; S0119

== ENCOUNTER 2017-06-24 22:28 | Emergency (ER) | payer OTHER ==
[2017-06-24 23:17] VITALS: BP 104/66
== END 2017-06-25 03:05 | disposition left against medical advice (07) ==
LOC: ER 22:28
DX: Z53.9 Procedure and treatment not carried out, unspecified reason (principal); R06.02 Shortness of breath

== ENCOUNTER 2017-07-28 02:05 | Emergency (ER) | payer OTHER ==
[2017-07-28 02:16] VITALS: BP 104/60
[2017-07-28] MEDS ORDERED: HYDROXYZINE HCL INJ 50 MG/1 ML VIAL IM ONE (02:39)
--- NOTE | 2017-07-28 02:40 | ER Document Report ---
ED General - General Chief Complaint: Chest Pressure Stated Complaint: CHEST DISCOMFORT Time Seen by Provider: 07/28/17 02:30 TRAVEL OUTSIDE OF THE [place] IN LAST 30 DAYS: No - HPI Notes: Patient is a 42-year-old male with a history of asthma and anxiety presents ED complaining of chest tightness that began this evening. Patient states that he did use his rescue inhaler with no relief in his symptoms. Patient states that he continues to have a tightness and is very anxious. He denies any significant cardiac medical history in the past, DVT, PE. Patient states that he does not have any other significant medical history. He denies any drug allergies. He denies any smoking or IV drug use. Denies any alcohol intake. + occ tingling to his hands and feet b/l. Patient states that he still eating and drinking without difficulties. He still urinating normally and having normal bowel habits. He denies any recent illness. Denies any distance travel , hormone use, recent surgeries, recent trauma, or other prolonged immobilization. Patient denies any pain. Denies any headache, fever, neck pain , URI, sore throat, chest pain, palpitations, syncope, cough, shortness of breath, dyspnea, abdominal pain, nausea/vomiting/diarrhea, urinary retention, dysuria, hematuria, loss of control of bowel or bladder, muscle paralysis/ weakness, or rash. - Related Data Allergies/Adverse Reactions: shellfish derived Allergy (Verified 07/28/17 02:14) Past Medical History - Social History Smoking Status: Never Smoker Family History: None Pulmonary Medical History: Reports: Hx Asthma Neurological Medical History: Denies: Hx Seizures Renal/ Medical History: Denies: Hx Peritoneal Dialysis GI Medical History: Reports: Hx Diverticulitis - Immunizations Hx Diphtheria, Pertussis, Tetanus Vaccination: No Review of Systems - Review of Systems Notes: REVIEW OF SYSTEMS: CONSTITUTIONAL : Denies fever, chills, or sweats. Denies recent illness. EENT: Denies eye, ear, throat, or mouth pain or symptoms. Denies nasal or sinus congestion or discharge. Denies throat, tongue, or mouth swelling or difficulty swallowing. CARDIOVASCULAR: see hpi. Denies chest pain. Denies palpitations or racing or irregular heart beat. Denies ankle edema. RESPIRATORY: see hpi. Denies cough, cold, or chest congestion. Denies shortness of breath, difficulty breathing, or wheezing. GASTROINTESTINAL: Denies abdominal pain or distention. Denies nausea, vomiting , or diarrhea. Denies blood in vomitus, stools, or per rectum. Denies black, tarry stools. Denies constipation. GENITOURINARY: Denies difficulty urinating, painful urination, burning, frequency, blood in urine, or discharge. MUSCULOSKELETAL: Denies back or neck pain or stiffness. Denies joint pain or swelling. SKIN: Denies rash, lesions or sores. NEUROLOGICAL: Denies confusion or altered mental status. Denies passing out or loss of consciousness. Denies dizziness or lightheadedness. Denies headache. Denies weakness or paralysis or loss of use of either side. Denies problems with gait or speech. Denies sensory loss, numbness, or tingling. Denies seizures. PSYCHIATRIC: see hpi + anxiety. ALL OTHER SYSTEMS REVIEWED AND NEGATIVE. Dictation was performed using [employer] voice recognition software Physical Exam - Vital signs Vitals: Temp Pulse Resp BP Pulse Ox 97.4 F 72 24 H 104/60 99 07/28/17 02:14 07/28/17 02:14 07/28/17 02:14 07/28/17 02:14 07/28/17 02:14 Notes: PHYSICAL EXAMINATION: GENERAL: Well-appearing, well-nourished and in no acute distress. A&Ox4 HEAD: Atraumatic, normocephalic. EYES: Pupils equal round and reactive to light, extraocular movements intact, sclera anicteric, conjunctiva are normal. ENT: Nares patent and without discharge. oropharynx clear without exudates. No tonsilar hypertrophy or erythema. Moist mucous membranes. NECK: Normal range of motion, supple without lymphadenopathy. No rigidity Chest: non-tender. equal rise/fall. LUNGS: Breath sounds clear to auscultation bilaterally and equal. No wheezes rales or rhonchi. HEART: Regular rate and rhythm without murmurs, rubs, gallops. ABDOMEN: Soft, nontender, nondistended abdomen. No guarding, no rebound. No masses appreciated. Normal bowel sounds present. No CVA tenderness bilaterally. Musculoskeletal: Ext b/l: FROM to passive/active. Strength 5+/5. No calf tenderness. Extremities: No cyanosis, clubbing, or edema b/l. Peripheral pulses 2+. Capillary refill less than 3 seconds. NEUROLOGICAL: Cranial nerves grossly intact. Normal speech, normal gait. Normal sensory, motor exams PSYCH: very anxious SKIN: Warm, Dry, normal turgor, no rashes or lesions noted. Course - Re-evaluation Re-evalutation: 07/28/17 04:35 Patient is an afebrile, well-hydrated, 42-year-old male who presents the ED with anxiety. Vitals are stable. PE is otherwise unremarkable. CBC, CMP, cardiac enzymes, EKG unremarkable for any acute pathology. Patient has a heart score of 0. PERC negative. Low suspicion for any ACS, PE, pneumothorax, pericarditis, dissection, or other systemic emergent condition at this time. Patient aware that condition can change from initial presentation and he needs to monitor symptoms closely and seek medical attention with any acute changes. Patient was given hydroxyzine which resolved his symptoms. Patient is now asymptomatic and feels much better. Patient would like to go home. I will send him home with a small prescription of the hydroxyzine, and cautioned about drowsiness. Conservative measures for symptoms. Recheck with your PCM in 3-5 days. Consider consult with psychology/psychiatry. Return to the ED with any worsening/concerning symptoms otherwise as reviewed in discharge. Patient is in agreement. - Vital Signs Vital signs: Temp Pulse Resp BP Pulse Ox 97.4 F 72 24 H 104/60 99 07/28/17 02:14 07/28/17 02:14 07/28/17 02:14 07/28/17 02:14 07/28/17 02:14 - Laboratory Result Diagrams: 07/28/17 03:05 07/28/17 03:05 Laboratory results interpreted by me: 07/28/17 07/28/17 03:05 03:05 RBC 4.17 L Hgb 12.5 L Hct 37.0 L RDW 15.6 H Seg Neutrophils % 41.0 L Lymphocytes % 48.5 H Potassium 3.5 L Chloride 109 H Carbon Dioxide 21 L AST 15 L Discharge - Discharge Clinical Impression: Anxiety Condition: Stable Disposition: HOME, SELF-CARE Instructions: Anxiety (OM) Additional Instructions: Maintain adequate fluid/food intake Take meds as directed Monitor for worsening symptoms Recheck with your PCM in 3-5 days Consider consult with a Psych facility for further evaluation and management/ treatment Return to the ED with any worsening symptoms and/or development of fever, headache, chest pain, palpitations, syncope, shortness of breath, trouble breathing, abdominal pain, n/v/d, blood in stool/urine, or other worsening symptoms that are concerning to you. Prescriptions: Hydroxyzine HCl 25 mg PO TID #15 tablet Referrals: ALEA ARMANDO FNP-C [Primary Care Provider] - Follow up in 3-5 days [facility] [Provider Group] - Follow up as needed
--- NOTE | 2017-07-28 03:14 | RADIOLOGY REPORT (SQ) ---
EXAM DESCRIPTION: CHEST SINGLE VIEW COMPLETED DATE/TIME: 07/28/2017 2:52 am REASON FOR STUDY: chest tightness COMPARISON: None. EXAM PARAMETERS: NUMBER OF VIEWS: One view. TECHNIQUE: Single frontal radiographic view of the chest acquired. RADIATION DOSE: NA LIMITATIONS: None. FINDINGS: LUNGS AND PLEURA: No opacities, masses or pneumothorax. No pleural effusion. Prominent in terstitium. MEDIASTINUM AND HILAR STRUCTURES: No masses. Contour normal. HEART AND VASCULAR STRUCTURES: Heart normal in size. Normal vasculature. BONES: No acute findings. HARDWARE: None in the chest. OTHER: No other significant finding. IMPRESSION: NO ACUTE RADIOGRAPHIC FINDING IN THE CHEST. TECHNICAL DOCUMENTATION: JOB ID: [id number] [email or web address]- All Rights Reserved
[2017-07-28 03:34] LABS: ABSOLUTE BASOPHILS # (AUTO) 0.1 10^3/uL (0.0-0.2); ABSOLUTE EOSINOPHILS # (AUTO) 0.1 10^3/uL (0.0-0.6); ABSOLUTE LYMPHOCYTES (AUTO) 4.6 10^3/uL (0.5-4.7); ABSOLUTE MONOCYTES (AUTO) 0.8 10^3/uL (0.1-1.4); ABSOLUTE NEUT (AUTO) 3.9 10^3/uL (1.7-8.2); BASOPHILS % (AUTO) 0.8 % (0-2); EOSINOPHILS % (AUTO) 1.5 % (0-6); HEMOGLOBIN 12.5 g/dL (13.5-17.0); HGB HCT DIFFERENCE 0.5; LYMPHOCYTES % (AUTO) 48.5 % (13-45); MEAN CORPUSCULAR HEMOGLOBIN 29.9 pg (27.0-33.4); MEAN CORPUSCULAR HGB CONC 33.7 g/dL (32.0-36.0); MEAN CORPUSCULAR VOLUME 89 fl (80-97); MONOCYTES % (AUTO) 8.2 % (3-13); RED BLOOD COUNT 4.17 10^6/uL (4.35-5.55); RED CELL DISTRIBUTION WIDTH 15.6 % (11.5-14.0); WHITE BLOOD COUNT 9.6 10^3/uL (4.0-10.5)
[2017-07-28 03:55] LABS: ALANINE AMINOTRANSFERASE 33 U/L (21-72); ALBUMIN 3.7 g/dL (3.5-5.0); ALKALINE PHOSPHATASE 63 U/L (38-126); ANION GAP 14 (5-19); ASPARTATE AMINO TRANSFERASE 15 U/L (17-59); BILIRUBIN,DIRECT 0.3 mg/dL (0.0-0.4); BILIRUBIN,TOTAL 0.3 mg/dL (0.2-1.3); BLOOD UREA NITROGEN 12 mg/dL (7-20); CALCIUM 9.2 mg/dL (8.4-10.2); CARBON DIOXIDE 21 mmol/L (22-30); CHLORIDE 109 mmol/L (98-107); CREATINE KINASE 83 U/L (55-170); CREATININE RESULT 0.87 mg/dL (0.52-1.25); GLUCOSE 91 mg/dL (75-110); POTASSIUM 3.5 mmol/L (3.6-5.0); SODIUM 144.1 mmol/L (137-145); TOTAL PROTEIN 7.1 g/dL (6.3-8.2)
[2017-07-28 03:59] LABS: CREATINE KINASE MB 0.24 ng/mL (<4.55)
[2017-07-28 04:03] LABS: TROPONIN I < 0.012 ng/mL
--- NOTE | 2017-07-28 14:39 | EKG REPORT ---
SEVERITY:- NORMAL ECG - SINUS RHYTHM : Confirmed by: Yoselin Devi MD 28-Jul-2017 14:38:18
== END 2017-07-28 05:11 | disposition home or self-care (01) ==
LOC: ER 02:05
DX: F41.9 Anxiety disorder, unspecified (principal); R07.9 Chest pain, unspecified
CPT/HCPCS: 93005; 99284; 96372; 36415; 82553; 82550; 85025; 80053; 84484; 71010; 93010; J3490

== ENCOUNTER 2017-08-31 23:42 | Emergency (ER) | payer OTHER ==
[2017-09-01] MEDS ORDERED: DEXAMETHASONE 4 MG TABLET PO ONE (00:37)
[2017-09-01] MEDS ORDERED: IPRATROPIUM/ALBUTEROL 0.5-2.5 MG/3 ML AMPUL NEB ONE (00:37)
[2017-09-01] MEDS ORDERED: ALBUTEROL SULFATE HFA (90 MCG/PUFF) 8 GM MDI (1 MDI/ER DISP) IH PRN (00:40)
--- NOTE | 2017-09-01 00:41 | ER Document Report ---
ED General - General Chief Complaint: Breathing Difficulty Stated Complaint: ASTHMA Time Seen by Provider: 09/01/17 00:10 Notes: Patient is a 42-year-old male who presents with 1-2 hours of shortness of breath. Patient reports that the symptoms started after he was exposed to hot air inside the house and improved after he went outside into the cool air. He states this is similar to prior episodes that he has had. Patient reports that he has intermittent episodes almost daily similar to this presentation. He has used an albuterol inhaler in the past with some improvement. He has never been formally diagnosed with asthma. He has not seen his primary care doctor regarding today's concerns. At time of my assessment he denies any active symptoms. He has not had any fever or constitutional symptoms. He denies any chest pain. TRAVEL OUTSIDE OF THE [place] IN LAST 30 DAYS: No - Related Data Allergies/Adverse Reactions: shellfish derived Allergy (Verified 08/31/17 23:42) Past Medical History - General Information source: Patient - Social History Smoking Status: Current Every Day Smoker Frequency of alcohol use: None Drug Abuse: None Lives with: Spouse/Significant other Family History: Reviewed & Not Pertinent Patient has suicidal ideation: No Patient has homicidal ideation: No Pulmonary Medical History: Reports: Hx Asthma Neurological Medical History: Denies: Hx Seizures Renal/ Medical History: Denies: Hx Peritoneal Dialysis GI Medical History: Reports: Hx Diverticulitis - Immunizations Hx Diphtheria, Pertussis, Tetanus Vaccination: No Review of Systems - Review of Systems Notes: Constitutional: Negative for fever. HENT: Negative for sore throat. Eyes: Negative for visual changes. Cardiovascular: Negative for chest pain. Respiratory: Positive for shortness of breath. Gastrointestinal: Negative for abdominal pain, vomiting or diarrhea. Genitourinary: Negative for dysuria. Musculoskeletal: Negative for back pain. Skin: Negative for rash. Neurological: Negative for headaches, weakness or numbness. 10 point ROS negative except as marked above and in HPI. Physical Exam - Vital signs Vitals: Temp Pulse Resp BP Pulse Ox 97.9 F 61 18 109/68 98 09/01/17 00:02 09/01/17 00:02 09/01/17 00:02 09/01/17 00:02 09/01/17 00:02 Interpretation: Normal Notes: PHYSICAL EXAMINATION: GENERAL: Well-appearing, well-nourished and in no acute distress. HEAD: Atraumatic, normocephalic. EYES: Pupils equal round and reactive to light, extraocular movements intact, sclera anicteric, conjunctiva are normal. ENT: nares patent, oropharynx clear without exudates. Moist mucous membranes. NECK: Normal range of motion, supple without lymphadenopathy LUNGS: Breath sounds clear to auscultation bilaterally and equal. No wheezes rales or rhonchi. HEART: Regular rate and rhythm without murmurs ABDOMEN: Soft, nontender, normoactive bowel sounds. No guarding, no rebound. No masses appreciated. EXTREMITIES: Normal range of motion, no pitting or edema. No cyanosis. NEUROLOGICAL: No focal neurological deficits. Moves all extremities spontaneously and on command. PSYCH: Normal mood, normal affect. SKIN: Warm, Dry, normal turgor, no rashes or lesions noted. Course - Re-evaluation Re-evalutation: 09/01/17 00:37 Patient presents with inspiratory wheezing that appears to be in the upper airway as opposed to true wheezing. He has no appreciable wheezing on examination. Chest x-ray is clear. Patient reports that cold air actually improves his symptoms which will be inconsistent with a true asthmatic presentation. He is otherwise very well in appearance, vitals within normal limits without tachypnea, hypoxemia or tachycardia. He has had viral upper respiratory infection symptoms and I suspect a component of bronchitis. Will treat with a dose of dexamethasone and inhaled bronchodilators. I do not suspect a pneumothorax, acute pneumonia, or ACS. At this time will discharge with return precautions and follow-up recommendations. Verbal discharge instructions given a the bedside and opportunity for questions given. Medication warnings reviewed. Patient is in agreement with this plan and has verbalized understanding of return precautions and the need for primary care follow-up in the next 24-72 hours. 09/01/17 03:01 - Vital Signs Vital signs: Temp Pulse Resp BP Pulse Ox 97.4 F 63 20 104/61 100 09/01/17 01:36 09/01/17 01:36 09/01/17 01:36 09/01/17 01:36 09/01/17 01:36 - Diagnostic Test Radiology reviewed: Image reviewed, Reports reviewed Radiology results interpreted by me: 09/01/17 00:39 Chest x-ray: No acute infiltrate or pneumothorax - EKG Interpretation by Me Additional EKG results interpreted by me: 09/01/17 00:39 Sinus bradycardia. Rate 56. No ST elevations or depressions. QTC 410. Discharge - Discharge Clinical Impression: Viral upper respiratory infection, Shortness of breath Condition: Good Disposition: HOME, SELF-CARE Additional Instructions: Your symptoms are likely due to a viral upper respiratory infection or possible allergies. Begin taking cetirizine 10 mg daily which can be purchased directly over the counter. You have been given a dose of steroids here which may help with your symptoms. You may also use inhaler the tube and sent home with as needed for feelings of chest tightness or shortness of breath. Return if you have worsening of her symptoms, vomiting, fever of greater than 101F, pass out or have any other symptoms that are worrisome to you. Referrals: ALEA ARMANOD, [employer]-[facility] [Primary Care Provider] - Follow up as needed
--- NOTE | 2017-09-01 00:50 | RADIOLOGY REPORT (SQ) ---
EXAM DESCRIPTION: CHEST PA/LAT CLINICAL HISTORY: short of breath COMPARISON: 07/28/2017 FINDINGS: Frontal and lateral views of the chest. The cardiomediastinal silhouette has normal size and contour. No consolidation, pneumothorax, or pleural effusion. No displaced rib fractures identified. Upper abdominal soft tissues are unremarkable. IMPRESSION: 1. No acute pulmonary process identified.
[2017-09-01] MEDS ORDERED: DEXAMETHASONE SOD PHOS INJ 10 MG/1 ML VIAL IM ONE (01:11)
[2017-09-01 01:47] VITALS: BP 104/61
--- NOTE | 2017-09-02 12:14 | EKG REPORT ---
SEVERITY:- NORMAL ECG - SINUS RHYTHM : Confirmed by: Yoselin Devi MD 02-Sep-2017 12:13:45
== END 2017-09-01 01:47 | disposition home or self-care (01) ==
LOC: ER 23:42
DX: J06.9 Acute upper respiratory infection, unspecified (principal); B97.89 Other viral agents as the cause of diseases classified elsewhere; R06.02 Shortness of breath; F17.200 Nicotine dependence, unspecified, uncomplicated
CPT/HCPCS: 93005; 94640; 99285; 96372; 71020; 93010; J1100; J3490; J7620

== ENCOUNTER 2017-10-11 01:20 | Emergency (ER) | payer OTHER ==
--- NOTE | 2017-10-11 01:44 | ER Document Report ---
ED General - General Chief Complaint: Chest Tightness Stated Complaint: DIZZINESS Time Seen by Provider: 10/11/17 01:39 Notes: Patient is a 42-year-old male who presents with complaint of dizziness and chest tightness. He said it started tonight. He is a smoker. He only occasionally drinks alcohol. No drug use. No history of heart issues. No family history of heart issues. He does not take medications and is otherwise healthy. He does have a history of asthma. Patient says he sometimes does get chest tightness but usually does not feel dizzy. When asked what he means by dizziness he says "I just feel weak". No syncope. No passing out. No other complaints at this time. TRAVEL OUTSIDE OF THE [place] IN LAST 30 DAYS: No - Related Data Allergies/Adverse Reactions: shellfish derived Allergy (Verified 08/31/17 23:42) Past Medical History - Social History Smoking Status: Current Every Day Smoker Chew tobacco use (# tins/day): No Frequency of alcohol use: None Drug Abuse: None Family History: Reviewed & Not Pertinent Patient has suicidal ideation: No Patient has homicidal ideation: No Pulmonary Medical History: Reports: Hx Asthma Neurological Medical History: Denies: Hx Seizures Renal/ Medical History: Denies: Hx Peritoneal Dialysis GI Medical History: Reports: Hx Diverticulitis Past Surgical History: Reports: Hx Tonsillectomy - Immunizations Hx Diphtheria, Pertussis, Tetanus Vaccination: No Review of Systems - Review of Systems Notes: My Normal Review Basic REVIEW OF SYSTEMS: CONSTITUTIONAL : Denies fever, chills, or sweats. Denies recent illness. EENT: Denies eye, ear, throat, or mouth pain or symptoms. Denies nasal or sinus congestion. CARDIOVASCULAR: Chest tightness RESPIRATORY: Some shortness of breath GASTROINTESTINAL: Denies abdominal pain. Denies nausea, vomiting, or diarrhea. Denies constipation. Last BM: MUSCULOSKELETAL: Denies neck or back pain or joint pain or swelling. SKIN: Denies rash or skin lesions.. NEUROLOGICAL: Denies altered mental status or loss of consciousness. Denies headache. Denies weakness or paralysis or loss of use of either side. Denies problems with gait or speech. Denies sensory or motor loss. ALL OTHER SYSTEMS REVIEWED AND NEGATIVE. Physical Exam - Vital signs Vitals: Resp Pulse Ox 20 100 10/11/17 01:57 10/11/17 01:57 - Notes Notes: General Appearance: Well nourished, alert, cooperative, no acute distress, no obvious discomfort. Vitals: reviewed, See vital signs table. Eyes: PERRL, EOMI, Conjuctiva clear Mouth: No decreasd moisture Throat: No tonsillar inflammation, No airway obstruction, No lymphadenopathy Neck: Supple, no neck tenderness, No thyromegaly Lungs: Patient is able speak in full sentences but he does have some slight tachypnea. He does have some scattered wheezing on both anterior lung hinkle as well as some on the posterior left lung hinkle auscultation. Heart: Normal rate, Regular rythm, No murmur, no rub Abdomen: Normal BS, soft, No rigidity, No abdominal tenderness, No guarding, no rebound, no abdominal masses, no organomegaly Extremities: strength 5/5 in all extremities, good pulses in all extremities, no swelling or tenderness in the extremities, no edema. Skin: warm, dry, appropriate color, no rash Neuro: speech clear, oriented x 3, normal affect, responds appropriately to questions. Course - Re-evaluation Re-evalutation: 10/11/17 06:27 I suspect the patient's chest tightness is related to bronchitis being that he did have some wheezing and after he received a breathing treatment his wheezing cleared and his chest tightness improved. Troponin and delta troponin are negative. EKG does not show any concerning ischemic changes. 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 I talked to her him at length and informed them that they should return to ER if he has recurrent worsening chest pain, difficulty breathing, fevers, or feel unwell. Patient also placed on prednisone to help prevent recurrent wheezing and reduce inflammation along. Patient's and patient agree with plan and patient will be discharged home. Dictation of this chart was performed using voice recognition software; therefore, there may be some unintended grammatical errors. - Vital Signs Vital signs: Temp Pulse Resp BP Pulse Ox 97.3 F 14 104/59 L 99 10/11/17 05:05 10/11/17 05:01 10/11/17 05:01 10/11/17 05:01 - Laboratory Result Diagrams: 10/11/17 01:55 10/11/17 01:55 Laboratory results interpreted by me: 10/11/17 10/11/17 01:55 01:55 Hgb 13.2 L RDW 14.6 H Chloride 109 H - EKG Interpretation by Me Additional EKG results interpreted by me: 10/11/17 01:43 EKG is reviewed and interpreted by me. EKG shows sinus rhythm with a rate of [address] segment changes. Patient does have occasional PAC. [place] interval, QRS duration, QTc intervals are within normal range. Old EKG for comparison is from September 01, 2017. Discharge - Discharge Clinical Impression: Chest tightness, Bronchitis Condition: Good Disposition: HOME, SELF-CARE Additional Instructions: Your EKG and cardiac enzymes did not show anyevidence of damage to your heart. I suspect the chest tightness you have is related to the wheezing you had. Please use the inhaler as 2 puffs every 4 hours as needed for wheezing. Please return to the ER immediately if you have difficulty breathing, chest pain, fevers, or feel that you are worsening. Prescriptions: Prednisone [Deltasone 20 mg Tablet] 2 tab PO DAILY 4 Days tablet
[2017-10-11] MEDS ORDERED: IPRATROPIUM/ALBUTEROL 0.5-2.5 MG/3 ML AMPUL NEB ONE (01:48)
[2017-10-11 02:13] LABS: ABSOLUTE BASOPHILS # (AUTO) 0.1 10^3/uL (0.0-0.2); ABSOLUTE EOSINOPHILS # (AUTO) 0.4 10^3/uL (0.0-0.6); ABSOLUTE LYMPHOCYTES (AUTO) 3.1 10^3/uL (0.5-4.7); ABSOLUTE MONOCYTES (AUTO) 0.8 10^3/uL (0.1-1.4); ABSOLUTE NEUT (AUTO) 4.2 10^3/uL (1.7-8.2); BASOPHILS % (AUTO) 1.1 % (0-2); EOSINOPHILS % (AUTO) 4.6 % (0-6); HEMATOCRIT 38.8 % (37.9-51.0); HEMOGLOBIN 13.2 g/dL (13.5-17.0); MEAN CORPUSCULAR HEMOGLOBIN 29.2 pg (27.0-33.4); MEAN CORPUSCULAR HGB CONC 34.1 g/dL (32.0-36.0); MEAN CORPUSCULAR VOLUME 86 fl (80-97); MONOCYTES % (AUTO) 9.5 % (3-13); PLATELET COUNT 237 10^3/uL (150-450); RED BLOOD COUNT 4.54 10^6/uL (4.35-5.55); RED CELL DISTRIBUTION WIDTH 14.6 % (11.5-14.0); SEGMENTED NEUTROPHILS % (AUTO) 48.8 % (42-78); TOTAL CELLS COUNTED % (AUTO) 100 %; WHITE BLOOD COUNT 8.7 10^3/uL (4.0-10.5)
[2017-10-11 02:23] LABS: ALANINE AMINOTRANSFERASE 29 U/L (21-72); ALBUMIN 3.8 g/dL (3.5-5.0); ALKALINE PHOSPHATASE 57 U/L (38-126); ANION GAP 8 (5-19); ASPARTATE AMINO TRANSFERASE 17 U/L (17-59); BILIRUBIN,DIRECT 0.3 mg/dL (0.0-0.4); BILIRUBIN,TOTAL 0.3 mg/dL (0.2-1.3); BLOOD UREA NITROGEN 13 mg/dL (7-20); CALCIUM 9.3 mg/dL (8.4-10.2); CARBON DIOXIDE 24 mmol/L (22-30); CHLORIDE 109 mmol/L (98-107); GLUCOSE 102 mg/dL (75-110); SODIUM 140.9 mmol/L (137-145); TOTAL PROTEIN 6.9 g/dL (6.3-8.2)
--- NOTE | 2017-10-11 02:36 | RADIOLOGY REPORT (SQ) ---
EXAM DESCRIPTION: CHEST SINGLE VIEW CLINICAL HISTORY: chest tightness COMPARISON: 09/01/2017 FINDINGS: Single frontal view of the chest. The cardiomediastinal silhouette has normal size and contour. No consolidation, pneumothorax, or pleural effusion. No acute osseous abnormalities. Leads overlie the chest. Upper abdominal soft tissues are unremarkable. IMPRESSION: 1. No acute pulmonary process identified.
[2017-10-11] MEDS ORDERED: ALBUTEROL SULFATE HFA (90 MCG/PUFF) 8 GM MDI (1 MDI/ER DISP) IH ONE (04:52)
[2017-10-11] MEDS ORDERED: PREDNISONE 20 MG TABLET PO ONE (04:52)
[2017-10-11 05:39] VITALS: BP 104/59
--- NOTE | 2017-10-11 09:13 | EKG REPORT ---
SEVERITY:- ABNORMAL ECG - SINUS RHYTHM MULTIPLE ATRIAL PREMATURE COMPLEXES : Confirmed by: Lars Call 11-Oct-2017 09:13:08
== END 2017-10-11 05:10 | disposition home or self-care (01) ==
LOC: ER 01:20
DX: J40 Bronchitis, not specified as acute or chronic (principal); R07.89 Other chest pain; R42 Dizziness and giddiness; Z91.013 Allergy to seafood
CPT/HCPCS: 93005; 94640; 99285; 36415; 85025; 80053; 84484; 71045; 93010; J7512; J3490; J7620

== ENCOUNTER 2018-01-22 01:35 | Emergency (ER) | payer SELFPAY ==
[2018-01-22] MEDS ORDERED: FAMOTIDINE 20 MG TABLET PO ONE (02:11)
[2018-01-22] MEDS ORDERED: LIDOCAINE 2% VISCOUS SOLN 20 ML UDCUP PO ONE (02:11)
[2018-01-22] MEDS ORDERED: MAG HYDROX/AL HYDROX/SIMETH SUSP 30 ML UDCUP PO ONE (02:11)
[2018-01-22] MEDS ORDERED: METOCLOPRAMIDE HCL ORAL SOLN 10 MG/10 ML UDCUP PO ONE (02:11)
[2018-01-22] MEDS ORDERED: OXYMETAZOLINE HCL 0.05% NASAL SPRAY 15 ML BOTTLE NASL ONE (02:26)
[2018-01-22] MEDS ORDERED: IPRATROPIUM/ALBUTEROL 0.5-2.5 MG/3 ML AMPUL NEB ONE (02:26)
[2018-01-22] MEDS ORDERED: CETIRIZINE 10 MG TABLET PO ONE (02:26)
[2018-01-22] MEDS ORDERED: ALBUTEROL SULFATE HFA (90 MCG/PUFF) 200 PUFF/8.5 GM MDI IH ONE (02:31)
--- NOTE | 2018-01-22 02:33 | ER Document Report ---
ED General - General Chief Complaint: Breathing Difficulty Stated Complaint: SHORTNESS OF BREATH Time Seen by Provider: 01/22/18 02:10 Notes: Patient is a 42-year-old male with medical history as recorded in nursing documentation who presents with several months of a feeling of choking each time he lies down at night to go to sleep. He states that he is fine for the day with the exception of persistent nasal congestion and frequent sneezing. He states however when he tries to lay down at night he feels like he is choking and cannot breathe. He describes this as a pressure or heaviness to his neck. Nothing improves or worsens the symptoms. He has not seen his primary doctor regarding today's concerns. He denies any chest pain or distinct shortness of breath. He denies any symptoms at the time of my assessment of the nasal congestion. TRAVEL OUTSIDE OF THE [place] IN LAST 30 DAYS: No - Related Data Allergies/Adverse Reactions: shellfish derived Allergy (Verified 08/31/17 23:42) Past Medical History - General Information source: Patient - Social History Smoking Status: Never Smoker Frequency of alcohol use: None Drug Abuse: None Lives with: Family Family History: Reviewed & Not Pertinent Pulmonary Medical History: Reports: Hx Asthma Neurological Medical History: Denies: Hx Seizures Renal/ Medical History: Denies: Hx Peritoneal Dialysis GI Medical History: Reports: Hx Diverticulitis Past Surgical History: Reports: Hx Tonsillectomy - Immunizations Hx Diphtheria, Pertussis, Tetanus Vaccination: No Review of Systems - Review of Systems Notes: Constitutional: Negative for fever. HENT: Positive for a sensation of choking or throat heaviness Eyes: Negative for visual changes. Cardiovascular: Negative for chest pain. Respiratory: Positive for shortness of breath. Gastrointestinal: Negative for abdominal pain, vomiting or diarrhea. Genitourinary: Negative for dysuria. Musculoskeletal: Negative for back pain. Skin: Negative for rash. Neurological: Negative for headaches, weakness or numbness. 10 point ROS negative except as marked above and in HPI. Physical Exam - Vital signs Vitals: Temp Pulse Resp BP Pulse Ox 97.6 F 67 18 113/74 95 01/22/18 01:56 01/22/18 01:56 01/22/18 01:56 01/22/18 01:56 01/22/18 01:56 Interpretation: Normal Notes: PHYSICAL EXAMINATION: GENERAL: Well-appearing, well-nourished and in no acute distress. HEAD: Atraumatic, normocephalic. EYES: Pupils equal round and reactive to light, extraocular movements intact, sclera anicteric, conjunctiva are normal. ENT: nares patent, oropharynx clear without exudates. Moist mucous membranes. Nasal congestion. NECK: Normal range of motion, supple without lymphadenopathy, high-pitched inspiratory wheezing on neck auscultation LUNGS: Breath sounds clear to auscultation bilaterally and equal. No wheezes rales or rhonchi. HEART: Regular rate and rhythm without murmurs ABDOMEN: Soft, nontender, normoactive bowel sounds. No guarding, no rebound. No masses appreciated. EXTREMITIES: Normal range of motion, no pitting or edema. No cyanosis. NEUROLOGICAL: No focal neurological deficits. Moves all extremities spontaneously and on command. PSYCH: Normal mood, normal affect. SKIN: Warm, Dry, normal turgor, no rashes or lesions noted. Course - Re-evaluation Re-evalutation: 01/22/18 02:31 Presentation is most consistent with allergic rhinitis with associated postnasal drip and a sensation of choking or throat discomfort with lying flat. On examination patient is well in appearance, denies any chest pain or shortness of breath contrary to triage assessment. EKG unchanged from prior. No indication for labs. Chest x-ray is clear. Patient has visible rhinorrhea and nasal congestion on examination. Lung examination is clear throughout the patient does have high-pitched inspiratory wheezing in the pharynx itself on neck auscultation. This does clear with vigorous coughing. Patient will be started on cetirizine nightly, has been sent home with an albuterol inhaler that he can use as needed for sensations of difficulty breathing or throat tightness. I do not clinically suspect an acute cardiac event, pulmonary embolus, pneumonia, epiglottitis, bacterial tracheitis or any other lymph any pathology based on the patient's well appearance, vitals, and a clinical history of this being a recurrent issue each time he goes to sleep for the past several months. At this time will discharge with return precautions and follow- up recommendations. Verbal discharge instructions given a the bedside and opportunity for questions given. Medication warnings reviewed. Patient is in agreement with this plan and has verbalized understanding of return precautions and the need for primary care follow-up in the next 24-72 hours. - Vital Signs Vital signs: Temp Pulse Resp BP Pulse Ox 97.6 F 67 18 113/74 95 01/22/18 01:56 01/22/18 01:56 01/22/18 01:56 01/22/18 01:56 01/22/18 01:56 - Diagnostic Test Radiology reviewed: Image reviewed, Reports reviewed Radiology results interpreted by me: 01/22/18 03:12 Chest x-ray: No acute infiltrate or pneumothorax - EKG Interpretation by Me Additional EKG results interpreted by me: 01/22/18 03:12 Sinus rhythm, rate 62. No ST elevations or depressions. Unchanged from prior. Discharge - Discharge Clinical Impression: Throat tightness, Nasal congestion with rhinorrhea, Postnasal drip Condition: Good Disposition: HOME, SELF-CARE Additional Instructions: Your symptoms appear to be most consistent with allergies with associated nasal congestion and postnasal drip. You did not have wheezing on examination, but there is some tightness in the air movement in your throat . Take cetirizine 10 mg daily which can be purchased [id number]. I would recommend that you take this every single night before going to bed. This medicine often takes 2-3 days to show significant effect. Your being sent home with an albuterol inhaler which he can use as needed for additional throat discomfort or feeling of shortness of breath.
--- NOTE | 2018-01-22 03:41 | RADIOLOGY REPORT (SQ) ---
EXAM DESCRIPTION: Single view of the chest CLINICAL HISTORY: SOB COMPARISON: None. FINDINGS: Single frontal view of the chest. The cardiomediastinal silhouette has normal size and contour. No consolidation, pneumothorax, or pleural effusion. No displaced rib fractures identified. Upper abdominal soft tissues are unremarkable. IMPRESSION: 1. No acute pulmonary process identified.
[2018-01-22 04:27] VITALS: BP 117/73
--- NOTE | 2018-01-22 12:52 | EKG REPORT ---
SEVERITY:- BORDERLINE ECG - SINUS RHYTHM BORDERLINE INFERIOR Q WAVES : Confirmed by: Joseph Jacobson MD 22-Jan-2018 12:52:37
== END 2018-01-22 04:21 | disposition home or self-care (01) ==
LOC: ER 01:35
DX: R09.81 Nasal congestion (principal); R09.89 Other specified symptoms and signs involving the circulatory and respiratory systems; R09.82 Postnasal drip; R06.02 Shortness of breath; J34.89 Other specified disorders of nose and nasal sinuses; R06.7 Sneezing; J45.909 Unspecified asthma, uncomplicated; Z91.013 Allergy to seafood
CPT/HCPCS: 93005; 94640; 99285; 71045; 93010; J3490 ×2; J7620

== ENCOUNTER 2019-03-20 01:01 | Emergency (ER) | payer OTHER ==
[2019-03-20 01:28] VITALS: BP 122/78
[2019-03-20] MEDS ORDERED: FAMOTIDINE 20 MG TABLET PO ONE (02:26)
--- NOTE | 2019-03-20 02:33 | ER Document Report ---
ED General - General Chief Complaint: Irregular Pulse Stated Complaint: RAPID HEART BEAT,DIZZINESS Time Seen by Provider: 03/20/19 02:12 TRAVEL OUTSIDE OF THE [place] IN LAST 30 DAYS: No - HPI Notes: Patient is a 43-year-old male that presents to the emergency department for chief complaint of choking and palpitations. Patient states he woke up from sleep about an hour ago and felt like he was choking. He states that has happened in the past and he has been diagnosed with acid reflux. He is not currently on medicine for acid reflux. He states he was feeling very nervous that he was choking and started to have palpitations. He denied any associated chest pain. Currently he is asymptomatic. He has not taken any medication at home prior to coming to the emergency room. Patient feels that he may have had a panic attack but denies known history of panic attacks. Past Medical History: Ulcerative colitis Past Surgical History: Reviewed in chart Social History: Denies drugs alcohol and tobacco Family History: Reviewed and noncontributory for presenting illness Allergies: Reviewed, see documented allergy list. REVIEW OF SYSTEMS: CONSTITUTIONAL : No fever No chills No diaphoresis No recent illness EENT: No vision changes No congestion No sore throat CARDIOVASCULAR: No chest pain palpitations RESPIRATORY: No shortness of breath No cough No difficulty breathing GASTROINTESTINAL: No abdominal pain No nausea No vomiting No diarrhea GENITOURINARY: No dysuria No hematuria No difficulty urinating MUSCULOSKELETAL: No back pain No leg pain No arm pain SKIN: No rashes No lesions LYMPHATIC: No swollen, enlarged glands. NEUROLOGICAL: No lightheadedness No headache No weakness No paresthesias PSYCHIATRIC: No anxiety No depression PHYSICAL EXAMINATION: Vital signs reviewed, nursing noted reviewed. GENERAL: Well-appearing, well-nourished and in no acute distress. HEAD: Atraumatic, normocephalic. EYES: Eyes appear normal, extraocular movements intact, sclera anicteric, conjunctiva are normal. ENT: nares patent, oropharynx clear without exudates. Moist mucous membranes. NECK: Normal range of motion, supple without lymphadenopathy LUNGS: Breath sounds clear to auscultation bilaterally and equal. No wheezes rales or rhonchi. HEART: Regular rate and rhythm without murmurs ABDOMEN: Protuberant, soft, nontender, normoactive bowel sounds. No rebound, guarding, or rigidity. No masses appreciated. EXTREMITIES: Nontender, good range of motion, no pitting or edema. NEUROLOGICAL: No focal neurological deficits. Moves all extremities spontaneously Motor and sensory grossly intact on exam. PSYCH: Normal mood, normal affect. SKIN: Warm, Dry, normal turgor, no rashes or lesions noted on exposed skin - Related Data Allergies/Adverse Reactions: shellfish derived Allergy (Verified 08/31/17 23:42) Past Medical History - Social History Smoking Status: Former Smoker Frequency of alcohol use: None Drug Abuse: None Family History: Reviewed & Not Pertinent Patient has suicidal ideation: No Patient has homicidal ideation: No Pulmonary Medical History: Reports: Hx Asthma Neurological Medical History: Denies: Hx Seizures Renal/ Medical History: Denies: Hx Peritoneal Dialysis GI Medical History: Reports: Hx Diverticulitis Past Surgical History: Reports: Hx Tonsillectomy - Immunizations Hx Diphtheria, Pertussis, Tetanus Vaccination: No Physical Exam - Vital signs Vitals: Temp Pulse Resp BP Pulse Ox 97.4 F 72 16 122/78 96 03/20/19 01:03/20/19 01:03/20/19 01:03/20/19 01:03/20/19 01:27 Course - Re-evaluation Re-evalutation: 03/20/19 02:31 Vitals reviewed. Nursing notes reviewed. EKG is unchanged from prior. He has no ectopy or ischemic changes. Patient has a history of acid reflux and has had similar choking episodes when lying flat in the past. He will be started on omeprazole. He did eat a large spaghetti dinner last night which was likely exacerbating the symptoms. He then was worried about his choking and experience palpitations. He did not have any chest pain. I am not suspicious of acute ACS. Currently he is asymptomatic. He is PERC negative and PE is also not clinically suspected. Patient advised to monitor his diet, sleep elevated intake of omeprazole. He will follow with his PCP for reevaluation. He is requesting referral for sleep apnea testing and will be given Dr. Call's number to discuss the need for sleep study. - Vital Signs Vital signs: Temp Pulse Resp BP Pulse Ox 97.4 F 72 16 122/78 96 03/20/19 01:27 03/20/19 01:03/20/19 01:03/20/19 01:27 03/20/19 01:27 - EKG Interpretation by Me Additional EKG results interpreted by me: 03/20/19 02:33 Interpreted by myself [id number]: Normal sinus rhythm, rate 64, normal axis, no ectopy, no WPW Wellens or Brugada, unchanged from 01/22/18 Discharge - Discharge Clinical Impression: Palpitations Condition: Stable Disposition: HOME, SELF-CARE Instructions: Palpitations (Irregular or Rapid Heartrate) ([facility]), Panic Attack ([facility]), Reflux Disease (GERD) ([facility]) Additional Instructions: Please return to the emergency department if you have any worsening, or concern of your symptoms. Please return to the emergency department if you develop chest pain, difficulty breathing, severe abdominal pain, or ongoing vomiting. Please follow-up with your primary care physician in 2-3 days and any other recommended physicians. If prescribed, take all medications as directed. If you have any questions or concerns do not hesitate to return the emergency department for evaluation. [] Prescriptions: Omeprazole 40 mg PO DAILY #30 capsule.
--- NOTE | 2019-03-20 07:38 | EKG REPORT ---
SEVERITY:- NORMAL ECG - SINUS RHYTHM : Confirmed by: Joseph Jacobson MD 20-Mar-2019 07:37:08
== END 2019-03-20 03:09 | disposition home or self-care (01) ==
LOC: ER 01:01
DX: R00.2 Palpitations (principal); R09.89 Other specified symptoms and signs involving the circulatory and respiratory systems; Z91.013 Allergy to seafood
CPT/HCPCS: 93005; 93010; 99284

== ENCOUNTER 2019-06-02 11:20 | Emergency (ER) | payer OTHER ==
[2019-06-02 11:25] VITALS: BP 127/79
[2019-06-02] MEDS ORDERED: LIDOCAINE 2% VISCOUS SOLN 20 ML UDCUP PO ONE (12:06)
[2019-06-02] MEDS ORDERED: KETOROLAC TROMETHAMINE 60 MG/2 ML SDV IM ONE (12:06)
[2019-06-02] MEDS ORDERED: CIPROFLOXACIN HCL/DEXAMETH OTIC DROP 7.5 ML AS ONE (12:06)
--- NOTE | 2019-06-02 12:11 | ER Document Report ---
HPI - HPI Time Seen by Provider: 06/02/19 12:03 Notes: Patient is a 44-year-old male with no significant past medical history aside from ulcerative colitis who presents complaining of right ear pain and right tooth pain to #32 that began last night. Patient states he has noticed some swelling to the right side of his face since then. Pain does not radiate. He is able to eat and drink without difficulty, but does have a decreased p.o. intake. He is urinating normally and having normal bowel movements. No other concerns or complaints. Denies any headache, fever, neck pain, changes in vision/speech/mentation/hearing, URI, sore throat, chest pain, palpitations, syncope, cough, shortness of breath, wheeze, dyspnea, abdominal pain, nausea/vomiting/diarrhea, urinary retention, dysuria, hematuria, dizziness, tinnitus, or rash. - ROS Systems Reviewed and Negative: Yes All other systems reviewed and negative - REPRODUCTIVE Reproductive: DENIES: : Past Medical History - Social History Smoking Status: Unknown if Ever Smoked Family History: Reviewed & Not Pertinent Pulmonary Medical History: Reports: Hx Asthma Neurological Medical History: Denies: Hx Seizures Renal/ Medical History: Denies: Hx Peritoneal Dialysis GI Medical History: Reports: Hx Diverticulitis Past Surgical History: Reports: Hx Tonsillectomy - Immunizations Hx Diphtheria, Pertussis, Tetanus Vaccination: No Vertical Provider Document - CONSTITUTIONAL Agree With Documented VS: Yes Notes: PHYSICAL EXAMINATION: GENERAL: Well-appearing, well-nourished and in no acute distress. A&Ox4. Answers questions appropriately. Moves comfortably w/o notable distress HEAD: Atraumatic, normocephalic. EYES: Pupils equal round and reactive to light, extraocular movements intact, sclera anicteric, conjunctiva are normal. ENT: Rt EAC tender, scant discharge w/moderate swelling/occlusion. Lt EAC wnl. + Tenderness to tragus rt. No mastoid tenderness bilaterally. TM's intact b/l without erythema, fluid, or perforation. Nares patent and without discharge. oropharynx no erythema without exudates. No tonsilar hypertrophy without erythema or exudate. No palatine shift. Uvula midline. No tongue protrusion. No drooling, hoarseness, or airway compromise. Moist mucous membranes. No sinus tenderness. Mouth: Poor dentition. + severe decay and mild gingivitis #32. No obvious abscess or discharge noted. + mild rt facial swelling. + tenderness to tooth #32. NECK: Normal range of motion, supple without lymphadenopathy. No rigidity/meningismus. LUNGS: Breath sounds clear to auscultation bilaterally and equal. No wheezes rales or rhonchi. No retractions HEART: Regular rate and rhythm without murmurs, rubs, gallops. NEUROLOGICAL: Normal speech, normal gait. PSYCH: Normal mood, normal affect. SKIN: Warm, Dry, normal turgor, no rashes or lesions noted. - INFECTION CONTROL TRAVEL OUTSIDE OF THE [place] IN LAST 30 DAYS: No Course - Re-evaluation Re-evalutation: 06/02/19 12:09 Patient is an afebrile, well-hydrated, 44-year-old male who presents to the ED with Rt acute otitis externa and dental pain, suspect nerve root etiology versus infection. Vitals are acceptable. PE is otherwise unremarkable. Ear wick was placed and Ciprodex applied. Patient was given Toradol. No I&D, labs, or imaging warranted at this time based on H&P. Viscous lidocaine dispensed today. I will send him home with a prescription for cleocin and motrin 800's. Low suspicion for any meningitis, sepsis, peritonsillar/pharyngeal abscess, respiratory compromise, Kishore's, temporal arteritis, mastoiditis, or other emergent systemic condition at this time. Patient is aware this condition can change from initial presentation and he needs to monitor symptoms closely. Conservative measures otherwise for symptoms. Call to schedule an appointment with a dentist for further evaluation and management. Recheck with your PCM this week as well. Return to the ED with any worsening/concerning symptoms otherwise as reviewed in discharge. Patient is in agreement. - Vital Signs Vital signs: Temp Pulse Resp BP Pulse Ox 98.7 F 77 18 127/79 H 97 06/02/19 11:24 06/02/19 11:24 06/02/19 11:24 06/02/19 11:24 06/02/19 11:24 Procedures - Additional Procedures ear wick placement Additional Procedures: Other - Ear wick placed successfully without any complications and Xopenex applied to the right ear. Discharge - Discharge Clinical Impression: Pain, dental Acute otitis externa of right ear Qualifiers: Otitis externa type: unspecified type Qualified Code(s): H60.501 - Unspecified acute noninfective otitis externa, right ear Condition: Stable Disposition: HOME, SELF-CARE Instructions: Using Ear Drops with a Wick ([facility]), Otitis Externa ([facility]), Toothache ([facility]), Clindamycin ([facility]) Additional Instructions: Keno and floss twice daily Keep ears clean and avoid use of Q-tips Avoid any swimming or submersion under any water Maintain fluid intake Take antibiotics as directed Mouthwash, salt water gargles, peroxide rinse as needed Tylenol/ibuprofen as needed Recheck with PCM this week Consider consult with ENT Call today/tomorrow and schedule an appointment with your dentist for further evaluation Return to the ED with any worsening symptoms and/or development of fever, headache, facial swelling, swelling of lips/tongue/throat, trouble swallowing, drooling, hoarseness, neck pain/stiffness, chest pain, palpitations, syncope, shortness of breath, trouble breathing, abdominal pain, n/v/d, numbness/tingling, or other worsening symptoms that are concerning to you. Prescriptions: Clindamycin HCl [Cleocin 300 mg Capsule] 300 mg PO TID #30 capsule Ibuprofen [Motrin 800 mg Tablet] 800 mg PO Q8H PRN #15 tab PRN Reason: Forms: Elevated Blood Pressure Referrals: ALEA ARMANDO FNP-C [Primary Care Provider] - Follow up as needed [facility] [Provider Group] - Follow up as needed GREG MORENO DO [ASSOCIATE] - Follow up as needed
== END 2019-06-02 12:41 | disposition home or self-care (01) ==
LOC: ER 11:20
DX: H60.501 Unspecified acute noninfective otitis externa, right ear (principal); K08.89 Other specified disorders of teeth and supporting structures; H92.01 Otalgia, right ear; R63.0 Anorexia; J45.909 Unspecified asthma, uncomplicated
CPT/HCPCS: 99282; 96372; J1885; J3490 ×2

== ENCOUNTER 2019-06-05 05:16 | Emergency (ER) | payer SELFPAY ==
--- NOTE | 2019-06-05 05:41 | ER Document Report ---
HPI - HPI Time Seen by Provider: 06/05/19 05:33 Pain Level: 5 Context: Patient is a 44-year-old male that comes emergency department for chief complaint of waking up and feeling like he could not pass anything on his throat, he states he felt like he was choking, he states that he panicked and started coughing persistently. He states that after this he is still congested and he still has a cough but he does not feel the choking sensation. He does report sore throat. He states that during the day he was running fevers. He denies difficulty swallowing or breathing at this time. Denies chest pain or shortness of breath. He states that about 3 days ago he was started on Ciprodex for a right otitis externa and he is on clindamycin for his teeth. He denies smoking, alcohol, recreational drugs, or any diagnosed medical problems. - REPRODUCTIVE Reproductive: DENIES: : Past Medical History - General Information source: Patient - Social History Smoking Status: Never Smoker Frequency of alcohol use: None Drug Abuse: None Lives with: Family Family History: Reviewed & Not Pertinent Patient has suicidal ideation: No Patient has homicidal ideation: No Pulmonary Medical History: Reports: Hx Asthma Neurological Medical History: Denies: Hx Seizures Renal/ Medical History: Denies: Hx Peritoneal Dialysis GI Medical History: Reports: Hx Diverticulitis Past Surgical History: Reports: Hx Tonsillectomy - Immunizations Hx Diphtheria, Pertussis, Tetanus Vaccination: No Vertical Provider Document - CONSTITUTIONAL General Appearance: WD/WN, No Apparent Distress - INFECTION CONTROL TRAVEL OUTSIDE OF THE [place] IN LAST 30 DAYS: No - HEENT HEENT: Atraumatic, Normocephalic. negative: Normal ENT Exam - Sinus congestion with postnasal drainage noted in the oropharyngeal exam with minimal irritation of the tonsils but no significant swelling of the posterior pharynx. Tongue unremarkable, left ear unremarkable, right ear with apparent recovering otitis externa with tenderness over the tragus and erythema but not swelling of the ear canal. Tympanic membranes unremarkable. Eyes unremarkable. Sinuses nontender. Turbinates swollen in the nasal passages with some rhinorrhea and frequent sniffing. - NECK Neck: Normal Inspection. negative: Lymphadenopathy-Left, Lymphadenopathy-Right - RESPIRATORY Respiratory: Breath Sounds Normal, No Respiratory Distress, Other - Occasional coughing episodes - CARDIOVASCULAR Cardiovascular: Regular Rate, Regular Rhythm - GI/ABDOMEN Gastrointestinal: Abdomen Soft, Abdomen Non-Tender - BACK Back: Normal Inspection - MUSCULOSKELETAL/EXTREMETIES Musculoskeletal/Extremeties: MAEW, FROM, Non-Tender - NEURO Level of Consciousness: Awake, Alert, Appropriate - DERM Integumentary: Warm, Dry, No Rash Course - Re-evaluation Re-evalutation: Patient still is recovering from right-sided otitis media. He is still on clindamycin and does not have signs of oral abscess. No facial swelling. He is congested with postnasal drainage, nasal congestion, no sinus tenderness. Patient with occasional coughing episodes. No hypoxia. Clear lung sounds. Chest x-ray is unremarkable. Appears to be viral upper respiratory infection. Discussed options with patient. Patient treated with dexamethasone for the pharyngeal swelling/tenderness, d iscussed symptomatic management otherwise, discussed follow-up and return precautions. Patient states understanding and agreement. Stable time of discharge. - Vital Signs Vital signs: Temp Pulse Resp BP Pulse Ox 97.9 F 76 16 122/82 98 06/05/19 05:20 06/05/19 05:20 06/05/19 05:20 06/05/19 05:20 06/05/19 05:20 Discharge - Discharge Clinical Impression: Sinus congestion, Cough Pharyngitis Qualifiers: Pharyngitis/tonsillitis etiology: unspecified etiology Qualified Code(s): J02.9 - Acute pharyngitis, unspecified Condition: Stable Disposition: HOME, SELF-CARE Additional Instructions: Your chest x-ray is negative. Continue the clindamycin. It appears you are developing a viral upper respiratory infection. I recommend the Sudafed decongestant, Flonase nasal spray, and at night 25 to 50 mg of [id number] diphenhydramine to reduce nasal drainage and help you sleep. You have also been treated to help reduce the swelling and irritation in your throat. Rest, drink plenty fluids, take Tylenol or ibuprofen for body aches and chills. Follow-up with primary care. Return for any concerning or worsening symptoms including spiking fever, difficulty breathing, vomiting, severe headache, or any other concerning or worsening symptoms. Prescriptions: Fluticasone Propionate [Flonase Nasal Doran 50 Mcg/Doran 16 gm] 2 sprays NASL Q12 #1 inhaler Pseudoephedrine HCl [Sudafed 12 Hour] 120 mg PO Q12 PRN #14 tablet.er PRN Reason: Forms: Return to Work Referrals: ALEA ARMANDO, [employer] [Primary Care Provider] - Follow up as needed
--- NOTE | 2019-06-05 06:50 | RADIOLOGY REPORT (SQ) ---
EXAM DESCRIPTION: XR CHEST 2 VIEWS COMPLETED DATE/TME: 06/05/2019 05:40 CLINICAL HISTORY: cough, fevers COMPARISON: 01/22/2018 FINDINGS: Frontal and lateral views of the chest. Cardiomediastinal silhouette: Normal size and contour. Lungs: No consolidation, pneumothorax, or pleural effusion. Low lung volumes. Bones: No acute osseous abnormality. Upper abdomen: No abnormality identified. IMPRESSION: 1. No acute pulmonary process identified.
[2019-06-05] MEDS ORDERED: DEXAMETHASONE SOD PHOS INJ 10 MG/1 ML VIAL IM ONE (07:02)
[2019-06-05 07:36] VITALS: BP 121/73
== END 2019-06-05 07:37 | disposition home or self-care (01) ==
LOC: ER 05:16
DX: J02.9 Acute pharyngitis, unspecified (principal); R09.81 Nasal congestion; R05 Cough; R13.10 Dysphagia, unspecified; J45.909 Unspecified asthma, uncomplicated
CPT/HCPCS: 71046; J1100

== ENCOUNTER 2019-09-06 04:27 | Emergency (ER) | payer SELFPAY ==
[2019-09-06 04:41] VITALS: BP 128/82
[2019-09-06 05:34] LABS: ABSOLUTE BASOPHILS # (AUTO) 0.1 10^3/uL (0.0-0.2); ABSOLUTE EOSINOPHILS # (AUTO) 0.5 10^3/uL (0.0-0.6); ABSOLUTE LYMPHOCYTES (AUTO) 2.3 10^3/uL (0.5-4.7); ABSOLUTE MONOCYTES (AUTO) 0.8 10^3/uL (0.1-1.4); ABSOLUTE NEUT (AUTO) 5.1 10^3/uL (1.7-8.2); BASOPHILS % (AUTO) 0.9 % (0-2); EOSINOPHILS % (AUTO) 5.3 % (0-6); HEMATOCRIT 41.5 % (37.9-51.0); HEMOGLOBIN 14.2 g/dL (13.5-17.0); LYMPHOCYTES % (AUTO) 26.1 % (13-45); MEAN CORPUSCULAR HEMOGLOBIN 30.2 pg (27.0-33.4); MEAN CORPUSCULAR HGB CONC 34.3 g/dL (32.0-36.0); MEAN CORPUSCULAR VOLUME 88 fl (80-97); MONOCYTES % (AUTO) 9.2 % (3-13); PLATELET COUNT 271 10^3/uL (150-450); RED CELL DISTRIBUTION WIDTH 13.9 % (11.5-14.0); SEGMENTED NEUTROPHILS % (AUTO) 58.5 % (42-78); TOTAL CELLS COUNTED % (AUTO) 100 %; WHITE BLOOD COUNT 8.7 10^3/uL (4.0-10.5)
[2019-09-06 05:43] LABS: ALBUMIN 4.4 g/dL (3.5-5.0); ALKALINE PHOSPHATASE 87 U/L (38-126); ANION GAP 11 (5-19); ASPARTATE AMINO TRANSFERASE 28 U/L (17-59); BILIRUBIN,DIRECT 0.2 mg/dL (0.0-0.4); BILIRUBIN,TOTAL 0.5 mg/dL (0.2-1.3); BLOOD UREA NITROGEN 15 mg/dL (7-20); CALCIUM 9.3 mg/dL (8.4-10.2); CARBON DIOXIDE 24 mmol/L (22-30); CHLORIDE 106 mmol/L (98-107); GLUCOSE 109 mg/dL (75-110); POTASSIUM 4.4 mmol/L (3.6-5.0); TOTAL PROTEIN 8.3 g/dL (6.3-8.2)
[2019-09-06 05:55] LABS: CREATINE KINASE MB 0.74 ng/mL (<4.55)
[2019-09-06 06:01] LABS: TROPONIN I < 0.012 ng/mL
--- NOTE | 2019-09-06 07:03 | RADIOLOGY REPORT (SQ) ---
Chest single view on 09/06/2019 at 5:10 AM CLINICAL INDICATION: Shortness of breath COMPARISON: 06/05/2019 FINDINGS: The lungs are clear. Cardiac, hilar and mediastinal contours are within normal limits. Pulmonary vascularity is within normal limits. No bony abnormality is noted. IMPRESSION: No active disease.
[2019-09-06 07:14] LABS: APPEARANCE,URINE CLEAR; BILIRUBIN,URINE NEGATIVE (NEGATIVE); COLOR,URINE YELLOW; GLUCOSE, URINE NEGATIVE (NEGATIVE); KETONES,URINE NEGATIVE (NEGATIVE); LEUKOCYTE ESTERASE,URINE NEGATIVE (NEGATIVE); NITRITE,URINE NEGATIVE (NEGATIVE); PROTEIN,URINE NEGATIVE (NEGATIVE); URINE SPECIFIC GRAVITY 1.024
--- NOTE | 2019-09-07 08:22 | EKG REPORT ---
SEVERITY:- NORMAL ECG - SINUS RHYTHM : Confirmed by: Joseph Jacobson MD 07-Sep-2019 08:20:53
== END 2019-09-06 07:18 | disposition left against medical advice (07) ==
LOC: ER 04:27
DX: Z53.21 Procedure and treatment not carried out due to patient leaving prior to being seen by health care provider (principal); R06.02 Shortness of breath
CPT/HCPCS: 36415; 71045; 80053; 81001; 82553; 84484; 85025; 93005; 93010

== ENCOUNTER 2020-02-09 18:43 | Emergency (ER) | payer OTHER ==
[2020-02-09 19:29] LABS: ALBUMIN 4.5 g/dL (3.5-5.0); ALKALINE PHOSPHATASE 91 U/L (38-126); ANION GAP 9 (5-19); ASPARTATE AMINO TRANSFERASE 34 U/L (17-59); BILIRUBIN,DIRECT 0.1 mg/dL (0.0-0.4); BILIRUBIN,TOTAL 0.6 mg/dL (0.2-1.3); BLOOD UREA NITROGEN 17 mg/dL (7-20); CALCIUM 9.4 mg/dL (8.4-10.2); CARBON DIOXIDE 25 mmol/L (22-30); CHLORIDE 104 mmol/L (98-107); CREATINE KINASE 221 U/L (55-170); GLUCOSE 103 mg/dL (75-110); POTASSIUM 4.4 mmol/L (3.6-5.0); TOTAL PROTEIN 8.6 g/dL (6.3-8.2)
[2020-02-09 19:39] LABS: CREATINE KINASE MB 0.62 ng/mL (<4.55)
[2020-02-09 19:44] LABS: TROPONIN I < 0.012 ng/mL
[2020-02-09 20:00] LABS: APPEARANCE,URINE CLEAR; BILIRUBIN,URINE NEGATIVE (NEGATIVE); COLOR,URINE YELLOW; GLUCOSE, URINE NEGATIVE (NEGATIVE); KETONES,URINE NEGATIVE (NEGATIVE); LEUKOCYTE ESTERASE,URINE NEGATIVE (NEGATIVE); NITRITE,URINE NEGATIVE (NEGATIVE); PROTEIN,URINE NEGATIVE (NEGATIVE); URINE SPECIFIC GRAVITY 1.024; UROBILINOGEN,URINE NEGATIVE mg/dL (<2.0)
[2020-02-09 20:23] LABS: ABSOLUTE BASOPHILS # (AUTO) 0.1 10^3/uL (0.0-0.2); ABSOLUTE EOSINOPHILS # (AUTO) 0.4 10^3/uL (0.0-0.6); ABSOLUTE LYMPHOCYTES (AUTO) 1.9 10^3/uL (0.5-4.7); ABSOLUTE MONOCYTES (AUTO) 0.8 10^3/uL (0.1-1.4); ABSOLUTE NEUT (AUTO) 5.6 10^3/uL (1.7-8.2); EOSINOPHILS % (AUTO) 4.2 % (0-6); HEMOGLOBIN 13.9 g/dL (13.5-17.0); LYMPHOCYTES % (AUTO) 21.3 % (13-45); MEAN CORPUSCULAR HEMOGLOBIN 30.6 pg (27.0-33.4); MEAN CORPUSCULAR HGB CONC 34.8 g/dL (32.0-36.0); MEAN CORPUSCULAR VOLUME 88 fl (80-97); MONOCYTES % (AUTO) 9.3 % (3-13); PLATELET COUNT 260 10^3/uL (150-450); RED BLOOD COUNT 4.55 10^6/uL (4.35-5.55); RED CELL DISTRIBUTION WIDTH 14.1 % (11.5-14.0); SEGMENTED NEUTROPHILS % (AUTO) 64.2 % (42-78); TOTAL CELLS COUNTED % (AUTO) 100 %; WHITE BLOOD COUNT 8.7 10^3/uL (4.0-10.5)
[2020-02-09 21:06] LABS: URINE AMPHETAMINES SCREEN NEGATIVE; URINE BARBITURATES SCREEN NEGATIVE; URINE BENZODIAZEPINES SCREEN NEGATIVE; URINE COCAINE SCREEN NEGATIVE; URINE MARIJUANA (THC) SCREEN NEGATIVE; URINE METHADONE SCREEN NEGATIVE; URINE PHENCYCLIDINE SCREEN NEGATIVE
--- NOTE | 2020-02-09 21:27 | ER Document Report ---
ED General - General Chief Complaint: Near Syncope Stated Complaint: NEAR SYNCOPE Time Seen by Provider: 02/09/20 19:20 Primary Care Provider: HEIDI VERA PA-C [Primary Care Provider] - Follow up as needed TRAVEL OUTSIDE OF THE [place] IN LAST 30 DAYS: No - Related Data Allergies/Adverse Reactions: shellfish derived Allergy (Verified 02/09/20 19:09) Past Medical History - Social History Smoking Status: Never Smoker Family History: Reviewed & Not Pertinent Patient has homicidal ideation: No Pulmonary Medical History: Reports: Hx Asthma Neurological Medical History: Denies: Hx Seizures Renal/ Medical History: Denies: Hx Peritoneal Dialysis GI Medical History: Reports: Hx Diverticulitis Past Surgical History: Reports: Hx Tonsillectomy - Immunizations Hx Diphtheria, Pertussis, Tetanus Vaccination: No Physical Exam - Vital signs Vitals: Temp Pulse Resp BP Pulse Ox 98.1 F 86 18 143/87 H 98 02/09/20 18:48 02/09/20 18:48 02/09/20 18:48 02/09/20 18:48 02/09/20 18:48 Course - Re-evaluation Re-evalutation: 02/09/20 21:25 Patient is a rather anxious man who came in concerned about symptoms possibly consistent with orthostatic hypotension. He was not significantly orthostatic here. I note however that he started hydroxyzine and bupropion recently within the past 5 days. His lab evaluation here tonight is all normal. Urine tox screen was negative. I explained to him that I think his symptoms will likely be attributable to the new prescription medications. I suggested that he hold these until he can be seen by his primary care doctor. He says he already has an appointment for tomorrow. - Vital Signs Vital signs: Temp Pulse Resp BP Pulse Ox 98.1 F 76 36 H 117/73 97 02/09/20 19:04 02/09/20 19:25 02/09/20 19:01 02/09/20 19:25 02/09/20 19:01 - Laboratory Result Diagrams: 02/09/20 20:05 02/09/20 19:00 Laboratory results interpreted by me: 02/09/20 02/09/20 19:00 20:05 RDW 14.1 H Creatine Kinase 221 H Total Protein 8.6 H Discharge - Discharge Clinical Impression: Pre-syncope Condition: Stable Disposition: HOME, SELF-CARE Additional Instructions: Hold medications tonight as directed. See your doctor tomorrow for follow-up. Return here as needed for new or worsening symptoms. Referrals: HEIDI VERA PA-C [Primary Care Provider] - Follow up as needed
[2020-02-09 21:55] VITALS: BP 111/81
--- NOTE | 2020-02-09 23:22 | EKG REPORT ---
SEVERITY:- NORMAL ECG - SINUS RHYTHM : Confirmed by: Lars Call 09-Feb-2020 23:21:53
== END 2020-02-09 21:55 | disposition home or self-care (01) ==
LOC: ER 18:43
DX: R55 Syncope and collapse (principal); J45.909 Unspecified asthma, uncomplicated; Z91.013 Allergy to seafood
CPT/HCPCS: 36415; 80053; 80307; 81001; 82550; 82553; 84484; 85025; 93005; 93010; 99284